=== PATIENT | male | born 1955 | race Caucasian/White ===

== ENCOUNTER 2017-01-04 18:27 | Inpatient (IN) | payer OTHER ==
[~2017-01-04] VITALS: Ht 167.6 cm; Wt 75.5 kg
[2017-01-04 18:57] VITALS: Ht 167.6 cm; Wt 75.5 kg
[2017-01-05] MEDS ORDERED: PIPER-TAZO 3.375 GM IV (PMX) 100 ML IVPB STA (01:54)
[2017-01-05] MEDS ORDERED: SODIUM CHLORIDE 0.9% 1L BAG IV* STA (01:54)
[2017-01-05] MEDS ORDERED: VANCOMYCIN 1 GM (PMX) 250 ML IVPB ONE (02:00)
[2017-01-05] MEDS ORDERED: morphine 2 MG INJ IV ONE (02:09)
--- NOTE | 2017-01-05 02:30 | RADRPT ---
PROCEDURE: XR Foot. CLINICAL INDICATION: Pain TECHNIQUE: AP, lateral and oblique views of the right foot was obtained. The images were reviewed on a PACS workstation. COMPARISON: None. FINDINGS: The bones of the foot appear intact, with no evidence of fracture, dislocation, or subluxation. Old fracture deformity is likely present in the distal right tibia and fibula. Demineralization limits evaluation of fine osseous detail.. No significant soft tissue swelling is seen. Soft tissue vascular calcifications. IMPRESSION: No acute fracture or dislocation. RPTAT: [facility] Physician Preethi Date Time Electronically viewed and signed by Physician Preethi on 01/05/2017 02:30 RS/
[2017-01-05 02:46] LABS: BASOPHILS % 0.3 % (0.0-2.0); CONDITION 1; EOSINOPHILS # 0.1 10^3/ul (0.0-0.5); EOSINOPHILS % 0.4 % (0.0-7.0); HEMATOCRIT 33.5 % (42.0-52.0); HEMOGLOBIN 11.5 g/dl (14.0-18.0); LYMPHOCYTES # 1.6 10^3/ul (0.8-2.9); LYMPHOCYTES % 10.7 % (15.0-51.0); MEAN CORPUSCULAR HEMOGLOBIN 35.9 pg (29.0-33.0); MEAN CORPUSCULAR HGB CONC 34.3 g/dl (32.0-37.0); MEAN CORPUSCULAR VOLUME 104.7 fl (82.0-101.0); MEAN PLATELET VOLUME 8.7 fl (7.4-10.4); MONOCYTE # 2.2 10^3/ul (0.3-0.9); MONOCYTES % 14.4 % (0.0-11.0); NEUTROPHIL # 11.4 10^3/ul (1.6-7.5); NEUTROPHILS % 74.2 % (39.0-77.0); PLATELET COUNT 199 10^3/UL (140-440); RED CELL DISTRIBUTION WIDTH 14.8 % (11.5-14.5); UNCORRECTED WBC 15.3 10^3/ul (4.8-10.8); WHITE BLOOD COUNT 15.3 10^3/ul (4.8-10.8)
[2017-01-05 02:47] LABS: LH ANALYZER COMMENTS 1
[2017-01-05 02:57] LABS: ALBUMIN 3.5 g/dl (3.3-4.9); POTASSIUM 3.8 mmol/L (3.5-5.1)
[2017-01-05 02:58] LABS: INR 1.27; PT RATIO 1.3
[2017-01-05 02:59] LABS: BILIRUBIN,INDIRECT 0.8 mg/dl (0-1.1); BILIRUBIN,TOTAL 0.8 mg/dl (0.2-1.3); CREATININE 1.14 mg/dl (0.61-1.24); PARTIAL THROMBOPLASTIN TIME 39.4 Sec (25.0-35.0)
[2017-01-05 03:00] LABS: ALBUMIN/GLOBULIN RATIO 0.66; CALCIUM 9.3 mg/dl (8.4-10.2); TOTAL PROTEIN 8.8 g/dl (6.1-8.1)
[2017-01-05] MEDS ORDERED: ONDANSETRON 4 MG INJ IV PRN (04:30)
[2017-01-05] MEDS ORDERED: ACETAMINOPHEN 325 MG TAB PO PRN (04:30)
--- NOTE | 2017-01-05 04:40 | ERA ---
ER Documentation Chief Complaint Date/Time DATE: 01/05/17 TIME: 04:32 Chief Complaint right leg swelling with redness and swelling of right foot HPI This 61-year-old male was brought in for severe right foot pain and swelling going on progressively for the last week or so. Has been told that he has mild diabetes previously by his doctor. The patient and his family member do not remember any specific puncture wound or trauma. Patient has been feeling chills at any quantitative fevers. Pain is made worse by walking. Patient has also not been eating for the last few days and has been drinking alcohol. Denies abdominal pain. Patient is deaf but his significant other is able to communicate for proper history. ROS All systems reviewed and are negative except as per history of present illness. Allergies Allergies: Coded Allergies: No Known Allergy (Unverified , 01/04/17) PMhx/Soc Medical and Surgical Hx: pt denies Medical Hx History of Surgery: Yes (ear sx when he was a child) Hx Alcohol Use: Yes (2-3 liters daily) Hx Substance Use: No Hx Tobacco Use: No Smoking Status: Never smoker Physical Exam Vitals Vital Signs Date Time Temp Pulse Resp B/P Pulse Ox O2 Delivery O2 Flow Rate FiO2 01/05/17 03:11 99.8 82 20 121/75 98 Room Air 01/04/17 18:57 100.1 89 20 206/96 99 Physical Exam Const: [] No acute distress Head: Atraumatic Eyes: Normal Conjunctiva ENT: Normal External Ears, Nose and Mouth. Neck: Full range of motion..~ No meningismus. Resp: Clear to auscultation bilaterally Cardio: Regular rate and rhythm, no murmurs Abd: Soft, non tender, non distended. Normal bowel sounds Skin: No petechiae or rashes Back: No midline or flank tenderness Ext: No cyanosis, dorsalis pedis pulses intact. Significant swelling, erythema, calor of right lower extremity with significant swelling and tenderness of the foot, also has swelling and tenderness of the lower leg which is circumferential. Neur: Awake and alert and oriented 3, no focal deficits Psych: Normal Mood and Affect Result Diagram: 01/05/17 02201/05/17 022 Results 24 hrs Laboratory Tests Test 01/05/17 02:20 Activated Partial Thromboplast Time 39.4Sec Alanine Aminotransferase (ALT/SGPT) 32IU/L Albumin 3.5g/dl Albumin/Globulin Ratio 0.66 Alkaline Phosphatase 131IU/L Anion Gap 18 Aspartate Amino Transf (AST/SGOT) 67IU/L Basophils # 0.010^3/ul Basophils % 0.3% Blood Morphology Comment Blood Urea Nitrogen 24mg/dl Calcium Level 9.3mg/dl Carbon Dioxide Level 25mmol/L Chloride Level 97mmol/L Creatinine 1.14mg/dl Direct Bilirubin 0.00mg/dl Eosinophils # 0.110^3/ul Eosinophils % 0.4% Globulin 5.30g/dl Glucose Level 188mg/dl Hematocrit 33.5% Hemoglobin 11.5g/dl INR International Normalized Ratio 1.27 Indirect Bilirubin 0.8mg/dl Lactic Acid Level 2.2mmol/L Lymphocytes # 1.610^3/ul Lymphocytes % 10.7% Mean Corpuscular Hemoglobin 35.9pg Mean Corpuscular Hemoglobin Concent 34.3g/dl Mean Corpuscular Volume 104.7fl Mean Platelet Volume 8.7fl Monocytes # 2.210^3/ul Monocytes % 14.4% Neutrophils # 11.410^3/ul Neutrophils % 74.2% Nucleated Red Blood Cells # 0.010^3/ul Nucleated Red Blood Cells % 0.0/100WBC Platelet Count 10433^3/UL Potassium Level 3.8mmol/L Prothrombin Time 16.0Sec Prothrombin Time Ratio 1.3 Red Blood Count 3.2010^6/ul Red Cell Distribution Width 14.8% Sodium Level 136mmol/L Total Bilirubin 0.8mg/dl Total Protein 8.8g/dl White Blood Count 15.310^3/ul Current Medications Medications (Trade) Dose Ordered Sig/Lucy Route PRN Reason Start Time Stop Time Status Last Admin Dose Admin Sodium Chloride 2340 ml 2,340 ml BOLUS OVER 2 HOURS STAT IV* 01/05/17 01:54 01/05/17 02:00 DC 01/05/17 02:26 Vancomycin HCl 250 ml @ 125 mls/hr ONCE ONCE IVPB 01/05/17 02:00 01/05/17 03:59 DC 01/05/17 03:14 Piperacillin Sod/ Tazobactam Sod (Zosyn 3.375gm/ 100 ml (Pmx)) 100 ml @ 200 mls/hr ONCE STAT IVPB 01/05/17 01:54 2/16/17 02:23 DC 01/05/17 02:26 Morphine Sulfate (morphine) 2 mg ONCE ONCE IV 01/05/17 02:09 01/05/17 02:10 DC 01/05/17 02:24 Ondansetron HCl (Zofran Inj) 4 mg BRIDGE ORDER PRN IV NAUSEA AND/OR VOMITING 01/05/17 04:30 01/06/17 04:29 Acetaminophen (Tylenol Tab) 650 mg ER BRIDGE PRN PO MILD PAIN/FEVER 01/05/17 04:30 01/06/17 04:29 Procedures/MDM Severe lower extremity cellulitis. No evidence of osteomyelitis on x-ray. Patient does have elevated white blood cell count cellulitis is extensive and very unlikely to be amenable to outpatient treatment and this may quickly become a limb threatening infection... Patient was given IV antibiotics vancomycin and Zosyn, was given 30 cc/kg of IV fluid normal saline. Also given IV morphine. He is being admitted to Dr. mcintosh for further management of his cellulitis and IV antibiotics. Right foot x-ray interpretation: No fracture dislocation or apparent bone erosion. No foreign bodies Departure Diagnosis: Primary Impression: Cellulitis of right lower extremity Additional Impressions: Macrocytic anemia Alcoholism Hyperglycemia Condition: Serious ELOISA DAVIS DO Jan 05, 2017 04:40
[2017-01-05] MEDS ORDERED: NACL 0.9% 3 ML SYG IV SCH (08:00)
[2017-01-05] MEDS ORDERED: VANCOMYCIN IV PER PHARMACY XX SCH (08:00)
[2017-01-05] MEDS ORDERED: HYDROCODONE/APAP (5/325) TAB PO PRN (08:00)
[2017-01-05] MEDS ORDERED: morphine 2 MG INJ IV PRN (08:00)
[2017-01-05] MEDS: SOD CHLORIDE 0.9% 1,000 ML IV SCH ×2 (09:18→17:48)
[2017-01-05] MEDS: CEFEPIME 1GM/50 ML (PMX) 50 ML IVPB SCH ×2 (09:29→21:29)
[2017-01-05] MEDS: HEPARIN 5,000 UNIT/0.5 ML SYG SC SCH ×2 (09:32→21:37)
[2017-01-05 15:00] VITALS: TEMP 97.9
[2017-01-05] MEDS: VANCOMYCIN 1 GM in NS 250 ML IVPB SCH (15:12)
--- NOTE | 2017-01-05 16:29 | CONS ---
DATE OF ADMISSION: 01/04/2017 DATE OF CONSULTATION: 01/05/2017 TYPE OF CONSULTATION: Infectious Disease. REASON FOR CONSULTATION: Antibiotic management. HISTORY OF PRESENT ILLNESS: Eric Anthony is a 61-year-old male with a number of p roblems who was brought in with right leg swelling and redness of the right foot. His past problems include: 1. Adult-onset diabetes mellitus/mild. 2. Deafness. Acutely, the patient was brought in with severe right foot pain and swelling going on progressively for the last week or so. He has been having chills, but no fever and the pain is made worse by walk ing. He has not been eating for the last few days and has been drinking alcohol. He denies abdomin al pain. On admission, his white count is 15.3, H and H 11.5 and 33.5, platelet count 199. BUN and creatinine 24/1.14, glucose of 118. PAST SURGICAL HISTORY: Operation on his ear when he was a child. FAMILY HISTORY: Noncontributory. SOCIAL HISTORY: He drinks 2 to 3 liters of alcohol a day. He does not smoke or abuse drugs. ALLERGIES: NONE TO PENICILLIN, SULFA OR FOODS. MEDICATIONS: Per chart. REVIEW OF SYSTEMS: As per HPI. PHYSICAL EXAMINATION: GENERAL: The patient is a well-developed, well-nourished male who is alert and responsive, in no ac gautam distress. VITAL SIGNS: Stable. He is afebrile. SKIN: Without generalized rash. HEENT: Within normal limits. NECK: Supple. LYMPH NODES: None palpable. CHEST: Decreased breath sounds at the bases. HEART: Without murmur or gallop. ABDOMEN: Soft, nontender, without organosplenomegaly or masses. EXTREMITIES: Without cyanosis or clubbing. He has significant swelling and erythema as well as war mth of the right lower extremity with significant swelling and tenderness of the foot and of the low er leg which is circumferential. RECTAL/GENITAL: Deferred. NEUROLOGIC: No focal neurological abnormalities. IMPRESSION AND PLAN: The patient comes in now with diabetic foot and white count of 15.3. His x-ra y shows no acute fracture or dislocation. He was started on vancomycin and cefepime. We will ritu nue him on this regimen for the time being. Wound care has been asked to see him. Blood cultures h ave been done. He has received Zosyn as well. I will dictate my findings to Dr. Pedro and the hospi talist. Dictated By: BETTIE BRAGG MD, JD/FREDERICK Conf#: [id number] DID#: [id number]
--- NOTE | 2017-01-05 16:51 | PN ---
Date/Time of Note Date/Time of Note DATE: 01/05/17 TIME: 16:47 Assessment/Plan VTE Prophylaxis VTE Prophylaxis Intervention: heparin Assessment/Plan Chief Complaint/Hosp Course Assessment and plan 1. Sepsis secondary to right lower extremity wound/cellulitis. Will follow up on cultures. Empirically on antibiotics for now. Will consult to follow. Follow-up on MRI of right lower extremity for suspect osteomyelitis. Podiatry to follow pending clinical course 2. Leukocytosis secondary to #1. Continue with antipyretics as needed. On antibiotics. 3. Mild transaminitis. No reported abdominal pain. No reported history of alcohol abuse. Will monitor for now. Will follow trend DVT prophylaxis: Heparin Disposition and plan: Continue on antibiotics. ID consulted. Follow-up an MRI of the right lower extremity. Discussed plan of care with Dr. Ibrahim Problems: Subjective 24 Hr Interval Summary Free Text/Dictation noted to be deaf. no distress noted at this time Exam/Review of Systems Vital Signs Vitals Vital Signs Date Time Temp Pulse Resp B/P Pulse Ox O2 Delivery O2 Flow Rate FiO2 01/05/17 13:00 68 16 132/72 100 Room Air 01/05/17 06:30 98.8 Exam General: no s/s of distress. noted to be deaf Eyes: [pupils equal round, Anicteric sclera] Neck: Supple nontender, no JVD Cardiac: [S1, S2 auscultated, regular rhythm and rate] Pulmonary: [No coarse rhonchi or breathing auscultated] GI: [Abdomen soft nontender nondistended, bowel sounds active] Extremities: edema bilateral lower extremities Skin: purulent drainage from right foot wound Neurologic: [Alert to person place and time and situation] Results Result Diagram: 01/05/1721901/05/17 0220 Results 24 hrs Laboratory Tests Test 01/05/17 02:20 01/05/17 04:30 01/05/17 05:25 Activated Partial Thromboplast Time 39.4 H Alanine Aminotransferase (ALT/SGPT) 32 Albumin 3.5 Albumin/Globulin Ratio 0.66 Alkaline Phosphatase 131 H Anion Gap 18 H Aspartate Amino Transf (AST/SGOT) 67 H Basophils # 0.0 Basophils % 0.3 Blood Morphology Comment Blood Urea Nitrogen 24 H Calcium Level 9.3 Carbon Dioxide Level 25 Chloride Level 97 Creatinine 1.14 Direct Bilirubin 0.00 Eosinophils # 0.1 Eosinophils % 0.4 Globulin 5.30 H Glucose Level 188 Hematocrit 33.5 L Hemoglobin 11.5 L INR International Normalized Ratio 1.27 Indirect Bilirubin 0.8 Lactic Acid Level 2.2 1.1 1.5 Lymphocytes # 1.6 Lymphocytes % 10.7 L Mean Corpuscular Hemoglobin 35.9 H Mean Corpuscular Hemoglobin Concent 34.3 Mean Corpuscular Volume 104.7 H Mean Platelet Volume 8.7 Monocytes # 2.2 H Monocytes % 14.4 H Neutrophils # 11.4 H Neutrophils % 74.2 Nucleated Red Blood Cells # 0.0 Nucleated Red Blood Cells % 0.0 Platelet Count 199 Potassium Level 3.8 Prothrombin Time 16.0 H Prothrombin Time Ratio 1.3 Red Blood Count 3.20 L Red Cell Distribution Width 14.8 H Sodium Level 136 Total Bilirubin 0.8 Total Protein 8.8 H White Blood Count 15.3 H Lipase 288 Medications Medications Current Medications Sodium Chloride (NS) 1,000 ml @ 100 mls/hr Q10H IV Last administered on 09:18; Admin Dose 100 MLS/HR; Start 01/05/17 at 07:48; Stop 01/05/17 at 20: 00 Ondansetron HCl (Zofran Inj) 4 mg Q6H PRN IV NAUSEA AND/OR VOMITING; Start at 08:00 Acetaminophen (Tylenol Tab) 650 mg Q6H PRN PO PAIN LEVEL 1-3 OR FEVER; Start at 08:00 Acetaminophen/ Hydrocodone Bitart ([place] (5/325)) 1 tab Q6H PRN PO MODERATE PAIN LEVEL 4-6; Start 01/05/17 at 08:00 Morphine Sulfate (morphine) 2 mg Q4H PRN IV SEVERE PAIN LEVEL 7-10; Start 01/05 at 08:00 Heparin Sodium (Porcine) 5000 unit 5,000 unit Q12 SC Last administered on 09:32; Admin Dose 5,000 UNIT; Start 01/05/17 at 09:00 Cefepime HCl 50 ml @ 100 mls/hr Q12 IVPB Last administered on 01/05/17 09:29 ; Admin Dose 100 MLS/HR; Start 01/05/17 at 09:00 Vancomycin HCl (Vancocin) 250 ml @ 125 mls/hr Q12H IVPB Last administered on t 15:12; Admin Dose 125 MLS/HR; Start 01/05/17 at 15:00 ENRIKE BARCENAS Jan 05, 2017 16:51
--- NOTE | 2017-01-05 23:10 | HP ---
Date/Time of Note Date/Time of Note DATE: 01/05/17 TIME: 23:10 Assessment/Plan VTE Prophylaxis VTE Prophylaxis Intervention: heparin Assessment/Plan Assessment/Plan IMPRESSION 1. Right Lower ext Cellulitis - cont abx - f/u culture results - ID consult - pain mgmt 2. Sepsis cellulitis - see above 3. Hypertensive urgency: BP better controlled - Cont meds and adjust as needed 4. Alcohol Abuse - Monitor for withdrawal - Abstinence advised 5. Macrocytic Anemia: likely etiology is alcohol - monitor hgb and transfuse as needed HPI/ROS Admit Date/Time Admit Date/Time Jan 05, 2017 at 04:22 Hx of Present Illness This 61-year-old male was brought in for severe right foot pain and swelling going on progressively for the last week or so. Has been told that he has mild diabetes previously by his doctor. The patient and his family member do not remember any specific puncture wound or trauma. Patient has been feeling chills at any quantitative fevers. Pain is made worse by walking. Patient has also not been eating for the last few days and has been drinking alcohol. Denies abdominal pain. Patient is deaf but his significant other is able to communicate for proper history. ER Course: BP 206/96. temp 100.1, WBC 15K. Foot xray with no fx or dislocation. PMH/Family/Social Social History Smoking Status: Unknown if ever smoked Exam/Review of Systems Vital Signs Vitals Vital Signs Date Time Temp Pulse Resp B/P Pulse Ox O2 Delivery O2 Flow Rate FiO2 01/05/17 21:48 76 19 144/77 98 Room Air 01/05/17 15:00 97.9 Exam Constitutional: alert, oriented, well developed Head: atraumatic, normocephalic Eyes: EOMI, PERRL Neck: non-tender, supple Respiratory: clear to auscultation, normal air movement Cardiovascular: nl pulses, regular rate and rhythm Gastrointestinal: non-tender, soft Extremities: edema, other (erythema), tenderness Labs Result Diagram: 01/05/1721901/05/17219 Medications Medications Current Medications Ondansetron HCl (Zofran Inj) 4 mg Q6H PRN IV NAUSEA AND/OR VOMITING; Start at 08:00 Acetaminophen (Tylenol Tab) 650 mg Q6H PRN PO PAIN LEVEL 1-3 OR FEVER; Start at 08:00 Acetaminophen/ Hydrocodone Bitart ([place] (5/325)) 1 tab Q6H PRN PO MODERATE PAIN LEVEL 4-6; Start 01/05/17 at 08:00 Morphine Sulfate (morphine) 2 mg Q4H PRN IV SEVERE PAIN LEVEL 7-10; Start 01/05 at 08:00 Heparin Sodium (Porcine) 5000 unit 5,000 unit Q12 SC Last administered on 21:37; Admin Dose 5,000 UNIT; Start 01/05/17 at 09:00 Cefepime HCl 50 ml @ 100 mls/hr Q12 IVPB Last administered on 01/05/17 21:29 ; Admin Dose 100 MLS/HR; Start 01/05/17 at 09:00 Vancomycin HCl (Vancocin) 250 ml @ 125 mls/hr Q12H IVPB Last administered on 15:12; Admin Dose 125 MLS/HR; Start 01/05/17 at 15:00 MITZI JOHNSON MD Jan 05, 2017 23:10
[2017-01-05 23:41] VITALS: BP 141/80; RESP 19
[2017-01-06] MEDS: VANCOMYCIN 1 GM in NS 250 ML IVPB SCH ×2 (02:49→15:52)
[2017-01-06 06:47] LABS: BASOPHIL # 0.1 10^3/ul (0.0-0.1); BASOPHILS % 0.6 % (0.0-2.0); EOSINOPHILS # 0.1 10^3/ul (0.0-0.5); EOSINOPHILS % 1.4 % (0.0-7.0); HEMATOCRIT 30.3 % (42.0-52.0); HEMOGLOBIN 10.5 g/dl (14.0-18.0); LYMPHOCYTES # 1.5 10^3/ul (0.8-2.9); LYMPHOCYTES % 14.6 % (15.0-51.0); MEAN CORPUSCULAR HGB CONC 34.6 g/dl (32.0-37.0); MEAN PLATELET VOLUME 8.3 fl (7.4-10.4); MONOCYTE # 1.2 10^3/ul (0.3-0.9); MONOCYTES % 11.3 % (0.0-11.0); NEUTROPHIL # 7.6 10^3/ul (1.6-7.5); NEUTROPHILS % 72.1 % (39.0-77.0); PLATELET COUNT 179 10^3/UL (140-440); RED BLOOD COUNT 2.92 10^6/ul (4.70-6.10); RED CELL DISTRIBUTION WIDTH 14.7 % (11.5-14.5); UNCORRECTED WBC 10.6 10^3/ul (4.8-10.8); WHITE BLOOD COUNT 10.6 10^3/ul (4.8-10.8)
[2017-01-06 06:57] LABS: CONDITION 1; LH ANALYZER COMMENTS 1
[2017-01-06 07:17] LABS: IRON 42 ug/dl (35-150)
[2017-01-06 07:21] LABS: ALBUMIN/GLOBULIN RATIO 0.58
[2017-01-06 07:26] LABS: TOTAL IRON BINDING CAPACITY 211 ug/dl (241-421)
[2017-01-06 07:28] LABS: BILIRUBIN,INDIRECT 0.4 mg/dl (0-1.1); BILIRUBIN,TOTAL 0.4 mg/dl (0.2-1.3); CALCIUM 7.8 mg/dl (8.4-10.2); CREATININE 0.77 mg/dl (0.61-1.24); MAGNESIUM 1.6 mg/dl (1.7-2.5); PHOSPHORUS 2.1 mg/dl (2.5-4.9); POTASSIUM 3.2 mmol/L (3.5-5.1)
[2017-01-06 07:29] LABS: ALBUMIN 2.5 g/dl (3.3-4.9); TOTAL PROTEIN 6.8 g/dl (6.1-8.1)
[2017-01-06 07:56] LABS: ALBUMIN 2.6 g/dl (3.3-4.9)
[2017-01-06 07:58] LABS: BILIRUBIN,INDIRECT 0.4 mg/dl (0-1.1); BILIRUBIN,TOTAL 0.4 mg/dl (0.2-1.3); TOTAL PROTEIN 6.9 g/dl (6.1-8.1)
[2017-01-06 08:10] VITALS: BP 149/74; RESP 20
[2017-01-06] MEDS ORDERED: POTASSIUM CHLORIDE (SR) 20 MEQ TAB PO STA (08:41)
--- NOTE | 2017-01-06 08:55 | PN ---
Date/Time of Note Date/Time of Note DATE: 01/06/17 TIME: 08:50 Assessment/Plan VTE Prophylaxis VTE Prophylaxis Intervention: heparin Lines/Catheters IV [facility] [place] Assessment/Plan Chief Complaint/Hosp Course Assessment and plan 1. Sepsis secondary to right lower extremity wound/cellulitis. Will follow up on cultures. Empirically on antibiotics for now. Will consult to follow. Follow-up on MRI of right lower extremity for suspect osteomyelitis. Podiatry to follow pending clinical course 2. Leukocytosis secondary to #1. Continue with antipyretics as needed. On antibiotics. 3. Mild transaminitis. No reported abdominal pain. No reported history of alcohol abuse. Will monitor for now. Will follow trend 4. hx hypertension. stable at present. will monitor. provide with antihypertensives as needed 5. hx ETOH abuse. Cessation advised 6. Iron deficiency anemia. Patient started on iron supplement DVT prophylaxis: Heparin Disposition and plan: Cont on abx per ID. Await wound care consult and further imaging of RLE Discussed plan of care with Dr. Ibrahim Problems: Subjective 24 Hr Interval Summary Free Text/Dictation no s/s of distress. Exam/Review of Systems Vital Signs Vitals Vital Signs Date Time Temp Pulse Resp B/P Pulse Ox O2 Delivery O2 Flow Rate FiO2 01/06/17 08:10 99.0 66 20 149/74 96 01/05/17 21:48 Room Air Intake and Output 01/05/17 01/05/17 01/06/17 15:00 23:00 07:00 Intake Total 625 ml 1050 ml 250 ml Output Total 1050 ml 500 ml Balance -425 ml 1050 ml -250 ml Exam General: no s/s of distress. noted to be deaf Eyes: [pupils equal round, Anicteric sclera] Neck: Supple nontender, no JVD Cardiac: [S1, S2 auscultated, regular rhythm and rate] Pulmonary: [No coarse rhonchi or breathing auscultated] GI: [Abdomen soft nontender nondistended, bowel sounds active] Extremities: edema bilateral lower extremities Skin: purulent drainage from right foot wound Neurologic: [Alert to person place and time and situation] Results Result Diagram: 01/06/17 0520 01/06/17 0520 Results 24 hrs Laboratory Tests Test 01/06/17 05:20 Alanine Aminotransferase (ALT/SGPT) 28 Albumin 2.6 L Albumin/Globulin Ratio 0.58 Alkaline Phosphatase 108 Anion Gap 12 Aspartate Amino Transf (AST/SGOT) 51 H Basophils # 0.1 Basophils % 0.6 Blood Morphology Comment Blood Urea Nitrogen 11 # Calcium Level 7.8 L Carbon Dioxide Level 23 Chloride Level 104 Creatinine 0.77 Direct Bilirubin 0.00 Eosinophils # 0.1 Eosinophils % 1.4 Globulin 4.30 H Glucose Level 148 # Hematocrit 30.3 L Hemoglobin 10.5 L Indirect Bilirubin 0.4 Iron Level 42 Lymphocytes # 1.5 Lymphocytes % 14.6 L Magnesium Level 1.6 L Mean Corpuscular Hemoglobin 36.0 H Mean Corpuscular Hemoglobin Concent 34.6 Mean Corpuscular Volume 104.0 H Mean Platelet Volume 8.3 Monocytes # 1.2 H Monocytes % 11.3 H Neutrophils # 7.6 H Neutrophils % 72.1 Nucleated Red Blood Cells # 0.0 Nucleated Red Blood Cells % 0.0 Percent Iron Saturation 20 L Phosphorus Level 2.1 L Platelet Count 179 Potassium Level 3.2 L Red Blood Count 2.92 L Red Cell Distribution Width 14.7 H Sodium Level 136 Total Bilirubin 0.4 Total Iron Binding Capacity 211 L Total Protein 6.9 White Blood Count 10.6 # Medications Medications Current Medications Ondansetron HCl (Zofran Inj) 4 mg Q6H PRN IV NAUSEA AND/OR VOMITING; Start at 08:00 Acetaminophen (Tylenol Tab) 650 mg Q6H PRN PO PAIN LEVEL 1-3 OR FEVER; Start at 08:00 Acetaminophen/ Hydrocodone Bitart ([place] (5/325)) 1 tab Q6H PRN PO MODERATE PAIN LEVEL 4-6; Start 01/05/17 at 08:00 Morphine Sulfate (morphine) 2 mg Q4H PRN IV SEVERE PAIN LEVEL 7-10; Start 01/05 at 08:00 Heparin Sodium (Porcine) 5000 unit 5,000 unit Q12 SC Last administered on 21:37; Admin Dose 5,000 UNIT; Start 01/05/17 at 09:00 Cefepime HCl 50 ml @ 100 mls/hr Q12 IVPB Last administered on 01/05/17 21:29 ; Admin Dose 100 MLS/HR; Start 01/05/17 at 09:00 Vancomycin HCl 250 ml @ 125 mls/hr Q12H IVPB Last administered on 01/06/17t 02 :49; Admin Dose 125 MLS/HR; Start 01/05/17 at 15:00 Magnesium Sulfate (Magnesium Sulfate 2 Gm/50 ml) 50 ml @ 25 mls/hr ONCE ONCE IVPB ; Start 01/06/17 at 09:00; Stop 01/06/17 at 10:59 Ferrous Sulfate (Ferrous Sulfate (Ec)) 325 mg BID PO ; Start 01/06/17 at 09:00 ENRIKE BARCENAS Jan 06, 2017 08:55
[2017-01-06] MEDS ORDERED: MAGNESIUM SULFATE 2 GM/50 ML 50 ML IVPB ONE (09:00)
[2017-01-06] MEDS: FERROUS SULFATE (EC) 325 MG TAB PO SCH ×2 (09:38→20:49)
[2017-01-06] MEDS: HEPARIN 5,000 UNIT/0.5 ML SYG SC SCH ×2 (10:15→21:05)
[2017-01-06] MEDS: CEFEPIME 1GM/50 ML (PMX) 50 ML IVPB SCH ×2 (10:19→20:50)
[2017-01-06] MEDS: ACETAMINOPHEN 325 MG TAB PO PRN (12:11)
--- NOTE | 2017-01-06 13:06 | CONS ---
Date/Time of Note Date/Time of Note DATE: 01/06/17 TIME: 13:04 Assessment/Plan Assessment/Plan Chief Complaint/Hosp Course Pt is off the floor for MRI Per report had bleeding from his wound No fevers Abx: Vanco Cefepime Wound cx + St aureus Plan: Continue abx, f/u final cx, await for MRI report, podiatry debbie TURCIOS RN Problems: Consultation Date/Type/Reason Admit Date/Time Jan 05, 2017 at 04:22 Initial Consult Date Type of Consultation: ID Referring Provider: ENRIKE BARCENAS Exam/Review of Systems Vital Signs Vitals Vital Signs Date Time Temp Pulse Resp B/P Pulse Ox O2 Delivery O2 Flow Rate FiO2 01/06/17 08:10 99.0 66 20 149/74 96 01/05/17 21:48 Room Air Intake and Output 01/05/17 01/05/17 01/06/17 15:00 23:00 07:00 Intake Total 625 ml 1050 ml 250 ml Output Total 1050 ml 500 ml Balance -425 ml 1050 ml -250 ml Results Result Diagram: 01/06/17 0520 01/06/17 0520 Results 24 hrs Laboratory Tests Test 01/06/17 05:20 Alanine Aminotransferase (ALT/SGPT) 28 Albumin 2.6 L Albumin/Globulin Ratio 0.58 Alkaline Phosphatase 108 Anion Gap 12 Aspartate Amino Transf (AST/SGOT) 51 H Basophils # 0.1 Basophils % 0.6 Blood Morphology Comment Blood Urea Nitrogen 11 # Calcium Level 7.8 L Carbon Dioxide Level 23 Chloride Level 104 Creatinine 0.77 Direct Bilirubin 0.00 Eosinophils # 0.1 Eosinophils % 1.4 Globulin 4.30 H Glucose Level 148 # Hematocrit 30.3 L Hemoglobin 10.5 L Hemoglobin A1c 7.0 H Indirect Bilirubin 0.4 Iron Level 42 Lymphocytes # 1.5 Lymphocytes % 14.6 L Magnesium Level 1.6 L Mean Corpuscular Hemoglobin 36.0 H Mean Corpuscular Hemoglobin Concent 34.6 Mean Corpuscular Volume 104.0 H Mean Platelet Volume 8.3 Monocytes # 1.2 H Monocytes % 11.3 H Neutrophils # 7.6 H Neutrophils % 72.1 Nucleated Red Blood Cells # 0.0 Nucleated Red Blood Cells % 0.0 Percent Iron Saturation 20 L Phosphorus Level 2.1 L Platelet Count 179 Potassium Level 3.2 L Red Blood Count 2.92 L Red Cell Distribution Width 14.7 H Sodium Level 136 Total Bilirubin 0.4 Total Iron Binding Capacity 211 L Total Protein 6.9 White Blood Count 10.6 # Medications Medications Current Medications Ondansetron HCl (Zofran Inj) 4 mg Q6H PRN IV NAUSEA AND/OR VOMITING; Start at 08:00 Acetaminophen (Tylenol Tab) 650 mg Q6H PRN PO PAIN LEVEL 1-3 OR FEVER Last administered on 01/06/17 12:11; Admin Dose 650 MG; Start 01/05/17 at 08:00 Acetaminophen/ Hydrocodone Bitart ([place] (5/325)) 1 tab Q6H PRN PO MODERATE PAIN LEVEL 4-6; Start 01/05/17 at 08:00 Morphine Sulfate (morphine) 2 mg Q4H PRN IV SEVERE PAIN LEVEL 7-10; Start 01/05 at 08:00 Heparin Sodium (Porcine) 5000 unit 5,000 unit Q12 SC Last administered on 10:15; Admin Dose 5,000 UNIT; Start 01/05/17 at 09:00 Cefepime HCl 50 ml @ 100 mls/hr Q12 IVPB Last administered on 01/06/17 10:19 ; Admin Dose 100 MLS/HR; Start 01/05/17 at 09:00 Vancomycin HCl (Vancocin) 250 ml @ 125 mls/hr Q12H IVPB Last administered on 02:49; Admin Dose 125 MLS/HR; Start 01/05/17 at 15:00 Ferrous Sulfate (Ferrous Sulfate (Ec)) 325 mg BID PO Last administered on 09:38; Admin Dose 325 MG; Start 01/06/17 at 09:00 Miscellaneous Information (*Rx Drug Level Order Reminder*) 1 ONCE ONCE XX ; Start 01/07/17 at 02:00; Stop 01/07/17 at 02:01 ABBY ABURTO NP Jan 06, 2017 13:06
--- NOTE | 2017-01-06 14:27 | RADRPT ---
PROCEDURE: MRI OF THE RIGHT FOOT. CLINICAL INDICATION: Possible osteomyelitis. Diabetic wound. TECHNIQUE: Multiple MR pulse sequences in multiple planes were obtained. Images were interpreted on the high-resolution PACS system. COMPARISON: Correlation with radiograph from 01/05/2017 FINDINGS: There is a skin defect at the dorsal margin of the forefoot between the first and second proximal ph alanges seen on the coronal sequence image 27. There is a marked amount of subcutaneous hyperintens ity extending plantar to the second phalanges seen on the same image and extending more proximally o zion the dorsum of second ray consistent with abscess. The phlegmonous collection versus abscess norah sures up to 6.5 x 2.0 x 4.8 cm (AP by CC by TR) and may partially involve the extensor distal tendon sheaths. There is abnormal 21 bone marrow signal infiltration and edema at the distal phalanx of the first di git consistent with osteomyelitis. There is mild edema at the second proximal phalanx with faint T1 bone marrow signal infiltration at the base of the phalanx, likely representing early osteomyelitis due to the adjacent ulcer. Bone marrow signal elsewhere is normal without additional foci of osteo myelitis. There is distension of the second MTP joint capsule, suggesting septic arthritis. A tiny focus of air is noted plantar to the first distal phalanx. IMPRESSION: 1. Presence of an ulcer at the dorsal margin of the forefoot between the first and second phalanges with a phlegmonous collection/abscess seen in this region and extending proximally along the dorsum of the second ray likely involving the extensor tendons and measures up to 6.5 x 2.0 x 4.8 cm. 2. Findings of osteomyelitis at the first distal phalanx. 3. Suggestion of septic arthritis at the second MTP joint and early changes of osteomyelitis at the base of the proximal phalanx. RPTAT: UU .Odilon Mcclain MD, Date Time Electronically viewed and signed by .Odilon Mcclain MD, MD on 01/06/2017 14:27 .d/
[2017-01-06 20:48] VITALS: BP 155/80; RESP 20
--- NOTE | 2017-01-06 21:00 | CONS ---
Date/Time of Note Date/Time of Note DATE: 01/06/17 TIME: 20:59 Assessment/Plan Assessment/Plan Problems: (1) Foot abscess, right (2) Unspecified open wound, right foot, initial encounter (3) Cellulitis of right foot (4) Diabetes, polyneuropathy Additional Assessment/Plan Patient may require incision and drainage. Patient will be scheduled for surgery. Dakin solution to be used along with daily dressing changes. Thank you very much for the consultation. Patient will be followed in-house. Consultation Date/Type/Reason Admit Date/Time Jan 05, 2017 at 04:22 Date of Consultation: Jan 06, 2017 Type of Consultation: Foot and ankle surgery Reason for Consultation Diabetic foot Hx of Present Illness Thank you very much for involving me in the care of this patient. As you very well know this is a 61-year-old male patient was brought in a severe right foot swelling and pain that has gotten progressively worse for the last week or so. Patient has multiple medical problems including diabetes mellitus and I was consulted for evaluation of his right foot pain. Patient denies fever and chills. Denies trauma to his lower extremity. Past Medical History As per history of present illness. Past Surgical History As per history of present illness. Social History As per history of present illness. Smoking Status: Unknown if ever smoked Exam/Review of Systems Vital Signs Vitals Vital Signs Date Time Temp Pulse Resp B/P Pulse Ox O2 Delivery O2 Flow Rate FiO2 01/06/17 20:48 100.0 64 20 155/80 98 01/05/17 21:48 Room Air Intake and Output 01/05/17 01/05/17 01/06/17 15:00 23:00 07:00 Intake Total 625 ml 1050 ml 250 ml Output Total 1050 ml 500 ml Balance -425 ml 1050 ml -250 ml Exam Patient was examined at bedside. Patient has significant infection of the forefoot multiple macerated webspaces. There is dried blood noted throughout the forefoot and webspaces. There is no active pus or active bleeding. There is malodor present. Dorsalis pedis and posterior tibial pulses weak bilaterally. Decreased sensation noted to sharp dull vibratory and temperature stimuli. Labs and imaging were reviewed. Results Result Diagram: 01/06/1720 01/06/17 0520 Results 24 hrs Laboratory Tests Test 01/06/17 05:20 Alanine Aminotransferase (ALT/SGPT) 28 Albumin 2.6 L Albumin/Globulin Ratio 0.58 Alkaline Phosphatase 108 Anion Gap 12 Aspartate Amino Transf (AST/SGOT) 51 H Basophils # 0.1 Basophils % 0.6 Blood Morphology Comment Blood Urea Nitrogen 11 # Calcium Level 7.8 L Carbon Dioxide Level 23 Chloride Level 104 Creatinine 0.77 Direct Bilirubin 0.00 Eosinophils # 0.1 Eosinophils % 1.4 Globulin 4.30 H Glucose Level 148 # Hematocrit 30.3 L Hemoglobin 10.5 L Hemoglobin A1c 7.0 H Indirect Bilirubin 0.4 Iron Level 42 Lymphocytes # 1.5 Lymphocytes % 14.6 L Magnesium Level 1.6 L Mean Corpuscular Hemoglobin 36.0 H Mean Corpuscular Hemoglobin Concent 34.6 Mean Corpuscular Volume 104.0 H Mean Platelet Volume 8.3 Monocytes # 1.2 H Monocytes % 11.3 H Neutrophils # 7.6 H Neutrophils % 72.1 Nucleated Red Blood Cells # 0.0 Nucleated Red Blood Cells % 0.0 Percent Iron Saturation 20 L Phosphorus Level 2.1 L Platelet Count 179 Potassium Level 3.2 L Red Blood Count 2.92 L Red Cell Distribution Width 14.7 H Sodium Level 136 Total Bilirubin 0.4 Total Iron Binding Capacity 211 L Total Protein 6.9 White Blood Count 10.6 # Medications Medications Current Medications Ondansetron HCl (Zofran Inj) 4 mg Q6H PRN IV NAUSEA AND/OR VOMITING; Start at 08:00 Acetaminophen (Tylenol Tab) 650 mg Q6H PRN PO PAIN LEVEL 1-3 OR FEVER Last administered on 01/06/17 12:11; Admin Dose 650 MG; Start 01/05/17 at 08:00 Acetaminophen/ Hydrocodone Bitart ([place] (5/325)) 1 tab Q6H PRN PO MODERATE PAIN LEVEL 4-6; Start 01/05/17 at 08:00 Morphine Sulfate (morphine) 2 mg Q4H PRN IV SEVERE PAIN LEVEL 7-10; Start 01/05 at 08:00 Heparin Sodium (Porcine) 5000 unit 5,000 unit Q12 SC Last administered on 10:15; Admin Dose 5,000 UNIT; Start 01/05/17 at 09:00 Cefepime HCl 50 ml @ 100 mls/hr Q12 IVPB Last administered on 01/06/17 10:19 ; Admin Dose 100 MLS/HR; Start 01/05/17 at 09:00 Vancomycin HCl (Vancocin) 250 ml @ 125 mls/hr Q12H IVPB Last administered on 15:52; Admin Dose 125 MLS/HR; Start 01/05/17 at 15:00 Ferrous Sulfate (Ferrous Sulfate (Ec)) 325 mg BID PO Last administered on 09:38; Admin Dose 325 MG; Start 01/06/17 at 09:00 Miscellaneous Information (*Rx Drug Level Order Reminder*) 1 ONCE ONCE XX ; Start 01/07/17 at 02:00; Stop 01/07/17 at 02:01 CONNER GORDON DPM Jan 06, 2017 21:00
[2017-01-07] MEDS: VANCOMYCIN 1 GM in NS 250 ML IVPB SCH ×2 (03:11→15:21)
[2017-01-07 05:50] LABS: BASOPHIL # 0.1 10^3/ul (0.0-0.1); BASOPHILS % 0.6 % (0.0-2.0); EOSINOPHILS # 0.2 10^3/ul (0.0-0.5); EOSINOPHILS % 1.8 % (0.0-7.0); HEMATOCRIT 30.6 % (42.0-52.0); HEMOGLOBIN 10.6 g/dl (14.0-18.0); LYMPHOCYTES # 2.2 10^3/ul (0.8-2.9); LYMPHOCYTES % 20.5 % (15.0-51.0); MEAN CORPUSCULAR HEMOGLOBIN 36.2 pg (29.0-33.0); MEAN CORPUSCULAR HGB CONC 34.5 g/dl (32.0-37.0); MEAN CORPUSCULAR VOLUME 104.9 fl (82.0-101.0); MONOCYTE # 1.1 10^3/ul (0.3-0.9); MONOCYTES % 10.3 % (0.0-11.0); NEUTROPHIL # 7.3 10^3/ul (1.6-7.5); NEUTROPHILS % 66.8 % (39.0-77.0); PLATELET COUNT 181 10^3/UL (140-440); RED BLOOD COUNT 2.92 10^6/ul (4.70-6.10); RED CELL DISTRIBUTION WIDTH 14.6 % (11.5-14.5); UNCORRECTED WBC 10.9 10^3/ul (4.8-10.8); WHITE BLOOD COUNT 10.9 10^3/ul (4.8-10.8)
[2017-01-07 06:12] LABS: CONDITION 1; LH ANALYZER COMMENTS 1; POTASSIUM 3.6 mmol/L (3.5-5.1)
[2017-01-07 06:14] LABS: CREATININE 0.87 mg/dl (0.61-1.24)
[2017-01-07 06:15] LABS: MAGNESIUM 1.8 mg/dl (1.7-2.5)
[2017-01-07] MEDS: ACETAMINOPHEN 325 MG TAB PO PRN (06:40)
[2017-01-07 07:21] VITALS: BP 158/74; RESP 20
[2017-01-07] MEDS: FERROUS SULFATE (EC) 325 MG TAB PO SCH ×2 (08:55→21:18)
[2017-01-07] MEDS: CEFEPIME 1GM/50 ML (PMX) 50 ML IVPB SCH (08:55)
--- NOTE | 2017-01-07 09:00 | PN ---
Date/Time of Note Date/Time of Note DATE: 01/07/17 TIME: 08:57 Assessment/Plan VTE Prophylaxis VTE Prophylaxis Intervention: SCD's Lines/Catheters IV Catheter Type (from [facility]): Saline Lock Assessment/Plan Chief Complaint/Hosp Course Assessment and plan 1. Sepsis secondary to right lower extremity wound/cellulitis. wound culture did show staph aureus. MRI of foot shoed osteomyelitis. podiatry and vascular neurologist consulted 2. Leukocytosis secondary to #1. Continue with antipyretics as needed. On antibiotics. 3. Mild transaminitis. No reported abdominal pain. No reported history of alcohol abuse. Will monitor for now. Will follow trend 4. hx hypertension. stable at present. will monitor. provide with antihypertensives as needed 5. hx ETOH abuse. Cessation advised 6. Iron deficiency anemia. Patient started on iron supplement DVT prophylaxis: Heparin Disposition and plan: continue wound care and abx. podiatry following. follow up with vascular surgeon consultation Discussed plan of care with Dr. Ibrhaim Problems: Subjective 24 Hr Interval Summary Free Text/Dictation still reports having some right foot pain. still noted with some drainage Exam/Review of Systems Vital Signs Vitals Vital Signs Date Time Temp Pulse Resp B/P Pulse Ox O2 Delivery O2 Flow Rate FiO2 01/07/17 07:21 98.8 67 20 158/74 99 01/05/17 21:48 Room Air Intake and Output 01/06/17 01/06/17 01/07/17 15:00 23:00 07:00 Intake Total 100 ml 900 ml 370 ml Output Total 300 ml Balance 100 ml 900 ml 70 ml Exam General: no s/s of distress. noted to be deaf Eyes: [pupils equal round, Anicteric sclera] Neck: Supple nontender, no JVD Cardiac: [S1, S2 auscultated, regular rhythm and rate] Pulmonary: [No coarse rhonchi or breathing auscultated] GI: [Abdomen soft nontender nondistended, bowel sounds active] Extremities: edema bilateral lower extremities Skin: purulent drainage from right foot wound Neurologic: [Alert to person place and time and situation] Results Result Diagram: 01/07/17 0525 01/07/17 0525 Results 24 hrs Laboratory Tests Test 01/07/17 01:50 01/07/17 05:25 Vancomycin Level Trough 13.0 Anion Gap 13 Basophils # 0.1 Basophils % 0.6 Blood Morphology Comment Blood Urea Nitrogen 10 Calcium Level 8.0 L Carbon Dioxide Level 24 Chloride Level 105 Creatinine 0.87 Eosinophils # 0.2 Eosinophils % 1.8 Glucose Level 117 Hematocrit 30.6 L Hemoglobin 10.6 L Lymphocytes # 2.2 Lymphocytes % 20.5 Magnesium Level 1.8 Mean Corpuscular Hemoglobin 36.2 H Mean Corpuscular Hemoglobin Concent 34.5 Mean Corpuscular Volume 104.9 H Mean Platelet Volume 8.0 Monocytes # 1.1 H Monocytes % 10.3 Neutrophils # 7.3 Neutrophils % 66.8 Nucleated Red Blood Cells # 0.0 Nucleated Red Blood Cells % 0.0 Platelet Count 181 Potassium Level 3.6 Red Blood Count 2.92 L Red Cell Distribution Width 14.6 H Sodium Level 138 White Blood Count 10.9 H Medications Medications Current Medications Ondansetron HCl (Zofran Inj) 4 mg Q6H PRN IV NAUSEA AND/OR VOMITING; Start at 08:00 Acetaminophen (Tylenol Tab) 650 mg Q6H PRN PO PAIN LEVEL 1-3 OR FEVER Last administered on 01/07/17 06:40; Admin Dose 650 MG; Start 01/05/17 at 08:00 Acetaminophen/ Hydrocodone Bitart ([place] (5/325)) 1 tab Q6H PRN PO MODERATE PAIN LEVEL 4-6; Start 01/05/17 at 08:00 Morphine Sulfate (morphine) 2 mg Q4H PRN IV SEVERE PAIN LEVEL 7-10; Start 01/05 at 08:00 Heparin Sodium (Porcine) 5000 unit 5,000 unit Q12 SC Last administered on 21:05; Admin Dose 5,000 UNIT; Start 01/05/17 at 09:00 Cefepime HCl 50 ml @ 100 mls/hr Q12 IVPB Last administered on 01/06/17 20:50 ; Admin Dose 100 MLS/HR; Start 01/05/17 at 09:00 Vancomycin HCl (Vancocin) 250 ml @ 125 mls/hr Q12H IVPB Last administered on 03:11; Admin Dose 125 MLS/HR; Start 01/05/17 at 15:00 Ferrous Sulfate (Ferrous Sulfate (Ec)) 325 mg BID PO Last administered on 20:49; Admin Dose 325 MG; Start 01/06/17 at 09:00 ENRIKE BARCENAS Jan 07, 2017 09:00
[2017-01-07] MEDS: HEPARIN 5,000 UNIT/0.5 ML SYG SC SCH ×2 (09:28→21:28)
[2017-01-07 10:43] VITALS: BP 140/71; RESP 20
[2017-01-07] MEDS: AMLODIPINE 5 MG TAB PO SCH ×2 (11:17→21:18)
--- NOTE | 2017-01-07 11:27 | CONS ---
Date/Time of Note Date/Time of Note DATE: 01/07/17 TIME: 11:24 Assessment/Plan Assessment/Plan Chief Complaint/Hosp Course 61-year-old male w/ DM, deafness and alcohol abuse with R foot infected wounds Plan: -Appreciate medical management -Cont IV abx and wound care -Will obtain BLE arterial duplex to further evaluate - pt may need RLE angiogram at some point -F/u Dr. Holly's recommendations D/W Dr. Geiger Thank you and please call with questions Problems: Consultation Date/Type/Reason Admit Date/Time Jan 05, 2017 at 04:22 Date of Consultation: Jan 07, 2017 Reason for Consultation RLE foot wound infection Referring Provider: ENRIKE GEIGER Hx of Present Illness 61-year-old male w/ DM, deafness and alcohol abuse presented with severe right foot pain and swelling that has been getting worse for past last week or so. History obtained from records. There is no history of trauma to the right foot. Pain is worse by walking. He had subjective chills at home, denied CP, SOB, abd pain, n/v. Patient drinks 2-3 liters of alcohol daily. IV abx have been started. There is mild bleeding from plantar surface wound. All systems reviewed and are negative except as per history of present illness. Past Medical History Diabetes, deafness Past Surgical History Ear surgery as a child Social History Alcohol Use: 2-3 liters daily Substance Use: No Tobacco Use: Never smoked Alcohol Use: heavy Smoking Status: Unknown if ever smoked Exam/Review of Systems Vital Signs Vitals Vital Signs Date Time Temp Pulse Resp B/P Pulse Ox O2 Delivery O2 Flow Rate FiO2 01/07/17 10:43 99.1 61 20 140/71 100 01/05/17 21:48 Room Air Intake and Output 01/06/17 01/06/17 01/07/17 15:00 23:00 07:00 Intake Total 100 ml 900 ml 370 ml Output Total 300 ml Balance 100 ml 900 ml 70 ml Exam Gen: Awake, alert, NAD Neck: supple Lungs: Heart: Abd: old upper abd transverse scar, soft, NT, ND Extr: Palpable bilateral femoral and pop pulses and L DP pulse; non-palp R pedal pulses but significant edema; extensive R foot wounds at forefoot and multiple webspaces w/ malodor and mild ooze of blood at lateral plantar wound; no active drainage o//w; no cyanosis Results Result Diagram: 01/07/17 0501/07/17 0525 Results 24 hrs Laboratory Tests Test 01/07/17 01:50 01/07/17 05:25 Vancomycin Level Trough 13.0 Anion Gap 13 Basophils # 0.1 Basophils % 0.6 Blood Morphology Comment Blood Urea Nitrogen 10 Calcium Level 8.0 L Carbon Dioxide Level 24 Chloride Level 105 Creatinine 0.87 Eosinophils # 0.2 Eosinophils % 1.8 Glucose Level 117 Hematocrit 30.6 L Hemoglobin 10.6 L Lymphocytes # 2.2 Lymphocytes % 20.5 Magnesium Level 1.8 Mean Corpuscular Hemoglobin 36.2 H Mean Corpuscular Hemoglobin Concent 34.5 Mean Corpuscular Volume 104.9 H Mean Platelet Volume 8.0 Monocytes # 1.1 H Monocytes % 10.3 Neutrophils # 7.3 Neutrophils % 66.8 Nucleated Red Blood Cells # 0.0 Nucleated Red Blood Cells % 0.0 Platelet Count 181 Potassium Level 3.6 Red Blood Count 2.92 L Red Cell Distribution Width 14.6 H Sodium Level 138 White Blood Count 10.9 H Medications Medications Current Medications Ondansetron HCl (Zofran Inj) 4 mg Q6H PRN IV NAUSEA AND/OR VOMITING; Start at 08:00 Acetaminophen (Tylenol Tab) 650 mg Q6H PRN PO PAIN LEVEL 1-3 OR FEVER Last administered on 01/07/17 06:40; Admin Dose 650 MG; Start 01/05/17 at 08:00 Acetaminophen/ Hydrocodone Bitart ([place] (5/325)) 1 tab Q6H PRN PO MODERATE PAIN LEVEL 4-6; Start 01/05/17 at 08:00 Morphine Sulfate (morphine) 2 mg Q4H PRN IV SEVERE PAIN LEVEL 7-10; Start 01/05 at 08:00 Heparin Sodium (Porcine) 5000 unit 5,000 unit Q12 SC Last administered on 09:28; Admin Dose 5,000 UNIT; Start 01/05/17 at 09:00 Cefepime HCl 50 ml @ 100 mls/hr Q12 IVPB Last administered on 01/07/17 08:55 ; Admin Dose 100 MLS/HR; Start 01/05/17 at 09:00 Vancomycin HCl (Vancocin) 250 ml @ 125 mls/hr Q12H IVPB Last administered on 03:11; Admin Dose 125 MLS/HR; Start 01/05/17 at 15:00 Ferrous Sulfate (Ferrous Sulfate (Ec)) 325 mg BID PO Last administered on 08:55; Admin Dose 325 MG; Start 01/06/17 at 09:00 Amlodipine Besylate (Norvasc) 5 mg BID PO ; Start 01/07/17 at 09:00 CINTIA MENDOZA MD Jan 07, 2017 11:27
--- NOTE | 2017-01-07 14:48 | PN ---
DATE: 01/07/2017 SUBJECTIVE: No acute changes. The patient is alert, looks comfortable. No fevers. The temperatur e max was 100 yesterday. LABORATORY DATA: WBC today 10.9, no shift, no bands. BUN 10, creatinine 0.87. MICROBIOLOGY: Blood culture growing gram-positive cocci in pairs and clusters. Right lower extremi ty wound culture growing MRSA, enterococcus species. ANTIMICROBIALS: The patient is on: 1. IV vancomycin. 2. Cefepime. DIAGNOSTICS: MRI of right foot revealed abscess, phlegmonous collection, osteomyelitis of the first distal phalanx, septic arthritis at second MTP joint and early changes of osteomyelitis at the base of proximal phalanx. PHYSICAL EXAMINATION: GENERAL: This is a well-nourished, well-developed elderly man who is alert, in no distress. HEENT: Head atraumatic, normocephalic. Sclerae anicteric. Buccal mucosa pink. NECK: Supple, trachea midline. CHEST: Rise symmetrical. Breath sounds clear. HEART: S1, S2. ABDOMEN: Soft. Bowel sounds present. EXTREMITIES: With right foot dressing with bloody drainage and foul odor. ASSESSMENT: 1. Gram-positive cocci bacteremia secondary to #2. 2. Right foot cellulitis, osteomyelitis, septic arthritis. 3. Anemia. 4. Diabetes. 5. Deafness. PLAN: We are going to discontinue cefepime and start patient on rifampin. Continue vancomycin. Fo llow podiatry and vascular surgery recommendations. Dictated By: ABBY ABURTO LAMINATION OPERATOR for BETTIE MARCOS/NTS Conf#: [id number] DID#: [id number]
[2017-01-07] MEDS: RIFAMPIN 300 MG CAP PO SCH (15:16)
--- NOTE | 2017-01-07 17:55 | RADRPT ---
PROCEDURE: US bilateral lower extremity arteries. CLINICAL INDICATION: Bilateral leg pain. Claudication that interferes significantly with the hayden ent's lifestyle. Right foot ulcer. TECHNIQUE: Multiple longitudinal and transverse images of the bilateral lower extremity arteries w ere obtained with johnson scale, pulsed Doppler, and color Doppler imaging. COMPARISON: No prior studies are available for comparison. FINDINGS: Right LEASE ANALYST:78 cm/sec PSFA:106 cm/sec MSFA:84 cm/sec DSFA:99 cm/sec POP:57 cm/sec PARCEL POST WEIGHER:115 cm/sec DPA:101 cm/sec Left LEASE ANALYST:74 cm/sec PSFA:71 cm/sec MSFA:81 cm/sec DSFA:73 cm/sec POP:52 cm/sec PARCEL POST WEIGHER:76 cm/sec DPA:55 cm/sec On the right side, there is normal triphasic flow in the common femoral artery. Biphasic flow is pr esent in the right superficial femoral artery and monophasic flow is present in the popliteal and ca lf arteries. On the left side, normal triphasic flow is present throughout. IMPRESSION: 1. Abnormal flow on the right side consistent with stenosis in the proximal superficial femoral art savi and probable significant stenosis in the popliteal and calf arteries. 2. Normal flow in the left lower extremity. RPTAT: QQ .Aries Garnett MD, MD Date Time Electronically viewed and signed by .Aries Garnett MD, on 01/07/2017 17:55 .R/
[2017-01-07 20:58] VITALS: BP 136/74; RESP 68
--- NOTE | 2017-01-07 23:50 | PN ---
Date/Time of Note Date/Time of Note DATE: 01/07/17 TIME: 23:50 Assessment/Plan Lines/Catheters IV [facility] Type (from [facility] Saline Lock Exam/Review of Systems Vital Signs Vitals Vital Signs Date Time Temp Pulse Resp B/P Pulse Ox O2 Delivery O2 Flow Rate FiO2 01/07/17 20:58 99.7 68 68 136/74 98 01/05/17 21:48 Room Air Intake and Output 01/06/17 01/06/17 01/07/17 15:00 23:00 07:00 Intake Total 100 ml 900 ml 370 ml Output Total 300 ml Balance 100 ml 900 ml 70 ml Results Result Diagram: 01/07/17 0525 01/07/17 0525 CONNER GORDON DPM Jan 07, 2017 23:50
[2017-01-08] MEDS: VANCOMYCIN 1 GM in NS 250 ML IVPB SCH ×2 (03:01→16:01)
[2017-01-08 06:48] LABS: POTASSIUM 3.4 mmol/L (3.5-5.1)
[2017-01-08 06:51] LABS: CREATININE 0.87 mg/dl (0.61-1.24)
[2017-01-08 06:52] LABS: CALCIUM 7.8 mg/dl (8.4-10.2)
[2017-01-08 07:08] LABS: BASOPHIL # 0.1 10^3/ul (0.0-0.1); BASOPHILS % 0.7 % (0.0-2.0); EOSINOPHILS # 0.2 10^3/ul (0.0-0.5); EOSINOPHILS % 2.6 % (0.0-7.0); HEMATOCRIT 30.9 % (42.0-52.0); HEMOGLOBIN 10.7 g/dl (14.0-18.0); LYMPHOCYTES # 2.3 10^3/ul (0.8-2.9); LYMPHOCYTES % 26.5 % (15.0-51.0); MEAN CORPUSCULAR HGB CONC 34.8 g/dl (32.0-37.0); MEAN CORPUSCULAR VOLUME 103.6 fl (82.0-101.0); MEAN PLATELET VOLUME 8.4 fl (7.4-10.4); MONOCYTE # 0.9 10^3/ul (0.3-0.9); MONOCYTES % 10.3 % (0.0-11.0); NEUTROPHIL # 5.3 10^3/ul (1.6-7.5); NEUTROPHILS % 59.9 % (39.0-77.0); PLATELET COUNT 188 10^3/UL (140-440); RED BLOOD COUNT 2.98 10^6/ul (4.70-6.10); RED CELL DISTRIBUTION WIDTH 14.9 % (11.5-14.5); UNCORRECTED WBC 8.8 10^3/ul (4.8-10.8); WHITE BLOOD COUNT 8.8 10^3/ul (4.8-10.8)
[2017-01-08 07:20] VITALS: BP 141/71; RESP 20
[2017-01-08 07:32] LABS: CONDITION 1; LH ANALYZER COMMENTS 1
[2017-01-08] MEDS: RIFAMPIN 300 MG CAP PO SCH (08:42)
[2017-01-08] MEDS: FERROUS SULFATE (EC) 325 MG TAB PO SCH ×2 (08:42→22:02)
[2017-01-08] MEDS: AMLODIPINE 5 MG TAB PO SCH ×2 (08:42→22:02)
[2017-01-08] MEDS: HEPARIN 5,000 UNIT/0.5 ML SYG SC SCH ×2 (08:51→22:07)
[2017-01-08] MEDS ORDERED: POTASSIUM CHLORIDE (SR) 20 MEQ TAB PO STA (09:11)
--- NOTE | 2017-01-08 11:00 | PN ---
Date/Time of Note Date/Time of Note DATE: 01/08/17 TIME: 10:59 Assessment/Plan Lines/Catheters IV [facility]ter Type (from [facility]): Saline Lock Assessment/Plan Chief Complaint/Hosp Course 61-year-old male w/ DM, deafness and alcohol abuse with R foot infected wounds; Arterial u/s showed Biphasic flow at right superficial femoral artery and monophasic flow is present in the popliteal and calf arteries Plan: -Appreciate medical management -Cont IV abx and wound care -Will plan to perform RLE angiogram w/ possible intervention in next few days depending on boot and shoe laborer availability - indications, risks and benefits of procedure were d/w pt's brother and mother, who understood and agreed to proceed -F/u Dr. Holly's recommendations D/W Dr. Geiger Thank you and please call with questions Problems: Subjective 24 Hr Interval Summary Culture positive R foot wound, no new complaints, Arterial u/s showed Biphasic flow at right superficial femoral artery and monophasic flow is present in the popliteal and calf arteries. family at bedside - informed of plan Exam/Review of Systems Vital Signs Vitals Vital Signs Date Time Temp Pulse Resp B/P Pulse Ox O2 Delivery O2 Flow Rate FiO2 01/08/17 07:20 99.1 64 20 141/71 98 01/05/17 21:48 Room Air Intake and Output 01/07/17 01/07/17 01/08/17 15:00 23:00 07:00 Intake Total 50 ml 1210 ml 490 ml Output Total 500 ml 940 ml Balance 50 ml 710 ml -450 ml Exam Free Text/Dictation Gen: Awake, alert, NAD Extr: Palpable bilateral femoral and pop pulses and L DP pulse; non-palp R pedal pulses but significant edema; extensive R foot wounds at forefoot and multiple webspaces w/ malodor and currently dry; no active drainage o//w; no cyanosis Results Result Diagram: 01/08/17 0520 01/08/17 0528 CINTIA MENDOZA MD Jan 08, 2017 11:00
[2017-01-08] MEDS: ONDANSETRON 4 MG INJ IV PRN (12:10)
--- NOTE | 2017-01-08 15:19 | PN ---
Date/Time of Note Date/Time of Note DATE: 01/08/17 TIME: 15:17 Assessment/Plan VTE Prophylaxis VTE Prophylaxis Intervention: heparin Lines/Catheters IV [facility] Saline Lock Assessment/Plan Chief Complaint/Hosp Course Assessment and plan 1. Sepsis secondary to right lower extremity wound/cellulitis. wound culture did show staph aureus. MRI of foot showed osteomyelitis. podiatry and labor economics professor consulted . Tentative plan for our LAD angiogram per vascular. Tentative plan for surgical intervention per podiatry 2. Leukocytosis secondary to #1. Continue with antipyretics as needed. On antibiotics. 3. Mild transaminitis. No reported abdominal pain. No reported history of alcohol abuse. Will monitor for now. Will follow trend 4. hx hypertension. stable at present. will monitor. provide with antihypertensives as needed 5. hx ETOH abuse. Cessation advised 6. Iron deficiency anemia. Patient started on iron supplement DVT prophylaxis: Heparin Disposition and plan: continue wound care and abx. Plan for RLE vascular intervention. Continue inpatient monitoring and antibiotics Discussed plan of care with Dr. Ibrahim Problems: Subjective 24 Hr Interval Summary Free Text/Dictation No apparent distress. Exam/Review of Systems Vital Signs Vitals Vital Signs Date Time Temp Pulse Resp B/P Pulse Ox O2 Delivery O2 Flow Rate FiO2 01/08/17 07:20 99.1 64 20 141/71 98 01/05/17 21:48 Room Air Intake and Output 01/07/17 01/07/17 01/08/17 15:00 23:00 07:00 Intake Total 50 ml 1210 ml 490 ml Output Total 500 ml 940 ml Balance 50 ml 710 ml -450 ml Exam General: no s/s of distress. noted to be deaf Eyes: pupils equal round, Anicteric sclera Neck: Supple nontender, no JVD Cardiac: S1, S2 auscultated, regular rhythm and rate Pulmonary: No coarse rhonchi or breathing auscultated GI: Abdomen soft nontender nondistended, bowel sounds active Extremities: edema bilateral lower extremities Skin: purulent drainage from right foot wound Neurologic: Alert to person place and time and situation Results Result Diagram: 01/08/17 0520 01/08/17 0528 Results 24 hrs Laboratory Tests Test 01/08/17 05:20 01/08/17 05:28 Basophils # 0.1 Basophils % 0.7 Blood Morphology Comment Eosinophils # 0.2 Eosinophils % 2.6 Hematocrit 30.9 L Hemoglobin 10.7 L Lymphocytes # 2.3 Lymphocytes % 26.5 Mean Corpuscular Hemoglobin 36.0 H Mean Corpuscular Hemoglobin Concent 34.8 Mean Corpuscular Volume 103.6 H Mean Platelet Volume 8.4 Monocytes # 0.9 Monocytes % 10.3 Neutrophils # 5.3 Neutrophils % 59.9 Nucleated Red Blood Cells # 0.0 Nucleated Red Blood Cells % 0.0 Platelet Count 188 Red Blood Count 2.98 L Red Cell Distribution Width 14.9 H White Blood Count 8.8 Anion Gap 12 Blood Urea Nitrogen 9 Calcium Level 7.8 L Carbon Dioxide Level 24 Chloride Level 104 Creatinine 0.87 Glucose Level 99 Potassium Level 3.4 L Sodium Level 137 Medications Medications Current Medications Ondansetron HCl (Zofran Inj) 4 mg Q6H PRN IV NAUSEA AND/OR VOMITING Last administered on 01/08/17 12:10; Admin Dose 4 MG; Start 01/05/17 at 08:00 Acetaminophen (Tylenol Tab) 650 mg Q6H PRN PO PAIN LEVEL 1-3 OR FEVER Last administered on 01/07/17 06:40; Admin Dose 650 MG; Start 01/05/17 at 08:00 Acetaminophen/ Hydrocodone Bitart ([place] (5/325)) 1 tab Q6H PRN PO MODERATE PAIN LEVEL 4-6; Start 01/05/17 at 08:00 Morphine Sulfate (morphine) 2 mg Q4H PRN IV SEVERE PAIN LEVEL 7-10; Start 01/05 at 08:00 Heparin Sodium (Porcine) 5000 unit 5,000 unit Q12 SC Last administered on 08:51; Admin Dose 5,000 UNIT; Start 01/05/17 at 09:00 Vancomycin HCl (Vancocin) 250 ml @ 125 mls/hr Q12H IVPB Last administered on 03:01; Admin Dose 125 MLS/HR; Start 01/05/17 at 15:00 Ferrous Sulfate (Ferrous Sulfate (Ec)) 325 mg BID PO Last administered on 08:42; Admin Dose 325 MG; Start 01/06/17 at 09:00 Amlodipine Besylate (Norvasc) 5 mg BID PO Last administered on 2/19/17at 08:42 ; Admin Dose 5 MG; Start 01/07/17 at 09:00 Rifampin (Rifampin) 600 mg DAILY PO Last administered on 01/08/17 08:42; Admin Dose 600 MG; Start 01/07/17 at 14:30 Miscellaneous Information (*Rx Drug Level Order Reminder*) VANCOMYCIN TROUGH AT 1400 ONCE ONCE XX ; Start 01/09/17 at 14:00; Stop 01/09/17 at 14:01 ENRIKE BARCENAS Jan 08, 2017 15:19
--- NOTE | 2017-01-08 18:17 | CONS ---
Date/Time of Note Date/Time of Note DATE: 01/08/17 TIME: 18:15 Assessment/Plan Assessment/Plan Chief Complaint/Hosp Course SUBJECTIVE: No acute changes. The patient is alert, looks comfortable. No fevers. MICROBIOLOGY: Blood culture growing coag negative staph. Right lower extremity wound culture growing MRSA, enterococcus species. ANTIMICROBIALS: The patient is on: 1. IV vancomycin. DIAGNOSTICS: MRI of right foot revealed abscess, phlegmonous collection, osteomyelitis of the first distal phalanx, septic arthritis at second MTP joint and early changes of osteomyelitis at the base of proximal phalanx. PHYSICAL EXAMINATION: GENERAL: This is a well-nourished, well-developed elderly man who is alert, in no distress. HEENT: Head atraumatic, normocephalic. Sclerae anicteric. Buccal mucosa pink. NECK: Supple, trachea midline. CHEST: Rise symmetrical. Breath sounds clear. HEART: S1, S2. ABDOMEN: Soft. Bowel sounds present. EXTREMITIES: With right foot dressing with bloody drainage and foul odor. ASSESSMENT: 1. Staph bacteremia secondary to #2. 2. Right foot cellulitis, osteomyelitis, septic arthritis. 3. Anemia. 4. Diabetes. 5. Deafness. PLAN: Stable, continue abx, wound care per podiatry [facility] staff Problems: Consultation Date/Type/Reason Admit Date/Time Jan 05, 2017 at 04:22 Type of Consultation: ID Referring Provider: ENRIKE BARCENAS Exam/Review of Systems Vital Signs Vitals Vital Signs Date Time Temp Pulse Resp B/P Pulse Ox O2 Delivery O2 Flow Rate FiO2 01/08/17 07:20 99.1 64 20 141/71 98 01/05/17 21:48 Room Air Intake and Output 01/07/17 01/07/17 01/08/17 15:00 23:00 07:00 Intake Total 50 ml 1210 ml 490 ml Output Total 500 ml 940 ml Balance 50 ml 710 ml -450 ml Results Result Diagram: 01/08/17 0520 01/08/17 0528 Results 24 hrs Laboratory Tests Test 01/08/17 05:20 01/08/17 05:28 Basophils # 0.1 Basophils % 0.7 Blood Morphology Comment Eosinophils # 0.2 Eosinophils % 2.6 Hematocrit 30.9 L Hemoglobin 10.7 L Lymphocytes # 2.3 Lymphocytes % 26.5 Mean Corpuscular Hemoglobin 36.0 H Mean Corpuscular Hemoglobin Concent 34.8 Mean Corpuscular Volume 103.6 H Mean Platelet Volume 8.4 Monocytes # 0.9 Monocytes % 10.3 Neutrophils # 5.3 Neutrophils % 59.9 Nucleated Red Blood Cells # 0.0 Nucleated Red Blood Cells % 0.0 Platelet Count 188 Red Blood Count 2.98 L Red Cell Distribution Width 14.9 H White Blood Count 8.8 Anion Gap 12 Blood Urea Nitrogen 9 Calcium Level 7.8 L Carbon Dioxide Level 24 Chloride Level 104 Creatinine 0.87 Glucose Level 99 Potassium Level 3.4 L Sodium Level 137 Medications Medications Current Medications Ondansetron HCl (Zofran Inj) 4 mg Q6H PRN IV NAUSEA AND/OR VOMITING Last administered on 01/08/17 12:10; Admin Dose 4 MG; Start 01/05/17 at 08:00 Acetaminophen (Tylenol Tab) 650 mg Q6H PRN PO PAIN LEVEL 1-3 OR FEVER Last administered on 01/07/17 06:40; Admin Dose 650 MG; Start 01/05/17 at 08:00 Acetaminophen/ Hydrocodone Bitart ([place] (5/325)) 1 tab Q6H PRN PO MODERATE PAIN LEVEL 4-6; Start 01/05/17 at 08:00 Morphine Sulfate (morphine) 2 mg Q4H PRN IV SEVERE PAIN LEVEL 7-10; Start 01/05 at 08:00 Heparin Sodium (Porcine) 5000 unit 5,000 unit Q12 SC Last administered on 08:51; Admin Dose 5,000 UNIT; Start 01/05/17 at 09:00 Vancomycin HCl (Vancocin) 250 ml @ 125 mls/hr Q12H IVPB Last administered on 16:01; Admin Dose 125 MLS/HR; Start 01/05/17 at 15:00 Ferrous Sulfate (Ferrous Sulfate (Ec)) 325 mg BID PO Last administered on 08:42; Admin Dose 325 MG; Start 01/06/17 at 09:00 Amlodipine Besylate (Norvasc) 5 mg BID PO Last administered on 01/08/17 08:42 ; Admin Dose 5 MG; Start 01/07/17 at 09:00 Rifampin (Rifampin) 600 mg DAILY PO Last administered on 2/19/17at 08:42; Admin Dose 600 MG; Start 01/07/17 at 14:30 Miscellaneous Information (*Rx Drug Level Order Reminder*) VANCOMYCIN TROUGH AT 1400 ONCE ONCE XX ; Start 01/09/17 at 14:00; Stop 01/09/17 at 14:01 ABBY ABURTO NP Jan 08, 2017 18:17
[2017-01-08 20:11] VITALS: BP 149/72; RESP 16
--- NOTE | 2017-01-08 22:55 | PN ---
Date/Time of Note Date/Time of Note DATE: 01/08/17 TIME: 22:54 Assessment/Plan Lines/Catheters IV [facility] Type (from [facility]): Saline Lock Assessment/Plan Problems: (1) Cellulitis of right lower extremity Status: Acute (2) Macrocytic anemia Status: Acute (3) Alcoholism Status: Acute Assessment/Plan Patient will be scheduled for surgery; incision and drainage of right foot infection. Exam/Review of Systems Vital Signs Vitals Vital Signs Date Time Temp Pulse Resp B/P Pulse Ox O2 Delivery O2 Flow Rate FiO2 01/08/17 20:11 99.2 65 16 149/72 98 01/05/17 21:48 Room Air Intake and Output 01/07/17 01/07/17 01/08/17 15:00 23:00 07:00 Intake Total 50 ml 1210 ml 490 ml Output Total 500 ml 940 ml Balance 50 ml 710 ml -450 ml Results Result Diagram: 01/08/17 0520 01/08/17 0528 CONNER GORDON DPM Jan 08, 2017 22:55
[2017-01-09] MEDS: VANCOMYCIN 1 GM in NS 250 ML IVPB SCH ×2 (02:47→15:40)
[2017-01-09 06:12] LABS: CALCIUM 7.8 mg/dl (8.4-10.2); CREATININE 0.82 mg/dl (0.61-1.24); POTASSIUM 3.6 mmol/L (3.5-5.1)
[2017-01-09 07:35] VITALS: BP 130/67; RESP 20
[2017-01-09] MEDS: FERROUS SULFATE (EC) 325 MG TAB PO SCH ×2 (09:11→21:39)
[2017-01-09] MEDS: AMLODIPINE 5 MG TAB PO SCH ×2 (09:11→21:39)
[2017-01-09] MEDS: RIFAMPIN 300 MG CAP PO SCH (09:11)
[2017-01-09] MEDS: HEPARIN 5,000 UNIT/0.5 ML SYG SC SCH ×2 (09:19→21:55)
[2017-01-09 10:48] LABS: HEMATOCRIT 29.5 % (42.0-52.0); HEMOGLOBIN 10.3 g/dl (14.0-18.0); RED BLOOD COUNT 2.95 10^6/ul (4.70-6.10); WHITE BLOOD COUNT 7.1 10^3/ul (4.8-10.8)
[2017-01-09 10:49] LABS: BASOPHILS % 1.1 % (0.0-2.0); EOSINOPHILS % 4.1 % (0.0-7.0); MEAN CORPUSCULAR HEMOGLOBIN 34.9 pg (29.0-33.0); MEAN CORPUSCULAR HGB CONC 34.9 g/dl (32.0-37.0); MEAN PLATELET VOLUME 10.4 fl (7.4-10.4); MONOCYTES % 10.2 % (0.0-11.0); NEUTROPHIL # 4.1 10^3/ul (1.6-7.5); NEUTROPHILS % 57.3 % (39.0-77.0); PLATELET COUNT 176 10^3/UL (140-440); RED CELL DISTRIBUTION WIDTH 13.6 % (11.5-14.5)
[2017-01-09 10:50] LABS: BASOPHIL # 0.1 10^3/ul (0.0-0.1); EOSINOPHILS # 0.3 10^3/ul (0.0-0.5); LYMPHOCYTES # 1.8 10^3/ul (0.8-2.9); MONOCYTE # 0.7 10^3/ul (0.3-0.9)
--- NOTE | 2017-01-09 12:48 | CONS ---
Date/Time of Note Date/Time of Note DATE: 01/09/17 TIME: 12:46 Assessment/Plan Assessment/Plan Chief Complaint/Hosp Course SUBJECTIVE: No acute changes. The patient is alert, looks comfortable. No fevers. MICROBIOLOGY: Blood culture growing coag negative staph. Right lower extremity wound culture growing MRSA, enterococcus species. ANTIMICROBIALS: Vancomycin. DIAGNOSTICS: MRI of right foot revealed abscess, phlegmonous collection, osteomyelitis of the first distal phalanx, septic arthritis at second MTP joint and early changes of osteomyelitis at the base of proximal phalanx. PHYSICAL EXAMINATION: GENERAL: This is a well-nourished, well-developed elderly man who is alert, in no distress. HEENT: Head atraumatic, normocephalic. Sclerae anicteric. Buccal mucosa pink. NECK: Supple, trachea midline. CHEST: Rise symmetrical. Breath sounds clear. HEART: S1, S2. ABDOMEN: Soft. Bowel sounds present. EXTREMITIES: With right foot dressing with bloody drainage and foul odor. ASSESSMENT: 1. Staph bacteremia secondary to #2. 2. Right foot cellulitis, osteomyelitis, septic arthritis. 3. Anemia. 4. Diabetes. 5. Deafness. PLAN: Remains stable, continue abx, pending i&d DW staff Problems: Consultation Date/Type/Reason Admit Date/Time Jan 05, 2017 at 04:22 Type of Consultation: ID Referring Provider: ENRIKE BARCENAS Exam/Review of Systems Vital Signs Vitals Vital Signs Date Time Temp Pulse Resp B/P Pulse Ox O2 Delivery O2 Flow Rate FiO2 01/09/17 07:35 98.9 61 20 130/67 98 01/05/17 21:48 Room Air Intake and Output 01/08/17 01/08/17 01/09/17 15:00 23:00 07:00 Intake Total 850 ml 650 ml Output Total 1200 ml 820 ml Balance -350 ml -170 ml Results Result Diagram: 01/09/1751101/09/17 0512 Results 24 hrs Laboratory Tests Test 01/09/17 05:12 Anion Gap 13 Basophils # 0.1 Basophils % 1.1 Blood Urea Nitrogen 8 Calcium Level 7.8 L Carbon Dioxide Level 24 Chloride Level 105 Creatinine 0.82 Eosinophils # 0.3 Eosinophils % 4.1 Glucose Level 103 Hematocrit 29.5 L Hemoglobin 10.3 L Lymphocytes # 1.8 Lymphocytes % 26.0 Mean Corpuscular Hemoglobin 34.9 H Mean Corpuscular Hemoglobin Concent 34.9 Mean Corpuscular Volume 100.0 Mean Platelet Volume 10.4 # Monocytes # 0.7 Monocytes % 10.2 Neutrophils # 4.1 Neutrophils % 57.3 Nucleated Red Blood Cells # 0.0 Nucleated Red Blood Cells % 0.0 Platelet Count 176 Potassium Level 3.6 Red Blood Count 2.95 L Red Cell Distribution Width 13.6 Sodium Level 138 White Blood Count 7.1 Medications Medications Current Medications Ondansetron HCl (Zofran Inj) 4 mg Q6H PRN IV NAUSEA AND/OR VOMITING Last administered on 01/08/17 12:10; Admin Dose 4 MG; Start 01/05/17 at 08:00 Acetaminophen (Tylenol Tab) 650 mg Q6H PRN PO PAIN LEVEL 1-3 OR FEVER Last administered on 01/07/17 06:40; Admin Dose 650 MG; Start 01/05/17 at 08:00 Acetaminophen/ Hydrocodone Bitart ([place] (5/325)) 1 tab Q6H PRN PO MODERATE PAIN LEVEL 4-6; Start 01/05/17 at 08:00 Morphine Sulfate (morphine) 2 mg Q4H PRN IV SEVERE PAIN LEVEL 7-10; Start 01/05 at 08:00 Heparin Sodium (Porcine) 5000 unit 5,000 unit Q12 SC Last administered on 09:19; Admin Dose 5,000 UNIT; Start 01/05/17 at 09:00 Vancomycin HCl (Vancocin) 250 ml @ 125 mls/hr Q12H IVPB Last administered on 02:47; Admin Dose 125 MLS/HR; Start 01/05/17 at 15:00 Ferrous Sulfate (Ferrous Sulfate (Ec)) 325 mg BID PO Last administered on 09:11; Admin Dose 325 MG; Start 01/06/17 at 09:00 Amlodipine Besylate (Norvasc) 5 mg BID PO Last administered on 01/09/17 09:11 ; Admin Dose 5 MG; Start 01/07/17 at 09:00 Rifampin (Rifampin) 600 mg DAILY PO Last administered on 01/09/17 09:11; Admin Dose 600 MG; Start 01/07/17 at 14:30 Miscellaneous Information (*Rx Drug Level Order Reminder*) VANCOMYCIN TROUGH AT 1400 ONCE ONCE XX ; Start 01/09/17 at 14:00; Stop 01/09/17 at 14:01 ABBY ABURTO NP Jan 09, 2017 12:48
[2017-01-09 19:32] VITALS: BP 133/71; RESP 20
[2017-01-10] MEDS: VANCOMYCIN 1 GM in NS 250 ML IVPB SCH ×2 (03:06→15:21)
[2017-01-10 06:55] LABS: BASOPHILS % 0.7 % (0.0-2.0); EOSINOPHILS # 0.3 10^3/ul (0.0-0.5); EOSINOPHILS % 4.1 % (0.0-7.0); HEMATOCRIT 31.3 % (42.0-52.0); HEMOGLOBIN 10.9 g/dl (14.0-18.0); LYMPHOCYTES # 1.6 10^3/ul (0.8-2.9); LYMPHOCYTES % 25.3 % (15.0-51.0); MEAN CORPUSCULAR HEMOGLOBIN 36.1 pg (29.0-33.0); MEAN CORPUSCULAR HGB CONC 34.9 g/dl (32.0-37.0); MEAN CORPUSCULAR VOLUME 103.2 fl (82.0-101.0); MONOCYTE # 0.7 10^3/ul (0.3-0.9); MONOCYTES % 10.5 % (0.0-11.0); NEUTROPHIL # 3.8 10^3/ul (1.6-7.5); NEUTROPHILS % 59.4 % (39.0-77.0); PLATELET COUNT 186 10^3/UL (140-440); RED BLOOD COUNT 3.03 10^6/ul (4.70-6.10); UNCORRECTED WBC 6.4 10^3/ul (4.8-10.8); WHITE BLOOD COUNT 6.4 10^3/ul (4.8-10.8)
[2017-01-10 06:57] LABS: POTASSIUM 3.9 mmol/L (3.5-5.1)
[2017-01-10 06:59] LABS: CREATININE 0.92 mg/dl (0.61-1.24)
[2017-01-10 07:17] LABS: CONDITION 1; LH ANALYZER COMMENTS 1; RED CELL DISTRIBUTION WIDTH 14.4 % (11.5-14.5); SUSPECT 1
[2017-01-10] MEDS: HEPARIN 5,000 UNIT/0.5 ML SYG SC SCH ×2 (08:09→22:13)
[2017-01-10 08:50] VITALS: BP 137/68; RESP 20
[2017-01-10] MEDS: FERROUS SULFATE (EC) 325 MG TAB PO SCH ×2 (09:26→22:07)
[2017-01-10] MEDS: AMLODIPINE 5 MG TAB PO SCH ×2 (09:26→22:07)
[2017-01-10] MEDS: RIFAMPIN 300 MG CAP PO SCH (09:26)
[2017-01-10] MEDS: ONDANSETRON 4 MG INJ IV PRN (10:07)
--- NOTE | 2017-01-10 10:37 | PN ---
Date/Time of Note Date/Time of Note DATE: 01/10/17 TIME: 10:33 Assessment/Plan VTE Prophylaxis VTE Prophylaxis Intervention: heparin Lines/Catheters IV Catheter Type (from [facility]): Saline Lock Assessment/Plan Assessment/Plan 1. Staph bacteremia secondary to #2. 2. Right foot cellulitis, osteomyelitis, septic arthritis.with abscess 3. Anemia of chronic disease 4. Diabetes.melitus, poorly controlled 5. Deafness. Plan: IV abx, ID following s/p Podiatry consutl by , need I & D heparin for DVT prophylaxis will follow up Subjective 24 Hr Interval Summary Free Text/Dictation on IV abx, BP stable, awaiting I & D Exam/Review of Systems Vital Signs Vitals Vital Signs Date Time Temp Pulse Resp B/P Pulse Ox O2 Delivery O2 Flow Rate FiO2 01/10/17 08:50 98.8 63 20 137/68 99 Intake and Output 01/09/17 01/09/17 01/10/17 15:00 23:00 07:00 Intake Total 250 ml 200 ml Output Total 600 ml Balance 250 ml -400 ml Exam GENERAL: This is a well-nourished, well-developed elderly man who is alert, in no distress. HEENT: Head atraumatic, normocephalic. Sclerae anicteric. Buccal mucosa pink. NECK: Supple, trachea midline. CHEST: Rise symmetrical. Breath sounds clear. HEART: S1, S2. ABDOMEN: Soft. Bowel sounds present. EXTREMITIES: With right foot dressing with bloody drainage and foul odor. Results Result Diagram: 01/10/17 0600 01/10/17 0600 Results 24 hrs Laboratory Tests Test 01/09/17 14:15 01/10/17 06:00 Vancomycin Level Trough 16.1 Anion Gap 13 Basophils # 0.0 Basophils % 0.7 Blood Morphology Comment Blood Urea Nitrogen 10 Calcium Level 8.0 L Carbon Dioxide Level 23 Chloride Level 105 Creatinine 0.92 Eosinophils # 0.3 Eosinophils % 4.1 Glucose Level 91 Hematocrit 31.3 L Hemoglobin 10.9 L Lymphocytes # 1.6 Lymphocytes % 25.3 Mean Corpuscular Hemoglobin 36.1 H Mean Corpuscular Hemoglobin Concent 34.9 Mean Corpuscular Volume 103.2 H Mean Platelet Volume 8.0 # Monocytes # 0.7 Monocytes % 10.5 Neutrophils # 3.8 Neutrophils % 59.4 Nucleated Red Blood Cells # 0.0 Nucleated Red Blood Cells % 0.0 Platelet Count 186 Potassium Level 3.9 Red Blood Count 3.03 L Red Cell Distribution Width 14.4 Sodium Level 137 White Blood Count 6.4 Medications Medications Current Medications Ondansetron HCl (Zofran Inj) 4 mg Q6H PRN IV NAUSEA AND/OR VOMITING Last administered on 01/10/17 10:07; Admin Dose 4 MG; Start 01/05/17 at 08:00 Acetaminophen (Tylenol Tab) 650 mg Q6H PRN PO PAIN LEVEL 1-3 OR FEVER Last administered on 01/07/17 06:40; Admin Dose 650 MG; Start 01/05/17 at 08:00 Acetaminophen/ Hydrocodone Bitart ([place] (5/325)) 1 tab Q6H PRN PO MODERATE PAIN LEVEL 4-6; Start 01/05/17 at 08:00 Morphine Sulfate (morphine) 2 mg Q4H PRN IV SEVERE PAIN LEVEL 7-10; Start 01/05 at 08:00 Heparin Sodium (Porcine) 5000 unit 5,000 unit Q12 SC Last administered on 21:55; Admin Dose 5,000 UNIT; Start 01/05/17 at 09:00 Vancomycin HCl (Vancocin) 250 ml @ 125 mls/hr Q12H IVPB Last administered on 03:06; Admin Dose 125 MLS/HR; Start 01/05/17 at 15:00 Ferrous Sulfate (Ferrous Sulfate (Ec)) 325 mg BID PO Last administered on 09:26; Admin Dose 325 MG; Start 01/06/17 at 09:00 Amlodipine Besylate (Norvasc) 5 mg BID PO Last administered on 01/10/17 09:26 ; Admin Dose 5 MG; Start 01/07/17 at 09:00 Rifampin (Rifampin) 600 mg DAILY PO Last administered on 01/10/17 09:26; Admin Dose 600 MG; Start 01/07/17 at 14:30 SY MATSON MD Jan 10, 2017 10:37
--- NOTE | 2017-01-10 12:29 | PN ---
DATE: 01/10/2017 SUBJECTIVE: No acute events. The patient is lying comfortably in bed, no fevers. Vital signs stab le. LABORATORY DATA: WBC 6.4, no shift, no bands. BUN 10, creatinine 0.92. MICROBIOLOGY: Blood culture on admission grew coagulase-negative staph species. Right lower extrem ity wound culture growing MRSA, enterococcus. ANTIMICROBIALS: The patient is on IV: 1. Vancomycin. 2. Rifampin. PHYSICAL EXAMINATION: GENERAL: Well-developed, well-nourished elderly man who is in no distress. HEENT: Head atraumatic, normocephalic. Sclerae anicteric. Buccal mucosa dry. NECK: Supple. CHEST: Rise symmetrical. Breath sounds clear. HEART: S1, S2. ABDOMEN: Soft. Bowel sounds present. EXTREMITIES: With right foot dressing intact. ASSESSMENT: 1. Infected right foot with evidence of osteomyelitis and septic arthritis. 2. Coagulase-negative Staphylococcus bacteremia, possibly contaminant versus secondary to #1. 3. Diabetes. 4. Anemia. PLAN: The patient remains stable, covered with appropriate antimicrobials. Podiatry on case, marissa Martinez. Dictated By: ABBY ABURTO VEHICLE BODY [employer]KER for BETTIE MARCOS/FREDERICK Conf#: [id number] DID#: [id number]
--- NOTE | 2017-01-10 14:14 | CONS ---
Date/Time of Note Date/Time of Note DATE: 01/10/17 TIME: 14:14 Assessment/Plan Assessment/Plan Chief Complaint/Hosp Course 61-year-old male w/ DM, deafness and alcohol abuse with R foot infected wounds; Arterial u/s showed Biphasic flow at right superficial femoral artery and monophasic flow is present in the popliteal and calf arteries now s/p RLE angiogram - diagnostic Plan: -Appreciate medical management -Cont IV abx and wound care -RLE angiogram showed no flow-limiting lesions to R foot, but vessels in foot were small and calcified - no further vascular intervention currently -F/u Dr. Holly's recommendations Thank you and please call with questions Problems: Consultation Date/Type/Reason Admit Date/Time Jan 05, 2017 at 04:22 Initial Consult Date 01/07/17 Type of Consultation: ID Referring Provider: ENRIKE BARCENAS 24 HR Interval Summary Free Text/Dictation No complaints currently; RLE diagnostic angiogram - no flow limiting lesions Exam/Review of Systems Vital Signs Vitals Vital Signs Date Time Temp Pulse Resp B/P Pulse Ox O2 Delivery O2 Flow Rate FiO2 01/10/17 08:50 98.8 63 20 137/68 99 Intake and Output 01/09/17 01/09/17 01/10/17 15:00 23:00 07:00 Intake Total 250 ml 200 ml Output Total 600 ml Balance 250 ml -400 ml Exam Gen: Awake, alert, NAD Extr: Palpable bilateral femoral and pop pulses and L DP pulse; non-palp R pedal pulses but significant edema; extensive R foot wounds at forefoot and multiple webspaces w/ malodor and currently dry; no active drainage o//w; no cyanosis Results Result Diagram: 01/10/17 0600 01/10/17 0600 Results 24 hrs Laboratory Tests Test 01/09/17 14:15 01/10/17 06:00 Vancomycin Level Trough 16.1 Anion Gap 13 Basophils # 0.0 Basophils % 0.7 Blood Morphology Comment Blood Urea Nitrogen 10 Calcium Level 8.0 L Carbon Dioxide Level 23 Chloride Level 105 Creatinine 0.92 Eosinophils # 0.3 Eosinophils % 4.1 Glucose Level 91 Hematocrit 31.3 L Hemoglobin 10.9 L Lymphocytes # 1.6 Lymphocytes % 25.3 Mean Corpuscular Hemoglobin 36.1 H Mean Corpuscular Hemoglobin Concent 34.9 Mean Corpuscular Volume 103.2 H Mean Platelet Volume 8.0 # Monocytes # 0.7 Monocytes % 10.5 Neutrophils # 3.8 Neutrophils % 59.4 Nucleated Red Blood Cells # 0.0 Nucleated Red Blood Cells % 0.0 Platelet Count 186 Potassium Level 3.9 Red Blood Count 3.03 L Red Cell Distribution Width 14.4 Sodium Level 137 White Blood Count 6.4 Medications Medications Current Medications Ondansetron HCl (Zofran Inj) 4 mg Q6H PRN IV NAUSEA AND/OR VOMITING Last administered on 01/10/17 10:07; Admin Dose 4 MG; Start 01/05/17 at 08:00 Acetaminophen (Tylenol Tab) 650 mg Q6H PRN PO PAIN LEVEL 1-3 OR FEVER Last administered on 01/07/17 06:40; Admin Dose 650 MG; Start 01/05/17 at 08:00 Acetaminophen/ Hydrocodone Bitart ([place] (5/325)) 1 tab Q6H PRN PO MODERATE PAIN LEVEL 4-6; Start 01/05/17 at 08:00 Morphine Sulfate (morphine) 2 mg Q4H PRN IV SEVERE PAIN LEVEL 7-10; Start 01/05 at 08:00 Heparin Sodium (Porcine) 5000 unit 5,000 unit Q12 SC Last administered on 21:55; Admin Dose 5,000 UNIT; Start 01/05/17 at 09:00 Vancomycin HCl (Vancocin) 250 ml @ 125 mls/hr Q12H IVPB Last administered on 03:06; Admin Dose 125 MLS/HR; Start 01/05/17 at 15:00 Ferrous Sulfate (Ferrous Sulfate (Ec)) 325 mg BID PO Last administered on 09:26; Admin Dose 325 MG; Start 01/06/17 at 09:00 Amlodipine Besylate (Norvasc) 5 mg BID PO Last administered on 01/10/17 09:26 ; Admin Dose 5 MG; Start 01/07/17 at 09:00 Rifampin (Rifampin) 600 mg DAILY PO Last administered on 01/10/17 09:26; Admin Dose 600 MG; Start 01/07/17 at 14:30 CINTIA MENDOZA MD Jan 10, 2017 14:14
[2017-01-10] MEDS ORDERED: SOD CHLORIDE 0.9% 1,000 ML IV SCH (14:16)
--- NOTE | 2017-01-10 14:21 | OPPN ---
Date/Time of Note Date/Time of Note DATE: 01/10/17 TIME: 14:20 Operative/Procedure Note Pre-Operative Diagnosis Extensive R diabetic foot wound Post-Operative Diagnosis same Procedure Aortogram, RLE angiogram - diagnostic Surgeon: CINTIA MENDOZA MD Findings No flow limiting lesions, very small calcified vessels in R foot Estimated blood loss: minimal Specimens: Not Applicable Complications: None Anesthesia type: local CINTIA MENDOZA MD Jan 10, 2017 14:21
[2017-01-10] MEDS ORDERED: FENTAnyl 50 MCG/ML VIAL ONE (14:48)
[2017-01-10 15:05] VITALS: BP 120/68; PULSE 64; RESP 18
--- NOTE | 2017-01-10 18:29 | OPR ---
DATE OF OPERATION: 01/10/2017 PREOPERATIVE DIAGNOSIS: Right foot gangrenous wounds with infection. POSTOPERATIVE DIAGNOSIS: Right foot gangrenous wounds with infection. PROCEDURE: Aortogram, right lower extremity diagnostic angiogram. SURGEON: Cintia Jacobsen MD ANESTHESIA: Moderate sedation and local. ESTIMATED BLOOD LOSS: Minimal. COMPLICATIONS: None. ANGIOGRAPHIC FINDINGS: Patent infrarenal abdominal aorta, bilateral common and internal and externa l iliac arteries with some tortuosity. Patent right common femoral, profunda femoral and superficia l femoral and popliteal arteries. Three-vessel runoff to the foot that are all patent with diffuse calcifications throughout, but no flow-limiting lesions. In the foot, there are patent dorsalis ped is and plantar arteries. However, these vessels are markedly diminished in size and have calcificat ions, but no flow-limiting lesions. PREOPERATIVE INDICATIONS: This is a 61-year-old gentleman with diabetes and presented with severe a nd extensive right foot wounds with associated infection and gangrenous changes. The preoperative i maging on ultrasound demonstrated abnormal flow waveforms in the tibial vessels. The patient theref ore presented for an angiogram with possible intervention. The indications, risks and benefits of t he procedure were discussed with the patient's family given the patient's hearing impairment, who un derstood and agreed to proceed. DESCRIPTION OF PROCEDURE: The patient was properly identified, brought to the angiography suite and placed in the supine position. The patient received minimal sedation throughout the procedure. Th e patient's bilateral groins were prepped and draped in the usual sterile fashion. Using ultrasound , the left common femoral artery was evaluated. It was noted to be patent and with moderate calcifi cations. An area relatively free of calcification was chosen for access. Local anesthesia was inje cted into the planned access site. A micropuncture needle was then used to access the femoral arter y under direct ultrasound guidance. This was followed by advancement of a micropuncture wire into t he left iliac system under fluoroscopy. The micropuncture sheath was then placed. A 0.035 Bentson wire was then advanced into the infrarenal aorta under fluoroscopy. A 5 Bruneian sheath was then plac ed. This was followed by a flush catheter and aortogram was performed with findings as above. Next , using the Bentson wire and the flush catheter, the right iliac system was then selected. The flus h catheter was then exchanged for an angled Glidecath. The Glidecath was then used to select the d istal right external iliac artery. Right lower extremity angiogram was then performed. Findings ar e as above. Given these findings, no intervention was warranted at this time. The wire was readvan dom into the Glidecath and both were removed. Angiography of the left groin access site was then pe rformed. This demonstrated that the site was amenable for closure with a closure device. Thus, the 5 Bruneian sheath was upsized over an 0.035 wire to a 6 Bruneian sheath. A 6 Bruneian Angio-Seal was the n brought into the field and exchanged for the sheath. It was deployed with good hemostatic result. Additional manual compression was applied. The patient tolerated the procedure well without any i mmediate complications. The patient was transferred to recovery in stable condition. Dictated By: CINTIA TORO/FREDERICK Conf#: [id number] DID#: [id number]
[2017-01-10 19:32] VITALS: BP 133/72; RESP 18
[2017-01-11] VITALS (8 sets, daily range): BP systolic 124–156; BP diastolic 57–77; PULSE 63–74; RESP 15–20
[2017-01-11] MEDS: VANCOMYCIN 1 GM in NS 250 ML IVPB SCH ×2 (02:51→14:22)
[2017-01-11 06:08] LABS: POTASSIUM 3.7 mmol/L (3.5-5.1)
[2017-01-11 06:10] LABS: CREATININE 0.87 mg/dl (0.61-1.24)
[2017-01-11 06:11] LABS: CALCIUM 7.5 mg/dl (8.4-10.2)
[2017-01-11 08:59] LABS: BASOPHILS % 0.8 % (0.0-2.0); EOSINOPHILS # 0.3 10^3/ul (0.0-0.5); EOSINOPHILS % 5.3 % (0.0-7.0); HEMATOCRIT 29.2 % (42.0-52.0); LYMPHOCYTES # 1.5 10^3/ul (0.8-2.9); MEAN CORPUSCULAR HEMOGLOBIN 35.9 pg (29.0-33.0); MEAN CORPUSCULAR HGB CONC 34.3 g/dl (32.0-37.0); MEAN CORPUSCULAR VOLUME 104.6 fl (82.0-101.0); MEAN PLATELET VOLUME 8.4 fl (7.4-10.4); MONOCYTE # 0.6 10^3/ul (0.3-0.9); MONOCYTES % 11.2 % (0.0-11.0); NEUTROPHILS % 54.7 % (39.0-77.0); PLATELET COUNT 174 10^3/UL (140-440); RED BLOOD COUNT 2.79 10^6/ul (4.70-6.10); RED CELL DISTRIBUTION WIDTH 14.8 % (11.5-14.5); UNCORRECTED WBC 5.5 10^3/ul (4.8-10.8); WHITE BLOOD COUNT 5.5 10^3/ul (4.8-10.8)
[2017-01-11] MEDS: HEPARIN 5,000 UNIT/0.5 ML SYG SC SCH ×2 (09:00→20:53)
[2017-01-11 09:05] LABS: CONDITION 1; LH ANALYZER COMMENTS 1
[2017-01-11] MEDS: RIFAMPIN 300 MG CAP PO SCH (09:23)
[2017-01-11] MEDS: AMLODIPINE 5 MG TAB PO SCH ×2 (09:23→20:50)
[2017-01-11] MEDS: FERROUS SULFATE (EC) 325 MG TAB PO SCH ×2 (09:23→20:50)
--- NOTE | 2017-01-11 10:23 | PN ---
Date/Time of Note Date/Time of Note DATE: 01/11/17 TIME: 10:22 Assessment/Plan VTE Prophylaxis VTE Prophylaxis Intervention: heparin Lines/Catheters [facility] Saline Lock Assessment/Plan Assessment/Plan 1. Staph bacteremia secondary to #2. 2. Right foot cellulitis, osteomyelitis, septic arthritis.with abscess 3. Anemia of chronic disease 4. Diabetes.melitus, poorly controlled 5. Deafness. Plan: IV abx, ID following s/p Podiatry consutl by , need I & D heparin for DVT prophylaxis will follow up Subjective 24 Hr Interval Summary Free Text/Dictation on IV abx, BP stable, awaiting I & D Exam/Review of Systems Vital Signs Vitals Vital Signs Date Time Temp Pulse Resp B/P Pulse Ox O2 Delivery O2 Flow Rate FiO2 01/11/17 09:03 98.9 64 16 151/68 97 01/10/17 15:05 Room Air Intake and Output 01/10/17 01/10/17 01/11/17 15:00 23:00 07:00 Intake Total 660 ml 370 ml Output Total 300 ml 400 ml Balance 360 ml -30 ml Exam GENERAL: This is a well-nourished, well-developed elderly man who is alert, in no distress. HEENT: Head atraumatic, normocephalic. Sclerae anicteric. Buccal mucosa pink. NECK: Supple, trachea midline. CHEST: Rise symmetrical. Breath sounds clear. HEART: S1, S2. ABDOMEN: Soft. Bowel sounds present. EXTREMITIES: With right foot dressing with bloody drainage and foul odor. Results Result Diagram: 01/11/17 0530 01/11/17 0530 Results 24 hrs Laboratory Tests Test 01/11/17 05:30 Anion Gap 13 Basophils # 0.0 Basophils % 0.8 Blood Morphology Comment Blood Urea Nitrogen 10 Calcium Level 7.5 L Carbon Dioxide Level 23 Chloride Level 105 Creatinine 0.87 Eosinophils # 0.3 Eosinophils % 5.3 Glucose Level 89 Hematocrit 29.2 L Hemoglobin 10.0 L Lymphocytes # 1.5 Lymphocytes % 28.0 Mean Corpuscular Hemoglobin 35.9 H Mean Corpuscular Hemoglobin Concent 34.3 Mean Corpuscular Volume 104.6 H Mean Platelet Volume 8.4 Monocytes # 0.6 Monocytes % 11.2 H Neutrophils # 3.0 Neutrophils % 54.7 Nucleated Red Blood Cells # 0.0 Nucleated Red Blood Cells % 0.0 Platelet Count 174 Potassium Level 3.7 Red Blood Count 2.79 L Red Cell Distribution Width 14.8 H Sodium Level 137 White Blood Count 5.5 Medications Medications Current Medications Ondansetron HCl (Zofran Inj) 4 mg Q6H PRN IV NAUSEA AND/OR VOMITING Last administered on 01/10/17 10:07; Admin Dose 4 MG; Start 01/05/17 at 08:00 Acetaminophen (Tylenol Tab) 650 mg Q6H PRN PO PAIN LEVEL 1-3 OR FEVER Last administered on 01/07/17 06:40; Admin Dose 650 MG; Start 01/05/17 at 08:00 Acetaminophen/ Hydrocodone Bitart ([place] (5/325)) 1 tab Q6H PRN PO MODERATE PAIN LEVEL 4-6; Start 01/05/17 at 08:00 Morphine Sulfate (morphine) 2 mg Q4H PRN IV SEVERE PAIN LEVEL 7-10; Start 01/05 at 08:00 Heparin Sodium (Porcine) 5000 unit 5,000 unit Q12 SC Last administered on 22:13; Admin Dose 5,000 UNIT; Start 01/05/17 at 09:00 Vancomycin HCl (Vancocin) 250 ml @ 125 mls/hr Q12H IVPB Last administered on 02:51; Admin Dose 125 MLS/HR; Start 01/05/17 at 15:00 Ferrous Sulfate (Ferrous Sulfate (Ec)) 325 mg BID PO Last administered on 09:23; Admin Dose 325 MG; Start 01/06/17 at 09:00 Amlodipine Besylate (Norvasc) 5 mg BID PO Last administered on 01/11/17 09:23 ; Admin Dose 5 MG; Start 01/07/17 at 09:00 Rifampin (Rifampin) 600 mg DAILY PO Last administered on 01/11/17 09:23; Admin Dose 600 MG; Start 01/07/17 at 14:30 Miscellaneous Information (*Rx Drug Level Order Reminder*) VANCOMYCIN TROUGH AT 0200 ONCE ONCE XX ; Start 01/12/17 at 02:00; Stop 01/12/17 at 02:01 SY MATSON MD Jan 11, 2017 10:23
--- NOTE | 2017-01-11 13:02 | CONS ---
Date/Time of Note Date/Time of Note DATE: 01/11/17 TIME: 13:01 Assessment/Plan Assessment/Plan Chief Complaint/Hosp Course SUBJECTIVE: No acute changes. The patient is alert, looks comfortable. No fevers. MICROBIOLOGY: Blood culture growing coag negative staph. Right lower extremity wound culture growing MRSA, enterococcus species. ANTIMICROBIALS: Vancomycin. DIAGNOSTICS: MRI of right foot revealed abscess, phlegmonous collection, osteomyelitis of the first distal phalanx, septic arthritis at second MTP joint and early changes of osteomyelitis at the base of proximal phalanx. PHYSICAL EXAMINATION: GENERAL: This is a well-nourished, well-developed elderly man who is alert, in no distress. HEENT: Head atraumatic, normocephalic. Sclerae anicteric. Buccal mucosa pink. NECK: Supple, trachea midline. CHEST: Rise symmetrical. Breath sounds clear. HEART: S1, S2. ABDOMEN: Soft. Bowel sounds present. EXTREMITIES: With right foot dressing with bloody drainage and foul odor. ASSESSMENT: 1. Staph bacteremia secondary to #2. 2. Right foot cellulitis, osteomyelitis, septic arthritis. 3. Anemia. 4. Diabetes. 5. Deafness. 6. PAD==> s/p angiogram PLAN: Remains stable, continue abx, podiatry/vascular rec-s [facility] staff Problems: Consultation Date/Type/Reason Admit Date/Time Jan 05, 2017 at 04:22 Type of Consultation: ID Referring Provider: ENRIKE BARCENAS Exam/Review of Systems Vital Signs Vitals Vital Signs Date Time Temp Pulse Resp B/P Pulse Ox O2 Delivery O2 Flow Rate FiO2 01/11/17 11:20 74 16 129/70 95 Room Air 01/11/17 09:03 98.9 Intake and Output 01/10/17 01/10/17 01/11/17 15:00 23:00 07:00 Intake Total 660 ml 370 ml Output Total 300 ml 400 ml Balance 360 ml -30 ml Results Result Diagram: 01/11/17 0530 01/11/17 0530 Results 24 hrs Laboratory Tests Test 01/11/17 05:30 Anion Gap 13 Basophils # 0.0 Basophils % 0.8 Blood Morphology Comment Blood Urea Nitrogen 10 Calcium Level 7.5 L Carbon Dioxide Level 23 Chloride Level 105 Creatinine 0.87 Eosinophils # 0.3 Eosinophils % 5.3 Glucose Level 89 Hematocrit 29.2 L Hemoglobin 10.0 L Lymphocytes # 1.5 Lymphocytes % 28.0 Mean Corpuscular Hemoglobin 35.9 H Mean Corpuscular Hemoglobin Concent 34.3 Mean Corpuscular Volume 104.6 H Mean Platelet Volume 8.4 Monocytes # 0.6 Monocytes % 11.2 H Neutrophils # 3.0 Neutrophils % 54.7 Nucleated Red Blood Cells # 0.0 Nucleated Red Blood Cells % 0.0 Platelet Count 174 Potassium Level 3.7 Red Blood Count 2.79 L Red Cell Distribution Width 14.8 H Sodium Level 137 White Blood Count 5.5 Medications Medications Current Medications Ondansetron HCl (Zofran Inj) 4 mg Q6H PRN IV NAUSEA AND/OR VOMITING Last administered on 01/10/17 10:07; Admin Dose 4 MG; Start 01/05/17 at 08:00 Acetaminophen (Tylenol Tab) 650 mg Q6H PRN PO PAIN LEVEL 1-3 OR FEVER Last administered on 01/07/17 06:40; Admin Dose 650 MG; Start 01/05/17 at 08:00 Acetaminophen/ Hydrocodone Bitart ([place] (5/325)) 1 tab Q6H PRN PO MODERATE PAIN LEVEL 4-6; Start 01/05/17 at 08:00 Morphine Sulfate (morphine) 2 mg Q4H PRN IV SEVERE PAIN LEVEL 7-10; Start 01/05 at 08:00 Heparin Sodium (Porcine) 5000 unit 5,000 unit Q12 SC Last administered on 22:13; Admin Dose 5,000 UNIT; Start 01/05/17 at 09:00 Vancomycin HCl (Vancocin) 250 ml @ 125 mls/hr Q12H IVPB Last administered on 02:51; Admin Dose 125 MLS/HR; Start 01/05/17 at 15:00 Ferrous Sulfate (Ferrous Sulfate (Ec)) 325 mg BID PO Last administered on 09:23; Admin Dose 325 MG; Start 01/06/17 at 09:00 Amlodipine Besylate (Norvasc) 5 mg BID PO Last administered on 01/11/17 09:23 ; Admin Dose 5 MG; Start 01/07/17 at 09:00 Rifampin (Rifampin) 600 mg DAILY PO Last administered on 01/11/17 09:23; Admin Dose 600 MG; Start 01/07/17 at 14:30 Miscellaneous Information (*Rx Drug Level Order Reminder*) VANCOMYCIN TROUGH AT 0200 ONCE ONCE XX ; Start 01/12/17 at 02:00; Stop 01/12/17 at 02:01 ABBY ABURTO NP Jan 11, 2017 13:02
--- NOTE | 2017-01-11 15:30 | HPN ---
Date/Time of Note Date/Time of Note DATE: 01/11/17 TIME: 15:30 Interval H&P Admission Note Pt. seen H&P reviewed: No system changes CONNER GORDON DPM Jan 11, 2017 15:30
--- NOTE | 2017-01-11 15:30 | PN ---
Date/Time of Note Date/Time of Note DATE: 01/11/17 TIME: 15:27 Assessment/Plan Lines/Catheters [facility]from [facility]): Saline Lock Assessment/Plan Problems: (1) Cellulitis of right lower extremity Status: Acute Comment: Schedule today for surgical debridement and incision and drainage of right foot infection. Consent will be obtained. I called his brother who is taking care of his medical issues and discussed the case. He is coming to the hospital to assist in getting a consent for the patient. Patient will be taken to the operating room and I will see the patient in the preoperative area. (2) Alcoholism Status: Acute Subjective 24 Hr Interval Summary Patient was seen and examined at bedside. Patient scheduled for surgery today. Continues to complain of swelling and redness in the right foot. Reports bandages are being changed daily. Pain Control: well controlled Exam/Review of Systems Vital Signs Vitals Vital Signs Date Time Temp Pulse Resp B/P Pulse Ox O2 Delivery O2 Flow Rate FiO2 01/11/17 11:20 74 16 129/70 95 Room Air 01/11/17 09:03 98.9 Intake and Output 01/10/17 01/10/17 01/11/17 14:59 22:59 06:59 Intake Total 660 ml 370 ml Output Total 300 ml 400 ml Balance 360 ml -30 ml Exam Free Text/Dictation Patient is in no acute distress laying supine in bed. Bandages are removed from the right foot. Forefoot necrosis and abscess present with erythema. The edema and erythema is reduced since last visit. Palpable pulses but weak. Sensation is significantly decreased to sharp dull vibratory and temperature stimuli. There are no other changes noted on examination. Labs reviewed. Results Result Diagram: 01/11/17 0530 01/11/17 0530 CONNER GORDON DPM Jan 11, 2017 15:29
[2017-01-11] MEDS ORDERED: BUPIVACAINE 0.5% (SDV) 30 ML INJ ONE (16:08)
[2017-01-11] MEDS ORDERED: DEXTROSE 50% 50 ML SYRINGE ONE (16:47)
[2017-01-11] MEDS ORDERED: DEXTROSE 50% 50 ML SYRINGE IV PRN (17:00)
[2017-01-11] MEDS ORDERED: FENTAnyl 50 MCG/ML VIAL ONE (17:22)
[2017-01-11] MEDS ORDERED: LIDOCAINE 2% (SDV) 5 ML INJ ONE (17:37)
[2017-01-11] MEDS ORDERED: PROPOFOL 40 ML ONE (17:37)
--- NOTE | 2017-01-11 17:59 | OPR ---
Date/Time of Note Date/Time of Note DATE: 01/11/17 TIME: 17:52 Operative Report Procedure Date: Jan 11, 2017 Preoperative Diagnosis Right foot abscess Right foot cellulitis Peripheral vascular disease Diabetes mellitus Peripheral neuropathy Postoperative Diagnosis Right foot abscess Right foot cellulitis Peripheral vascular disease Diabetes mellitus Peripheral neuropathy Operation Performed Incision and drainage of right foot abscess with cellulitis Sharp debridement of right foot necrotic tissue to bleeding tissue measuring 6 x 6 cm Surgeon: CONNER GORDON DPM Anesthesia: MAC Estimated Blood Loss: 0 - 10 ml's Specimens None Complications: None Pt Condition Post Procedure: stable Disposition: PACU Indications This is an unfortunate 61-year-old male patient with significant infection and abscess of the right foot requiring surgical incision and drainage with debridement. Patient is mute and deaf so most of the conversations have been with his brother, Cole who is well aware of the treatment plan. Risks and complications have been discussed in great detail including worsening of condition, failure of surgery to correct the problem, need for additional surgical procedures, deep venous thrombosis, limb loss and loss of life. Informed consent was signed, obtained and placed in the chart. No guarantee or warranty was given or implied as to the outcome of the procedure either verbal or written form. Operative Findings Significant amount of necrotic tissue right foot with deep abscess in the first webspace and also on the dorsal aspect of the foot. Wound measuring 6 x 6 cm with exposed epidermis, dermis, subcutaneous tissue tendon and ligaments and the first MPJ. Procedure Description The patient was seen in the preoperative area. Patient's brother was present. The risks and complications of this surgery was discussed in great detail. Patient was then taken to the operating room and was placed on the operating table in the supine position. The patient was placed under mild IV sedation by the anesthesiologist. All bony prominences were properly padded. Timeout was called and the procedure and site of procedure was identified along with antibiotics and other pertinent information. Everyone agreed to the timeout. Right foot and leg was scrubbed, prepped and draped in the usual aseptic manner. Attention was directed to the right foot. Necrotic tissue was surgically debrided using sharp instrumentation including curette, rongeur, and #15 blade to bleeding tissue. The wound was then irrigated with power tool and production planner and normal saline with bacitracin. The wound was packed with iodoform packing. Postoperative injection of 0.5% Marcaine plain was given 10 cc. Sterile dressing was applied to the right foot. The patient tolerated the procedure and anesthesia well. He was transferred to the recovery room with vital signs stable and vascular status intact to the right foot. The patient will be sent back to the floor after postoperative monitoring. Postoperative orders were written. Patient will be followed up in-house. CONNER GORDON DPM Jan 11, 2017 17:59
[2017-01-11] MEDS ORDERED: MEPERIDINE 25 MG INJ IV PRN (18:00)
[2017-01-11] MEDS ORDERED: HYDROmorphONE (0.2 MG/ML) 10ML SYG IV PRN ×3 (18:00)
[2017-01-11] MEDS ORDERED: DIPHENHYDRAMINE 50 MG INJ IV PRN (18:00)
[2017-01-11] MEDS ORDERED: FENTAnyl 50 MCG/ML VIAL IV PRN (18:00)
[2017-01-12] MEDS: VANCOMYCIN 1 GM in NS 250 ML IVPB SCH ×2 (03:35→15:18)
[2017-01-12 08:07] VITALS: BP 143/76; RESP 20
[2017-01-12] MEDS: RIFAMPIN 300 MG CAP PO SCH (09:13)
[2017-01-12] MEDS: FERROUS SULFATE (EC) 325 MG TAB PO SCH ×2 (09:13→21:18)
[2017-01-12] MEDS: AMLODIPINE 5 MG TAB PO SCH ×2 (09:14→21:18)
[2017-01-12] MEDS: HEPARIN 5,000 UNIT/0.5 ML SYG SC SCH ×2 (09:21→21:27)
--- NOTE | 2017-01-12 09:32 | PN ---
Date/Time of Note Date/Time of Note DATE: 01/12/17 TIME: 09:24 Assessment/Plan VTE Prophylaxis VTE Prophylaxis Intervention: heparin Lines/Catheters IV Catheter Type (from [facility]): Saline Lock Urinary Cath still in place: No Assessment/Plan Assessment/Plan 1. Staph bacteremia secondary to #2. 2. Right foot cellulitis, osteomyelitis, septic arthritis.with abscess 3. Anemia of chronic disease 4. Diabetes.melitus, poorly controlled 5. Deafness. Plan: IV abx, ID following s/p Podiatry consutl by ,s/p incision and drainage by podiatry heparin for DVT prophylaxis will follow up Subjective 24 Hr Interval Summary Free Text/Dictation pt had a I&D,Bp stable, c/o nausea, Exam/Review of Systems Vital Signs Vitals Vital Signs Date Time Temp Pulse Resp B/P Pulse Ox O2 Delivery O2 Flow Rate FiO2 01/12/17 08:07 98.5 73 20 143/76 98 01/11/17 18:59 Room Air Intake and Output 01/11/17 01/11/17 01/12/17 15:00 23:00 07:00 Intake Total 550 ml 1050 ml Output Total 1010 ml 500 ml Balance -460 ml 550 ml Exam GENERAL: This is a well-nourished, well-developed elderly man who is alert, in no distress. HEENT: Head atraumatic, normocephalic. Sclerae anicteric. Buccal mucosa pink. NECK: Supple, trachea midline. CHEST: Rise symmetrical. Breath sounds clear. HEART: S1, S2. ABDOMEN: Soft. Bowel sounds present. EXTREMITIES: With right foot dressing with bloody drainage and foul odor.s/p I &D Results Result Diagram: 01/11/17 0530 01/11/17 0530 Results 24 hrs Laboratory Tests Test 01/11/17 16:40 01/11/17 18:06 01/12/17 02:00 Bedside Glucose 69 L 97 Vancomycin Level Trough 16.5 Medications Medications Current Medications Ondansetron HCl (Zofran Inj) 4 mg Q6H PRN IV NAUSEA AND/OR VOMITING Last administered on 01/10/17t 10:07; Admin Dose 4 MG; Start 01/05/17 at 08:00 Acetaminophen (Tylenol Tab) 650 mg Q6H PRN PO PAIN LEVEL 1-3 OR FEVER Last administered on 01/07/17 06:40; Admin Dose 650 MG; Start 01/05/17 at 08:00 Acetaminophen/ Hydrocodone Bitart ([place] (5/325)) 1 tab Q6H PRN PO MODERATE PAIN LEVEL 4-6; Start 01/05/17 at 08:00 Morphine Sulfate (morphine) 2 mg Q4H PRN IV SEVERE PAIN LEVEL 7-10; Start 01/05 at 08:00 Heparin Sodium (Porcine) 5000 unit 5,000 unit Q12 SC Last administered on 09:21; Admin Dose 5,000 UNIT; Start 01/05/17 at 09:00 Vancomycin HCl (Vancocin) 250 ml @ 125 mls/hr Q12H IVPB Last administered on 03:35; Admin Dose 125 MLS/HR; Start 01/05/17 at 15:00 Ferrous Sulfate (Ferrous Sulfate (Ec)) 325 mg BID PO Last administered on 09:13; Admin Dose 325 MG; Start 01/06/17 at 09:00 Amlodipine Besylate (Norvasc) 5 mg BID PO Last administered on 01/12/17 09:14 ; Admin Dose 5 MG; Start 01/07/17 at 09:00 Rifampin (Rifampin) 600 mg DAILY PO Last administered on 01/12/17 09:13; Admin Dose 600 MG; Start 01/07/17 at 14:30 SY MATSON MD Jan 12, 2017 09:32
--- NOTE | 2017-01-12 12:37 | PN ---
DATE: 01/11/2017 SUBJECTIVE: The patient is lying comfortably in bed. No fevers overnight, no events. ANTIMICROBIALS: He is on: 1. IV vancomycin. 2. Rifampin. MICROBIOLOGY: Wound culture grew enterococcus species and MRSA. PHYSICAL EXAMINATION: GENERAL: This is well-developed, elderly man who is in no distress. HEENT: Head atraumatic, normocephalic. Sclerae anicteric. Buccal mucosa dry. NECK: Supple. CHEST: Rise symmetrical. Breath sounds clear. HEART: S1, S2. ABDOMEN: Soft. Bowel tones present. EXTREMITIES: With right foot dressing intact. ASSESSMENT: 1. Right foot cellulitis with abscess and osteomyelitis, status post incision and drainage. 2. Status post coagulase-negative bacteremia, possibly contaminant. 3. Anemia. 4. Diabetes. 5. Peripheral arterial disease. PLAN: The patient remains stable, followed by podiatry, vascular surgery. He is covered with appro priate antimicrobials. Anticipate treating with 6 weeks IV antibiotics unless infected bone is comp letely amputated. Dictated By: ABBY ABURTO DICTATING MACHINE MECHANIC for BETTIE MARCOS/FREDERICK Conf#: [id number] DID#: [id number]
--- NOTE | 2017-01-12 13:21 | PN ---
Date/Time of Note Date/Time of Note DATE: 01/12/17 TIME: 13:19 Assessment/Plan Lines/Catheters IV Catheter Type (from [facility]): Saline Lock Edwarsd in Place (from Nrs): No Assessment/Plan Problems: (1) Cellulitis of right lower extremity Status: Acute (2) Hyperglycemia Status: Acute (3) Alcoholism Status: Acute Assessment/Plan Dressing was changed today. Improved wound and foot. May dc home and follow up in the office in one week. Partial weight bearing right foot. Prognosis is improved. Exam/Review of Systems Vital Signs Vitals Vital Signs Date Time Temp Pulse Resp B/P Pulse Ox O2 Delivery O2 Flow Rate FiO2 01/12/17 08:07 98.5 73 20 143/76 98 01/11/17 18:59 Room Air Intake and Output 01/11/17 01/11/17 01/12/17 15:00 23:00 07:00 Intake Total 550 ml 1050 ml Output Total 1010 ml 500 ml Balance -460 ml 550 ml Results Result Diagram: 01/11/17 0530 01/11/17 0530 CONNER GORDON DPM Jan 12, 2017 13:21
[2017-01-12 20:40] VITALS: BP 133/76; RESP 16
[2017-01-13] MEDS: VANCOMYCIN 1 GM in NS 250 ML IVPB SCH ×2 (03:23→17:22)
[2017-01-13 08:31] VITALS: BP 133/73; RESP 20
[2017-01-13] MEDS: AMLODIPINE 5 MG TAB PO SCH ×2 (08:35→20:29)
[2017-01-13] MEDS: FERROUS SULFATE (EC) 325 MG TAB PO SCH ×2 (08:35→20:28)
[2017-01-13] MEDS: RIFAMPIN 300 MG CAP PO SCH (08:35)
[2017-01-13] MEDS: HEPARIN 5,000 UNIT/0.5 ML SYG SC SCH ×2 (09:35→20:32)
--- NOTE | 2017-01-13 10:51 | PN ---
Date/Time of Note Date/Time of Note DATE: 01/13/17 TIME: 10:49 Assessment/Plan VTE Prophylaxis VTE Prophylaxis Intervention: heparin Lines/Catheters IV Catheter Type (from [facility]): Saline Lock Urinary Cath still in place: No Assessment/Plan Assessment/Plan 1. Staph bacteremia secondary to #2. 2. Right foot cellulitis, osteomyelitis, septic arthritis.with abscess 3. Anemia of chronic disease 4. Diabetes.melitus, poorly controlled 5. Deafness. Plan: IV abx, ID following, wound cx grew MRSA, enterococcus, resistant- recommende to have 6 weeks of IV abx, will order for PICC line s/p Podiatry consutl by ,s/p incision and drainage by podiatry heparin for DVT prophylaxis will follow up Subjective 24 Hr Interval Summary Free Text/Dictation s/p I & D by podiatry, Bp stable, afebrile Exam/Review of Systems Vital Signs Vitals Vital Signs Date Time Temp Pulse Resp B/P Pulse Ox O2 Delivery O2 Flow Rate FiO2 01/13/17 08:31 98.9 70 20 133/73 97 01/11/17 18:59 Room Air Intake and Output 01/12/17 01/12/17 01/13/17 15:00 23:00 07:00 Intake Total 1330 ml 650 ml Output Total 1200 ml 600 ml Balance 130 ml 50 ml Exam GENERAL: This is a well-nourished, well-developed elderly man who is alert, in no distress. HEENT: Head atraumatic, normocephalic. Sclerae anicteric. Buccal mucosa pink. NECK: Supple, trachea midline. CHEST: Rise symmetrical. Breath sounds clear. HEART: S1, S2. ABDOMEN: Soft. Bowel sounds present. EXTREMITIES: With right foot dressing with bloody drainage and foul odor.s/p I &D Results Result Diagram: 01/11/1752901/11/17529 Medications Medications Current Medications Ondansetron HCl (Zofran Inj) 4 mg Q6H PRN IV NAUSEA AND/OR VOMITING Last administered on 01/10/17 10:07; Admin Dose 4 MG; Start 01/05/17 at 08:00 Acetaminophen (Tylenol Tab) 650 mg Q6H PRN PO PAIN LEVEL 1-3 OR FEVER Last administered on 01/07/17 06:40; Admin Dose 650 MG; Start 01/05/17 at 08:00 Acetaminophen/ Hydrocodone Bitart ([place] (5/325)) 1 tab Q6H PRN PO MODERATE PAIN LEVEL 4-6; Start 01/05/17 at 08:00 Morphine Sulfate (morphine) 2 mg Q4H PRN IV SEVERE PAIN LEVEL 7-10; Start 01/05 at 08:00 Heparin Sodium (Porcine) 5000 unit 5,000 unit Q12 SC Last administered on 09:35; Admin Dose 5,000 UNIT; Start 01/05/17 at 09:00 Vancomycin HCl (Vancocin) 250 ml @ 125 mls/hr Q12H IVPB Last administered on 03:23; Admin Dose 125 MLS/HR; Start 01/05/17 at 15:00 Ferrous Sulfate (Ferrous Sulfate (Ec)) 325 mg BID PO Last administered on 08:35; Admin Dose 325 MG; Start 01/06/17 at 09:00 Amlodipine Besylate (Norvasc) 5 mg BID PO Last administered on 01/13/17 08:35 ; Admin Dose 5 MG; Start 01/07/17 at 09:00 Rifampin (Rifampin) 600 mg DAILY PO Last administered on 01/13/17 08:35; Admin Dose 600 MG; Start 01/07/17 at 14:30 SY MATSON MD Jan 13, 2017 10:51
[2017-01-13] MEDS ORDERED: LIDOCAINE 1% (MDV) 20 ML INJ SC ONE (11:00)
--- NOTE | 2017-01-13 12:40 | CONS ---
Date/Time of Note Date/Time of Note DATE: 01/13/17 TIME: 12:38 Assessment/Plan Assessment/Plan Chief Complaint/Hosp Course SUBJECTIVE: The patient is lying comfortably in bed. No fevers overnight, no events. ANTIMICROBIALS: 1. IV vancomycin. 2. Rifampin. MICROBIOLOGY: Wound culture grew enterococcus species and MRSA. PHYSICAL EXAMINATION: GENERAL: This is well-developed, elderly man who is in no distress. HEENT: Head atraumatic, normocephalic. Sclerae anicteric. Buccal mucosa dry. NECK: Supple. CHEST: Rise symmetrical. Breath sounds clear. HEART: S1, S2. ABDOMEN: Soft. Bowel tones present. EXTREMITIES: With right foot dressing intact. ASSESSMENT: 1. Right foot cellulitis with abscess and osteomyelitis, status post incision and drainage. 2. Status post coagulase-negative bacteremia, possibly contaminant. 3. Anemia. 4. Diabetes. 5. Peripheral arterial disease. PLAN: The patient remains stable, cleared for dc by podiatry. Anticipate treating with 6 weeks IV Vanco dose per pharmacy, consider PICC DW staff Problems: Consultation Date/Type/Reason Admit Date/Time Jan 05, 2017 at 04:22 Type of Consultation: ID Referring Provider: ENRIKE BARCENAS Exam/Review of Systems Vital Signs Vitals Vital Signs Date Time Temp Pulse Resp B/P Pulse Ox O2 Delivery O2 Flow Rate FiO2 01/13/17 08:31 98.9 70 20 133/73 97 01/11/17 18:59 Room Air Intake and Output 01/12/17 01/12/17 01/13/17 15:00 23:00 07:00 Intake Total 1330 ml 650 ml Output Total 1200 ml 600 ml Balance 130 ml 50 ml Results Result Diagram: 01/11/17 0530 01/11/17 0530 Medications Medications Current Medications Ondansetron HCl (Zofran Inj) 4 mg Q6H PRN IV NAUSEA AND/OR VOMITING Last administered on 01/10/17 10:07; Admin Dose 4 MG; Start 01/05/17 at 08:00 Acetaminophen (Tylenol Tab) 650 mg Q6H PRN PO PAIN LEVEL 1-3 OR FEVER Last administered on 01/07/17 06:40; Admin Dose 650 MG; Start 01/05/17 at 08:00 Acetaminophen/ Hydrocodone Bitart ([place] (5/325)) 1 tab Q6H PRN PO MODERATE PAIN LEVEL 4-6; Start 01/05/17 at 08:00 Morphine Sulfate (morphine) 2 mg Q4H PRN IV SEVERE PAIN LEVEL 7-10; Start 01/05 at 08:00 Heparin Sodium (Porcine) 5000 unit 5,000 unit Q12 SC Last administered on 09:35; Admin Dose 5,000 UNIT; Start 01/05/17 at 09:00 Vancomycin HCl (Vancocin) 250 ml @ 125 mls/hr Q12H IVPB Last administered on 03:23; Admin Dose 125 MLS/HR; Start 01/05/17 at 15:00 Ferrous Sulfate (Ferrous Sulfate (Ec)) 325 mg BID PO Last administered on 08:35; Admin Dose 325 MG; Start 01/06/17 at 09:00 Amlodipine Besylate (Norvasc) 5 mg BID PO Last administered on 01/13/17 08:35 ; Admin Dose 5 MG; Start 01/07/17 at 09:00 Rifampin (Rifampin) 600 mg DAILY PO Last administered on 01/13/17 08:35; Admin Dose 600 MG; Start 01/07/17 at 14:30 ABBY ABURTO NP Jan 13, 2017 12:40
--- NOTE | 2017-01-13 16:24 | RADRPT ---
PROCEDURE: Ultrasound guidance for placement of needle in left upper extremity vein. CLINICAL INDICATION: PICC placement. TECHNIQUE: Limited sonography of the left upper extremity was performed. Ultrasound images were recorded and st ored in the patient's medical record. COMPARISON: Chest radiograph of the same day. FINDINGS: The ultrasound images demonstrate a patent left upper extremity vein. The PICC line was inserted by the PICC line nurse. IMPRESSION: 1. Ultrasound guidance for a needle placement in a left upper extremity vein. 2. The visualized right upper extremity vein is patent. RPTAT: QQ .Musa Cantrell MD, Date Time Electronically viewed and signed by .Musa Cantrell MD, on 01/13/2017 16:24 .N/
--- NOTE | 2017-01-13 16:45 | RADRPT ---
PROCEDURE: XR Chest. CLINICAL INDICATION: Check PICC line position. TECHNIQUE: Single frontal view. COMPARISON: No prior study is available for comparison. FINDINGS: There is a left arm PICC line with the tip in the lower superior vena cava. There is mild atelectas is at the lung bases. The heart is enlarged. There is no pleural effusion. There is no pneumothorax. IMPRESSION: 1. Satisfactory position of left arm PICC line. 2. Mild atelectasis at the lung bases. 3. Cardiomegaly. RPTAT: QQ .Aries Garnett MD, Date Time Electronically viewed and signed by .Aries Garnett MD, on 01/13/2017 16:44 .R/
[2017-01-13 19:50] VITALS: BP 122/69; RESP 16
[2017-01-14] MEDS: VANCOMYCIN 1 GM in NS 250 ML IVPB SCH ×2 (02:40→14:34)
[2017-01-14 06:51] LABS: CREATININE 0.9 mg/dl (0.61-1.24)
[2017-01-14 07:26] VITALS: BP 147/75; RESP 16
[2017-01-14] MEDS: FERROUS SULFATE (EC) 325 MG TAB PO SCH ×2 (08:57→21:03)
[2017-01-14] MEDS: AMLODIPINE 5 MG TAB PO SCH ×2 (08:58→21:03)
[2017-01-14] MEDS: RIFAMPIN 300 MG CAP PO SCH (08:58)
[2017-01-14] MEDS: HEPARIN 5,000 UNIT/0.5 ML SYG SC SCH ×2 (09:19→21:19)
[2017-01-14] MEDS ORDERED: SOD CHLORIDE 0.9% 100 ML ONE (12:22)
--- NOTE | 2017-01-14 12:35 | PN ---
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 Staph bacteremia secondary to #2. 2. Right foot cellulitis, osteomyelitis, septic arthritis.with abscess 3. Anemia of chronic disease 4. Diabetes.melitus, poorly controlled 5. Deafness. Plan: IV abx, ID following, wound cx grew MRSA, enterococcus, resistant- recommende to have 6 weeks of IV abx, will order for PICC line s/p Podiatry consutl by ,s/p incision and drainage by podiatry heparin for DVT prophylaxis will follow up Subjective 24 Hr Interval Summary Free Text/Dictation s/p I & D by podiatry, Bp stable, afebrile,s/p LUE PICC Line Exam/Review of Systems Vital Signs Vitals Vital Signs Date Time Temp Pulse Resp B/P Pulse Ox O2 Delivery O2 Flow Rate FiO2 01/14/17 07:26 98.6 74 16 147/75 96 01/11/17 18:59 Room Air Intake and Output 01/13/17 01/13/17 01/14/17 15:00 23:00 07:00 Intake Total 250 ml 450 ml Output Total 400 ml Balance 250 ml 50 ml Exam GENERAL: This is a well-nourished, well-developed elderly man who is alert, in no distress. HEENT: Head atraumatic, normocephalic. Sclerae anicteric. Buccal mucosa pink. NECK: Supple, trachea midline. CHEST: Rise symmetrical. Breath sounds clear. HEART: S1, S2. ABDOMEN: Soft. Bowel sounds present. EXTREMITIES: With right foot dressing with bloody drainage and foul odor.s/p I &D Results Result Diagram: 01/11/17 0530 01/14/17 0535 Results 24 hrs Laboratory Tests Test 01/14/17 05:35 Blood Urea Nitrogen 8 Creatinine 0.90 Medications Medications Current Medications Ondansetron HCl (Zofran Inj) 4 mg Q6H PRN IV NAUSEA AND/OR VOMITING Last administered on 01/10/17t 10:07; Admin Dose 4 MG; Start 01/05/17 at 08:00 Acetaminophen (Tylenol Tab) 650 mg Q6H PRN PO PAIN LEVEL 1-3 OR FEVER Last administered on 01/07/17 06:40; Admin Dose 650 MG; Start 01/05/17 at 08:00 Acetaminophen/ Hydrocodone Bitart ([place] (5/325)) 1 tab Q6H PRN PO MODERATE PAIN LEVEL 4-6; Start 01/05/17 at 08:00 Morphine Sulfate (morphine) 2 mg Q4H PRN IV SEVERE PAIN LEVEL 7-10; Start 01/05 at 08:00 Heparin Sodium (Porcine) 5000 unit 5,000 unit Q12 SC Last administered on 09:19; Admin Dose 5,000 UNIT; Start 01/05/17 at 09:00 Vancomycin HCl (Vancocin) 250 ml @ 125 mls/hr Q12H IVPB Last administered on 02:40; Admin Dose 125 MLS/HR; Start 01/05/17 at 15:00 Ferrous Sulfate (Ferrous Sulfate (Ec)) 325 mg BID PO Last administered on 08:57; Admin Dose 325 MG; Start 01/06/17 at 09:00 Amlodipine Besylate (Norvasc) 5 mg BID PO Last administered on 01/14/17 08:58 ; Admin Dose 5 MG; Start 01/07/17 at 09:00 Rifampin (Rifampin) 600 mg DAILY PO Last administered on 01/14/17 08:58; Admin Dose 600 MG; Start 01/07/17 at 14:30 IV Flush (NS 10 ml) 10 ml PRN PRN IV IV PROTOCOL; Start 01/13/17 at 16:00 Sodium Hypochlorite (Dakin'S (1/4 Strength)) 1 applic DAILY IRR ; Start at 10:30 Collagenase (Santyl) 1 applic DAILY TOP ; Start 01/14/17 at 10:30 Miscellaneous Information (*Rx Drug Level Order Reminder*) VANCOMYCIN TROUGHN AT 0200 ONCE ONCE XX ; Start 01/15/17 at 02:00; Stop 01/15/17 at 02:01 SY MATSON MD Jan 14, 2017 12:35
[2017-01-14] MEDS: SODIUM HYPOCHLORITE 0.125% 473 ML BTL IRR SCH (14:35)
[2017-01-14] MEDS: COLLAGENASE 30 GM TUBE TOP SCH (14:35)
--- NOTE | 2017-01-14 15:26 | CONS ---
Date/Time of Note Date/Time of Note DATE: 01/14/17 TIME: 15:04 Assessment/Plan Assessment/Plan Chief Complaint/Hosp Course ID PROGRESS NOTE CURRENT ABX=> Vanco IV #10 + Rifampin 24H INTERVAL SUMMARY * DC planning in process NEW PICC placed 01/13/17 for HH IV ABX * Afebrile, ISABELL, ROLAN * Saul: 01/05/17-1120 Rcvd: 01/05/17-1219 Source: RIGHT LEG Sp Descrip: Microbiology WOUND CULTURE Final Organism 1 METHICILLIN RESISTANT S.AUREUS QUANTITY 3+ . MULTI DRUG RESISTANT ORGANISM Organism 2 ENTEROCOCCUS SPECIES QUANTITY 2+ PHONED TO KUN MACKEY, MARK, PHARM, AND COPY TO I.C., AT 0924, 01/07/17, HN. MRSA ENT SPS M.I.C. RX M.I.C. RX --------- --- --------- --- AMPICILLIN <=2 S CEFAZOLIN R CIPROFLOXACIN <=0.5 S CLINDAMYCIN <=0.25 S DOXYCYCLINE S ERYTHROMYCIN <=0.25 S LEVOFLOXACIN 0.25 S OXACILLIN >=4 R PENICILLIN-G >=0.5 R 4 S RIFAMPIN <=0.5 S VANCOMYCIN <=0.5 S 1 S TRIMETHOPRIM/SULFAMETHOXAZOLE <=10 S PHYSICAL EXAMINATION: GENERAL: VSS, NAD HEENT: Unremarkable -- NECK: Supple, trachea midline. CHEST: Rise symmetrical, without dyspnea on observation HEART: Pulse RRR ABDOMEN: Soft, benign EXTREMITIES: Warm ID ASSESSMENT 61 yo M admit with: 1. Right foot cellulitis with abscess and osteomyelitis, status post incision and drainage. 2. Status post coagulase-negative bacteremia, possibly contaminant. 3. Anemia. 4. Diabetes. 5. Peripheral arterial disease. (?)MRSA Nares = not screened INVASIVES: PIV ABX ALLERGY: KNDA CURRENT ABX: => Vanco IV #10 + Rifampin s/p ID RECOMMENDATIONS 1. Continue current ABX via IV Nursing total 6 weeks = LAST DAY 02/16/17 * Rx: VANCOMYCIN 1000 MG IVPB Q 12HOURS next dose due 0600 am * VANCOMYCIN LEVELS TO BE ORDERED BY PHARMACY AND ALL DOSING ADJUSTMENTS PER OP PHARMACY.. * Vanco Rx initiated 01/05/17 w/following Vanco Serology Toxicology Levels: 01/07 13.0; 01/09/17 @16.1; 01/12/17 @16.5 * Baseline STATS:75.5KG, S. CR range = 0.9 - 1.14, CLCR=73 2. Order placed as requested on Case Management order for ABX Rx clarification, renal fx has been stable on current dosing. . . Problems: Consultation Date/Type/Reason Admit Date/Time Jan 05, 2017 at 04:22 Initial Consult Date 01/07/17 Type of Consultation: ID Referring Provider: ENRIKE BARCENAS Exam/Review of Systems Vital Signs Vitals Vital Signs Date Time Temp Pulse Resp B/P Pulse Ox O2 Delivery O2 Flow Rate FiO2 01/14/17 07:26 98.6 74 16 147/75 96 01/11/17 18:59 Room Air Intake and Output 01/13/17 01/13/17 01/14/17 15:00 23:00 07:00 Intake Total 250 ml 450 ml Output Total 400 ml Balance 250 ml 50 ml Results Result Diagram: 01/11/17 0530 01/14/17 0535 Results 24 hrs Laboratory Tests Test 01/14/17 05:35 Blood Urea Nitrogen 8 Creatinine 0.90 Medications Medications Current Medications Ondansetron HCl (Zofran Inj) 4 mg Q6H PRN IV NAUSEA AND/OR VOMITING Last administered on 01/10/17 10:07; Admin Dose 4 MG; Start 01/05/17 at 08:00 Acetaminophen (Tylenol Tab) 650 mg Q6H PRN PO PAIN LEVEL 1-3 OR FEVER Last administered on 01/07/17 06:40; Admin Dose 650 MG; Start 01/05/17 at 08:00 Acetaminophen/ Hydrocodone Bitart ([place] (5/325)) 1 tab Q6H PRN PO MODERATE PAIN LEVEL 4-6; Start 01/05/17 at 08:00 Morphine Sulfate (morphine) 2 mg Q4H PRN IV SEVERE PAIN LEVEL 7-10; Start 01/05 at 08:00 Heparin Sodium (Porcine) 5000 unit 5,000 unit Q12 SC Last administered on 09:19; Admin Dose 5,000 UNIT; Start 01/05/17 at 09:00 Vancomycin HCl (Vancocin) 250 ml @ 125 mls/hr Q12H IVPB Last administered on 14:34; Admin Dose 125 MLS/HR; Start 01/05/17 at 15:00 Ferrous Sulfate (Ferrous Sulfate (Ec)) 325 mg BID PO Last administered on 08:57; Admin Dose 325 MG; Start 01/06/17 at 09:00 Amlodipine Besylate (Norvasc) 5 mg BID PO Last administered on 01/14/17 08:58 ; Admin Dose 5 MG; Start 01/07/17 at 09:00 Rifampin (Rifampin) 600 mg DAILY PO Last administered on 01/14/17 08:58; Admin Dose 600 MG; Start 01/07/17 at 14:30 IV Flush (NS 10 ml) 10 ml PRN PRN IV IV PROTOCOL; Start 01/13/17 at 16:00 Sodium Hypochlorite (Dakin'S (1/4 Strength)) 1 applic DAILY IRR Last administered on 01/14/17 14:35; Admin Dose 1 APPLIC; Start 01/14/17 at 10:30 Collagenase (Santyl) 1 applic DAILY TOP Last administered on 01/14/17 14:35; Admin Dose 1 APPLIC; Start 01/14/17 at 10:30 Miscellaneous Information (*Rx Drug Level Order Reminder*) VANCOMYCIN TROUGHN AT 0200 ONCE ONCE XX ; Start 01/15/17 at 02:00; Stop 01/15/17 at 02:01 KRISTY VARGHESE NP Jan 14, 2017 15:17
[2017-01-14 19:41] VITALS: BP 154/91; RESP 20
[2017-01-15] MEDS: VANCOMYCIN 1 GM in NS 250 ML IVPB SCH (03:33)
[2017-01-15 07:34] VITALS: BP 129/68; RESP 18
[2017-01-15] MEDS: RIFAMPIN 300 MG CAP PO SCH (08:54)
[2017-01-15] MEDS: SODIUM HYPOCHLORITE 0.125% 473 ML BTL IRR SCH (08:55)
[2017-01-15] MEDS: AMLODIPINE 5 MG TAB PO SCH ×2 (08:55→21:59)
[2017-01-15] MEDS: COLLAGENASE 30 GM TUBE TOP SCH (08:55)
[2017-01-15] MEDS: FERROUS SULFATE (EC) 325 MG TAB PO SCH ×2 (08:55→21:58)
[2017-01-15] MEDS: HEPARIN 5,000 UNIT/0.5 ML SYG SC SCH ×2 (09:05→22:04)
--- NOTE | 2017-01-15 12:11 | PN ---
Date/Time of Note Date/Time of Note DATE: 01/15/17 TIME: 12:09 Assessment/Plan VTE Prophylaxis VTE Prophylaxis Intervention: heparin Lines/Catheters IV [facility] Saline Lock Urinary Cath still in place: No Assessment/Plan Assessment/Plan 1. Staph bacteremia secondary to #2. 2. Right foot cellulitis, osteomyelitis, septic arthritis.with abscess 3. Anemia of chronic disease 4. Diabetes.melitus, poorly controlled 5. Deafness. Plan: IV abx, ID following, wound cx grew MRSA, enterococcus, resistant- recommende to have 6 weeks of IV abx, s/p PICC line placement s/p Podiatry consutl by ,s/p incision and drainage by podiatry heparin for DVT prophylaxis will follow up Subjective 24 Hr Interval Summary Free Text/Dictation no acute events, Cr stable on labs yesterday, no labs today, ID following, awaiting home health set up Exam/Review of Systems Vital Signs Vitals Vital Signs Date Time Temp Pulse Resp B/P Pulse Ox O2 Delivery O2 Flow Rate FiO2 01/15/17 07:34 98.7 73 18 129/68 96 01/11/17 18:59 Room Air Intake and Output 01/14/17 01/14/17 01/15/17 15:00 23:00 07:00 Intake Total 970 ml 450 ml Output Total 400 ml 700 ml Balance 570 ml -250 ml Exam GENERAL: This is a well-nourished, well-developed elderly man who is alert, in no distress. HEENT: Head atraumatic, normocephalic. Sclerae anicteric. Buccal mucosa pink. NECK: Supple, trachea midline. CHEST: Rise symmetrical. Breath sounds clear. HEART: S1, S2. ABDOMEN: Soft. Bowel sounds present. EXTREMITIES: With right foot dressing with bloody drainage and foul odor.s/p I &D Results Result Diagram: 01/11/17 0530 01/14/17 0535 Results 24 hrs Laboratory Tests Test 01/15/17 02:25 Vancomycin Level Trough 18.3 Medications Medications Current Medications Ondansetron HCl (Zofran Inj) 4 mg Q6H PRN IV NAUSEA AND/OR VOMITING Last administered on 01/10/17t 10:07; Admin Dose 4 MG; Start 01/05/17 at 08:00 Acetaminophen (Tylenol Tab) 650 mg Q6H PRN PO PAIN LEVEL 1-3 OR FEVER Last administered on 01/07/17 06:40; Admin Dose 650 MG; Start 01/05/17 at 08:00 Acetaminophen/ Hydrocodone Bitart ([place] (5/325)) 1 tab Q6H PRN PO MODERATE PAIN LEVEL 4-6; Start 01/05/17 at 08:00 Morphine Sulfate (morphine) 2 mg Q4H PRN IV SEVERE PAIN LEVEL 7-10; Start 01/05 at 08:00 Heparin Sodium (Porcine) (Heparin (5000 Units/0.5 ml)) 5,000 unit Q12 SC Last administered on 01/15/17 09:05; Admin Dose 5,000 UNIT; Start 01/05/17 at 09:00 Ferrous Sulfate (Ferrous Sulfate (Ec)) 325 mg BID PO Last administered on 08:55; Admin Dose 325 MG; Start 01/06/17 at 09:00 Amlodipine Besylate (Norvasc) 5 mg BID PO Last administered on 01/15/17 08:55 ; Admin Dose 5 MG; Start 01/07/17 at 09:00 Rifampin (Rifampin) 600 mg DAILY PO Last administered on 01/15/17 08:54; Admin Dose 600 MG; Start 01/07/17 at 14:30 IV Flush (NS 10 ml) 10 ml PRN PRN IV IV PROTOCOL; Start 01/13/17 at 16:00 Sodium Hypochlorite (Dakin'S (1/4 Strength)) 1 applic DAILY IRR Last administered on 01/15/17 08:55; Admin Dose 1 APPLIC; Start 01/14/17 at 10:30 Collagenase 1 applic 1 applic DAILY TOP Last administered on 01/15/17 08:55; Admin Dose 1 APPLIC; Start 01/14/17 at 10:30 Vancomycin HCl/ Sodium Chloride (Vancocin/NS) 150 ml @ 75 mls/hr Q12H IVPB ; Start 01/15/17 at 16:00 SY MATSON MD Jan 15, 2017 12:11
--- NOTE | 2017-01-15 15:40 | CONS ---
Date/Time of Note Date/Time of Note DATE: 01/15/17 TIME: 15:39 Assessment/Plan Assessment/Plan Chief Complaint/Hosp Course ID PROGRESS NOTE CURRENT ABX=> Vanco IV #11 + Rifampin 24H INTERVAL SUMMARY * DC planning in process NEW PICC placed 01/13/17 for HH IV ABX -- Pt not DC'd yesterday * Afebrile, VSS, NAD * Saul: 01/05/17-1120 Rcvd: 01/05/17-1219 Source: RIGHT LEG Sp Descrip: Microbiology WOUND CULTURE Final Organism 1 METHICILLIN RESISTANT S.AUREUS QUANTITY 3+ . MULTI DRUG RESISTANT ORGANISM Organism 2 ENTEROCOCCUS SPECIES QUANTITY 2+ PHONED TO KUN MACKEY, MARK, PHARM, AND COPY TO I.C., AT 0924, 01/07/17, HN. MRSA ENT SPS M.I.C. RX M.I.C. RX --------- --- --------- --- AMPICILLIN <=2 S CEFAZOLIN R CIPROFLOXACIN <=0.5 S CLINDAMYCIN <=0.25 S DOXYCYCLINE S ERYTHROMYCIN <=0.25 S LEVOFLOXACIN 0.25 S OXACILLIN >=4 R PENICILLIN-G >=0.5 R 4 S RIFAMPIN <=0.5 S VANCOMYCIN <=0.5 S 1 S TRIMETHOPRIM/SULFAMETHOXAZOLE <=10 S PHYSICAL EXAMINATION: GENERAL: VSROLAN Anthony HEENT: Unremarkable -- NECK: Supple, trachea midline. CHEST: Rise symmetrical, without dyspnea on observation HEART: Pulse RRR ABDOMEN: Soft, benign EXTREMITIES: Warm ID ASSESSMENT 61 yo M admit with: 1. Right foot cellulitis with abscess and osteomyelitis, status post incision and drainage. 2. Status post coagulase-negative bacteremia, possibly contaminant. 3. Anemia. 4. Diabetes. 5. Peripheral arterial disease. (?)MRSA Nares = not screened INVASIVES: PIV ABX ALLERGY: KNDA CURRENT ABX: => Vanco IV #11 + Rifampin s/p ID RECOMMENDATIONS 1. Continue current ABX via HH IV Nursing total 6 weeks = LAST DAY 02/16/17 * Rx: VANCOMYCIN 1000 MG IVPB Q 12HOURS next dose due 0600 am * VANCOMYCIN LEVELS TO BE ORDERED BY PHARMACY AND ALL DOSING ADJUSTMENTS PER OP PHARMACY.. * Vanco Rx initiated 01/05/17 w/following Vanco Serology Toxicology Levels: 01/07 13.0; 01/09/17 @16.1; 01/12/17 @16.5 * Baseline STATS:75.5KG, S. CR range = 0.9 - 1.14, CLCR=73 2. Order placed as requested on Case Management order for ABX Rx clarification, renal fx has been stable on current dosing. * Unclear why patient was not DC yesterday? Awaiting agency set up * Order for HH IV ABX written in [employer] note . . Problems: Consultation Date/Type/Reason Admit Date/Time Jan 05, 2017 at 04:22 Initial Consult Date 01/07/17 Type of Consultation: ID Referring Provider: ENRIKE BARCENAS Exam/Review of Systems Vital Signs Vitals Vital Signs Date Time Temp Pulse Resp B/P Pulse Ox O2 Delivery O2 Flow Rate FiO2 01/15/17 07:34 98.7 73 18 129/68 96 01/11/17 18:59 Room Air Intake and Output 01/14/17 01/14/17 01/15/17 15:00 23:00 07:00 Intake Total 970 ml 450 ml Output Total 400 ml 700 ml Balance 570 ml -250 ml Results Result Diagram: 01/11/17 0530 01/14/17 0535 Results 24 hrs Laboratory Tests Test 01/15/17 02:25 Vancomycin Level Trough 18.3 Medications Medications Current Medications Ondansetron HCl (Zofran Inj) 4 mg Q6H PRN IV NAUSEA AND/OR VOMITING Last administered on 01/10/17 10:07; Admin Dose 4 MG; Start 01/05/17 at 08:00 Acetaminophen (Tylenol Tab) 650 mg Q6H PRN PO PAIN LEVEL 1-3 OR FEVER Last administered on 01/07/17 06:40; Admin Dose 650 MG; Start 01/05/17 at 08:00 Acetaminophen/ Hydrocodone Bitart ([place] (5/325)) 1 tab Q6H PRN PO MODERATE PAIN LEVEL 4-6; Start 01/05/17 at 08:00 Morphine Sulfate (morphine) 2 mg Q4H PRN IV SEVERE PAIN LEVEL 7-10; Start 01/05 at 08:00 Heparin Sodium (Porcine) (Heparin (5000 Units/0.5 ml)) 5,000 unit Q12 SC Last administered on 01/15/17 09:05; Admin Dose 5,000 UNIT; Start 01/05/17 at 09:00 Ferrous Sulfate (Ferrous Sulfate (Ec)) 325 mg BID PO Last administered on 08:55; Admin Dose 325 MG; Start 01/06/17 at 09:00 Amlodipine Besylate (Norvasc) 5 mg BID PO Last administered on 01/15/17 08:55 ; Admin Dose 5 MG; Start 01/07/17 at 09:00 Rifampin (Rifampin) 600 mg DAILY PO Last administered on 01/15/17 08:54; Admin Dose 600 MG; Start 01/07/17 at 14:30 IV Flush (NS 10 ml) 10 ml PRN PRN IV IV PROTOCOL; Start 01/13/17 at 16:00 Sodium Hypochlorite (Dakin'S (1/4 Strength)) 1 applic DAILY IRR Last administered on 01/15/17 08:55; Admin Dose 1 APPLIC; Start 01/14/17 at 10:30 Collagenase 1 applic 1 applic DAILY TOP Last administered on 01/15/17 08:55; Admin Dose 1 APPLIC; Start 01/14/17 at 10:30 Vancomycin HCl/ Sodium Chloride (Vancocin/NS) 150 ml @ 75 mls/hr Q12H IVPB ; Start 01/15/17 at 16:00 KRISTY VARGHESE NP Jan 15, 2017 15:40
[2017-01-15] MEDS: VANCOMYCIN 750 MG in SOD CHLORIDE 0.9% 150 ML IVPB SCH (18:26)
[2017-01-15 19:17] VITALS: BP 156/78; RESP 18
--- NOTE | 2017-01-15 23:39 | PN ---
Date/Time of Note Date/Time of Note DATE: 01/13/17 TIME: 20:36 Assessment/Plan Lines/Catheters IV Catheter Type (from [facility]): Saline Lock [place] in Place (from Nrs): No Assessment/Plan Problems: (1) Cellulitis of right lower extremity Status: Acute (2) Macrocytic anemia Status: Acute (3) Alcoholism Status: Acute (4) Hyperglycemia Status: Acute Assessment/Plan Bandages were removed. Patient may start partial weightbearing on the right foot with postop shoe. Change bandages daily. Cleanse wound with quarter strength Dakin solution and cover the wound with Santyl ointment with daily dressing change. Prognosis is improving. Subjective 24 Hr Interval Summary Patient is status post right foot incision and drainage with debridement on January 12, 2017. Postop day 1. Doing well. Patient is deaf and mute. Right foot is bandaged. Exam/Review of Systems Vital Signs Vitals Vital Signs Date Time Temp Pulse Resp B/P Pulse Ox O2 Delivery O2 Flow Rate FiO2 01/15/17 19:17 99.5 85 18 156/78 97 01/11/17 18:59 Room Air Intake and Output 01/14/17 01/14/17 01/15/17 15:00 23:00 07:00 Intake Total 970 ml 450 ml Output Total 400 ml 700 ml Balance 570 ml -250 ml Exam Free Text/Dictation Laying supine in bed in no acute distress. Bandages removed from the right foot. Significant improvement noted. Open wound on the dorsal right foot is viable. Packing was removed from the right foot. Edema is decreased and erythema is absent. No malodor present and no drainage of pus or bleeding present. Rest of the exam is unchanged. Results Result Diagram: 01/11/17 0530 01/14/17 0535 CONNER GORDON DPM Jan 15, 2017 23:39
--- NOTE | 2017-01-15 23:40 | PN ---
Date/Time of Note Date/Time of Note DATE: 01/15/17 TIME: 23:39 Assessment/Plan Lines/Catheters IV Catheter Type (from Nrs): Saline Lock [place] in Place (from Nrsg): No Assessment/Plan Problems: (1) Cellulitis of right lower extremity Status: Acute (2) Macrocytic anemia Status: Acute (3) Alcoholism Status: Acute (4) Hyperglycemia Status: Acute Assessment/Plan Continue current management. Daily dressing change to continue. Continue quarter strength Dakin solution with Santyl ointment to the wound. Partial weightbearing right foot a lot. Subjective 24 Hr Interval Summary Patient is status post right foot incision and drainage with debridement. Doing well. Pain Control: well controlled Exam/Review of Systems Vital Signs Vitals Vital Signs Date Time Temp Pulse Resp B/P Pulse Ox O2 Delivery O2 Flow Rate FiO2 01/15/17 19:17 99.5 85 18 156/78 97 01/11/17 18:59 Room Air Intake and Output 01/14/17 01/14/17 01/15/17 15:00 23:00 07:00 Intake Total 970 ml 450 ml Output Total 400 ml 700 ml Balance 570 ml -250 ml Exam Free Text/Dictation In no acute distress. Bandages were removed. Right foot is improving. Continues to have reduced swelling. There is no erythema noted. Open wound present to dorsal right foot improved. Webspace wound is improved as well. Significant decrease in edema noted. No other changes noted on examination. Results Result Diagram: 01/11/17 0530 01/14/17 0535 CONNER GORDON DPM Jan 15, 2017 23:40
[2017-01-16] MEDS: VANCOMYCIN 750 MG in SOD CHLORIDE 0.9% 150 ML IVPB SCH ×2 (04:07→17:22)
[2017-01-16 05:14] LABS: INR 1.46; PROTIME 17.8 Sec (12.2-14.2); PT RATIO 1.4
[2017-01-16 05:15] LABS: PARTIAL THROMBOPLASTIN TIME 46.7 Sec (25.0-35.0)
[2017-01-16 05:28] LABS: POTASSIUM 3.3 mmol/L (3.5-5.1)
[2017-01-16 05:31] LABS: CALCIUM 7.8 mg/dl (8.4-10.2); CREATININE 0.87 mg/dl (0.61-1.24)
[2017-01-16 07:35] VITALS: BP 139/74; RESP 20
[2017-01-16] MEDS: RIFAMPIN 300 MG CAP PO SCH (08:44)
[2017-01-16] MEDS: SODIUM HYPOCHLORITE 0.125% 473 ML BTL IRR SCH (08:45)
[2017-01-16] MEDS: COLLAGENASE 30 GM TUBE TOP SCH (08:45)
[2017-01-16] MEDS: FERROUS SULFATE (EC) 325 MG TAB PO SCH ×2 (08:45→20:56)
[2017-01-16] MEDS: AMLODIPINE 5 MG TAB PO SCH ×2 (08:45→20:56)
[2017-01-16] MEDS: HEPARIN 5,000 UNIT/0.5 ML SYG SC SCH ×2 (08:58→21:10)
--- NOTE | 2017-01-16 12:43 | CONS ---
Date/Time of Note Date/Time of Note DATE: 01/16/17 TIME: 12:42 Assessment/Plan Assessment/Plan Chief Complaint/Hosp Course SUBJECTIVE: The patient is lying comfortably in bed. No fevers overnight, no events. ANTIMICROBIALS: 1. IV vancomycin. 2. Rifampin. MICROBIOLOGY: Wound culture grew enterococcus species and MRSA. PHYSICAL EXAMINATION: GENERAL: This is well-developed, elderly man who is in no distress. HEENT: Head atraumatic, normocephalic. Sclerae anicteric. Buccal mucosa dry. NECK: Supple. CHEST: Rise symmetrical. Breath sounds clear. HEART: S1, S2. ABDOMEN: Soft. Bowel tones present. EXTREMITIES: With right foot dressing intact. ASSESSMENT: 1. Right foot cellulitis with abscess and osteomyelitis, status post incision and drainage. 2. Status post coagulase-negative bacteremia, possibly contaminant. 3. Anemia. 4. Diabetes. 5. Peripheral arterial disease. PLAN: The patient remains stable, pending dc plan on IV Vanco till 02/16/17 DW staff Problems: Consultation Date/Type/Reason Admit Date/Time Jan 05, 2017 at 04:22 Type of Consultation: ID Referring Provider: ENRIKE BARCENAS Exam/Review of Systems Vital Signs Vitals Vital Signs Date Time Temp Pulse Resp B/P Pulse Ox O2 Delivery O2 Flow Rate FiO2 01/16/17 07:35 97.5 85 20 139/74 96 Intake and Output 01/15/17 01/15/17 01/16/17 15:00 23:00 07:00 Intake Total 600 ml 450 ml Output Total 680 ml 650 ml Balance -80 ml -200 ml Results Result Diagram: 01/16/17 0446 Results 24 hrs Laboratory Tests Test 01/16/17 04:44 01/16/17 04:46 Magnesium Level 1.4 L Activated Partial Thromboplast Time 46.7 H Anion Gap 13 Blood Urea Nitrogen 8 Calcium Level 7.8 L Carbon Dioxide Level 22 Chloride Level 101 Creatinine 0.87 Glucose Level 85 INR International Normalized Ratio 1.46 Potassium Level 3.3 L Prothrombin Time 17.8 H Prothrombin Time Ratio 1.4 Sodium Level 133 L Medications Medications Current Medications Ondansetron HCl (Zofran Inj) 4 mg Q6H PRN IV NAUSEA AND/OR VOMITING Last administered on 01/10/17t 10:07; Admin Dose 4 MG; Start 01/05/17 at 08:00 Acetaminophen (Tylenol Tab) 650 mg Q6H PRN PO PAIN LEVEL 1-3 OR FEVER Last administered on 01/07/17 06:40; Admin Dose 650 MG; Start 01/05/17 at 08:00 Acetaminophen/ Hydrocodone Bitart ([place] (5/325)) 1 tab Q6H PRN PO MODERATE PAIN LEVEL 4-6; Start 01/05/17 at 08:00 Morphine Sulfate (morphine) 2 mg Q4H PRN IV SEVERE PAIN LEVEL 7-10; Start 01/05 at 08:00 Heparin Sodium (Porcine) (Heparin (5000 Units/0.5 ml)) 5,000 unit Q12 SC Last administered on 01/16/17 08:58; Admin Dose 5,000 UNIT; Start 01/05/17 at 09:00 Ferrous Sulfate (Ferrous Sulfate (Ec)) 325 mg BID PO Last administered on 08:45; Admin Dose 325 MG; Start 01/06/17 at 09:00 Amlodipine Besylate (Norvasc) 5 mg BID PO Last administered on 01/16/17 08:45 ; Admin Dose 5 MG; Start 01/07/17 at 09:00 Rifampin (Rifampin) 600 mg DAILY PO Last administered on 01/16/17 08:44; Admin Dose 600 MG; Start 01/07/17 at 14:30 IV Flush (NS 10 ml) 10 ml PRN PRN IV IV PROTOCOL; Start 01/13/17 at 16:00 Sodium Hypochlorite ([place]akin'[place] (1/4 Strength)) 1 applic DAILY IRR Last administered on 01/16/17 08:45; Admin Dose 1 APPLIC; Start 01/14/17 at 10:30 Collagenase 1 applic 1 applic DAILY TOP Last administered on 01/16/17 08:45; Admin Dose 1 APPLIC; Start 01/14/17 at 10:30 Vancomycin HCl/ Sodium Chloride (Vancocin/NS) 150 ml @ 75 mls/hr Q12H IVPB Last administered on 01/16/17 04:07; Admin Dose 75 MLS/HR; Start 01/15/17 at 16 :00 Miscellaneous Information (*Rx Drug Level Order Reminder*) VANCOMYCIN TROUGH AT 0300 ONCE ONCE XX ; Start 01/17/17 at 03:00; Stop 01/17/17 at 03:01 ABBY ABURTO NP Jan 16, 2017 12:43
[2017-01-16] MEDS ORDERED: MAGNESIUM SULFATE 2 GM/50 ML 50 ML IVPB ONE (14:00)
[2017-01-16] MEDS ORDERED: POTASSIUM CHLORIDE (SR) 20 MEQ TAB PO STA (14:13)
[2017-01-16] MEDS ORDERED: AMLO-218 PO (14:16)
--- NOTE | 2017-01-16 14:17 | PDOCDIS ---
Discharge Instructions CONDITION Patient Condition: Good HOME CARE INSTRUCTIONS: Special Diet: Low Carb ACTIVITY: Activity Restrictions: No Restrictions FOLLOW UP/APPOINTMENTS Appointments F/U WITH YOUR PCP IN 1-2 WEEKS, F/U WITH HOME HEALTH YANIV GODWIN Jan 16, 2017 14:17
[2017-01-16] MEDS ORDERED: MAGNESIUM OXIDE 400 MG TAB PO ONE (14:30)
[2017-01-16 20:10] VITALS: BP 137/77; PULSE 113; RESP 20
[2017-01-16] MEDS: ACETAMINOPHEN 325 MG TAB PO PRN (20:54)
[2017-01-17] MEDS: VANCOMYCIN 750 MG in SOD CHLORIDE 0.9% 150 ML IVPB SCH (04:05)
[2017-01-17 05:23] VITALS: PULSE 84
[2017-01-17 07:26] VITALS: BP 128/75; RESP 20
[2017-01-17] MEDS: RIFAMPIN 300 MG CAP PO SCH (08:46)
[2017-01-17] MEDS: FERROUS SULFATE (EC) 325 MG TAB PO SCH (08:46)
[2017-01-17] MEDS: AMLODIPINE 5 MG TAB PO SCH (08:46)
[2017-01-17] MEDS: SODIUM HYPOCHLORITE 0.125% 473 ML BTL IRR SCH (08:47)
[2017-01-17] MEDS: COLLAGENASE 30 GM TUBE TOP SCH (08:47)
[2017-01-17] MEDS: HEPARIN 5,000 UNIT/0.5 ML SYG SC SCH (09:31)
--- NOTE | 2017-01-17 10:21 | DS ---
DATE OF ADMISSION: 01/05/2017 DATE OF DISCHARGE: 01/16/2017 DISCHARGE DIAGNOSES: 1. Right foot cellulitis with osteomyelitis, septic arthritis, status post incision and drainage by podiatry, discharged with 6 weeks of IV antibiotics. 2. Staphylococcus bacteremia secondary to above. 3. Anemia of chronic disease. 4. Diabetes. Continue home regimen. HOSPITAL COURSE: The patient is a 61-year-old male with history of diabetes, deafness. The patient presents with severe right foot pain, swelling. The patient does have a known history of diabetes, and he does have a history of alcohol abuse. The patient was seen by podiatry. The patient was ta berny for an I and D of the right foot abscess, cellulitis on 01/11/2017. The patient's postop diagno sis was right foot abscess as well as right foot cellulitis. Of note, the patient did have a foot M RI that showed both abscess as well as osteomyelitis all within the right foot. There was also a tovar ggestion of septic arthritis at the second MCP joint, early changes of osteo at the base of the prox imal phalanx. Note, patient was being seen by ID during the hospitalization. Recommendation was fo r patient to continue with vancomycin IV until 02/16/2017 for the osteomyelitis. The patient's bloo d sugar was stable. Of note, the patient's A1c was 7.0. The patient was felt to be stable for disc harge. On the day of discharge, the patient's vital signs, labs and physical exam were stable and t here are no acute complaints. Questions were answered. Home health, IV antibiotics was arranged by case management. CONDITION ON DISCHARGE: Fair. DISPOSITION: To home with home health. MEDICATIONS: The patient to continue his usual home medications. The patient was also given vancom ycin IV until 02/16/3017. FOLLOWUP: The patient will follow up with home health and PCP in 1 to 2 weeks. Greater than 30 minutes was spent coordinating discharge of this patient. Dictated By: YANIV GODWIN MD BS/NTS Conf#: [id number] DID#: [id number]
[2017-01-17] MEDS ORDERED: SODIUM CHLORIDE 0.45% 500 ML BAG IV* ONE (11:00)
[2017-01-17] MEDS ORDERED: SOD CHLORIDE 0.45% 1,000 ML IV SCH (11:00)
--- NOTE | 2017-01-17 11:51 | CONS ---
Date/Time of Note Date/Time of Note DATE: 01/17/17 TIME: 11:50 Assessment/Plan Assessment/Plan Chief Complaint/Hosp Course SUBJECTIVE: The patient is lying comfortably in bed. S/p fever last night, currently afebrile, no n/v/d per report. ANTIMICROBIALS: 1. IV vancomycin. 2. Rifampin. MICROBIOLOGY: Wound culture grew enterococcus species and MRSA. PHYSICAL EXAMINATION: GENERAL: This is well-developed, elderly man who is in no distress. HEENT: Head atraumatic, normocephalic. Sclerae anicteric. Buccal mucosa dry. NECK: Supple. CHEST: Rise symmetrical. Breath sounds clear. HEART: S1, S2. ABDOMEN: Soft. Bowel tones present. EXTREMITIES: With right foot dressing intact. ASSESSMENT: 1. Right foot cellulitis with abscess and osteomyelitis, status post incision and drainage. 2. Status post coagulase-negative bacteremia, possibly contaminant. 3. Anemia. 4. Diabetes. 5. Peripheral arterial disease. PLAN: The patient remains stable, anticipate dc on IV Vanco till 02/16/17, mota cx prn t101 DW staff Problems: Consultation Date/Type/Reason Admit Date/Time Jan 05, 2017 at 04:22 Type of Consultation: ID Referring Provider: ENRIKE BARCENAS Exam/Review of Systems Vital Signs Vitals Vital Signs Date Time Temp Pulse Resp B/P Pulse Ox O2 Delivery O2 Flow Rate FiO2 01/17/17 07:26 99.6 86 20 128/75 98 01/16/17 20:10 Room Air Intake and Output 01/16/17 01/16/17 01/17/17 15:00 23:00 07:00 Intake Total 1050 ml 650 ml Output Total 1000 ml Balance 50 ml 650 ml Results Result Diagram: 01/16/17 0446 Results 24 hrs Laboratory Tests Test 01/17/17 03:05 Vancomycin Level Trough 16.4 Medications Medications Current Medications Ondansetron HCl (Zofran Inj) 4 mg Q6H PRN IV NAUSEA AND/OR VOMITING Last administered on 01/10/17 10:07; Admin Dose 4 MG; Start 01/05/17 at 08:00 Acetaminophen (Tylenol Tab) 650 mg Q6H PRN PO PAIN LEVEL 1-3 OR FEVER Last administered on 01/16/17 20:54; Admin Dose 650 MG; Start 01/05/17 at 08:00 Acetaminophen/ Hydrocodone Bitart ([place] (5/325)) 1 tab Q6H PRN PO MODERATE PAIN LEVEL 4-6; Start 01/05/17 at 08:00 Morphine Sulfate (morphine) 2 mg Q4H PRN IV SEVERE PAIN LEVEL 7-10; Start 01/05 at 08:00 Heparin Sodium (Porcine) (Heparin (5000 Units/0.5 ml)) 5,000 unit Q12 SC Last administered on 01/17/17 09:31; Admin Dose 5,000 UNIT; Start 01/05/17 at 09:00 Ferrous Sulfate (Ferrous Sulfate (Ec)) 325 mg BID PO Last administered on 08:46; Admin Dose 325 MG; Start 01/06/17 at 09:00 Amlodipine Besylate (Norvasc) 5 mg BID PO Last administered on 01/17/17 08:46 ; Admin Dose 5 MG; Start 01/07/17 at 09:00 Rifampin (Rifampin) 600 mg DAILY PO Last administered on 01/17/17 08:46; Admin Dose 600 MG; Start 01/07/17 at 14:30 IV Flush (NS 10 ml) 10 ml PRN PRN IV IV PROTOCOL; Start 01/13/17 at 16:00 Sodium Hypochlorite ([place]akin'S (1/4 Strength)) 1 applic DAILY IRR Last administered on 01/17/17 08:47; Admin Dose 1 APPLIC; Start 01/14/17 at 10:30 Collagenase 1 applic 1 applic DAILY TOP Last administered on 01/17/17 08:47; Admin Dose 1 APPLIC; Start 01/14/17 at 10:30 Vancomycin HCl 750 mg/Sodium Chloride 150 ml @ 75 mls/hr Q12H IVPB Last administered on 01/17/17 04:05; Admin Dose 75 MLS/HR; Start 01/15/17 at 16:00 Sodium Chloride (1/2 NS) 1,000 ml @ 1,000 mls/hr Q1H IV Last administered on 11:04; Admin Dose 1,000 MLS/HR; Start 01/17/17 at 11:00; Stop 01/17/17 at 11:59 ABBY ABURTO NP Jan 17, 2017 11:51
[2017-01-17] MEDS: ACETAMINOPHEN 325 MG TAB PO PRN (12:32)
[2017-01-17 15:31] VITALS: BP 140/78; PULSE 88; RESP 18
--- NOTE | 2017-01-17 22:42 | DS ---
DATE OF ADMISSION: 01/05/2017 DATE OF DISCHARGE: 01/17/2017 ADDENDUM FINAL DISCHARGE DIAGNOSES: 1. Right foot cellulitis with osteomyelitis, septic arthritis, status post incision and drainage. Continue IV antibiotics via home health. 2. Staphylococcus bacteremia secondary to above. 3. Anemia of chronic disease, stable. 4. Diabetes. Continue home regimen. HOSPITAL COURSE: Please see discharge summary from 01/16/2017 for further details. The patient's d ischarge was held as patient spiked fevers the night where he was supposed to leave. This did resol ve on day of discharge with temperature being normal. The patient's spike in temperature is to be e xpected as he does have a known infection. The patient was felt to be stable for discharge. On day of discharge, the patient's vital signs, labs, physical exam were stable and no other acute issues. CONDITION ON DISCHARGE: Stable. DISPOSITION: Home with home health for IV antibiotics. MEDICATIONS: The patient to continue usual home medications, also given vancomycin IV until 017. FOLLOWUP: The patient to follow up with his home health agency, PCP in 1 to 2 weeks. Greater than 30 minutes was spent coordinating discharge of the patient. Dictated By: YANIV GODWIN MD BS/NTS Conf#: [id number] DID#: [id number]
== END 2017-01-17 15:30 | disposition home health service (06) | DRG 854 ==
LOC: E/R 18:27 → MS2 01-05 04:22
PROVIDERS: ADMIT Internal Medicine; ATTEND Internal Medicine
PROC: B41DYZZ Fluoroscopy of Aorta and Bilateral Lower Extremity Arteries using Other Contrast (ICD-10-PCS; 2017-01-10)
PROC: B41D1ZZ Fluoroscopy of Aorta and Bilateral Lower Extremity Arteries using Low Osmolar Contrast (ICD-10-PCS; 2017-01-10 11:30)
PROC: 0JBQ0ZZ Excision of Right Foot Subcutaneous Tissue and Fascia, Open Approach (ICD-10-PCS; principal; 2017-01-11 16:30)
PROC: 02HV33Z Insertion of Infusion Device into Superior Vena Cava, Percutaneous Approach (ICD-10-PCS; 2017-01-13)
DX: A41.01 Sepsis due to Methicillin susceptible Staphylococcus aureus (principal); L03.115 Cellulitis of right lower limb; E11.52 Type 2 diabetes mellitus with diabetic peripheral angiopathy with gangrene; T84.50XA Infection and inflammatory reaction due to unspecified internal joint prosthesis, initial encounter; M00.9 Pyogenic arthritis, unspecified; I16.0 Hypertensive urgency; F10.10 Alcohol abuse, uncomplicated; D50.9 Iron deficiency anemia, unspecified; L02.611 Cutaneous abscess of right foot; M86.9 Osteomyelitis, unspecified; E11.42 Type 2 diabetes mellitus with diabetic polyneuropathy; E11.628 Type 2 diabetes mellitus with other skin complications; E11.69 Type 2 diabetes mellitus with other specified complication; D63.8 Anemia in other chronic diseases classified elsewhere; B95.8 Unspecified staphylococcus as the cause of diseases classified elsewhere; E11.65 Type 2 diabetes mellitus with hyperglycemia; H91.90 Unspecified hearing loss, unspecified ear; D53.9 Nutritional anemia, unspecified
CPT/HCPCS: 36569; 71010; 73630; 73718; 75630; 76937; 80048; 80053; 80076; 80202; 82565; 82962; 83036; 83540; 83605; 83690; 83735; 84100; 84520; 85025; 85610; 85730; 87040; 87070; 93923; C1760; C1769; C1887; C1894; J0692; J2270; J2405; J2543; J3010; J3370; J3475; J7030

== ENCOUNTER 2017-01-23 19:07 | Inpatient (IN) | payer OTHER ==
[~2017-01-23] VITALS: Ht 167.6 cm; Wt 75.0 kg
[~2017-01-23 19:07] MED LIST: AMLO-218 PO
[2017-01-24] MEDS ORDERED: SODIUM CHLORIDE 0.9% 1L BAG IV* STA (00:13)
[2017-01-24 01:20] LABS: ADD SCAN DIFF NO
[2017-01-24 01:21] LABS: ABNORMAL IP MESSAGE 1; HEMATOCRIT 26.6 % (42.0-52.0); HEMOGLOBIN 9.3 g/dl (14.0-18.0); MEAN CORPUSCULAR HEMOGLOBIN 34.2 pg (29.0-33.0); MEAN CORPUSCULAR VOLUME 97.8 fl (82.0-101.0); MEAN PLATELET VOLUME 10.4 fl (7.4-10.4); PLATELET COUNT 74 10^3/UL (140-415); RED BLOOD COUNT 2.72 10^6/ul (4.70-6.10); RED CELL DISTRIBUTION WIDTH 13.5 % (11.5-14.5); WHITE BLOOD COUNT 4.5 10^3/ul (4.8-10.8)
--- NOTE | 2017-01-24 01:26 | RADRPT ---
PROCEDURE: XR Chest. CLINICAL INDICATION: Possible sepsis. TECHNIQUE: Single frontal view of the chest was obtained COMPARISON: 01/13/2017. FINDINGS: Left central venous line again seen with tip in superior vena cava. Cardiomegaly. The lungs are clear. There is improved lung inflation over the interval. There is no pleural effusion or pneumothorax. IMPRESSION: No acute disease. RPTAT: [facility] Physician Preethi Date Time Electronically viewed and signed by Anjana Falcon Physician on 01/24/2017 01:25 RS/
[2017-01-24 01:31] LABS: INR 1.54; PROTIME 18.6 Sec (12.2-14.2); PT RATIO 1.5
[2017-01-24 01:32] LABS: PARTIAL THROMBOPLASTIN TIME 50.6 Sec (25.0-35.0)
[2017-01-24 01:34] LABS: ALBUMIN 2.6 g/dl (3.3-4.9)
[2017-01-24 01:35] LABS: CHLORIDE 102 mmol/L (97-110); POTASSIUM 3.3 mmol/L (3.5-5.1); SODIUM 133 mmol/L (135-144)
[2017-01-24 01:37] LABS: BILIRUBIN,INDIRECT 0.1 mg/dl (0-1.1); BILIRUBIN,TOTAL 0.1 mg/dl (0.2-1.3); CREATININE 1.17 mg/dl (0.61-1.24)
[2017-01-24 01:38] LABS: ALANINE AMINOTRANSFERASE 48 IU/L (13-69); ALKALINE PHOSPHATASE 98 IU/L (42-121); ANION GAP 13 (8-16); ASPARTATE AMINO TRANSFERASE 86 IU/L (15-46); BLOOD UREA NITROGEN 19 mg/dl (7-20); CARBON DIOXIDE 21 mmol/L (21-31); GLUCOSE 141 mg/dl (70-220); TOTAL PROTEIN 7.8 g/dl (6.1-8.1)
[2017-01-24 01:39] LABS: CALCIUM 7.8 mg/dl (8.4-10.2)
[2017-01-24 02:03] LABS: TROPONIN-I < 0.012 ng/ml (0.00-0.12)
[2017-01-24 03:29] LABS: ADD UMIC YES; URINE BILIRUBIN (Dip) NEGATIVE (NEGATIVE); URINE BLOOD (Dip) 3+ (NEGATIVE); URINE COLOR DK. YELLOW (YELLOW); URINE GLUCOSE (Dip) NEGATIVE (NEGATIVE); URINE KETONES (Dip) NEGATIVE (NEGATIVE); URINE LEUKOCYTE ESTERASE (Dip) NEGATIVE (NEGATIVE); URINE NITRITE (Dip) NEGATIVE (NEGATIVE); URINE TOTAL PROTEIN (Dip) 1+ (NEGATIVE); URINE UROBILINOGEN (Dip) 1.0 E.U./dL (0.1-1.0)
[2017-01-24 03:32] LABS: BASOPHIL # 0.1 10^3/ul (0.0-0.1); EOSINOPHILS # 0.9 10^3/ul (0.0-0.5); MONOCYTE # 0.6 10^3/ul (0.3-0.9); NEUTROPHIL # 1.5 10^3/ul (1.6-7.5)
[2017-01-24] MEDS ORDERED: ACETAMINOPHEN 500 MG TAB PO STA (03:58)
[2017-01-24] MEDS ORDERED: ACETAMINOPHEN 500 MG TAB ONE (04:01)
[2017-01-24 04:17] LABS: SQUAMOUS EPITHELIAL CELL,UR FEW; URINE RBCS 25-50 /HPF (0)
[2017-01-24 04:18] LABS: BACTERIA,URINE FEW
--- NOTE | 2017-01-24 05:17 | ERA ---
ER Documentation Chief Complaint Date/Time DATE: 01/24/17 TIME: 05:16 Chief Complaint pain/swelling right foot, also c/o fever. on iv atb HPI This is a 7-year-old male diagnosed with cellulitis on IV antibiotics as an outpatient who comes in with fever. Patient diagnosed with cellulitis. He has noted some increased erythema in the leg as well. ROS All systems reviewed and are negative except as per history of present illness. Medications Home Meds Active Scripts Amlodipine Besylate* (Norvasc*) 10 Mg Tablet, 10 MG PO DAILY, #60 TAB Prov:YANIV GODWIN 01/16/17 Allergies Allergies: Coded Allergies: No Known Allergies (Verified Allergy, Unknown, 01/05/17) PMhx/Soc History of Surgery: Yes (ear surgery as a child) Hx Alcohol Use: Yes (2 liters a day per ER records) Hx Substance Use: No Hx Tobacco Use: No Smoking Status: Unknown if ever smoked Physical Exam Vitals Vital Signs Date Time Temp Pulse Resp B/P Pulse Ox O2 Delivery O2 Flow Rate FiO2 01/24/17 03:54 102.4 01/24/17 01:45 100.2 88 20 140/75 97 Room Air 01/23/17 19:10 100.4 110 20 148/75 97 Physical Exam Const: [] Head: Atraumatic Eyes: Normal Conjunctiva ENT: Normal External Ears, Nose and Mouth. Neck: Full range of motion..~ No meningismus. Resp: Clear to auscultation bilaterally Cardio: Regular rate and rhythm, no murmurs Abd: Soft, non tender, non distended. Normal bowel sounds Skin: No petechiae or rashes Back: No midline or flank tenderness Ext: Erythema induration around explained to the midcalf. Negative Homans sign Neur: Awake and alert Psych: Normal Mood and Affect Result Diagram: 01/24/1710601/24/17106 Results 24 hrs Laboratory Tests Test 01/24/17 01:07 01/24/17 02:20 01/24/17 03:55 Activated Partial Thromboplast Time 50.6Sec Alanine Aminotransferase (ALT/SGPT) 48IU/L Albumin 2.6g/dl Albumin/Globulin Ratio 0.50 Alkaline Phosphatase 98IU/L Anion Gap 13 Aspartate Amino Transf (AST/SGOT) 86IU/L Band Neutrophils % 8.0% Basophils # 0.110^3/ul Basophils % 2.0% Blood Urea Nitrogen 19mg/dl Calcium Level 7.8mg/dl Carbon Dioxide Level 21mmol/L Chloride Level 102mmol/L Creatinine 1.17mg/dl Direct Bilirubin 0.00mg/dl Eosinophils # 0.910^3/ul Eosinophils % 21.0% Globulin 5.20g/dl Glucose Level 141mg/dl Hematocrit 26.6% Hemoglobin 9.3g/dl INR International Normalized Ratio 1.54 Indirect Bilirubin 0.1mg/dl Lactic Acid Level 1.4mmol/L 1.1mmol/L Lymphocytes # 1.010^3/ul Lymphocytes % 22.0% Mean Corpuscular Hemoglobin 34.2pg Mean Corpuscular Hemoglobin Concent 35.0g/dl Mean Corpuscular Volume 97.8fl Mean Platelet Volume 10.4fl Monocytes # 0.610^3/ul Monocytes % 13.0% Neutrophils # 1.510^3/ul Neutrophils % 34.0% Platelet Count 7410^3/UL Potassium Level 3.3mmol/L Prothrombin Time 18.6Sec Prothrombin Time Ratio 1.5 Red Blood Count 2.7210^6/ul Red Cell Distribution Width 13.5% Sodium Level 133mmol/L Total Bilirubin 0.1mg/dl Total Protein 7.8g/dl Troponin I < 0.012ng/ml White Blood Count 4.510^3/ul Urine Amorphous Urates MODERATE Urine Bacteria FEW Urine Bilirubin NEGATIVE Urine Clarity SLIGHTLY CLOUDY Urine Color DK. YELLOW Urine Glucose NEGATIVE% Urine Granular Casts FEW Urine Hemoglobin 3+ Urine Ketones NEGATIVE Urine Leukocyte Esterase NEGATIVE Urine Microscopic RBC 25-50/HPF Urine Microscopic WBC 2-5/HPF Urine Nitrite NEGATIVE Urine Specific [place] 1.020 Urine Squamous Epithelial Cells FEW Urine Total Protein 1+ Urine Urobilinogen 1.0 E.U./dL Urine pH 6.0 Current Medications Medications (Trade) Dose Ordered Sig/Lucy Route PRN Reason Start Time Stop Time Status Last Admin Dose Admin Sodium Chloride (NS) 2,330 ml BOLUS OVER 2 HOURS STAT IV* 01/24/17 00:13 01/24/17 00:14 DC 01/24/17 02:15 Acetaminophen (Tylenol Tab) 1,000 mg ONCE STAT PO 01/24/17 03:58 01/24/17 04:00 DC 01/24/17 04:02 Acetaminophen (Tylenol Tab) 500 mg STK-MED ONCE .ROUTE 01/24/17 04:01 01/24/17 04:02 DC Procedures/MDM Medical decision-making: Patient comes in with his feet cellulitis with failure of outpatient antibiotics. Patient will be admitted for evaluation and management with infectious disease consult. Departure Diagnosis: Primary Impression: Cellulitis of right foot MITZI MCKEON Jan 24, 2017 05:17
[2017-01-24 06:17] VITALS: TEMP 99.3
[2017-01-24 08:00] VITALS: BP 140/74; RESP 18
[2017-01-24] MEDS ORDERED: CEFTRIAXONE 1 GM/50 ML (PMX) 50 ML IVPB SCH (10:00)
[2017-01-24] MEDS ORDERED: GLUCOSE GEL 15 GRAM TUBE PO PRN ×2 (10:00)
[2017-01-24] MEDS ORDERED: HYDROCODONE/APAP (5/325) TAB PO PRN (10:00)
[2017-01-24] MEDS ORDERED: VANCOMYCIN IV PER PHARMACY XX SCH (10:00)
[2017-01-24] MEDS ORDERED: DEXTROSE 50% 50 ML SYRINGE IV PRN ×2 (10:00)
[2017-01-24] MEDS ORDERED: GLUCAGON 1 MG INJ IM PRN (10:00)
[2017-01-24] MEDS ORDERED: LEVOFLOXACIN 500MG/D5W (PMX) 100 ML IVPB SCH (10:00)
[2017-01-24] MEDS ORDERED: ONDANSETRON 4 MG INJ IV PRN (10:00)
[2017-01-24] MEDS ORDERED: GLUCOSE GEL 15 GRAM TUBE BUCCAL PRN (10:00)
[2017-01-24 10:20] VITALS: Ht 167.6 cm; Wt 75.0 kg
[2017-01-24] MEDS: LEVOFLOXACIN 500MG/D5W (PMX) 100 ML IVPB SCH (10:27)
[2017-01-24] MEDS: DOCUSATE SODIUM 100 MG CAP PO SCH ×2 (10:42→21:45)
[2017-01-24] MEDS: THIAMINE 100 MG TAB PO SCH (10:42)
[2017-01-24] MEDS: FOLIC ACID 1 MG TAB PO SCH (10:42)
[2017-01-24] MEDS: AMLODIPINE 10 MG TAB PO SCH (10:43)
[2017-01-24] MEDS: MULTIVITAMINS THERAPEUTIC TAB PO SCH (10:43)
[2017-01-24] MEDS ORDERED: POTASSIUM CHLORIDE 250 ML IVPB ONE (11:30)
[2017-01-24] MEDS: INSULIN ASPART [NOVOLOG] 3 ML PEN SC SCH ×3 (12:13→21:00)
--- NOTE | 2017-01-24 12:39 | HP ---
DATE OF ADMISSION: 01/24/2017 REASON FOR ADMISSION: Fevers. HISTORY OF PRESENT ILLNESS: This is a pleasant 61-year-old gentleman with a recent discharge follow ing prolonged stay for right lower extremity wound with cellulitis complicated by diabetes. At that time was found to have osteomyelitis or septic arthritis, underwent incision and drainage by Dr. Luisito Holly of podiatry, treated with IV antibiotics for 6 weeks. Following discharge per family, devon mendoza has been having ongoing fevers at home, requiring re-presentation to the emergency room yester day evening. Previously found to have septic arthritis of the second MCP joint with changes consist ent with osteomyelitis in the proximal phalanx. PAST MEDICAL HISTORY: Includes: 1. Diabetes mellitus. 2. Cellulitis. 3. Peripheral vascular disease. 4. Microcytic anemia. 5. History of deafness. MEDICATIONS: Include: 1. Lovenox. 2. Insulin. 3. Levaquin. 4. Vancomycin. 5. Pepcid. 6. Zofran p.r.n. 7. Thiamine 8. Folic acid. ALLERGIES: NO KNOWN ALLERGIES. SOCIAL HISTORY: Nonsmoker, no alcohol. FAMILY HISTORY: Noncontributory. SYSTEMS REVIEW: A 12-point review of systems negative other than that mentioned above. PHYSICAL EXAMINATION: GENERAL: Well-nourished, well-developed gentleman, comfortable at rest, no acute distress. VITAL SIGNS: Currently afebrile, pulse is 70, blood pressure 140/70, O2 saturation 96% on FIO2 of 2 L. NECK: Supple. No JVD or lymphadenopathy. CARDIAC: S1, S2, no added sounds or murmurs. CHEST: Diminished air entry bilaterally. ABDOMEN: Soft, nontender. No guarding or rebound. EXTREMITIES: No cyanosis, clubbing, edema. NEUROLOGIC: Grossly intact. LABORATORIES: White count 4.5, hemoglobin 9.3, platelets of 74. BUN 19, creatinine 1.17. Chest x- ray was unremarkable. IMPRESSION: 1. Persistent fevers concerning for ongoing osteomyelitis and cellulitis. 2. Peripheral vascular disease. 3. History of diabetes mellitus. 4. Hypokalemia. PLAN: 1. Correct electrolytes. 2. IV antibiotics and ID consultation. 3. Podiatry reconsultation. 4. DVT and GI prophylaxis. 5. Wound care. Dictated By: AMADEO HENDERSON MD SV/FREDERICK Conf#: [id number] [facility]#: [id number]
--- NOTE | 2017-01-24 12:47 | CONS ---
Date/Time of Note Date/Time of Note DATE: 01/24/17 TIME: 12:40 Assessment/Plan Assessment/Plan Problems: (1) Non-pressure chronic ulcer of other part of right foot with fat layer exposed (2) Diabetes, polyneuropathy Additional Assessment/Plan My recommendation is quarter strength Dakin soaks daily on both wounds. I am going to order x-rays of the right foot. Patient will have daily dressing changes. Santyl will also be ordered to be applied to the wound with each dressing change. I have discussed my findings with Dr. Alatorre. Patient will be followed in-house. I will review x-rays as soon as they are available. Thank you again for involving me in the care of this patient. If you have any questions regarding this case, please feel free to contact me at pager: [phone] or reach me at mobile: [phone]. Consultation Date/Type/Reason Admit Date/Time Jan 24, 2017 at 02:11 Date of Consultation: Jan 24, 2017 Type of Consultation: Foot and ankle surgery Reason for Consultation Possible infection of right foot. Hx of Present Illness Thank you very much for involving me in the care of this patient. As you very well know this is a 61-year-old male patient who is readmitted to the hospital with diagnosis of cellulitis. He was recently hospitalized for right foot abscess and cellulitis and underwent surgical management to include debridement and incision and drainage. Patient was placed on long-term IV antibiotics and was released. He apparently returns with fever and swelling of the right foot. He is currently on IV antibiotics. He was admitted and I was consulted for evaluation treatment. Patient is mute and communication is difficult. Most of the history is obtained through chart review. Constitutional: no complaints Past Medical History As per history of present illness. Past Surgical History As per history of present illness. Social History As per history of present illness. Smoking Status: Unknown if ever smoked Exam/Review of Systems Vital Signs Vitals Vital Signs Date Time Temp Pulse Resp B/P Pulse Ox O2 Delivery O2 Flow Rate FiO2 01/24/17 08:00 99.0 70 18 140/74 97 01/24/17 06:30 Nasal Cannula 2.0 Exam Patient is laying supine in bed in no acute distress. Right foot bandages were removed. Patient has an open wound on the dorsal aspect of the right foot which appears to be much smaller than his previous admission. There is 100% red granulation tissue noted at the base with the wound edge sloping without undermining. There is no underlying fluctuance. The area is nontender to palpation. No surrounding erythema noted. Patient has a second wound which is located in the first webspace with mild maceration. Again, there is no pus and no bleeding. There is mild malodor present. Overall, the right foot does not appear to be septic. Patient's white blood count today is 4.5. Wound culture has been obtained but pending results. Blood culture is pending. There is no foot x-ray. One will be ordered. Results Result Diagram: 01/24/17 01001/24/17 010 Results 24 hrs Laboratory Tests Test 01/24/17 01:07 01/24/17 02:20 01/24/17 03:55 01/24/17 06:41 Activated Partial Thromboplast Time 50.6 H Alanine Aminotransferase (ALT/SGPT) 48 Albumin 2.6 L Albumin/Globulin Ratio 0.50 Alkaline Phosphatase 98 Anion Gap 13 Aspartate Amino Transf (AST/SGOT) 86 H Band Neutrophils % 8.0 H Basophils # 0.1 Basophils % 2.0 Blood Urea Nitrogen 19 Calcium Level 7.8 L Carbon Dioxide Level 21 Chloride Level 102 Creatinine 1.17 Direct Bilirubin 0.00 Eosinophils # 0.9 H Eosinophils % 21.0 H Globulin 5.20 H Glucose Level 141 Hematocrit 26.6 L Hemoglobin 9.3 L INR International Normalized Ratio 1.54 Indirect Bilirubin 0.1 Lactic Acid Level 1.4 1.1 0.6 Lymphocytes # 1.0 Lymphocytes % 22.0 Mean Corpuscular Hemoglobin 34.2 H Mean Corpuscular Hemoglobin Concent 35.0 Mean Corpuscular Volume 97.8 Mean Platelet Volume 10.4 # Monocytes # 0.6 Monocytes % 13.0 H Neutrophils # 1.5 L Neutrophils % 34.0 L Platelet Count 74 L Potassium Level 3.3 L Prothrombin Time 18.6 H Prothrombin Time Ratio 1.5 Red Blood Count 2.72 L Red Cell Distribution Width 13.5 Sodium Level 133 L Total Bilirubin 0.1 L Total Protein 7.8 Troponin I < 0.012 White Blood Count 4.5 L Urine Amorphous Urates MODERATE Urine Bacteria FEW Urine Bilirubin NEGATIVE Urine Clarity SLIGHTLY CLOUDY Urine Color DK. YELLOW Urine Glucose NEGATIVE Urine Granular Casts FEW Urine Hemoglobin 3+ H Urine Ketones NEGATIVE Urine Leukocyte Esterase NEGATIVE Urine Microscopic RBC 25-50 Urine Microscopic WBC 2-5 Urine Nitrite NEGATIVE Urine Specific [place] 1.020 Urine Squamous Epithelial Cells FEW Urine Total Protein 1+ H Urine Urobilinogen 1.0 E.U./dL Urine pH 6.0 Test 01/24/17 10:29 01/24/17 12:12 Bedside Glucose 85 117 Medications Medications Current Medications Docusate Sodium (Colace) 100 mg BID PO Last administered on 01/24/17 10:42; Admin Dose 100 MG; Start 01/24/17 at 10:00 Famotidine (Pepcid) 20 mg BID PO ; Start 01/24/17 at 10:00 Acetaminophen/ Hydrocodone Bitart ([place] (5/325)) 1 tab Q6H PRN PO pain; Start 01/24/17 at 10:00 Ondansetron HCl (Zofran Inj) 4 mg Q6H PRN IV NAUSEA AND/OR VOMITING; Start 01/24 at 10:00 Enoxaparin Sodium 40 mg 40 mg DAILY SC ; Start 01/25/17 at 09:00 Potassium Chloride (KCl 40 MEQ/250 ML NS) 250 ml @ 62.5 mls/hr ONCE ONCE IVPB Last administered on 01/24/17 12:10; Admin Dose 62.5 MLS/HR; Start 01/24/17 at 11:30; Stop 01/24/17 at 15:29 Multivitamins Therapeutic (Theragran) 1 tab DAILY PO Last administered on 10:43; Admin Dose 1 TAB; Start 01/24/17 at 10:00 Thiamine HCl (Vitamin B1) 100 mg DAILY PO Last administered on 01/24/17 10:42; Admin Dose 100 MG; Start 01/24/17 at 10:00 Folic Acid (Folic Acid) 1 mg DAILY PO Last administered on 01/24/17 10:42; Admin Dose 1 MG; Start 01/24/17 at 10:00 Amlodipine Besylate (Norvasc) 10 mg DAILY PO Last administered on 01/24/17 10: 43; Admin Dose 10 MG; Start 01/24/17 at 10:00 Diagnostic Test (Pha) (Accucheck) 1 ea 02 XX ; Start 01/25/17 at 02:00 Miscellaneous Information 1 ea NOTE XX ; Start 01/24/17 at 10:00 Glucose (Glutose) 15 gm Q15M PRN PO DECREASED GLUCOSE; Start 01/24/17 at 10:00 Glucose (Glutose) 22.5 gm Q15M PRN PO DECREASED GLUCOSE; Start 01/24/17 at 10:00 Dextrose (D50w Syringe) 25 ml Q15M PRN IV DECREASED GLUCOSE; Start 01/24/17 at 10:00 Dextrose (D50w Syringe) 50 ml Q15M PRN IV DECREASED GLUCOSE; Start 01/24/17 at 10:00 Glucagon (Glucagen) 1 mg Q15M PRN IM DECREASED GLUCOSE; Start 01/24/17 at 10:00 Glucose 15 gm 15 gm Q15M PRN BUCCAL DECREASED GLUCOSE; Start 01/24/17 at 10:00 Levofloxacin/ Dextrose (Levaquin 500mg/ D5W 100 ml (Pmx)) 100 ml @ 100 mls/hr Q24H IVPB Last administered on 01/24/17t 10:27; Admin Dose 100 MLS/HR; Start 01/24/17 at 10:30 CONNER GORDON DPM Jan 24, 2017 12:47
[2017-01-24] MEDS: VANCOMYCIN 1 GM in NS 250 ML IVPB SCH (13:07)
--- NOTE | 2017-01-24 14:20 | CONS ---
DATE OF ADMISSION: 01/24/2017 DATE OF CONSULTATION: 01/24/2017 TYPE OF CONSULTATION: Infectious Disease. REASON FOR CONSULTATION: Antibiotic management. HISTORY OF PRESENT ILLNESS: Eric Anthony is a 61-year-old male who was admitted w ith fevers. The patient recently was discharged from the hospital after a prolonged stay for right lower extremity wound and cellulitis complicated by diabetes. He was found to have or osteomyelitis or septic arthritis. He underwent incision and drainage by Dr. Hieu Holly of podiatry and treate d with IV antibiotics for 6 weeks. The patient has ongoing fever and chills at home. He was previo usly found to have septic arthritis of the second MCP joint consistent with osteomyelitis of the pro ximal phalanx. His past problems include: 1. Adult-onset diabetes mellitus. 2. Peripheral vascular disease. 3. Cellulitis. 4. Microcytic anemia. 5. Deafness. The patient was on Levaquin and vancomycin. PAST MEDICAL HISTORY: Operations as outlined. SOCIAL HISTORY: Does not smoke, drink or abuse drugs. ALLERGIES: NONE TO PENICILLIN, SULFA OR FOODS. MEDICATIONS: Per chart. REVIEW OF SYSTEMS: As per HPI. PHYSICAL EXAMINATION: GENERAL: The patient is a well-developed, well-nourished male who is alert, responsive, in no acute distress. VITAL SIGNS: Stable. He is afebrile. SKIN: Without generalized rash. HEENT: Within normal limits. NECK: Supple. LYMPH NODES: None palpable. CHEST: Decreased breath sounds at the bases. HEART: Without murmur or gallop. ABDOMEN: Soft, nontender, without organosplenomegaly or masses. EXTREMITIES: Probable infection of the right lower extremity. His right foot has an open wound on the dorsal aspect of the right foot which appears to be smaller than on his previous admission. The re is 100% red granulation tissue. There is no undermining of the wound and no fluctuance. It is n ontender to palpation. There is a second wound which is located in the first webspace with mild mac eration on the right foot, again without pus or bleeding. The foot does not appear to be septic. RECTAL AND GENITAL: Deferred. NEUROLOGIC: Decreased sensation in the distal extremities. LABORATORY DATA: His white count is 4.5, H and H of 9.3 and 26.6, platelet count 74,000. BUN and c reatinine 19/1.17. Wound cultures have been obtained. Blood cultures pending. Chest x-ray showed no acute disease. There is a left central venous line. PLAN: As noted, cultures are pending. He is started on vancomycin and Levaquin. He received 1 dos e of ceftriaxone. We will continue him for now on vancomycin and Levaquin. I will dictate my findi ngs to Dr. Alatorre and Dr. Holly. Dictated By: BETTIE BRAGG MD, JD/FREDERICK Conf#: [id number] DID#: [id number]
[2017-01-24] MEDS: SODIUM HYPOCHLORITE 0.125% 473 ML BTL IRR SCH (15:13)
[2017-01-24] MEDS: COLLAGENASE 30 GM TUBE TOP SCH (15:13)
[2017-01-24] MEDS: FAMOTIDINE 20 MG TAB PO SCH ×2 (18:07→21:45)
[2017-01-24 19:32] VITALS: BP 159/78; RESP 20
--- NOTE | 2017-01-25 00:53 | RADRPT ---
PROCEDURE: XR Foot. CLINICAL INDICATION: Pain TECHNIQUE: AP, lateral and oblique views of the right foot was obtained. The images were reviewed on a PACS workstation. COMPARISON: None. FINDINGS: The bones of the foot appear intact, with no evidence of fracture, dislocation, or subluxation. Demineralization limits evaluation of fine osseous detail. Vascular calcifications. No significant soft tissue swelling is seen. IMPRESSION: Demineralization and vascular calcifications, without acute fracture. RPTAT: [facility] Physician Preethi Date Time Electronically viewed and signed by Physician Preethi on 01/25/2017 00:52 RS/
[2017-01-25] MEDS: VANCOMYCIN 1 GM in NS 250 ML IVPB SCH ×2 (00:59→14:00)
[2017-01-25] MEDS: ACCUCHECK XX SCH (02:00)
[2017-01-25 06:11] LABS: ADD SCAN DIFF NO
[2017-01-25 06:33] LABS: ALBUMIN 2.3 g/dl (3.3-4.9); POTASSIUM 3.6 mmol/L (3.5-5.1)
[2017-01-25 06:35] LABS: ABNORMAL IP MESSAGE 1; BASOPHILS % 0.2 % (0.0-2.0); EOSINOPHILS % 17.6 % (0.0-7.0); HEMATOCRIT 27.3 % (42.0-52.0); HEMOGLOBIN 9.3 g/dl (14.0-18.0); LYMPHOCYTES # 2.1 10^3/ul (0.8-2.9); LYMPHOCYTES % 37.7 % (15.0-51.0); MEAN CORPUSCULAR HEMOGLOBIN 33.7 pg (29.0-33.0); MEAN CORPUSCULAR HGB CONC 34.1 g/dl (32.0-37.0); MEAN CORPUSCULAR VOLUME 98.9 fl (82.0-101.0); MEAN PLATELET VOLUME 10.8 fl (7.4-10.4); MONOCYTE # 0.9 10^3/ul (0.3-0.9); MONOCYTES % 15.1 % (0.0-11.0); NEUTROPHIL # 1.6 10^3/ul (1.6-7.5); NEUTROPHILS % 28.9 % (39.0-77.0); PLATELET COUNT 87 10^3/UL (140-415); RED BLOOD COUNT 2.76 10^6/ul (4.70-6.10); RED CELL DISTRIBUTION WIDTH 13.9 % (11.5-14.5); WHITE BLOOD COUNT 5.6 10^3/ul (4.8-10.8)
[2017-01-25 06:36] LABS: CALCIUM 7.5 mg/dl (8.4-10.2); CREATININE 1.12 mg/dl (0.61-1.24); PHOSPHORUS 2.5 mg/dl (2.5-4.9)
[2017-01-25 06:37] LABS: MAGNESIUM 1.6 mg/dl (1.7-2.5)
[2017-01-25 07:34] VITALS: BP 168/82; RESP 20
[2017-01-25] MEDS: INSULIN ASPART [NOVOLOG] 3 ML PEN SC SCH ×4 (08:15→20:31)
[2017-01-25] MEDS ORDERED: ENOXAPARIN 40 MG/0.4 ML SYG SC SCH (09:00)
[2017-01-25] MEDS: FAMOTIDINE 20 MG TAB PO SCH ×2 (09:59→20:29)
[2017-01-25] MEDS: MULTIVITAMINS THERAPEUTIC TAB PO SCH (09:59)
[2017-01-25] MEDS: DOCUSATE SODIUM 100 MG CAP PO SCH ×2 (09:59→20:31)
[2017-01-25] MEDS: FOLIC ACID 1 MG TAB PO SCH (09:59)
[2017-01-25] MEDS: THIAMINE 100 MG TAB PO SCH (09:59)
[2017-01-25] MEDS: AMLODIPINE 10 MG TAB PO SCH (09:59)
[2017-01-25] MEDS: SODIUM HYPOCHLORITE 0.125% 473 ML BTL IRR SCH (10:00)
[2017-01-25] MEDS: COLLAGENASE 30 GM TUBE TOP SCH (10:00)
[2017-01-25] MEDS: LEVOFLOXACIN 500MG/D5W (PMX) 100 ML IVPB SCH (10:00)
--- NOTE | 2017-01-25 10:41 | PN ---
Date/Time of Note Date/Time of Note DATE: 01/25/17 TIME: 10:38 Assessment/Plan VTE Prophylaxis VTE Prophylaxis Intervention: SCD's (unilateral) VTE Contraindication Reason: blood coagulation disorder, thrombocytopenia Lines/Catheters IV Catheter Type (from Nrsg): PICC Line Central line still needed: Yes Assessment/Plan Assessment/Plan 1. Sepsis likely 2/2 UTI + Cellulitis : improving 2. Concerns for ongoing osteomyelitis and MRSA cellulitis. 2. Peripheral vascular disease. 3. Diabetes mellitus type 2 4. Hypokalemia: improved 5. Microcytic anemia. 6. Deafness. 7. Macrocytosis/ mild coagulopathy / thrombocytopenia suggestive of underlying liver disease PLAN: Continue current abx per ID F/u repeat blood and urine cultures Podiatry recs noted and appreciated No repeat surgery indicated, just wound dressings as follows: Quarter strength Dakin soaks daily on both wounds. Daily dressing changes with Santyl with each dressing change. DVT and GI prophylaxis. Continue Wound care. Subjective 24 Hr Interval Summary Free Text/Dictation Patient seen and examined. Exam/Review of Systems Vital Signs Vitals Vital Signs Date Time Temp Pulse Resp B/P Pulse Ox O2 Delivery O2 Flow Rate FiO2 01/25/17 10:30 101.9 01/25/17 07:34 86 20 168/82 98 01/24/17 06:30 Nasal Cannula 2.0 Intake and Output 01/24/17 01/24/17 01/25/17 15:00 23:00 07:00 Intake Total 100 ml 1160 ml 550 ml Output Total 100 ml 800 ml Balance 100 ml 1060 ml -250 ml Exam GENERAL: Well-nourished, well-developed gentleman, comfortable at rest, no acute distress. ENT: DEAF NECK: Supple. No JVD or lymphadenopathy. CARDIAC: S1, S2, no added sounds or murmurs. CHEST: Diminished air entry bilaterally. ABDOMEN: Soft, nontender. No guarding or rebound. EXTREMITIES: R foot bound and dressed NEUROLOGIC: Grossly intact. Results Result Diagram: 01/25/17 0535 01/25/17 0535 Results 24 hrs Laboratory Tests Test 01/24/17 12:12 01/24/17 17:25 01/24/17 21:49 01/25/17 05:35 Bedside Glucose 117 110 104 Albumin 2.3 L Anion Gap 11 Basophils # 0.0 Basophils % 0.2 Blood Urea Nitrogen 14 Calcium Level 7.5 L Carbon Dioxide Level 22 Chloride Level 108 Creatinine 1.12 Eosinophils # 1.0 H Eosinophils % 17.6 H Glucose Level 83 # Hematocrit 27.3 L Hemoglobin 9.3 L Lymphocytes # 2.1 Lymphocytes % 37.7 Magnesium Level 1.6 L Mean Corpuscular Hemoglobin 33.7 H Mean Corpuscular Hemoglobin Concent 34.1 Mean Corpuscular Volume 98.9 Mean Platelet Volume 10.8 H Monocytes # 0.9 Monocytes % 15.1 H Neutrophils # 1.6 Neutrophils % 28.9 L Nucleated Red Blood Cells # 0.0 Nucleated Red Blood Cells % 0.0 Phosphorus Level 2.5 Platelet Count 87 L Potassium Level 3.6 Red Blood Count 2.76 L Red Cell Distribution Width 13.9 Sodium Level 137 White Blood Count 5.6 # Test 01/25/17 08:07 Bedside Glucose 78 Medications Medications Current Medications Docusate Sodium (Colace) 100 mg BID PO Last administered on 01/25/17 09:59; Admin Dose 100 MG; Start 01/24/17 at 10:00 Famotidine (Pepcid) 20 mg BID PO Last administered on 01/25/17 09:59; Admin Dose 20 MG; Start 01/24/17 at 10:00 Acetaminophen/ Hydrocodone Bitart ([place] (5/325)) 1 tab Q6H PRN PO pain; Start 01/24/17 at 10:00 Ondansetron HCl (Zofran Inj) 4 mg Q6H PRN IV NAUSEA AND/OR VOMITING; Start 01/24 at 10:00 Enoxaparin Sodium (Lovenox) 40 mg DAILY SC Last administered on 01/25/17 10:07 ; Admin Dose 40 MG; Start 01/25/17 at 09:00 Multivitamins Therapeutic (Theragran) 1 tab DAILY PO Last administered on 09:59; Admin Dose 1 TAB; Start 01/24/17 at 10:00 Thiamine HCl (Vitamin B1) 100 mg DAILY PO Last administered on 01/25/17 09:59; Admin Dose 100 MG; Start 01/24/17 at 10:00 Folic Acid (Folic Acid) 1 mg DAILY PO Last administered on 01/25/17 09:59; Admin Dose 1 MG; Start 01/24/17 at 10:00 Amlodipine Besylate (Norvasc) 10 mg DAILY PO Last administered on 01/25/17 09: 59; Admin Dose 10 MG; Start 01/24/17 at 10:00 Diagnostic Test (Pha) (Accucheck) 1 ea 02 XX ; Start 01/25/17 at 02:00 Miscellaneous Information 1 ea NOTE XX ; Start 01/24/17 at 10:00 Glucose (Glutose) 15 gm Q15M PRN PO DECREASED GLUCOSE; Start 01/24/17 at 10:00 Glucose (Glutose) 22.5 gm Q15M PRN PO DECREASED GLUCOSE; Start 01/24/17 at 10:00 Dextrose (D50w Syringe) 25 ml Q15M PRN IV DECREASED GLUCOSE; Start 01/24/17 at 10:00 Dextrose (D50w Syringe) 50 ml Q15M PRN IV DECREASED GLUCOSE; Start 01/24/17 at 10:00 Glucagon (Glucagen) 1 mg Q15M PRN IM DECREASED GLUCOSE; Start 01/24/17 at 10:00 Glucose 15 gm 15 gm Q15M PRN BUCCAL DECREASED GLUCOSE; Start 01/24/17 at 10:00 Levofloxacin/ Dextrose 100 ml @ 100 mls/hr Q24H IVPB Last administered on 10:00; Admin Dose 100 MLS/HR; Start 01/24/17 at 10:30 Vancomycin HCl (Vancocin) 250 ml @ 125 mls/hr Q12H IVPB Last administered on 00:59; Admin Dose 125 MLS/HR; Start 01/24/17 at 13:00 Collagenase (Santyl) 1 applic DAILY TOP Last administered on 01/25/17 10:00; Admin Dose 1 APPLIC; Start 01/24/17 at 14:30 Sodium Hypochlorite ([place]akin'S (1/4 Strength)) 1 applic DAILY IRR Last administered on 01/25/17 10:00; Admin Dose 1 APPLIC; Start 01/24/17 at 14:30 Miscellaneous Information (*Rx Drug Level Order Reminder*) VANCOMYCIN TROUGH 01/26 AT 0000 ONCE ONCE XX ; Start 01/26/17 at 00:00; Stop 01/26/17 at 00:01 Procedures Procedures PROCEDURE: XR Foot. CLINICAL INDICATION: Pain TECHNIQUE: AP, lateral and oblique views of the right foot was obtained. The images were reviewed on a PACS workstation. COMPARISON: None. FINDINGS: The bones of the foot appear intact, with no evidence of fracture, dislocation, or subluxation. Demineralization limits evaluation of fine osseous detail. Vascular calcifications. No significant soft tissue swelling is seen. IMPRESSION: Demineralization and vascular calcifications, without acute fracture. RPTAT: [facility] Anjana Falcon Physician Date Time Electronically viewed and signed by Anjana Falcon Physician on 01/25/2017 00:52 RS/ CC: CONNER GORDON DPM ROCEDURE: XR Chest. CLINICAL INDICATION: Possible sepsis. TECHNIQUE: Single frontal view of the chest was obtained COMPARISON: 01/13/2017. FINDINGS: Left central venous line again seen with tip in superior vena cava. Cardiomegaly. The lungs are clear. There is improved lung inflation over the interval. There is no pleural effusion or pneumothorax. IMPRESSION: No acute disease. RPTAT: [facility] Anjana Falcon Physician Date Time Electronically viewed and signed by Anjana Falcon Physician on 01/24/2017 01:25 RS/ CC: MITZI MCKEON BOLATITO M. Jan 25, 2017 10:41
[2017-01-25] MEDS ORDERED: MAGNESIUM SULFATE 2 GM/50 ML 50 ML IVPB ONE (11:30)
--- NOTE | 2017-01-25 13:33 | PN ---
DATE: 01/25/2017 SUBJECTIVE: No events overnight. The patient is spiking fevers with a T-max of 102.6. He is lying comfortably in bed. Denies pain. LABORATORY DATA: WBC 5.6, H and H 9.3 and 27.3, platelets 87, no bands. BUN 14, creatinine 1.12. Urinalysis was negative for nitrite, leukocyte esterase. MICROBIOLOGY: Urine culture growing gram-negative rods. Right foot culture growing gram-negative r ods. DIAGNOSTICS: Chest x-ray revealed no acute disease. INDWELLINGS: The patient has a left upper extremity PICC line placed on 01/13/2017. ANTIMICROBIALS: The patient is on: 1. IV vancomycin. 2. Levaquin. PHYSICAL EXAMINATION: GENERAL: Chronically ill-appearing, elderly man who is in no distress. HEENT: Head atraumatic, normocephalic. Sclerae anicteric. Buccal mucosa dry. NECK: Supple, trachea midline. CHEST: Rise symmetrical. Breath sounds diminished at the bases. HEART: S1, S2. ABDOMEN: Soft, bowel tones present. EXTREMITIES: With right foot dressing intact. ASSESSMENT: 1. Sepsis with persistent fevers. 2. Urinary tract infection. 3. Right foot infected decubitus, osteomyelitis, status post incision and drainage with wound cultu re previously grew MRSA and Enterococcus species. Repeat cultures growing gram-negative rods. 4. Diabetes. 5. Peripheral vascular disease. PLAN: The patient remains stable pending final cultures. We will also send blood cultures if it camejo s not been done. Continue antibiotics. Follow podiatry recommendations. Dictated By: ABBY ABURTO CRUDE OIL TREATER for BETTIE MARCOS/FREDERICK Conf#: [id number] DID#: [id number]
[2017-01-25] MEDS: ACETAMINOPHEN 325 MG TAB PO PRN (14:30)
[2017-01-25 19:00] VITALS: BP 124/66; RESP 18
--- NOTE | 2017-01-25 23:57 | PN ---
Date/Time of Note Date/Time of Note DATE: 01/25/17 TIME: 23:57 Assessment/Plan Lines/Catheters IV [facility] Type (from [facility] P[facility] Line Assessment/Plan Chief Complaint/Hosp Course Thank you very much for involving me in the care of this patient. As you very well know this is a 61-year-old male patient who is readmitted to the hospital with diagnosis of cellulitis. He was recently hospitalized for right foot abscess and cellulitis and underwent surgical management to include debridement and incision and drainage. Patient was placed on long-term IV antibiotics and was released. He apparently returns with fever and swelling of the right foot. He is currently on IV antibiotics. He was admitted and I was consulted for evaluation treatment. Patient is mute and communication is difficult. Most of the history is obtained through chart review. Problems: Exam/Review of Systems Vital Signs Vitals Vital Signs Date Time Temp Pulse Resp B/P Pulse Ox O2 Delivery O2 Flow Rate FiO2 01/25/17 19:00 98.7 71 18 124/66 96 01/24/17 06:30 Nasal Cannula 2.0 Intake and Output 01/24/17 01/24/17 01/25/17 15:00 23:00 07:00 Intake Total 100 ml 1160 ml 550 ml Output Total 100 ml 800 ml Balance 100 ml 1060 ml -250 ml Results Result Diagram: 01/25/17 0535 01/25/17 0535 CONNER GORDON DPM Jan 25, 2017 23:57
[2017-01-26] MEDS: VANCOMYCIN 1 GM in NS 250 ML IVPB SCH ×2 (01:55→12:48)
[2017-01-26] MEDS: ACCUCHECK XX SCH (02:00)
[2017-01-26 06:09] LABS: ADD SCAN DIFF NO
[2017-01-26 06:19] LABS: ABNORMAL IP MESSAGE 1; BASOPHILS % 0.2 % (0.0-2.0); EOSINOPHILS # 1.1 10^3/ul (0.0-0.5); EOSINOPHILS % 24.3 % (0.0-7.0); HEMATOCRIT 26.5 % (42.0-52.0); HEMOGLOBIN 9.1 g/dl (14.0-18.0); LYMPHOCYTES # 1.6 10^3/ul (0.8-2.9); LYMPHOCYTES % 36.2 % (15.0-51.0); MEAN CORPUSCULAR HEMOGLOBIN 33.6 pg (29.0-33.0); MEAN CORPUSCULAR HGB CONC 34.3 g/dl (32.0-37.0); MEAN CORPUSCULAR VOLUME 97.8 fl (82.0-101.0); MEAN PLATELET VOLUME 9.9 fl (7.4-10.4); MONOCYTE # 0.6 10^3/ul (0.3-0.9); MONOCYTES % 14.2 % (0.0-11.0); NEUTROPHIL # 1.1 10^3/ul (1.6-7.5); NEUTROPHILS % 24.6 % (39.0-77.0); PLATELET COUNT 93 10^3/UL (140-415); RED BLOOD COUNT 2.71 10^6/ul (4.70-6.10); RED CELL DISTRIBUTION WIDTH 13.8 % (11.5-14.5); WHITE BLOOD COUNT 4.4 10^3/ul (4.8-10.8)
[2017-01-26 06:40] LABS: ALBUMIN 2.3 g/dl (3.3-4.9); POTASSIUM 3.4 mmol/L (3.5-5.1)
[2017-01-26 06:44] LABS: CALCIUM 7.3 mg/dl (8.4-10.2); PHOSPHORUS 2.9 mg/dl (2.5-4.9)
[2017-01-26 07:47] VITALS: BP 162/79; RESP 16
[2017-01-26] MEDS: INSULIN ASPART [NOVOLOG] 3 ML PEN SC SCH ×4 (07:53→20:45)
[2017-01-26] MEDS: FAMOTIDINE 20 MG TAB PO SCH ×2 (08:41→20:41)
[2017-01-26] MEDS: AMLODIPINE 10 MG TAB PO SCH (08:41)
[2017-01-26] MEDS: MULTIVITAMINS THERAPEUTIC TAB PO SCH (08:41)
[2017-01-26] MEDS: SODIUM HYPOCHLORITE 0.125% 473 ML BTL IRR SCH (08:42)
[2017-01-26] MEDS: DOCUSATE SODIUM 100 MG CAP PO SCH ×2 (08:42→20:40)
[2017-01-26] MEDS: COLLAGENASE 30 GM TUBE TOP SCH (08:42)
[2017-01-26] MEDS: FOLIC ACID 1 MG TAB PO SCH (08:42)
[2017-01-26] MEDS: THIAMINE 100 MG TAB PO SCH (08:42)
[2017-01-26] MEDS: LEVOFLOXACIN 500MG/D5W (PMX) 100 ML IVPB SCH (10:21)
--- NOTE | 2017-01-26 10:38 | PN ---
Date/Time of Note Date/Time of Note DATE: 01/26/17 TIME: 10:29 Assessment/Plan VTE Prophylaxis VTE Prophylaxis Intervention: SCD's VTE Contraindication Reason: thrombocytopenia Lines/Catheters IV Catheter Type (from Nrsg): PICC Line Central line still needed: Yes Assessment/Plan Assessment/Plan 1. Sepsis likely 2/2 UTI + Cellulitis : improving 2. Ongoing osteomyelitis and MRSA cellulitis. repeat cultures growing enterobacter 2. Peripheral vascular disease. 3. Diabetes mellitus type 2 4. Hypokalemia: improved 5. Microcytic anemia. 6. Deafness. 7. Chronic alcoholism with alcoholic liver disease with Macrocytosis/ mild coagulopathy / thrombocytopenia 8. Pseudomonas UTI PLAN: * Continue current abx per ID * Podiatry recs noted and appreciated * No repeat surgery indicated, just wound dressings as follows: Quarter strength Dakin soaks daily on both wounds. Daily dressing changes with Santyl with each dressing change. * Continue Wound care * Repeat blood cultures with new fevers and f/u ID recs. PROPHYLAXIS: Pepcid /SCDS Subjective 24 Hr Interval Summary Free Text/Dictation Patient seen and examined. still having fevers, patient remains in a good mood however Exam/Review of Systems Vital Signs Vitals Vital Signs Date Time Temp Pulse Resp B/P Pulse Ox O2 Delivery O2 Flow Rate FiO2 01/26/17 07:47 99.3 87 16 162/79 99 01/24/17 06:30 Nasal Cannula 2.0 Intake and Output 01/25/17 01/25/17 01/26/17 15:00 23:00 07:00 Intake Total 150 ml 770 ml 850 ml Output Total 600 ml 300 ml Balance 150 ml 170 ml 550 ml Exam GENERAL: Well-nourished, well-developed gentleman, comfortable at rest, no acute distress. ENT: DEAF NECK: Supple. No JVD or lymphadenopathy. CARDIAC: S1, S2, no added sounds or murmurs. CHEST: Diminished air entry bilaterally. ABDOMEN: Soft, nontender. No guarding or rebound. EXTREMITIES: R foot ulcer clean and dry on dorsal surface with surrounding cellulitis and edema NEUROLOGIC: Grossly intact. Results Result Diagram: 01/26/17 0535 01/26/17 0535 Results 24 hrs Laboratory Tests Test 01/25/17 11:44 01/25/17 17:01 01/25/17 20:26 01/26/17 01:03 Bedside Glucose 98 85 97 Vancomycin Level Trough 17.8 Test 01/26/17 05:35 01/26/17 07:45 Albumin 2.3 L Anion Gap 12 Basophils # 0.0 Basophils % 0.2 Blood Urea Nitrogen 12 Calcium Level 7.3 L Carbon Dioxide Level 20 L Chloride Level 106 Creatinine 1.00 Eosinophils # 1.1 H Eosinophils % 24.3 H Glucose Level 77 Hematocrit 26.5 L Hemoglobin 9.1 L Lymphocytes # 1.6 Lymphocytes % 36.2 Mean Corpuscular Hemoglobin 33.6 H Mean Corpuscular Hemoglobin Concent 34.3 Mean Corpuscular Volume 97.8 Mean Platelet Volume 9.9 Monocytes # 0.6 Monocytes % 14.2 H Neutrophils # 1.1 L Neutrophils % 24.6 L Nucleated Red Blood Cells # 0.0 Nucleated Red Blood Cells % 0.0 Phosphorus Level 2.9 Platelet Count 93 L Potassium Level 3.4 L Red Blood Count 2.71 L Red Cell Distribution Width 13.8 Sodium Level 135 White Blood Count 4.4 #L Bedside Glucose 85 Medications Medications Current Medications Docusate Sodium (Colace) 100 mg BID PO Last administered on 01/25/17 09:59; Admin Dose 100 MG; Start 01/24/17 at 10:00 Famotidine (Pepcid) 20 mg BID PO Last administered on 01/26/17 08:41; Admin Dose 20 MG; Start 01/24/17 at 10:00 Acetaminophen/ Hydrocodone Bitart ([place] (5/325)) 1 tab Q6H PRN PO pain; Start 01/24/17 at 10:00 Ondansetron HCl (Zofran Inj) 4 mg Q6H PRN IV NAUSEA AND/OR VOMITING; Start 01/24 at 10:00 Multivitamins Therapeutic (Theragran) 1 tab DAILY PO Last administered on 08:41; Admin Dose 1 TAB; Start 01/24/17 at 10:00 Thiamine HCl (Vitamin B1) 100 mg DAILY PO Last administered on 01/26/17 08:42; Admin Dose 100 MG; Start 01/24/17 at 10:00 Folic Acid (Folic Acid) 1 mg DAILY PO Last administered on 01/26/17 08:42; Admin Dose 1 MG; Start 01/24/17 at 10:00 Amlodipine Besylate (Norvasc) 10 mg DAILY PO Last administered on 01/26/17 08: 41; Admin Dose 10 MG; Start 01/24/17 at 10:00 Diagnostic Test (Pha) (Accucheck) 1 ea 02 XX ; Start 01/25/17 at 02:00 Miscellaneous Information 1 ea NOTE XX ; Start 01/24/17 at 10:00 Glucose (Glutose) 15 gm Q15M PRN PO DECREASED GLUCOSE; Start 01/24/17 at 10:00 Glucose (Glutose) 22.5 gm Q15M PRN PO DECREASED GLUCOSE; Start 01/24/17 at 10:00 Dextrose (D50w Syringe) 25 ml Q15M PRN IV DECREASED GLUCOSE; Start 01/24/17 at 10:00 Dextrose (D50w Syringe) 50 ml Q15M PRN IV DECREASED GLUCOSE; Start 01/24/17 at 10:00 Glucagon (Glucagen) 1 mg Q15M PRN IM DECREASED GLUCOSE; Start 01/24/17 at 10:00 Glucose 15 gm 15 gm Q15M PRN BUCCAL DECREASED GLUCOSE; Start 01/24/17 at 10:00 Levofloxacin/ Dextrose 100 ml @ 100 mls/hr Q24H IVPB Last administered on 10:21; Admin Dose 100 MLS/HR; Start 01/24/17 at 10:30 Vancomycin HCl (Vancocin) 250 ml @ 125 mls/hr Q12H IVPB Last administered on 01:55; Admin Dose 125 MLS/HR; Start 01/24/17 at 13:00 Collagenase (Santyl) 1 applic DAILY TOP Last administered on 01/26/17 08:42; Admin Dose 1 APPLIC; Start 01/24/17 at 14:30 Sodium Hypochlorite (Dakin'S (1/4 Strength)) 1 applic DAILY IRR Last administered on 01/26/17 08:42; Admin Dose 1 APPLIC; Start 01/24/17 at 14:30 Acetaminophen (Tylenol Tab) 650 mg Q6H PRN PO PAIN AND OR ELEVATED TEMP Last administered on 01/25/17 14:30; Admin Dose 650 MG; Start 01/25/17 at 14:30 CHUY MATTA Jan 26, 2017 10:38
[2017-01-26] MEDS: ACETAMINOPHEN 325 MG TAB PO PRN (12:54)
--- NOTE | 2017-01-26 13:00 | CONS ---
Date/Time of Note Date/Time of Note DATE: 01/26/17 TIME: 12:57 Assessment/Plan Assessment/Plan Chief Complaint/Hosp Course SUBJECTIVE: No events overnight. The patient is alert, looks comfortable, afebrile MICROBIOLOGY: Urine culture growing PSA. Right foot culture growing Enterococcus/Enterobacter DIAGNOSTICS: Chest x-ray revealed no acute disease. INDWELLINGS: The patient has a left upper extremity PICC line placed on 2016. ANTIMICROBIALS: The patient is on: 1. IV vancomycin. 2. Levaquin. PHYSICAL EXAMINATION: GENERAL: Chronically ill-appearing, elderly man who is in no distress. HEENT: Head atraumatic, normocephalic. Sclerae anicteric. Buccal mucosa dry. NECK: Supple, trachea midline. CHEST: Rise symmetrical. Breath sounds diminished at the bases. HEART: S1, S2. ABDOMEN: Soft, bowel tones present. EXTREMITIES: With right foot dressing intact. ASSESSMENT: 1. Sepsis with persistent fevers. 2. Urinary tract infection. 3. Right foot infected decubitus, osteomyelitis, status post incision and drainage with wound culture previously grew MRSA and Enterococcus species. Repeat cultures growing gram-negative rods. 4. Diabetes. 5. Peripheral vascular disease. PLAN: The patient remains stable, continue abx, f/u bld cx, follow podiatry recommendations. DW staff Problems: Consultation Date/Type/Reason Admit Date/Time Jan 24, 2017 at 02:11 Initial Consult Date 01/24/17 Type of Consultation: ID Exam/Review of Systems Vital Signs Vitals Vital Signs Date Time Temp Pulse Resp B/P Pulse Ox O2 Delivery O2 Flow Rate FiO2 01/26/17 12:54 101.0 01/26/17 07:47 87 16 162/79 99 01/24/17 06:30 Nasal Cannula 2.0 Intake and Output 01/25/17 01/25/17 01/26/17 15:00 23:00 07:00 Intake Total 150 ml 770 ml 850 ml Output Total 600 ml 300 ml Balance 150 ml 170 ml 550 ml Results Result Diagram: 01/26/17 0535 01/26/17 0535 Results 24 hrs Laboratory Tests Test 01/25/17 17:01 01/25/17 20:26 01/26/17 01:03 01/26/17 05:35 Bedside Glucose 85 97 Vancomycin Level Trough 17.8 Albumin 2.3 L Anion Gap 12 Basophils # 0.0 Basophils % 0.2 Blood Urea Nitrogen 12 Calcium Level 7.3 L Carbon Dioxide Level 20 L Chloride Level 106 Creatinine 1.00 Eosinophils # 1.1 H Eosinophils % 24.3 H Glucose Level 77 Hematocrit 26.5 L Hemoglobin 9.1 L Lymphocytes # 1.6 Lymphocytes % 36.2 Mean Corpuscular Hemoglobin 33.6 H Mean Corpuscular Hemoglobin Concent 34.3 Mean Corpuscular Volume 97.8 Mean Platelet Volume 9.9 Monocytes # 0.6 Monocytes % 14.2 H Neutrophils # 1.1 L Neutrophils % 24.6 L Nucleated Red Blood Cells # 0.0 Nucleated Red Blood Cells % 0.0 Phosphorus Level 2.9 Platelet Count 93 L Potassium Level 3.4 L Red Blood Count 2.71 L Red Cell Distribution Width 13.8 Sodium Level 135 White Blood Count 4.4 #L Test 01/26/17 07:45 01/26/17 11:55 Bedside Glucose 85 87 Medications Medications Current Medications Docusate Sodium (Colace) 100 mg BID PO Last administered on 01/25/17 09:59; Admin Dose 100 MG; Start 01/24/17 at 10:00 Famotidine (Pepcid) 20 mg BID PO Last administered on 01/26/17 08:41; Admin Dose 20 MG; Start 01/24/17 at 10:00 Acetaminophen/ Hydrocodone Bitart ([place] (5/325)) 1 tab Q6H PRN PO pain; Start 01/24/17 at 10:00 Ondansetron HCl (Zofran Inj) 4 mg Q6H PRN IV NAUSEA AND/OR VOMITING; Start 01/24 at 10:00 Multivitamins Therapeutic (Theragran) 1 tab DAILY PO Last administered on 08:41; Admin Dose 1 TAB; Start 01/24/17 at 10:00 Thiamine HCl (Vitamin B1) 100 mg DAILY PO Last administered on 01/26/17 08:42; Admin Dose 100 MG; Start 01/24/17 at 10:00 Folic Acid (Folic Acid) 1 mg DAILY PO Last administered on 01/26/17 08:42; Admin Dose 1 MG; Start 01/24/17 at 10:00 Amlodipine Besylate (Norvasc) 10 mg DAILY PO Last administered on 01/26/17 08: 41; Admin Dose 10 MG; Start 01/24/17 at 10:00 Diagnostic Test (Pha) (Accucheck) 1 ea 02 XX ; Start 01/25/17 at 02:00 Miscellaneous Information 1 ea NOTE XX ; Start 01/24/17 at 10:00 Glucose (Glutose) 15 gm Q15M PRN PO DECREASED GLUCOSE; Start 01/24/17 at 10:00 Glucose (Glutose) 22.5 gm Q15M PRN PO DECREASED GLUCOSE; Start 01/24/17 at 10:00 Dextrose (D50w Syringe) 25 ml Q15M PRN IV DECREASED GLUCOSE; Start 01/24/17 at 10:00 Dextrose (D50w Syringe) 50 ml Q15M PRN IV DECREASED GLUCOSE; Start 01/24/17 at 10:00 Glucagon (Glucagen) 1 mg Q15M PRN IM DECREASED GLUCOSE; Start 01/24/17 at 10:00 Glucose 15 gm 15 gm Q15M PRN BUCCAL DECREASED GLUCOSE; Start 01/24/17 at 10:00 Levofloxacin/ Dextrose 100 ml @ 100 mls/hr Q24H IVPB Last administered on 10:21; Admin Dose 100 MLS/HR; Start 01/24/17 at 10:30 Vancomycin HCl (Vancocin) 250 ml @ 125 mls/hr Q12H IVPB Last administered on 12:48; Admin Dose 125 MLS/HR; Start 01/24/17 at 13:00 Collagenase (Santyl) 1 applic DAILY TOP Last administered on 01/26/17 08:42; Admin Dose 1 APPLIC; Start 01/24/17 at 14:30 Sodium Hypochlorite (Dakin'S (1/4 Strength)) 1 applic DAILY IRR Last administered on 01/26/17 08:42; Admin Dose 1 APPLIC; Start 01/24/17 at 14:30 Acetaminophen (Tylenol Tab) 650 mg Q6H PRN PO PAIN AND OR ELEVATED TEMP Last administered on 01/26/17 12:54; Admin Dose 650 MG; Start 01/25/17 at 14:30 ABBY ABURTO NP Jan 26, 2017 13:00
[2017-01-26] MEDS ORDERED: POTASSIUM CHLORIDE 250 ML IVPB ONE (16:00)
[2017-01-26 20:00] VITALS: BP 117/66; PULSE 67; RESP 18
--- NOTE | 2017-01-26 23:54 | PN ---
Date/Time of Note Date/Time of Note DATE: 01/26/17 TIME: 23:54 Assessment/Plan Lines/Catheters IV Catheter Type (from [facility], [place]): PICC Line Assessment/Plan Chief Complaint/Hosp Course Thank you very much for involving me in the care of this patient. As you very well know this is a 61-year-old male patient who is readmitted to the hospital with diagnosis of cellulitis. He was recently hospitalized for right foot abscess and cellulitis and underwent surgical management to include debridement and incision and drainage. Patient was placed on long-term IV antibiotics and was released. He apparently returns with fever and swelling of the right foot. He is currently on IV antibiotics. He was admitted and I was consulted for evaluation treatment. Patient is mute and communication is difficult. Most of the history is obtained through chart review. Problems: Exam/Review of Systems Vital Signs Vitals Vital Signs Date Time Temp Pulse Resp B/P Pulse Ox O2 Delivery O2 Flow Rate FiO2 01/26/17 15:30 99.2 01/26/17 07:47 87 16 162/79 99 01/24/17 06:30 Nasal Cannula 2.0 Intake and Output 01/25/17 01/25/17 01/26/17 15:00 23:00 07:00 Intake Total 150 ml 770 ml 850 ml Output Total 600 ml 300 ml Balance 150 ml 170 ml 550 ml Results Result Diagram: 01/26/17 0535 01/26/17 0535 CONNER GORDON DPM Jan 26, 2017 23:54
[2017-01-27] MEDS: VANCOMYCIN 1 GM in NS 250 ML IVPB SCH ×2 (01:02→12:37)
[2017-01-27] MEDS: ACCUCHECK XX SCH (02:00)
[2017-01-27 05:48] LABS: ADD SCAN DIFF NO
[2017-01-27 05:54] LABS: ABNORMAL IP MESSAGE 1; HEMATOCRIT 26.7 % (42.0-52.0); HEMOGLOBIN 9.2 g/dl (14.0-18.0); MEAN CORPUSCULAR HEMOGLOBIN 34.1 pg (29.0-33.0); MEAN CORPUSCULAR HGB CONC 34.5 g/dl (32.0-37.0); MEAN CORPUSCULAR VOLUME 98.9 fl (82.0-101.0); MEAN PLATELET VOLUME 10.3 fl (7.4-10.4); PLATELET COUNT 100 10^3/UL (140-415); RED CELL DISTRIBUTION WIDTH 13.9 % (11.5-14.5); WHITE BLOOD COUNT 4.1 10^3/ul (4.8-10.8)
[2017-01-27 06:06] LABS: ALBUMIN 2.4 g/dl (3.3-4.9); POTASSIUM 3.8 mmol/L (3.5-5.1)
[2017-01-27 06:09] LABS: CREATININE 1.08 mg/dl (0.61-1.24)
[2017-01-27 06:10] LABS: CALCIUM 7.4 mg/dl (8.4-10.2); PHOSPHORUS 2.7 mg/dl (2.5-4.9)
[2017-01-27 06:21] LABS: IRON 111 ug/dl (35-150)
[2017-01-27 06:30] LABS: TOTAL IRON BINDING CAPACITY 232 ug/dl (241-421)
[2017-01-27 07:37] VITALS: BP 158/79; RESP 18
[2017-01-27] MEDS: INSULIN ASPART [NOVOLOG] 3 ML PEN SC SCH ×4 (07:50→21:00)
[2017-01-27] MEDS: FAMOTIDINE 20 MG TAB PO SCH ×2 (08:33→21:19)
[2017-01-27] MEDS: MULTIVITAMINS 10 ML, THIAMINE 100 MG, FOLIC ACID 1 MG in SOD CHLORIDE 0.9% 1,000 ML IVPB SCH (08:33)
[2017-01-27] MEDS: THIAMINE 100 MG TAB PO SCH (08:33)
[2017-01-27] MEDS: MULTIVITAMINS THERAPEUTIC TAB PO SCH (08:33)
[2017-01-27] MEDS: DOCUSATE SODIUM 100 MG CAP PO SCH ×2 (08:34→21:19)
[2017-01-27] MEDS: AMLODIPINE 10 MG TAB PO SCH (08:34)
[2017-01-27] MEDS: FOLIC ACID 1 MG TAB PO SCH (08:34)
[2017-01-27 10:39] LABS: BASOPHIL # 0.1 10^3/ul (0.0-0.1); EOSINOPHILS # 0.4 10^3/ul (0.0-0.5); LYMPHOCYTES # 0.9 10^3/ul (0.8-2.9); MONOCYTE # 0.8 10^3/ul (0.3-0.9); MYELOCYTES # 0.1; NEUTROPHIL # 1.5 10^3/ul (1.6-7.5)
[2017-01-27] MEDS: LEVOFLOXACIN 500MG/D5W (PMX) 100 ML IVPB SCH (10:48)
[2017-01-27] MEDS: COLLAGENASE 30 GM TUBE TOP SCH (10:48)
[2017-01-27] MEDS: SODIUM HYPOCHLORITE 0.125% 473 ML BTL IRR SCH (10:51)
--- NOTE | 2017-01-27 11:53 | CONS ---
Date/Time of Note Date/Time of Note DATE: 01/27/17 TIME: 11:52 Assessment/Plan Assessment/Plan Chief Complaint/Hosp Course SUBJECTIVE: No events overnight. The patient is alert, looks comfortable, afebrile MICROBIOLOGY: Urine culture growing PSA. Right foot culture growing Enterococcus/Enterobacter DIAGNOSTICS: Chest x-ray on admission revealed no acute disease. INDWELLINGS: The patient has a left upper extremity PICC line placed on 2016. ANTIMICROBIALS: The patient is on: 1. IV vancomycin. 2. Levaquin. PHYSICAL EXAMINATION: GENERAL: Chronically ill-appearing, elderly man who is in no distress. HEENT: Head atraumatic, normocephalic. Sclerae anicteric. Buccal mucosa dry. NECK: Supple, trachea midline. CHEST: Rise symmetrical. Breath sounds diminished at the bases. HEART: S1, S2. ABDOMEN: Soft, bowel tones present. EXTREMITIES: With right foot dressing intact. ASSESSMENT: 1. Sepsis with persistent fevers. 2. Urinary tract infection. 3. Right foot infected decubitus, osteomyelitis, status post incision and drainage with wound culture previously grew MRSA and Enterococcus species. Repeat cultures growing gram-negative rods. 4. Diabetes. 5. Peripheral vascular disease. PLAN: The patient remains stable, still with on/off fevers, bld cx negative, continue abx, follow podiatry recommendations, cxr in am/incentive spirometry. DW staff Problems: Consultation Date/Type/Reason Admit Date/Time Jan 24, 2017 at 02:11 Initial Consult Date 01/24/17 Type of Consultation: ID Exam/Review of Systems Vital Signs Vitals Vital Signs Date Time Temp Pulse Resp B/P Pulse Ox O2 Delivery O2 Flow Rate FiO2 01/27/17 07:37 99.5 76 18 158/79 98 01/26/17 20:00 Room Air 01/24/17 06:30 2.0 Intake and Output 01/26/17 01/26/17 01/27/17 15:00 23:00 07:00 Intake Total 840 ml 550 ml Output Total 500 ml 400 ml Balance 340 ml 150 ml Results Result Diagram: 01/27/17 0425 01/27/17 0442 Results 24 hrs Laboratory Tests Test 01/26/17 11:55 01/26/17 17:20 01/26/17 20:44 01/27/17 04:13 Bedside Glucose 87 76 116 Magnesium Level 1.8 Test 01/27/17 04:25 01/27/17 04:42 01/27/17 07:49 Band Neutrophils % 10.0 H Basophils # 0.1 Basophils % 2.0 Differential Comment MANUAL DIF Eosinophils # 0.4 Eosinophils % 9.0 H Hematocrit 26.7 L Hemoglobin 9.2 L Lymphocytes # 0.9 Lymphocytes % 22.0 Mean Corpuscular Hemoglobin 34.1 H Mean Corpuscular Hemoglobin Concent 34.5 Mean Corpuscular Volume 98.9 Mean Platelet Volume 10.3 Monocytes # 0.8 Monocytes % 19.0 H Myelocytes # 0.1 Myelocytes % 2.0 H Neutrophils # 1.5 L Neutrophils % 36.0 L Nucleated Red Blood Cells # Nucleated Red Blood Cells % Platelet Count 100 L Red Blood Count 2.70 L Red Cell Distribution Width 13.9 White Blood Count 4.1 L Albumin 2.4 L Anion Gap 14 Blood Urea Nitrogen 12 Calcium Level 7.4 L Carbon Dioxide Level 20 L Chloride Level 107 Creatinine 1.08 Glucose Level 85 Iron Level 111 Percent Iron Saturation 48 Phosphorus Level 2.7 Potassium Level 3.8 Sodium Level 137 Total Iron Binding Capacity 232 L Bedside Glucose 91 Medications Medications Current Medications Docusate Sodium (Colace) 100 mg BID PO Last administered on 01/27/17 08:34; Admin Dose 100 MG; Start 01/24/17 at 10:00 Famotidine (Pepcid) 20 mg BID PO Last administered on 01/27/17 08:33; Admin Dose 20 MG; Start 01/24/17 at 10:00 Acetaminophen/ Hydrocodone Bitart ([place] (5/325)) 1 tab Q6H PRN PO pain; Start 01/24/17 at 10:00 Ondansetron HCl (Zofran Inj) 4 mg Q6H PRN IV NAUSEA AND/OR VOMITING; Start 01/24 at 10:00 Multivitamins Therapeutic (Theragran) 1 tab DAILY PO Last administered on 08:33; Admin Dose 1 TAB; Start 01/24/17 at 10:00 Thiamine HCl (Vitamin B1) 100 mg DAILY PO Last administered on 01/27/17 08:33 ; Admin Dose 100 MG; Start 01/24/17 at 10:00 Folic Acid (Folic Acid) 1 mg DAILY PO Last administered on 01/27/17 08:34; Admin Dose 1 MG; Start 01/24/17 at 10:00 Amlodipine Besylate (Norvasc) 10 mg DAILY PO Last administered on 01/27/17 08: 34; Admin Dose 10 MG; Start 01/24/17 at 10:00 Diagnostic Test (Pha) (Accucheck) 1 ea 02 XX ; Start 01/25/17 at 02:00 Miscellaneous Information 1 ea NOTE XX ; Start 01/24/17 at 10:00 Glucose (Glutose) 15 gm Q15M PRN PO DECREASED GLUCOSE; Start 01/24/17 at 10:00 Glucose (Glutose) 22.5 gm Q15M PRN PO DECREASED GLUCOSE; Start 01/24/17 at 10:00 Dextrose (D50w Syringe) 25 ml Q15M PRN IV DECREASED GLUCOSE; Start 01/24/17 at 10:00 Dextrose (D50w Syringe) 50 ml Q15M PRN IV DECREASED GLUCOSE; Start 01/24/17 at 10:00 Glucagon (Glucagen) 1 mg Q15M PRN IM DECREASED GLUCOSE; Start 01/24/17 at 10:00 Glucose 15 gm 15 gm Q15M PRN BUCCAL DECREASED GLUCOSE; Start 01/24/17 at 10:00 Levofloxacin/ Dextrose 100 ml @ 100 mls/hr Q24H IVPB Last administered on 01/27 10:48; Admin Dose 100 MLS/HR; Start 01/24/17 at 10:30 Vancomycin HCl (Vancocin) 250 ml @ 125 mls/hr Q12H IVPB Last administered on 01:02; Admin Dose 125 MLS/HR; Start 01/24/17 at 13:00 Collagenase (Santyl) 1 applic DAILY TOP Last administered on 01/27/17 10:48; Admin Dose 1 APPLIC; Start 01/24/17 at 14:30 Sodium Hypochlorite (Dakin'S (1/4 Strength)) 1 applic DAILY IRR Last administered on 01/27/17 10:51; Admin Dose 1 APPLIC; Start 01/24/17 at 14:30 Acetaminophen 650 mg 650 mg Q6H PRN PO PAIN AND OR ELEVATED TEMP Last administered on 01/26/17 12:54; Admin Dose 650 MG; Start 01/25/17 at 14:30 Multivitamins/ Thiamine HCl/ Folic Acid/Sodium Chloride (Mvi-12 Adult/ Vitamin B1/Folic Acid/NS) 1,011.2 ml @ 125 mls/ hr DAILY@09 IVPB Last administered on 01/27/17t 08:33; Admin Dose 125 MLS/HR; Start 01/27/17 at 09:00 ABBY ABURTO NP Jan 27, 2017 11:53
--- NOTE | 2017-01-27 13:48 | PN ---
Date/Time of Note Date/Time of Note DATE: 01/27/17 TIME: 13:46 Assessment/Plan VTE Prophylaxis VTE Prophylaxis Intervention: SCD's VTE Contraindication Reason: thrombocytopenia Lines/Catheters IV Catheter Type (from Nrsg): PICC Line Central line still needed: Yes Assessment/Plan Assessment/Plan 1. Sepsis likely 2/2 UTI + Cellulitis : still spiking fevers with bandemia 2. Ongoing osteomyelitis and MRSA cellulitis. repeat cultures growing enterobacter 2. Peripheral vascular disease. 3. Diabetes mellitus type 2 4. Hypokalemia: improved 5. Microcytic anemia. 6. Deafness. 7. Chronic alcoholism with alcoholic liver disease with Macrocytosis/ mild coagulopathy / thrombocytopenia 8. Pseudomonas UTI PLAN: * Continue current abx per ID * Podiatry recs noted and appreciated * No repeat surgery indicated, just wound dressings as follows: Quarter strength Dakin soaks daily on both wounds. Daily dressing changes with Santyl with each dressing change. * Continue Wound care * Repeat blood cultures with new fevers and f/u ID recs. PROPHYLAXIS: Pepcid /SCDS Subjective 24 Hr Interval Summary Free Text/Dictation Patient seen and examined. was sleeping comfortably and easily aroused Exam/Review of Systems Vital Signs Vitals Vital Signs Date Time Temp Pulse Resp B/P Pulse Ox O2 Delivery O2 Flow Rate FiO2 01/27/17 07:37 99.5 76 18 158/79 98 01/26/17 20:00 Room Air 01/24/17 06:30 2.0 Intake and Output 01/26/17 01/26/17 01/27/17 15:00 23:00 07:00 Intake Total 840 ml 550 ml Output Total 500 ml 400 ml Balance 340 ml 150 ml Exam GENERAL: Well-nourished, well-developed gentleman, comfortable at rest, no acute distress. ENT: DEAF NECK: Supple. No JVD or lymphadenopathy. CARDIAC: S1, S2, no added sounds or murmurs. CHEST: Diminished air entry bilaterally. ABDOMEN: Soft, nontender. No guarding or rebound. EXTREMITIES: R foot ulcer clean and dry on dorsal surface with surrounding cellulitis and edema NEUROLOGIC: Grossly intact. Results Result Diagram: 01/27/17 0425 01/27/17 0442 Results 24 hrs Laboratory Tests Test 01/26/17 17:20 01/26/17 20:44 01/27/17 04:13 01/27/17 04:25 Bedside Glucose 76 116 Magnesium Level 1.8 Band Neutrophils % 10.0 H Basophils # 0.1 Basophils % 2.0 Differential Comment MANUAL DIF Eosinophils # 0.4 Eosinophils % 9.0 H Hematocrit 26.7 L Hemoglobin 9.2 L Lymphocytes # 0.9 Lymphocytes % 22.0 Mean Corpuscular Hemoglobin 34.1 H Mean Corpuscular Hemoglobin Concent 34.5 Mean Corpuscular Volume 98.9 Mean Platelet Volume 10.3 Monocytes # 0.8 Monocytes % 19.0 H Myelocytes # 0.1 Myelocytes % 2.0 H Neutrophils # 1.5 L Neutrophils % 36.0 L Nucleated Red Blood Cells # Nucleated Red Blood Cells % Platelet Count 100 L Red Blood Count 2.70 L Red Cell Distribution Width 13.9 White Blood Count 4.1 L Test 01/27/17 04:42 01/27/17 07:49 01/27/17 11:59 Albumin 2.4 L Anion Gap 14 Blood Urea Nitrogen 12 Calcium Level 7.4 L Carbon Dioxide Level 20 L Chloride Level 107 Creatinine 1.08 Glucose Level 85 Iron Level 111 Percent Iron Saturation 48 Phosphorus Level 2.7 Potassium Level 3.8 Sodium Level 137 Total Iron Binding Capacity 232 L Bedside Glucose 91 115 Medications Medications Current Medications Docusate Sodium (Colace) 100 mg BID PO Last administered on 01/27/17 08:34; Admin Dose 100 MG; Start 01/24/17 at 10:00 Famotidine (Pepcid) 20 mg BID PO Last administered on 01/27/17 08:33; Admin Dose 20 MG; Start 01/24/17 at 10:00 Acetaminophen/ Hydrocodone Bitart ([place] (5/325)) 1 tab Q6H PRN PO pain; Start 01/24/17 at 10:00 Ondansetron HCl (Zofran Inj) 4 mg Q6H PRN IV NAUSEA AND/OR VOMITING; Start 01/24 at 10:00 Multivitamins Therapeutic (Theragran) 1 tab DAILY PO Last administered on 08:33; Admin Dose 1 TAB; Start 01/24/17 at 10:00 Thiamine HCl (Vitamin B1) 100 mg DAILY PO Last administered on 01/27/17 08:33 ; Admin Dose 100 MG; Start 01/24/17 at 10:00 Folic Acid (Folic Acid) 1 mg DAILY PO Last administered on 01/27/17 08:34; Admin Dose 1 MG; Start 01/24/17 at 10:00 Amlodipine Besylate (Norvasc) 10 mg DAILY PO Last administered on 01/27/17 08: 34; Admin Dose 10 MG; Start 01/24/17 at 10:00 Diagnostic Test (Pha) (Accucheck) 1 ea 02 XX ; Start 01/25/17 at 02:00 Miscellaneous Information 1 ea NOTE XX ; Start 01/24/17 at 10:00 Glucose (Glutose) 15 gm Q15M PRN PO DECREASED GLUCOSE; Start 01/24/17 at 10:00 Glucose (Glutose) 22.5 gm Q15M PRN PO DECREASED GLUCOSE; Start 01/24/17 at 10:00 Dextrose (D50w Syringe) 25 ml Q15M PRN IV DECREASED GLUCOSE; Start 01/24/17 at 10:00 Dextrose (D50w Syringe) 50 ml Q15M PRN IV DECREASED GLUCOSE; Start 01/24/17 at 10:00 Glucagon (Glucagen) 1 mg Q15M PRN IM DECREASED GLUCOSE; Start 01/24/17 at 10:00 Glucose 15 gm 15 gm Q15M PRN BUCCAL DECREASED GLUCOSE; Start 01/24/17 at 10:00 Levofloxacin/ Dextrose 100 ml @ 100 mls/hr Q24H IVPB Last administered on 01/27 10:48; Admin Dose 100 MLS/HR; Start 01/24/17 at 10:30 Vancomycin HCl (Vancocin) 250 ml @ 125 mls/hr Q12H IVPB Last administered on 12:37; Admin Dose 125 MLS/HR; Start 01/24/17 at 13:00 Collagenase (Santyl) 1 applic DAILY TOP Last administered on 01/27/17 10:48; Admin Dose 1 APPLIC; Start 01/24/17 at 14:30 Sodium Hypochlorite (Dakin'S (1/4 Strength)) 1 applic DAILY IRR Last administered on 01/27/17 10:51; Admin Dose 1 APPLIC; Start 01/24/17 at 14:30 Acetaminophen 650 mg 650 mg Q6H PRN PO PAIN AND OR ELEVATED TEMP Last administered on 01/26/17 12:54; Admin Dose 650 MG; Start 01/25/17 at 14:30 Multivitamins/ Thiamine HCl/ Folic Acid/Sodium Chloride (Mvi-12 Adult/ Vitamin B1/Folic Acid/NS) 1,011.2 ml @ 125 mls/ hr DAILY@09 IVPB Last administered on 01/27/17t 08:33; Admin Dose 125 MLS/HR; Start 01/27/17 at 09:00 CHUY MATTA 10, 2017 13:48
[2017-01-27 21:12] VITALS: BP 172/86; RESP 18
[2017-01-27] MEDS: ACETAMINOPHEN 325 MG TAB PO PRN (21:36)
[2017-01-27 23:48] VITALS: BP 135/75; PULSE 72; RESP 18
[2017-01-28] MEDS: VANCOMYCIN 1 GM in NS 250 ML IVPB SCH (01:06)
[2017-01-28] MEDS: ACCUCHECK XX SCH (02:00)
[2017-01-28 07:38] VITALS: BP 158/82; RESP 18
[2017-01-28] MEDS: INSULIN ASPART [NOVOLOG] 3 ML PEN SC SCH ×4 (07:57→21:00)
[2017-01-28] MEDS: FOLIC ACID 1 MG TAB PO SCH (08:32)
[2017-01-28] MEDS: THIAMINE 100 MG TAB PO SCH (08:32)
[2017-01-28] MEDS: MULTIVITAMINS THERAPEUTIC TAB PO SCH (08:32)
[2017-01-28] MEDS: DOCUSATE SODIUM 100 MG CAP PO SCH ×2 (08:32→20:58)
[2017-01-28] MEDS: FAMOTIDINE 20 MG TAB PO SCH ×2 (08:32→20:58)
[2017-01-28] MEDS: AMLODIPINE 10 MG TAB PO SCH (08:32)
[2017-01-28] MEDS: MULTIVITAMINS 10 ML, THIAMINE 100 MG, FOLIC ACID 1 MG in SOD CHLORIDE 0.9% 1,000 ML IVPB SCH (08:32)
[2017-01-28] MEDS: COLLAGENASE 30 GM TUBE TOP SCH (08:33)
[2017-01-28] MEDS: SODIUM HYPOCHLORITE 0.125% 473 ML BTL IRR SCH (08:33)
[2017-01-28] MEDS: LEVOFLOXACIN 500MG/D5W (PMX) 100 ML IVPB SCH (11:15)
--- NOTE | 2017-01-28 13:11 | CONS ---
Date/Time of Note Date/Time of Note DATE: 01/28/17 TIME: 13:11 Assessment/Plan Assessment/Plan Chief Complaint/Hosp Course ID PROGRESS NOTE TOTAL ABX DAY #5 => 1. IV vancomycin. 2. Levaquin. 24H INTERVAL SUMMARY * Lethargic, no fevers, VSS, NAD * Chart reviewed. MICROBIOLOGY: Urine culture growing PSA. Right foot culture growing Enterococcus/Enterobacter * DIAGNOSTICS: Chest x-ray on admission revealed no acute disease. * INDWELLINGS: The patient has a left upper extremity PICC line placed on 01/13. WOUND CULTURE Final Organism 1 ENTEROBACTER CLOACAE QUANTITY 2+ Organism 2 ENTEROCOCCUS SPECIES QUANTITY SCANT GROWTH E CLOACAE ENT SPS M.I.C. RX M.I.C. RX --------- --- --------- --- AMPICILLIN <=2 S CEFOTAXIME S CIPROFLOXACIN <=0.25 S GENTAMICIN <=1 S LEVOFLOXACIN <=0.12 S PENICILLIN-G 4 S VANCOMYCIN 1 S TOBRAMYCIN <=1 S TRIMETHOPRIM/SULFAMETHOXAZOLE <=20 S PHYSICAL EXAMINATION: GENERAL: 61 yo lethargic HEENT: Unremarkable NECK: Supple, full ROM CHEST: Equal chest rise bilaterally, without dyspnea on observation HEART: Pulse RRR ABDOMEN: Soft EXTREMITIES: Warm, With right foot dressing intact. SKIN: See hard chart skin assessment ID ASSESSMENT: 61 yo M admit with: 1. Sepsis with persistent fevers. 2. Urinary tract infection. 3. Right foot infected decubitus, osteomyelitis, status post incision and drainage with wound culture previously grew MRSA and Enterococcus species. * Right foot culture growing Enterococcus/Enterobacter 4. Diabetes. 5. Peripheral vascular disease. 6. ETOH abuse: 2 Liters/day => ETOH withdrawal ()MRSA Nares INVASIVES: LUEXT PICC (01/13/17) ABX ALLERGY: KNDA CURRENT ABX: TOTAL ABX DAY #5 => 1. IV vancomycin. 2. Levaquin. ID RECOMMENDATIONS: 1. Check MRSA Nares and tx if (+) 2. Continue current ABX anticipate minimum of 6 weeks to cover concern osteomyelitis . Problems: Consultation Date/Type/Reason Admit Date/Time Jan 24, 2017 at 02:11 Initial Consult Date 01/24/17 Type of Consultation: ID Exam/Review of Systems Vital Signs Vitals Vital Signs Date Time Temp Pulse Resp B/P Pulse Ox O2 Delivery O2 Flow Rate FiO2 01/28/17 07:38 98.3 70 18 158/82 99 01/27/17 23:48 Room Air Intake and Output 01/27/17 01/27/17 01/28/17 15:00 23:00 07:00 Intake Total 2121.2 ml 970 ml Output Total 400 ml 1700 ml Balance 1721.2 ml -730 ml Results Result Diagram: 01/27/17 0425 01/27/17 0442 Results 24 hrs Laboratory Tests Test 01/27/17 16:20 01/27/17 21:24 01/28/17 07:53 01/28/17 12:10 Bedside Glucose 87 115 82 129 Test 01/28/17 12:17 Vancomycin Level Trough 20.4 *H Medications Medications Current Medications Docusate Sodium (Colace) 100 mg BID PO Last administered on 01/28/17 08:32; Admin Dose 100 MG; Start 01/24/17 at 10:00 Famotidine (Pepcid) 20 mg BID PO Last administered on 01/28/17 08:32; Admin Dose 20 MG; Start 01/24/17 at 10:00 Acetaminophen/ Hydrocodone Bitart ([place] (5/325)) 1 tab Q6H PRN PO pain; Start 01/24/17 at 10:00 Ondansetron HCl (Zofran Inj) 4 mg Q6H PRN IV NAUSEA AND/OR VOMITING; Start 01/24 at 10:00 Multivitamins Therapeutic (Theragran) 1 tab DAILY PO Last administered on 08:32; Admin Dose 1 TAB; Start 01/24/17 at 10:00 Thiamine HCl (Vitamin B1) 100 mg DAILY PO Last administered on 01/28/17 08:32 ; Admin Dose 100 MG; Start 01/24/17 at 10:00 Folic Acid (Folic Acid) 1 mg DAILY PO Last administered on 01/28/17 08:32; Admin Dose 1 MG; Start 01/24/17 at 10:00 Amlodipine Besylate (Norvasc) 10 mg DAILY PO Last administered on 01/28/17 08: 32; Admin Dose 10 MG; Start 01/24/17 at 10:00 Diagnostic Test (Pha) (Accucheck) 1 ea 02 XX ; Start 01/25/17 at 02:00 Miscellaneous Information 1 ea NOTE XX ; Start 01/24/17 at 10:00 Glucose (Glutose) 15 gm Q15M PRN PO DECREASED GLUCOSE; Start 01/24/17 at 10:00 Glucose (Glutose) 22.5 gm Q15M PRN PO DECREASED GLUCOSE; Start 01/24/17 at 10:00 Dextrose (D50w Syringe) 25 ml Q15M PRN IV DECREASED GLUCOSE; Start 01/24/17 at 10:00 Dextrose (D50w Syringe) 50 ml Q15M PRN IV DECREASED GLUCOSE; Start 01/24/17 at 10:00 Glucagon (Glucagen) 1 mg Q15M PRN IM DECREASED GLUCOSE; Start 01/24/17 at 10:00 Glucose 15 gm 15 gm Q15M PRN BUCCAL DECREASED GLUCOSE; Start 01/24/17 at 10:00 Levofloxacin/ Dextrose 100 ml @ 100 mls/hr Q24H IVPB Last administered on 01/28 11:15; Admin Dose 100 MLS/HR; Start 01/24/17 at 10:30 Vancomycin HCl (Vancocin) 250 ml @ 125 mls/hr Q12H IVPB Last administered on 01:06; Admin Dose 125 MLS/HR; Start 01/24/17 at 13:00 Collagenase (Santyl) 1 applic DAILY TOP Last administered on 01/28/17 08:33; Admin Dose 1 APPLIC; Start 01/24/17 at 14:30 Sodium Hypochlorite (Dakin'S (1/4 Strength)) 1 applic DAILY IRR Last administered on 01/28/17 08:33; Admin Dose 1 APPLIC; Start 01/24/17 at 14:30 Acetaminophen 650 mg 650 mg Q6H PRN PO PAIN AND OR ELEVATED TEMP Last administered on 01/27/17 21:36; Admin Dose 650 MG; Start 01/25/17 at 14:30 Multivitamins/ Thiamine HCl/ Folic Acid/Sodium Chloride (Mvi-12 Adult/ Vitamin B1/Folic Acid/NS) 1,011.2 ml @ 125 mls/ hr DAILY@09 IVPB Last administered on 01/28/17t 08:32; Admin Dose 125 MLS/HR; Start 01/27/17 at 09:00 KRISTY VARGHESE NP Jan 28, 2017 13:11
--- NOTE | 2017-01-28 15:27 | PN ---
Date/Time of Note Date/Time of Note DATE: 01/28/17 TIME: 15:16 Assessment/Plan VTE Prophylaxis VTE Prophylaxis Intervention: SCD's Lines/Catheters IV Catheter Type (from Nrsg): Peripheral IV Assessment/Plan Assessment/Plan 1. Sepsis likely 2/2 UTI + Cellulitis : still spiking fevers with bandemia 2. Ongoing osteomyelitis and MRSA cellulitis. repeat cultures growing Enterobacter 2. Peripheral vascular disease. 3. Diabetes mellitus type 2 4. Hypokalemia: improved 5. Microcytic anemia. 6. Deafness. 7. Chronic alcoholism with alcoholic liver disease with Macrocytosis/ mild coagulopathy / thrombocytopenia 8. Pseudomonas UTI PLAN: * Continue current abx per ID / repeat blood and urine cultures negative * Podiatry recs noted and appreciated * No repeat surgery indicated, just wound dressings as follows: Quarter strength Dakin soaks daily on both wounds. Daily dressing changes with Santyl with each dressing change. * Continue Wound care PROPHYLAXIS: Pepcid /SCDS Subjective 24 Hr Interval Summary Free Text/Dictation Patient seen and examined. no new complaints slightly lethargic Exam/Review of Systems Vital Signs Vitals Vital Signs Date Time Temp Pulse Resp B/P Pulse Ox O2 Delivery O2 Flow Rate FiO2 01/28/17 07:38 98.3 70 18 158/82 99 01/27/17 23:48 Room Air Intake and Output 01/27/17 01/27/17 01/28/17 15:00 23:00 07:00 Intake Total 2121.2 ml 970 ml Output Total 400 ml 1700 ml Balance 1721.2 ml -730 ml Exam GENERAL: Well-nourished, well-developed gentleman, comfortable at rest, no acute distress. ENT: DEAF NECK: Supple. No JVD or lymphadenopathy. CARDIAC: S1, S2, no added sounds or murmurs. CHEST: Diminished but clear air entry bilaterally. ABDOMEN: Soft, nontender. No guarding or rebound. EXTREMITIES: R foot ulcer clean and dry on dorsal surface with surrounding cellulitis and edema NEUROLOGIC: Grossly intact. Results Result Diagram: 01/27/17 0425 01/27/17 0442 Results 24 hrs Laboratory Tests Test 01/27/17 16:20 01/27/17 21:24 01/28/17 07:53 01/28/17 12:10 Bedside Glucose 87 115 82 129 Test 01/28/17 12:17 Vancomycin Level Trough 20.4 *H Medications Medications Current Medications Docusate Sodium (Colace) 100 mg BID PO Last administered on 01/28/17 08:32; Admin Dose 100 MG; Start 01/24/17 at 10:00 Famotidine (Pepcid) 20 mg BID PO Last administered on 01/28/17 08:32; Admin Dose 20 MG; Start 01/24/17 at 10:00 Acetaminophen/ Hydrocodone Bitart ([place] (5/325)) 1 tab Q6H PRN PO pain; Start 01/24/17 at 10:00 Ondansetron HCl (Zofran Inj) 4 mg Q6H PRN IV NAUSEA AND/OR VOMITING; Start 01/24 at 10:00 Multivitamins Therapeutic (Theragran) 1 tab DAILY PO Last administered on 08:32; Admin Dose 1 TAB; Start 01/24/17 at 10:00 Thiamine HCl (Vitamin B1) 100 mg DAILY PO Last administered on 01/28/17 08:32 ; Admin Dose 100 MG; Start 01/24/17 at 10:00 Folic Acid (Folic Acid) 1 mg DAILY PO Last administered on 01/28/17 08:32; Admin Dose 1 MG; Start 01/24/17 at 10:00 Amlodipine Besylate (Norvasc) 10 mg DAILY PO Last administered on 01/28/17 08: 32; Admin Dose 10 MG; Start 01/24/17 at 10:00 Diagnostic Test (Pha) (Accucheck) 1 ea 02 XX ; Start 01/25/17 at 02:00 Miscellaneous Information 1 ea NOTE XX ; Start 01/24/17 at 10:00 Glucose (Glutose) 15 gm Q15M PRN PO DECREASED GLUCOSE; Start 01/24/17 at 10:00 Glucose (Glutose) 22.5 gm Q15M PRN PO DECREASED GLUCOSE; Start 01/24/17 at 10:00 Dextrose (D50w Syringe) 25 ml Q15M PRN IV DECREASED GLUCOSE; Start 01/24/17 at 10:00 Dextrose (D50w Syringe) 50 ml Q15M PRN IV DECREASED GLUCOSE; Start 01/24/17 at 10:00 Glucagon (Glucagen) 1 mg Q15M PRN IM DECREASED GLUCOSE; Start 01/24/17 at 10:00 Glucose 15 gm 15 gm Q15M PRN BUCCAL DECREASED GLUCOSE; Start 01/24/17 at 10:00 Levofloxacin/ Dextrose (Levaquin 500mg/ D5W 100 ml (Pmx)) 100 ml @ 100 mls/hr Q24H IVPB Last administered on 01/28/17 11:15; Admin Dose 100 MLS/HR; Start at 10:30 Collagenase (Santyl) 1 applic DAILY TOP Last administered on 01/28/17 08:33; Admin Dose 1 APPLIC; Start 01/24/17 at 14:30 Sodium Hypochlorite (Dakin'S (1/4 Strength)) 1 applic DAILY IRR Last administered on 01/28/17 08:33; Admin Dose 1 APPLIC; Start 01/24/17 at 14:30 Acetaminophen 650 mg 650 mg Q6H PRN PO PAIN AND OR ELEVATED TEMP Last administered on 01/27/17 21:36; Admin Dose 650 MG; Start 01/25/17 at 14:30 Multivitamins 10 ml/Thiamine HCl 100 mg/Folic Acid 1 mg/Sodium Chloride 1,011.2 ml @ 125 mls/ hr DAILY@09 IVPB Last administered on 01/28/17 08:32; Admin Dose 125 MLS/HR; Start 01/27/17 at 09:00 Vancomycin HCl/ Sodium Chloride (Vancocin/NS) 150 ml @ 75 mls/hr Q12H IVPB ; Start 01/28/17 at 16:00 CHUY MATTA Jan 28, 2017 15:26
[2017-01-28] MEDS: VANCOMYCIN 750 MG in SOD CHLORIDE 0.9% 150 ML IVPB SCH (16:15)
[2017-01-28] MEDS: METOPROLOL 25 MG TAB PO SCH (20:59)
[2017-01-28 21:46] VITALS: BP 135/79; RESP 20
[2017-01-29] MEDS: ACCUCHECK XX SCH (01:41)
[2017-01-29] MEDS: VANCOMYCIN 750 MG in SOD CHLORIDE 0.9% 150 ML IVPB SCH ×2 (04:24→16:46)
[2017-01-29 05:40] LABS: ADD SCAN DIFF NO
[2017-01-29 05:57] LABS: ABNORMAL IP MESSAGE 1; HEMATOCRIT 25.6 % (42.0-52.0); MEAN CORPUSCULAR HEMOGLOBIN 34.5 pg (29.0-33.0); MEAN CORPUSCULAR HGB CONC 35.2 g/dl (32.0-37.0); MEAN CORPUSCULAR VOLUME 98.1 fl (82.0-101.0); MEAN PLATELET VOLUME 10.1 fl (7.4-10.4); PLATELET COUNT 105 10^3/UL (140-415); RED BLOOD COUNT 2.61 10^6/ul (4.70-6.10); RED CELL DISTRIBUTION WIDTH 13.8 % (11.5-14.5); WHITE BLOOD COUNT 4.8 10^3/ul (4.8-10.8)
[2017-01-29 06:13] LABS: ALBUMIN 2.2 g/dl (3.3-4.9)
[2017-01-29 06:14] LABS: POTASSIUM 3.6 mmol/L (3.5-5.1)
[2017-01-29 06:16] LABS: CREATININE 0.96 mg/dl (0.61-1.24)
[2017-01-29 06:17] LABS: CALCIUM 7.4 mg/dl (8.4-10.2); PHOSPHORUS 3.1 mg/dl (2.5-4.9)
[2017-01-29 07:29] VITALS: BP 158/82; RESP 18
[2017-01-29] MEDS: INSULIN ASPART [NOVOLOG] 3 ML PEN SC SCH ×4 (08:00→20:42)
[2017-01-29] MEDS: FAMOTIDINE 20 MG TAB PO SCH ×2 (08:20→20:41)
[2017-01-29] MEDS: DOCUSATE SODIUM 100 MG CAP PO SCH (08:20)
[2017-01-29] MEDS: FOLIC ACID 1 MG TAB PO SCH (08:20)
[2017-01-29] MEDS: AMLODIPINE 10 MG TAB PO SCH (08:20)
[2017-01-29] MEDS: MULTIVITAMINS THERAPEUTIC TAB PO SCH (08:20)
[2017-01-29] MEDS: METOPROLOL 25 MG TAB PO SCH ×2 (08:21→20:42)
[2017-01-29] MEDS: SODIUM HYPOCHLORITE 0.125% 473 ML BTL IRR SCH (08:21)
[2017-01-29] MEDS: THIAMINE 100 MG TAB PO SCH (08:21)
[2017-01-29] MEDS: COLLAGENASE 30 GM TUBE TOP SCH (08:21)
[2017-01-29] MEDS: MULTIVITAMINS 10 ML, THIAMINE 100 MG, FOLIC ACID 1 MG in SOD CHLORIDE 0.9% 1,000 ML IVPB SCH (08:22)
[2017-01-29 08:41] LABS: EOSINOPHILS # 1.2 10^3/ul (0.0-0.5); MONOCYTE # 0.9 10^3/ul (0.3-0.9); NEUTROPHIL # 0.9 10^3/ul (1.6-7.5)
--- NOTE | 2017-01-29 09:17 | PN ---
Date/Time of Note Date/Time of Note DATE: 01/29/17 TIME: 09:15 Assessment/Plan VTE Prophylaxis VTE Prophylaxis Intervention: SCD's VTE Contraindication Reason: thrombocytopenia Lines/Catheters IV Catheter Type (from Nrsg): PICC Line Central line still needed: Yes Urinary Cath still in place: Yes Reason Cath still needed: other (indicate) Assessment/Plan Assessment/Plan 1. Sepsis likely 2/2 UTI + Cellulitis : ?finally improving 2. Ongoing osteomyelitis and MRSA cellulitis. repeat cultures growing Enterobacter 2. Peripheral vascular disease. 3. Diabetes mellitus type 2 4. Hypokalemia: improved 5. Microcytic anemia. 6. Deafness. 7. Chronic alcoholism with alcoholic liver disease with Macrocytosis/ mild coagulopathy / thrombocytopenia 8. Pseudomonas UTI PLAN: * No fevers for the last 24hrs / possible d/c tomorrow if he remains fever free to complete abx at home * Continue current abx per ID and obtain appropriate discharge regimen * Podiatry rec : No repeat surgery indicated, just wound dressings as follows: Quarter strength Dakin soaks daily on both wounds. Daily dressing changes with Santyl with each dressing change. * Continue Wound care PROPHYLAXIS: Pepcid /SCDS Subjective 24 Hr Interval Summary Free Text/Dictation Patient seen and examined. Nursing reports no acute overnight events. Exam/Review of Systems Vital Signs Vitals Vital Signs Date Time Temp Pulse Resp B/P Pulse Ox O2 Delivery O2 Flow Rate FiO2 01/29/17 07:29 98.8 71 18 158/82 98 01/27/17 23:48 Room Air Intake and Output 01/28/17 01/28/17 01/29/17 15:00 23:00 07:00 Intake Total 2161.2 ml 550 ml Output Total 1300 ml 800 ml Balance 861.2 ml -250 ml Exam GENERAL: Well-nourished, well-developed gentleman, comfortable at rest, no acute distress. ENT: DEAF NECK: Supple. No JVD or lymphadenopathy. CARDIAC: S1, S2, no added sounds or murmurs. CHEST: Diminished but clear air entry bilaterally. ABDOMEN: Soft, nontender. No guarding or rebound. EXTREMITIES: R foot ulcer clean and dry on dorsal surface with improved surrounding cellulitis and edema NEUROLOGIC: Grossly intact. Results Result Diagram: 01/29/17 0451 01/29/17 0451 Results 24 hrs Laboratory Tests Test 01/28/17 12:10 01/28/17 12:17 01/28/17 17:13 01/28/17 20:54 Bedside Glucose 129 93 101 Vancomycin Level Trough 20.4 *H Test 01/29/17 04:51 01/29/17 07:59 Albumin 2.2 L Anion Gap 13 Band Neutrophils % 16.0 H Blood Urea Nitrogen 9 Calcium Level 7.4 L Carbon Dioxide Level 20 L Chloride Level 110 Creatinine 0.96 Eosinophils # 1.2 H Eosinophils % 26.0 H Glucose Level 84 Hematocrit 25.6 L Hemoglobin 9.0 L Lymphocytes # 1.0 Lymphocytes % 20.0 Mean Corpuscular Hemoglobin 34.5 H Mean Corpuscular Hemoglobin Concent 35.2 Mean Corpuscular Volume 98.1 Mean Platelet Volume 10.1 Monocytes # 0.9 Monocytes % 19.0 H Neutrophils # 0.9 L Neutrophils % 19.0 L Phosphorus Level 3.1 Platelet Count 105 L Potassium Level 3.6 Red Blood Count 2.61 L Red Cell Distribution Width 13.8 Sodium Level 139 White Blood Count 4.8 Bedside Glucose 90 Medications Medications Current Medications Docusate Sodium (Colace) 100 mg BID PO Last administered on 01/29/17 08:20; Admin Dose 100 MG; Start 01/24/17 at 10:00 Famotidine (Pepcid) 20 mg BID PO Last administered on 01/29/17 08:20; Admin Dose 20 MG; Start 01/24/17 at 10:00 Acetaminophen/ Hydrocodone Bitart ([place] (5/325)) 1 tab Q6H PRN PO pain; Start 01/24/17 at 10:00 Ondansetron HCl (Zofran Inj) 4 mg Q6H PRN IV NAUSEA AND/OR VOMITING; Start 01/24 at 10:00 Multivitamins Therapeutic (Theragran) 1 tab DAILY PO Last administered on 08:20; Admin Dose 1 TAB; Start 01/24/17 at 10:00 Thiamine HCl (Vitamin B1) 100 mg DAILY PO Last administered on 01/29/17 08:21 ; Admin Dose 100 MG; Start 01/24/17 at 10:00 Folic Acid (Folic Acid) 1 mg DAILY PO Last administered on 01/29/17 08:20; Admin Dose 1 MG; Start 01/24/17 at 10:00 Amlodipine Besylate (Norvasc) 10 mg DAILY PO Last administered on 01/29/17 08: 20; Admin Dose 10 MG; Start 01/24/17 at 10:00 Diagnostic Test (Pha) (Accucheck) 1 ea 02 XX ; Start 01/25/17 at 02:00 Miscellaneous Information 1 ea NOTE XX ; Start 01/24/17 at 10:00 Glucose (Glutose) 15 gm Q15M PRN PO DECREASED GLUCOSE; Start 01/24/17 at 10:00 Glucose (Glutose) 22.5 gm Q15M PRN PO DECREASED GLUCOSE; Start 01/24/17 at 10:00 Dextrose (D50w Syringe) 25 ml Q15M PRN IV DECREASED GLUCOSE; Start 01/24/17 at 10:00 Dextrose (D50w Syringe) 50 ml Q15M PRN IV DECREASED GLUCOSE; Start 01/24/17 at 10:00 Glucagon (Glucagen) 1 mg Q15M PRN IM DECREASED GLUCOSE; Start 01/24/17 at 10:00 Glucose 15 gm 15 gm Q15M PRN BUCCAL DECREASED GLUCOSE; Start 01/24/17 at 10:00 Levofloxacin/ Dextrose (Levaquin 500mg/ D5W 100 ml (Pmx)) 100 ml @ 100 mls/hr Q24H IVPB Last administered on 01/28/17 11:15; Admin Dose 100 MLS/HR; Start at 10:30 Collagenase (Santyl) 1 applic DAILY TOP Last administered on 01/29/17 08:21; Admin Dose 1 APPLIC; Start 01/24/17 at 14:30 Sodium Hypochlorite (Dakin'S (1/4 Strength)) 1 applic DAILY IRR Last administered on 01/29/17 08:21; Admin Dose 1 APPLIC; Start 01/24/17 at 14:30 Acetaminophen 650 mg 650 mg Q6H PRN PO PAIN AND OR ELEVATED TEMP Last administered on 01/27/17 21:36; Admin Dose 650 MG; Start 01/25/17 at 14:30 Multivitamins 10 ml/Thiamine HCl 100 mg/Folic Acid 1 mg/Sodium Chloride 1,011.2 ml @ 125 mls/ hr DAILY@09 IVPB Last administered on 01/29/17 08:22; Admin Dose 125 MLS/HR; Start 01/27/17 at 09:00 Vancomycin HCl/ Sodium Chloride (Vancocin/NS) 150 ml @ 75 mls/hr Q12H IVPB Last administered on 01/29/17 04:24; Admin Dose 75 MLS/HR; Start 01/28/17 at 16 :00 Metoprolol Tartrate (Lopressor) 25 mg BID PO Last administered on 01/29/17 08: 21; Admin Dose 25 MG; Start 01/28/17 at 21:00 CHUY MATTA Jan 29, 2017 09:17
[2017-01-29] MEDS: LEVOFLOXACIN 500MG/D5W (PMX) 100 ML IVPB SCH (12:02)
--- NOTE | 2017-01-29 15:14 | PN ---
Date/Time of Note Date/Time of Note DATE: 01/29/17 TIME: 15:14 Assessment/Plan Lines/Catheters IV C[facility] Type ([facility] P[facility] Line Assessment/Plan Chief Complaint/Hosp Course Thank you very much for involving me in the care of this patient. As you very well know this is a 61-year-old male patient who is readmitted to the hospital with diagnosis of cellulitis. He was recently hospitalized for right foot abscess and cellulitis and underwent surgical management to include debridement and incision and drainage. Patient was placed on long-term IV antibiotics and was released. He apparently returns with fever and swelling of the right foot. He is currently on IV antibiotics. He was admitted and I was consulted for evaluation treatment. Patient is mute and communication is difficult. Most of the history is obtained through chart review. Problems: Exam/Review of Systems Vital Signs Vitals Vital Signs Date Time Temp Pulse Resp B/P Pulse Ox O2 Delivery O2 Flow Rate FiO2 01/29/17 07:29 98.8 71 18 158/82 98 01/27/17 23:48 Room Air Intake and Output 01/28/17 01/28/17 01/29/17 14:59 22:59 06:59 Intake Total 2161.2 ml 550 ml Output Total 1300 ml 800 ml Balance 861.2 ml -250 ml Results Result Diagram: 01/29/17 0451 01/29/17 0451 CONNER GORDON DPM Jan 29, 2017 15:14
--- NOTE | 2017-01-29 16:27 | CONS ---
Date/Time of Note Date/Time of Note DATE: 01/29/17 TIME: 16:24 Assessment/Plan Assessment/Plan Chief Complaint/Hosp Course ID PROGRESS NOTE TOTAL ABX DAY #6 => 1. IV vancomycin. 2. Levaquin. 24H INTERVAL SUMMARY * Clinically status quo -- no new issues, no c/o, no fevers, VSS, NAD * MRSA nares screen is PENDING WOUND CULTURE Final Organism 1 ENTEROBACTER CLOACAE QUANTITY 2+ Organism 2 ENTEROCOCCUS SPECIES QUANTITY SCANT GROWTH E CLOACAE ENT SPS M.I.C. RX M.I.C. RX --------- --- --------- --- AMPICILLIN <=2 S CEFOTAXIME S CIPROFLOXACIN <=0.25 S GENTAMICIN <=1 S LEVOFLOXACIN <=0.12 S PENICILLIN-G 4 S VANCOMYCIN 1 S TOBRAMYCIN <=1 S TRIMETHOPRIM/SULFAMETHOXAZOLE <=20 S PHYSICAL EXAMINATION: GENERAL: 61 yo lethargic HEENT: Unremarkable NECK: Supple, full ROM CHEST: Equal chest rise bilaterally, without dyspnea on observation HEART: Pulse RRR ABDOMEN: Soft EXTREMITIES: Warm, With right foot dressing intact. SKIN: See hard chart skin assessment ID ASSESSMENT: 61 yo M admit with: 1. Sepsis with persistent fevers=> RESOLVED 2. Urinary tract infection= 01/24/17 (+)PSAR 3. Right foot infected decubitus, osteomyelitis, status post incision and drainage with wound culture previously grew MRSA and Enterococcus species. * Right foot culture growing Enterococcus/Enterobacter 4. Diabetes T2 w/suspected complication of DM peripheral neuropathy 5. Peripheral vascular disease. 6. ETOH abuse: 2 Liters/day => ETOH withdrawal * Chronic alcoholism with alcoholic liver disease with Macrocytosis/ mild coagulopathy / thrombocytopenia ()MRSA Nares INVASIVES: LUEXT PICC (01/13/17) ABX ALLERGY: KNDA CURRENT ABX: TOTAL ABX DAY #5 => 1. IV vancomycin. 2. Levaquin. ID RECOMMENDATIONS: 1. Check MRSA Nares and tx if (+) = result is still pending today 2. Continue current ABX anticipate minimum of 6 weeks to cover concern osteomyelitis . Problems: Consultation Date/Type/Reason Admit Date/Time Jan 24, 2017 at 02:11 Initial Consult Date 01/24/17 Type of Consultation: ID Exam/Review of Systems Vital Signs Vitals Vital Signs Date Time Temp Pulse Resp B/P Pulse Ox O2 Delivery O2 Flow Rate FiO2 01/29/17 07:29 98.8 71 18 158/82 98 01/27/17 23:48 Room Air Intake and Output 01/28/17 01/28/17 01/29/17 15:00 23:00 07:00 Intake Total 2161.2 ml 550 ml Output Total 1300 ml 800 ml Balance 861.2 ml -250 ml Results Result Diagram: 01/29/17 0451 01/29/17 0451 Results 24 hrs Laboratory Tests Test 01/28/17 17:13 01/28/17 20:54 01/29/17 04:51 01/29/17 07:59 Bedside Glucose 93 101 90 Albumin 2.2 L Anion Gap 13 Band Neutrophils % 16.0 H Blood Urea Nitrogen 9 Calcium Level 7.4 L Carbon Dioxide Level 20 L Chloride Level 110 Creatinine 0.96 Eosinophils # 1.2 H Eosinophils % 26.0 H Glucose Level 84 Hematocrit 25.6 L Hemoglobin 9.0 L Lymphocytes # 1.0 Lymphocytes % 20.0 Mean Corpuscular Hemoglobin 34.5 H Mean Corpuscular Hemoglobin Concent 35.2 Mean Corpuscular Volume 98.1 Mean Platelet Volume 10.1 Monocytes # 0.9 Monocytes % 19.0 H Neutrophils # 0.9 L Neutrophils % 19.0 L Phosphorus Level 3.1 Platelet Count 105 L Potassium Level 3.6 Red Blood Count 2.61 L Red Cell Distribution Width 13.8 Sodium Level 139 White Blood Count 4.8 Test 01/29/17 12:06 Bedside Glucose 90 Medications Medications Current Medications Famotidine (Pepcid) 20 mg BID PO Last administered on 01/29/17t 08:20; Admin Dose 20 MG; Start 01/24/17 at 10:00 Acetaminophen/ Hydrocodone Bitart ([place] (5/325)) 1 tab Q6H PRN PO pain; Start 01/24/17 at 10:00 Ondansetron HCl (Zofran Inj) 4 mg Q6H PRN IV NAUSEA AND/OR VOMITING; Start 01/24 at 10:00 Multivitamins Therapeutic (Theragran) 1 tab DAILY PO Last administered on 08:20; Admin Dose 1 TAB; Start 01/24/17 at 10:00 Thiamine HCl (Vitamin B1) 100 mg DAILY PO Last administered on 01/29/17 08:21 ; Admin Dose 100 MG; Start 01/24/17 at 10:00 Folic Acid (Folic Acid) 1 mg DAILY PO Last administered on 01/29/17 08:20; Admin Dose 1 MG; Start 01/24/17 at 10:00 Amlodipine Besylate (Norvasc) 10 mg DAILY PO Last administered on 01/29/17 08: 20; Admin Dose 10 MG; Start 01/24/17 at 10:00 Diagnostic Test (Pha) (Accucheck) 1 ea 02 XX ; Start 01/25/17 at 02:00 Miscellaneous Information 1 ea NOTE XX ; Start 01/24/17 at 10:00 Glucose (Glutose) 15 gm Q15M PRN PO DECREASED GLUCOSE; Start 01/24/17 at 10:00 Glucose (Glutose) 22.5 gm Q15M PRN PO DECREASED GLUCOSE; Start 01/24/17 at 10:00 Dextrose (D50w Syringe) 25 ml Q15M PRN IV DECREASED GLUCOSE; Start 01/24/17 at 10:00 Dextrose (D50w Syringe) 50 ml Q15M PRN IV DECREASED GLUCOSE; Start 01/24/17 at 10:00 Glucagon (Glucagen) 1 mg Q15M PRN IM DECREASED GLUCOSE; Start 01/24/17 at 10:00 Glucose 15 gm 15 gm Q15M PRN BUCCAL DECREASED GLUCOSE; Start 01/24/17 at 10:00 Levofloxacin/ Dextrose (Levaquin 500mg/ D5W 100 ml (Pmx)) 100 ml @ 100 mls/hr Q24H IVPB Last administered on 01/29/17 12:02; Admin Dose 100 MLS/HR; Start at 10:30 Collagenase (Santyl) 1 applic DAILY TOP Last administered on 01/29/17 08:21; Admin Dose 1 APPLIC; Start 01/24/17 at 14:30 Sodium Hypochlorite (Dakin'S (1/4 Strength)) 1 applic DAILY IRR Last administered on 01/29/17 08:21; Admin Dose 1 APPLIC; Start 01/24/17 at 14:30 Acetaminophen 650 mg 650 mg Q6H PRN PO PAIN AND OR ELEVATED TEMP Last administered on 01/27/17 21:36; Admin Dose 650 MG; Start 01/25/17 at 14:30 Vancomycin HCl/ Sodium Chloride (Vancocin/NS) 150 ml @ 75 mls/hr Q12H IVPB Last administered on 01/29/17 04:24; Admin Dose 75 MLS/HR; Start 01/28/17 at 16 :00 Metoprolol Tartrate (Lopressor) 25 mg BID PO Last administered on 01/29/17 08: 21; Admin Dose 25 MG; Start 01/28/17 at 21:00 Miscellaneous Information (*Rx Drug Level Order Reminder*) VANCOMYCIN TROUGH AT 1500 ONCE ONCE XX ; Start 01/30/17 at 15:00; Stop 01/30/17 at 15:01 KIRSTY VARGHESE NP Jan 29, 2017 16:27
[2017-01-29 19:00] VITALS: BP 139/75; RESP 18
[2017-01-30] MEDS: ACCUCHECK XX SCH ×2 (02:00→21:00)
[2017-01-30] MEDS: VANCOMYCIN 750 MG in SOD CHLORIDE 0.9% 150 ML IVPB SCH ×2 (04:07→16:31)
[2017-01-30 05:30] LABS: ADD SCAN DIFF NO
[2017-01-30 05:36] LABS: ABNORMAL IP MESSAGE 1; BASOPHILS % 0.2 % (0.0-2.0); EOSINOPHILS # 0.9 10^3/ul (0.0-0.5); EOSINOPHILS % 22.3 % (0.0-7.0); HEMATOCRIT 27.2 % (42.0-52.0); HEMOGLOBIN 9.3 g/dl (14.0-18.0); LYMPHOCYTES # 1.7 10^3/ul (0.8-2.9); LYMPHOCYTES % 40.6 % (15.0-51.0); MEAN CORPUSCULAR HEMOGLOBIN 33.5 pg (29.0-33.0); MEAN CORPUSCULAR HGB CONC 34.2 g/dl (32.0-37.0); MEAN CORPUSCULAR VOLUME 97.8 fl (82.0-101.0); MEAN PLATELET VOLUME 10.3 fl (7.4-10.4); MONOCYTE # 0.7 10^3/ul (0.3-0.9); MONOCYTES % 17.3 % (0.0-11.0); NEUTROPHIL # 0.8 10^3/ul (1.6-7.5); NEUTROPHILS % 19.4 % (39.0-77.0); PLATELET COUNT 107 10^3/UL (140-415); RED BLOOD COUNT 2.78 10^6/ul (4.70-6.10); RED CELL DISTRIBUTION WIDTH 13.8 % (11.5-14.5); WHITE BLOOD COUNT 4.2 10^3/ul (4.8-10.8)
[2017-01-30 05:53] LABS: ALBUMIN 2.3 g/dl (3.3-4.9); POTASSIUM 3.4 mmol/L (3.5-5.1)
[2017-01-30 05:56] LABS: CREATININE 0.86 mg/dl (0.61-1.24)
[2017-01-30 05:57] LABS: CALCIUM 7.4 mg/dl (8.4-10.2)
[2017-01-30 08:04] VITALS: BP 148/75; RESP 16
[2017-01-30] MEDS: INSULIN ASPART [NOVOLOG] 3 ML PEN SC SCH ×4 (08:15→20:54)
[2017-01-30] MEDS: THIAMINE 100 MG TAB PO SCH (08:29)
[2017-01-30] MEDS: SODIUM HYPOCHLORITE 0.125% 473 ML BTL IRR SCH (08:29)
[2017-01-30] MEDS: FOLIC ACID 1 MG TAB PO SCH (08:29)
[2017-01-30] MEDS: METOPROLOL 25 MG TAB PO SCH ×2 (08:30→20:54)
[2017-01-30] MEDS: FAMOTIDINE 20 MG TAB PO SCH ×2 (08:30→20:54)
[2017-01-30] MEDS: MULTIVITAMINS THERAPEUTIC TAB PO SCH (08:30)
[2017-01-30] MEDS: AMLODIPINE 10 MG TAB PO SCH (08:30)
[2017-01-30] MEDS: COLLAGENASE 30 GM TUBE TOP SCH (08:30)
[2017-01-30] MEDS: LEVOFLOXACIN 500MG/D5W (PMX) 100 ML IVPB SCH (12:09)
--- NOTE | 2017-01-30 12:17 | PN ---
DATE: 01/30/2017 SUBJECTIVE: No acute events overnight. The patient is alert, looks comfortable, no fevers. LABORATORY: WBC 4.2, no shift, no bands. BUN 8, creatinine 0.86. ANTIMICROBIALS: 1. Vancomycin. 2. Levaquin. PHYSICAL EXAMINATION: GENERAL: Well-nourished, well-developed elderly man who is alert, in no distress. HEENT: Head atraumatic, normocephalic. Sclerae anicteric. Buccal mucosa dry. NECK: Supple, trachea midline. CHEST: Rise symmetrical. Breath sounds clear. HEART: S1, S2. ABDOMEN: Soft. Bowel tones present. EXTREMITIES: Without cyanosis. Right foot dressing intact. ASSESSMENT: 1. Sepsis, resolving. 2. Urinary tract infection. 3. Right foot osteomyelitis, status post incision and drainage. 4. Diabetes. 5. Peripheral vascular disease. PLAN: The patient remains stable. Continue present care, antibiotics. The patient has PICC line, needs to complete at least 6 weeks antibiotics for osteomyelitis. Dictated By: ABBY ABURTO [employer] for BETTIE MARCOS/FREDERICK Conf#: [id number] DID#: [id number]
[2017-01-30] MEDS ORDERED: POTASSIUM CHLORIDE (SR) 20 MEQ TAB PO STA (17:50)
--- NOTE | 2017-01-30 17:54 | PN ---
Date/Time of Note Date/Time of Note DATE: 01/30/17 TIME: 17:51 Assessment/Plan VTE Prophylaxis VTE Prophylaxis Intervention: SCD's Lines/Catheters Urinary Cath still in place: No Assessment/Plan Chief Complaint/Hosp Course 1. Sepsis likely 2/2 UTI and osteomyelitis-improving Continue antibiotics, ID on the case, patient will need to continue 6 weeks of IV antibiotics for the osteomyelitis No further plans for surgery per podiatry, continue wound care 2. Ongoing osteomyelitis and MRSA cellulitis. Repeat cultures growing Enterobacter, continue antibiotics 2. Peripheral vascular disease 3. Diabetes mellitus type 2 4. Hypokalemia: improved 5. Microcytic anemia. 6. Deafness. 7. Chronic alcoholism with alcoholic liver disease with Macrocytosis/ mild coagulopathy / thrombocytopenia Disposal DC in a.m. if patient continues to be afebrile PROPHYLAXIS: SCDS Problems: Subjective 24 Hr Interval Summary Constitutional: no complaints Exam/Review of Systems Vital Signs Vitals Vital Signs Date Time Temp Pulse Resp B/P Pulse Ox O2 Delivery O2 Flow Rate FiO2 01/30/17 08:04 98.7 60 16 148/75 96 01/27/17 23:48 Room Air Intake and Output 01/29/17 01/29/17 01/30/17 15:00 23:00 07:00 Intake Total 2030 ml 350 ml Output Total 700 ml 1375 ml Balance 1330 ml -1025 ml Exam Constitutional: alert Respiratory: clear to auscultation Cardiovascular: regular rate and rhythm Gastrointestinal: soft, No distended Musculoskeletal: nl extremities to inspection Results Result Diagram: 01/30/17 0442 01/30/17 0442 Results 24 hrs Laboratory Tests Test 01/29/17 20:40 01/30/17 04:42 01/30/17 07:58 01/30/17 11:48 Bedside Glucose 121 81 106 Albumin 2.3 L Anion Gap 13 Basophils # 0.0 Basophils % 0.2 Blood Urea Nitrogen 8 Calcium Level 7.4 L Carbon Dioxide Level 19 L Chloride Level 109 Creatinine 0.86 Eosinophils # 0.9 H Eosinophils % 22.3 H Glucose Level 78 Hematocrit 27.2 L Hemoglobin 9.3 L Lymphocytes # 1.7 Lymphocytes % 40.6 Mean Corpuscular Hemoglobin 33.5 H Mean Corpuscular Hemoglobin Concent 34.2 Mean Corpuscular Volume 97.8 Mean Platelet Volume 10.3 Monocytes # 0.7 Monocytes % 17.3 H Neutrophils # 0.8 L Neutrophils % 19.4 L Nucleated Red Blood Cells # 0.0 Nucleated Red Blood Cells % 0.0 Phosphorus Level 3.0 Platelet Count 107 L Potassium Level 3.4 L Red Blood Count 2.78 L Red Cell Distribution Width 13.8 Sodium Level 138 White Blood Count 4.2 L Test 01/30/17 14:55 Vancomycin Level Trough 17.4 Medications Medications Current Medications Famotidine (Pepcid) 20 mg BID PO Last administered on 01/30/17 08:30; Admin Dose 20 MG; Start 01/24/17 at 10:00 Acetaminophen/ Hydrocodone Bitart ([place] (5/325)) 1 tab Q6H PRN PO pain; Start 01/24/17 at 10:00 Ondansetron HCl (Zofran Inj) 4 mg Q6H PRN IV NAUSEA AND/OR VOMITING; Start 01/24 at 10:00 Multivitamins Therapeutic (Theragran) 1 tab DAILY PO Last administered on 08:30; Admin Dose 1 TAB; Start 01/24/17 at 10:00 Thiamine HCl (Vitamin B1) 100 mg DAILY PO Last administered on 01/30/17 08:29 ; Admin Dose 100 MG; Start 01/24/17 at 10:00 Folic Acid (Folic Acid) 1 mg DAILY PO Last administered on 01/30/17 08:29; Admin Dose 1 MG; Start 01/24/17 at 10:00 Amlodipine Besylate (Norvasc) 10 mg DAILY PO Last administered on 01/30/17 08: 30; Admin Dose 10 MG; Start 01/24/17 at 10:00 Diagnostic Test (Pha) (Accucheck) 1 ea 02 XX ; Start 01/25/17 at 02:00 Miscellaneous Information 1 ea NOTE XX ; Start 01/24/17 at 10:00 Glucose (Glutose) 15 gm Q15M PRN PO DECREASED GLUCOSE; Start 01/24/17 at 10:00 Glucose (Glutose) 22.5 gm Q15M PRN PO DECREASED GLUCOSE; Start 01/24/17 at 10:00 Dextrose (D50w Syringe) 25 ml Q15M PRN IV DECREASED GLUCOSE; Start 01/24/17 at 10:00 Dextrose (D50w Syringe) 50 ml Q15M PRN IV DECREASED GLUCOSE; Start 01/24/17 at 10:00 Glucagon (Glucagen) 1 mg Q15M PRN IM DECREASED GLUCOSE; Start 01/24/17 at 10:00 Glucose 15 gm 15 gm Q15M PRN BUCCAL DECREASED GLUCOSE; Start 01/24/17 at 10:00 Levofloxacin/ Dextrose (Levaquin 500mg/ D5W 100 ml (Pmx)) 100 ml @ 100 mls/hr Q24H IVPB Last administered on 01/30/17 12:09; Admin Dose 100 MLS/HR; Start at 10:30 Collagenase (Santyl) 1 applic DAILY TOP Last administered on 01/30/17 08:30; Admin Dose 1 APPLIC; Start 01/24/17 at 14:30 Sodium Hypochlorite ([place] (1/4 Strength)) 1 applic DAILY IRR Last administered on 01/30/17 08:29; Admin Dose 1 APPLIC; Start 01/24/17 at 14:30 Acetaminophen 650 mg 650 mg Q6H PRN PO PAIN AND OR ELEVATED TEMP Last administered on 01/27/17 21:36; Admin Dose 650 MG; Start 01/25/17 at 14:30 Vancomycin HCl/ Sodium Chloride (Vancocin/NS) 150 ml @ 75 mls/hr Q12H IVPB Last administered on 01/30/17 16:31; Admin Dose 75 MLS/HR; Start 01/28/17 at 16 :00; Stop 01/30/17 at 22:00 Metoprolol Tartrate 25 mg 25 mg BID PO Last administered on 01/30/17 08:30; Admin Dose 25 MG; Start 01/28/17 at 21:00 Vancomycin HCl (Vancocin) 100 ml @ 100 mls/hr Q12H IVPB ; Start 01/31/17 at 04: 00 YANIV GODWIN Jan 30, 2017 17:54
[2017-01-30 20:00] VITALS: BP 156/75; RESP 18
[2017-01-31] MEDS: VANCOMYCIN 500MG/NS (PMX) 100 ML IVPB SCH ×2 (04:01→15:26)
[2017-01-31 05:47] LABS: ADD SCAN DIFF NO
[2017-01-31 05:55] LABS: BASOPHILS % 0.2 % (0.0-2.0); EOSINOPHILS # 0.9 10^3/ul (0.0-0.5); EOSINOPHILS % 19.7 % (0.0-7.0); HEMATOCRIT 25.6 % (42.0-52.0); HEMOGLOBIN 8.8 g/dl (14.0-18.0); LYMPHOCYTES # 1.9 10^3/ul (0.8-2.9); LYMPHOCYTES % 40.2 % (15.0-51.0); MEAN CORPUSCULAR HEMOGLOBIN 33.7 pg (29.0-33.0); MEAN CORPUSCULAR HGB CONC 34.4 g/dl (32.0-37.0); MEAN CORPUSCULAR VOLUME 98.1 fl (82.0-101.0); MEAN PLATELET VOLUME 10.3 fl (7.4-10.4); MONOCYTE # 0.8 10^3/ul (0.3-0.9); MONOCYTES % 16.3 % (0.0-11.0); NEUTROPHIL # 1.1 10^3/ul (1.6-7.5); NEUTROPHILS % 23.4 % (39.0-77.0); PLATELET COUNT 110 10^3/UL (140-415); RED BLOOD COUNT 2.61 10^6/ul (4.70-6.10); RED CELL DISTRIBUTION WIDTH 13.8 % (11.5-14.5); WHITE BLOOD COUNT 4.8 10^3/ul (4.8-10.8)
[2017-01-31 06:17] LABS: ALBUMIN 2.4 g/dl (3.3-4.9); POTASSIUM 3.7 mmol/L (3.5-5.1)
[2017-01-31 06:20] LABS: CREATININE 0.92 mg/dl (0.61-1.24)
[2017-01-31 06:21] LABS: CALCIUM 7.6 mg/dl (8.4-10.2); PHOSPHORUS 2.7 mg/dl (2.5-4.9)
[2017-01-31 07:33] VITALS: BP 137/67; RESP 18
[2017-01-31] MEDS: INSULIN ASPART [NOVOLOG] 3 ML PEN SC SCH ×2 (08:05→12:15)
[2017-01-31] MEDS: FOLIC ACID 1 MG TAB PO SCH (08:23)
[2017-01-31] MEDS: FAMOTIDINE 20 MG TAB PO SCH (08:23)
[2017-01-31] MEDS: MULTIVITAMINS THERAPEUTIC TAB PO SCH (08:23)
[2017-01-31] MEDS: THIAMINE 100 MG TAB PO SCH (08:23)
[2017-01-31] MEDS: AMLODIPINE 10 MG TAB PO SCH (08:23)
[2017-01-31] MEDS: METOPROLOL 25 MG TAB PO SCH (08:24)
[2017-01-31] MEDS: COLLAGENASE 30 GM TUBE TOP SCH (08:24)
[2017-01-31] MEDS: SODIUM HYPOCHLORITE 0.125% 473 ML BTL IRR SCH (08:24)
--- NOTE | 2017-01-31 10:42 | PDOCDIS ---
Discharge Instructions CONDITION Patient Condition: Good HOME CARE INSTRUCTIONS: Diet Instructions: Regular ACTIVITY: Activity Restrictions: No Restrictions FOLLOW UP/APPOINTMENTS Appointments F/U WITH YOUR PCP IN 1-2 WEEKS AND WITH YOUR HOME HEALTH AGENCY YANIV GODWIN Jan 31, 2017 10:41
[2017-01-31] MEDS: LEVOFLOXACIN 500MG/D5W (PMX) 100 ML IVPB SCH (10:57)
--- NOTE | 2017-01-31 15:34 | CONS ---
Date/Time of Note Date/Time of Note DATE: 01/31/17 TIME: 15:32 Assessment/Plan Assessment/Plan Chief Complaint/Hosp Course SUBJECTIVE: No events overnight. The patient is alert, looks comfortable, afebrile MICROBIOLOGY: Urine culture growing PSA. Right foot culture growing Enterococcus/Enterobacter DIAGNOSTICS: Chest x-ray on admission revealed no acute disease. INDWELLINGS: The patient has a left upper extremity PICC line placed on 2016. ANTIMICROBIALS: The patient is on: 1. IV vancomycin. 2. Levaquin. PHYSICAL EXAMINATION: GENERAL: Chronically ill-appearing, elderly man who is in no distress. HEENT: Head atraumatic, normocephalic. Sclerae anicteric. Buccal mucosa dry. NECK: Supple, trachea midline. CHEST: Rise symmetrical. Breath sounds diminished at the bases. HEART: S1, S2. ABDOMEN: Soft, bowel tones present. EXTREMITIES: With right foot dressing intact. ASSESSMENT: 1. S/p sepsis . 2. Urinary tract infection. 3. Right foot infected decubitus, osteomyelitis, status post incision and drainage with wound culture previously grew MRSA and Enterococcus species. Repeat cultures growing Enterobacter 4. Diabetes. 5. Peripheral vascular disease. PLAN: The patient remains stable, ok dc on current abx for 6 weeks, follow podiatry recommendations. DW staff Problems: Consultation Date/Type/Reason Admit Date/Time Jan 24, 2017 at 02:11 Initial Consult Date 01/24/17 Type of Consultation: ID Exam/Review of Systems Vital Signs Vitals Vital Signs Date Time Temp Pulse Resp B/P Pulse Ox O2 Delivery O2 Flow Rate FiO2 01/31/17 07:33 98.8 66 18 137/67 97 01/27/17 23:48 Room Air Intake and Output 01/30/17 01/30/17 01/31/17 15:00 23:00 07:00 Intake Total 100 ml 1410 ml 440 ml Output Total 950 ml 800 ml Balance 100 ml 460 ml -360 ml Results Result Diagram: 01/31/17 0501 01/31/17 0501 Results 24 hrs Laboratory Tests Test 01/30/17 17:39 01/30/17 20:53 01/31/17 05:01 01/31/17 07:53 Bedside Glucose 100 118 86 Albumin 2.4 L Anion Gap 13 Basophils # 0.0 Basophils % 0.2 Blood Urea Nitrogen 10 Calcium Level 7.6 L Carbon Dioxide Level 21 Chloride Level 109 Creatinine 0.92 Eosinophils # 0.9 H Eosinophils % 19.7 H Glucose Level 89 Hematocrit 25.6 L Hemoglobin 8.8 L Lymphocytes # 1.9 Lymphocytes % 40.2 Mean Corpuscular Hemoglobin 33.7 H Mean Corpuscular Hemoglobin Concent 34.4 Mean Corpuscular Volume 98.1 Mean Platelet Volume 10.3 Monocytes # 0.8 Monocytes % 16.3 H Neutrophils # 1.1 L Neutrophils % 23.4 L Nucleated Red Blood Cells # 0.0 Nucleated Red Blood Cells % 0.0 Phosphorus Level 2.7 Platelet Count 110 L Potassium Level 3.7 Red Blood Count 2.61 L Red Cell Distribution Width 13.8 Sodium Level 139 White Blood Count 4.8 Test 01/31/17 11:43 Bedside Glucose 122 Medications Medications Current Medications Famotidine (Pepcid) 20 mg BID PO Last administered on 01/31/17 08:23; Admin Dose 20 MG; Start 01/24/17 at 10:00 Acetaminophen/ Hydrocodone Bitart ([place] (5/325)) 1 tab Q6H PRN PO pain; Start 01/24/17 at 10:00 Ondansetron HCl (Zofran Inj) 4 mg Q6H PRN IV NAUSEA AND/OR VOMITING; Start 01/24 at 10:00 Multivitamins Therapeutic (Theragran) 1 tab DAILY PO Last administered on 08:23; Admin Dose 1 TAB; Start 01/24/17 at 10:00 Thiamine HCl (Vitamin B1) 100 mg DAILY PO Last administered on 01/31/17 08:23 ; Admin Dose 100 MG; Start 01/24/17 at 10:00 Folic Acid (Folic Acid) 1 mg DAILY PO Last administered on 01/31/17 08:23; Admin Dose 1 MG; Start 01/24/17 at 10:00 Amlodipine Besylate (Norvasc) 10 mg DAILY PO Last administered on 01/31/17 08: 23; Admin Dose 10 MG; Start 01/24/17 at 10:00 Diagnostic Test (Pha) (Accucheck) 1 ea 02 XX ; Start 01/25/17 at 02:00 Miscellaneous Information 1 ea NOTE XX ; Start 01/24/17 at 10:00 Glucose (Glutose) 15 gm Q15M PRN PO DECREASED GLUCOSE; Start 01/24/17 at 10:00 Glucose (Glutose) 22.5 gm Q15M PRN PO DECREASED GLUCOSE; Start 01/24/17 at 10:00 Dextrose (D50w Syringe) 25 ml Q15M PRN IV DECREASED GLUCOSE; Start 01/24/17 at 10:00 Dextrose (D50w Syringe) 50 ml Q15M PRN IV DECREASED GLUCOSE; Start 01/24/17 at 10:00 Glucagon (Glucagen) 1 mg Q15M PRN IM DECREASED GLUCOSE; Start 01/24/17 at 10:00 Glucose 15 gm 15 gm Q15M PRN BUCCAL DECREASED GLUCOSE; Start 01/24/17 at 10:00 Levofloxacin/ Dextrose (Levaquin 500mg/ D5W 100 ml (Pmx)) 100 ml @ 100 mls/hr Q24H IVPB Last administered on 01/31/17 10:57; Admin Dose 100 MLS/HR; Start at 10:30 Collagenase (Santyl) 1 applic DAILY TOP Last administered on 01/31/17 08:24; Admin Dose 1 APPLIC; Start 01/24/17 at 14:30 Sodium Hypochlorite (Dakin'S (1/4 Strength)) 1 applic DAILY IRR Last administered on 01/31/17 08:24; Admin Dose 1 APPLIC; Start 01/24/17 at 14:30 Acetaminophen (Tylenol Tab) 650 mg Q6H PRN PO PAIN AND OR ELEVATED TEMP Last administered on 01/27/17 21:36; Admin Dose 650 MG; Start 01/25/17 at 14:30 Metoprolol Tartrate 25 mg 25 mg BID PO Last administered on 01/31/17 08:24; Admin Dose 25 MG; Start 01/28/17 at 21:00 Vancomycin HCl (Vancocin) 100 ml @ 100 mls/hr Q12H IVPB Last administered on 15:26; Admin Dose 100 MLS/HR; Start 01/31/17 at 04:00 ABBY ABURTO NP Jan 31, 2017 15:34
[2017-02-01] MEDS ORDERED: LEVOFLOXACIN 500 MG TAB PO SCH (06:00)
--- NOTE | 2017-02-01 20:45 | DS ---
DATE OF ADMISSION: 01/24/2017 DATE OF DISCHARGE: 01/31/2017 DISCHARGE DIAGNOSES: 1. Sepsis secondary to urinary tract infection and osteomyelitis. Continue antibiotics that were s et up during last hospitalization. The patient received a total of 6 weeks of IV antibiotics for hi s osteomyelitis. Sepsis is now improved. 2. Ongoing osteomyelitis and methicillin-resistant Staphylococcus aureus cellulitis. Once again co ntinue antibiotics as set up per last hospitalization. 3. Peripheral vascular disease. 4. Diabetes, stable. 5. Deafness. 6. History of chronic alcoholism with alcoholic liver disease. HOSPITAL COURSE: The patient is a 61-year-old male with a recent discharge following prolonged stay for right lower extremity wound with cellulitis complicated by diabetes and osteomyelitis with sept ic arthritis. The patient was brought back for fevers. The patient had been arranged for IV antibi otics via home health. The patient was seen by ID once again. The patient was continued on IV anti biotics. Of note, cultures came back positive for pseudomonas in the urine, right foot had enteroba cter. C. diff of note was negative. The patient's signs of sepsis with fever resolved. The patien t was felt to be stable for discharge back home where he will continue his remainder of the course o f IV antibiotics, which should total 6 weeks. On the day of discharge, patient's vitals, labs and physical exam were stable. There were no acute issues. CONDITION ON DISCHARGE: Stable. DISPOSITION: To home with home health for IV antibiotics. MEDICATIONS: The patient is to continue his usual home medications. No new medications prescribed. FOLLOWUP: The patient is to follow up with his PCP in 1 to 2 weeks and with home health agency. Greater than 30 minutes was spent coordinating discharge of patient. Dictated By: YANIV WEINER/FREDERICK Conf#: [id number] DID#: [id number]
== END 2017-01-31 17:15 | disposition home health service (06) | DRG 872 ==
LOC: E/R 19:07 → MS2 01-24 02:11
PROVIDERS: ADMIT Family Medicine; ATTEND Family Medicine
DX: A41.9 Sepsis, unspecified organism (principal); D69.6 Thrombocytopenia, unspecified; E11.42 Type 2 diabetes mellitus with diabetic polyneuropathy; K70.30 Alcoholic cirrhosis of liver without ascites; L97.512 Non-pressure chronic ulcer of other part of right foot with fat layer exposed; N39.0 Urinary tract infection, site not specified; L03.115 Cellulitis of right lower limb; M86.8X7 Other osteomyelitis, ankle and foot; D50.9 Iron deficiency anemia, unspecified; F10.20 Alcohol dependence, uncomplicated; H91.90 Unspecified hearing loss, unspecified ear; E87.6 Hypokalemia; D75.89 Other specified diseases of blood and blood-forming organs; B96.5 Pseudomonas (aeruginosa) (mallei) (pseudomallei) as the cause of diseases classified elsewhere; B95.2 Enterococcus as the cause of diseases classified elsewhere; B96.89 Other specified bacterial agents as the cause of diseases classified elsewhere; R19.7 Diarrhea, unspecified; B95.62 Methicillin resistant Staphylococcus aureus infection as the cause of diseases classified elsewhere
CPT/HCPCS: 36415; 71010; 73630; 80053; 80069; 80202; 81001; 81003; 82962; 83540; 83605; 83735; 84484; 85025; 85610; 85730; 87040; 87045; 87070; 87075; 87081; 87086; 93005; J1650; J1815; J1956; J3370; J3411; J3475; J3480; J7030

== ENCOUNTER 2017-02-23 14:08 | Inpatient (IN) | payer OTHER ==
[~2017-02-23] VITALS: Ht 175.3 cm; Wt 71.3 kg
[2017-02-23] MEDS ORDERED: SODIUM CHLORIDE 0.9% 1L BAG IV* STA (16:44)
[2017-02-23] MEDS ORDERED: CEFEPIME 2GM/50 ML (PMX) 50 ML IVPB STA (16:44)
[2017-02-23] MEDS ORDERED: VANCOMYCIN 1 GM (PMX) 250 ML IVPB ONE (17:00)
[2017-02-23 17:12] LABS: ABNORMAL IP MESSAGE 1; ADD SCAN DIFF NO; HEMATOCRIT 29.4 % (42.0-52.0); MEAN CORPUSCULAR HEMOGLOBIN 33.7 pg (29.0-33.0); MEAN PLATELET VOLUME 10.2 fl (7.4-10.4); PLATELET COUNT 143 10^3/UL (140-415); RED BLOOD COUNT 2.97 10^6/ul (4.70-6.10); RED CELL DISTRIBUTION WIDTH 14.5 % (11.5-14.5); WHITE BLOOD COUNT 10.3 10^3/ul (4.8-10.8)
[2017-02-23 17:21] LABS: ALBUMIN 3.5 g/dl (3.3-4.9); CHLORIDE 103 mmol/L (97-110)
[2017-02-23 17:22] LABS: INR 1.23; POTASSIUM 3.8 mmol/L (3.5-5.1); PROTIME 15.6 Sec (12.2-14.2); PT RATIO 1.2; SODIUM 139 mmol/L (135-144)
[2017-02-23 17:23] LABS: PARTIAL THROMBOPLASTIN TIME 38.6 Sec (25.0-35.0)
[2017-02-23 17:24] LABS: ALANINE AMINOTRANSFERASE 28 IU/L (13-69); ALBUMIN/GLOBULIN RATIO 0.66; ALKALINE PHOSPHATASE 129 IU/L (42-121); ANION GAP 18 (8-16); ASPARTATE AMINO TRANSFERASE 44 IU/L (15-46); BILIRUBIN,INDIRECT 0.7 mg/dl (0-1.1); BILIRUBIN,TOTAL 0.7 mg/dl (0.2-1.3); BLOOD UREA NITROGEN 22 mg/dl (7-20); CARBON DIOXIDE 22 mmol/L (21-31); CREATININE 1.24 mg/dl (0.61-1.24); TOTAL PROTEIN 8.8 g/dl (6.1-8.1)
[2017-02-23 17:25] LABS: CALCIUM 9.2 mg/dl (8.4-10.2); GLUCOSE 190 mg/dl (70-220)
[2017-02-23 17:37] LABS: TROPONIN-I < 0.012 ng/ml (0.00-0.12)
--- NOTE | 2017-02-23 17:40 | RADRPT ---
PROCEDURE: XR Right Foot. CLINICAL INDICATION: Right foot pain. Right foot infection. TECHNIQUE: 3 views. Frontal, oblique, and lateral. COMPARISON: 01/24/2017. FINDINGS: There is no fracture or dislocation. Vascular calcifications are present consistent with atherosclerosis. Articular surfaces are intact. There is no lytic or blastic lesion. There is no radiopaque foreign body. IMPRESSION: 1. Atherosclerosis. 2. Otherwise unremarkable images of the right foot. 3. No lytic lesion to suggest osteomyelitis. RPTAT: QQ .Aries Garnett MD, MD Date Time Electronically viewed and signed by .Aries Garnett MD, MD on 02/23/2017 17:40 .R/
[2017-02-23] MEDS ORDERED: ONDANSETRON 4 MG INJ IV PRN ×2 (18:00→19:00)
[2017-02-23] MEDS ORDERED: ACETAMINOPHEN 325 MG TAB PO PRN ×2 (18:00→19:00)
--- NOTE | 2017-02-23 18:17 | ERA ---
ER Documentation Chief Complaint Date/Time DATE: 02/23/17 TIME: 18:15 Chief Complaint BROUGHT IN BY SISTER DUE TO CENTRAL LINE LEFT ARM CHECK HPI Patient is a 61-year-old male with diabetes who presents with a right sided foot infection. He has had osteomyelitis in the past. He has a PICC line in place but even though he was supposed to be getting antibiotics as an outpatient he was not receiving these. He has had this infection for 2 months. He went to a doctor today who told him that he was unable to see him therefore they came to the emergency department. ROS All systems reviewed and are negative except as per history of present illness. Medications Home Meds Discontinued Scripts Amlodipine Besylate* (Norvasc*) 10 Mg Tablet, 10 MG PO DAILY, #60 TAB Prov:YANIV GODWIN 01/16/17 Allergies Allergies: Coded Allergies: No Known Allergies (Verified Allergy, Unknown, 02/23/17) PMhx/Soc History of Surgery: Yes (ear surgery as a child) Anesthesia Reaction: No Hx Neurological Disorder: No Hx Respiratory Disorders: No Hx Cardiac Disorders: No Hx Psychiatric Problems: No Hx Miscellaneous Medical Probl: No Hx Alcohol Use: Yes Hx Substance Use: No Hx Tobacco Use: No FmHx Family History: No diabetes Physical Exam Vitals Vital Signs Date Time Temp Pulse Resp B/P Pulse Ox O2 Delivery O2 Flow Rate FiO2 02/23/17 18:00 98.4 74 16 137/78 99 Room Air 02/23/17 14:21 107 18 142/80 100 Physical Exam Const: Mild distress Head: Atraumatic Eyes: Normal Conjunctiva ENT: Normal External Ears, Nose and Mouth. Neck: Full range of motion..~ No meningismus. Resp: Clear to auscultation bilaterally Cardio: Regular rate and rhythm, no murmurs Abd: Soft, non tender, non distended. Normal bowel sounds Skin: Wound to the dorsal surface of the right foot which is oozing, there is surrounding erythema and swelling Back: No midline or flank tenderness Ext: No cyanosis, or edema Neur: Awake patient is mute at baseline Result Diagram: 02/23/17 1641 02/23/17 1630 Results 24 hrs Laboratory Tests Test 02/23/17 16:30 02/23/17 16:44 Prothrombin Time 15.6Sec Prothrombin Time Ratio 1.2 INR International Normalized Ratio 1.23 Activated Partial Thromboplast Time 38.6Sec Sodium Level 139mmol/L Potassium Level 3.8mmol/L Chloride Level 103mmol/L Carbon Dioxide Level 22mmol/L Anion Gap 18 Blood Urea Nitrogen 22mg/dl Creatinine 1.24mg/dl Glucose Level 190mg/dl Lactic Acid Level 2.5mmol/L Calcium Level 9.2mg/dl Total Bilirubin 0.7mg/dl Direct Bilirubin 0.00mg/dl Indirect Bilirubin 0.7mg/dl Aspartate Amino Transf (AST/SGOT) 44IU/L Alanine Aminotransferase (ALT/SGPT) 28IU/L Alkaline Phosphatase 129IU/L Troponin I < 0.012ng/ml Total Protein 8.8g/dl Albumin 3.5g/dl Globulin 5.30g/dl Albumin/Globulin Ratio 0.66 White Blood Count 10.310^3/ul Red Blood Count 2.9710^6/ul Hemoglobin 10.0g/dl Hematocrit 29.4% Mean Corpuscular Volume 99.0fl Mean Corpuscular Hemoglobin 33.7pg Mean Corpuscular Hemoglobin Concent 34.0g/dl Red Cell Distribution Width 14.5% Platelet Count 77933^3/UL Mean Platelet Volume 10.2fl Current Medications Medications (Trade) Dose Ordered Sig/Lucy Route PRN Reason Start Time Stop Time Status Last Admin Dose Admin Sodium Chloride 2170 ml 2,170 ml BOLUS OVER 2 HOURS STAT IV* 02/23/17 16:44 02/23/17 16:47 DC 02/23/17 17:06 Cefepime HCl 50 ml @ 100 mls/hr ONCE STAT IVPB 02/23/17 16:44 02/23/17 17:13 DC 02/23/17 17:32 Vancomycin HCl (Vancocin) 250 ml @ 125 mls/hr ONCE ONCE IVPB 02/23/17 17:00 02/23/17 18:59 Ondansetron HCl (Zofran Inj) 4 mg BRIDGE ORDER PRN IV NAUSEA AND/OR VOMITING 02/23/17 18:00 02/24/17 17:59 Acetaminophen (Tylenol Tab) 650 mg ER BRIDGE PRN PO MILD PAIN/FEVER 02/23/17 18:00 02/24/17 17:59 Procedures/MDM Right foot shows no osteomyelitis per radiology. Admit MDM: Patient's infectious symptoms have not stabilized and the patient is at risk of rapid decompensation. The patient will be admitted for careful hydration, antibiotic therapy, and infectious source control. Severe Sepsis criteria: Infectious source: Cellulitis End organ damage indicated by: Lactate greater than 2 Sepsis Management: Time of recognition of sepsis: 16:30 Within 3 hours of recognition: Blood cultures x 2 before broad-spectrum antibiotics: Yes 30 ml/kg NS bolus Completed Initial lactate 2.5 Repeat lactate pending Time of recognition of septic shock: No septic shock Septic Shock Assessment: Any lactic acid > 4.0 No Persistent hypotension (SBP < 90 or 40 mmHg drop, MAP < 65) despite 30 mL/kg IV fluid bolus No Volume Re-assessment for Septic Shock (post 30 ml/kg bolus): No septic shock at this time Persistent Hypotension Treatment: Comfort care No Central line PICC line in place to the left upper extremity Vasopressor started Not required I considered further perfusion assessment with CVP measurement, SCVO2, bedside ultrasound volume assessment, passive leg raise, trial of further fluid bolus. And proceeded with 30 ml/kg fluid bolus of NSS, broad spectrum antibiotics, and admission. Accepting Care Team Current data and ongoing care discussed. Admitting Physician: Dr. Merritt from the panel team as the patient has [employer] insurance and they have given authorization Upholsterer Inside(s): None Outstanding Data: Culture results and repeat lactic acid Critical Care: Critical care time 35 minutes excluding all billable procedures Emergent fluid management while maintaining close respiratory support. Provision of immediate and broad-spectrum antibiotic therapy. Simultaneous assessment for possible sources in order to direct targeted therapy. Consideration for invasive and chemical support to prevent cardiopulmonary collapse. Departure Diagnosis: Primary Impression: Severe sepsis Additional Impressions: Cellulitis of right foot Anemia Qualified Code: D64.9 - Anemia, unspecified type Condition: SHASHI Narayan MD Feb 23, 2017 18:17
[2017-02-23 18:40] LABS: EOSINOPHILS # 2.6 10^3/ul (0.0-0.5); LYMPHOCYTES # 1.9 10^3/ul (0.8-2.9); MONOCYTE # 1.1 10^3/ul (0.3-0.9); NEUTROPHIL # 4.7 10^3/ul (1.6-7.5); PLATELET ESTIMATE PLT APPEAR ADEQUATE
[2017-02-23] MEDS ORDERED: VANCOMYCIN IV PER PHARMACY XX SCH (19:00)
[2017-02-23] MEDS ORDERED: NACL 0.9% 3 ML SYG IV SCH (19:00)
[2017-02-23] MEDS ORDERED: hydrALAzine 20 MG INJ IV PRN (19:00)
[2017-02-23] MEDS ORDERED: HYDROCODONE/APAP (5/325) TAB PO PRN (19:00)
[2017-02-23] MEDS ORDERED: DOCUSATE SODIUM 100 MG CAP PO PRN (19:00)
[2017-02-23] MEDS ORDERED: morphine 2 MG INJ IV PRN (19:00)
[2017-02-23] MEDS ORDERED: GLUCOSE GEL 15 GRAM TUBE PO PRN ×2 (19:30)
[2017-02-23] MEDS ORDERED: DEXTROSE 50% 50 ML SYRINGE IV PRN ×2 (19:30)
[2017-02-23] MEDS ORDERED: GLUCOSE GEL 15 GRAM TUBE BUCCAL PRN (19:30)
[2017-02-23] MEDS ORDERED: GLUCAGON 1 MG INJ IM PRN (19:30)
[2017-02-23 20:09] LABS: IRON 140 ug/dl (35-150)
[2017-02-23 20:18] LABS: TOTAL IRON BINDING CAPACITY 342 ug/dl (241-421)
[2017-02-23] MEDS: INSULIN ASPART [NOVOLOG] 3 ML PEN SC SCH (20:29)
[2017-02-23] MEDS: LEVOFLOXACIN 500MG/D5W (PMX) 100 ML IVPB SCH (20:35)
[2017-02-23] MEDS: INSULIN GLARGINE [LANtus] 3 ML PEN SC SCH (20:39)
--- NOTE | 2017-02-23 20:41 | HP ---
DATE OF ADMISSION: 02/23/2017 TIME OF EVALUATION: 1830. REASON FOR ADMISSION: Recurrent right lower extremity cellulitis. CONSULTATIONS: 1. Dr. Hieu Holly, Podiatry. 2. Dr. Johnny Parra, Infectious Disease. HISTORY OF PRESENT ILLNESS: This is a 61-year-old male with a past medical history of diabetes with diabetic neuropathy, peripheral vascular disease, recurrent right lower extremity cellulitis, and essential hypertension who is hard of hearing who came to the emergency room with a chief complaint of right foot infection. The patient was discharged from [facility] on 01/24/2017, after treatment for right foot infection to be continued on IV antibiotics for 6 weeks. It is suspected that the patient was no longer getting antibiotics appropriately. The patient was complaining of some pain in the foot. The patient apparently went to see an outside physician , but physician had no time to see the patient today, and, therefore, the patient came to the emergency room. There was no reported nausea, vomiting, abdominal pain, diarrhea, hematochezia, or dysuria. In the emergency room, the patient had no leukocytosis. The patient was noted to have lactic acidosis with a lactic acid level of 2.5. The patient's WBC was within normal limits. The patient was afebrile. The patient was having some tachycardia. In the emergency room, the patient underwent a right foot x-ray that did not show any evidence of osteomyelitis. The patient was treated with IV cefepime and IV fluids in the emergency room. PAST MEDICAL HISTORY: 1. Essential hypertension. 2. Type 2 diabetes mellitus. 3. Diabetic neuropathy. 4. Peripheral vascular disease. 5. Anemia. PAST SURGICAL HISTORY: Right foot debridement on 01/11/2017, Bilateral ear surgery as a child. HOME MEDICATIONS: Amlodipine 10 mg p.o. daily. I am unable to determine what antibiotics that the patient was on from the discharge summary done on 01/24/2017. ALLERGIES: NO KNOWN DRUG ALLERGIES. SOCIAL HISTORY: The patient is an ETOH abuser. Nonsmoker. REVIEW OF SYSTEMS: A 12-point review of systems were made, and review of systems are negative other than what is mentioned in history of present illness. PHYSICAL EXAMINATION: VITAL SIGNS: Temperature 98.4, pulse is 74, respiratory rate 16, blood pressure 137/70, oxygen saturation 99% on room air. GENERAL: This is a 61-year-old male lying in bed in no apparent distress. HEENT: Head normocephalic and atraumatic. Eyes: Anicteric sclerae. Conjunctivae clear. ENT: Nasal septum is midline. Oral mucosa is dry. Bilateral ear pinnae are partially absent. NECK: Supple. No JVD noticed. RESPIRATORY: Bilaterally clear to auscultation. No adventitious breath sounds heard. No use of accessory muscles of respiration. CARDIAC: Regular rhythm and rate. No murmurs. GASTROINTESTINAL: Abdomen soft, nontender and nondistended. Bowel sounds positive in all 4 quadrants. GENITOURINARY: Deferred. EXTREMITIES: Right lower extremity edema and erythema of the plantar surface with an open wound on the plantar surface. Onychomycosis of the toes of the right lower extremity. Left lower extremity: No edema or erythema. Bilateral pedal pulses not palpable. NEUROLOGIC: The patient is hard of hearing. The patient is awake, alert and oriented. No focal deficits. SKIN: Scaly dry skin all over the body. LABORATORY AND DIAGNOSTIC DATA: WBC 10.3, hemoglobin 10.0, hematocrit 29.4, platelet count 142. Sodium 139, potassium 3.9, chloride 100, carbon dioxide 20 , anion gap 18, BUN 22, creatinine 1.04, glucose 190, calcium 9.2, AST 44, ALT 20, alkaline phosphatase 129. Troponin less than 0.01. Total protein 8.8, albumin 3.5, lactic acid 2.5. PT 15.6, INR 1.03, PTT 30.6. Right foot x-ray: Atherosclerosis. Otherwise, unremarkable images of the right foot. IMPRESSION: This is a 61-year-old male with past medical history of essential hypertension, diabetes mellitus and recurrent right lower extremity cellulitis who came to the emergency room with a chief complaint of a nonhealing right foot wound, who will be admitted here for further treatment and evaluation. ASSESSMENT AND PLAN: 1. Right foot recurrent cellulitis. As mentioned in the HPI, the patient was discharged home on IV antibiotics to be completed for a course of 6 weeks from 01/24/2017. It is unclear whether the patient was receiving these antibiotics appropriately. The patient will be started on antibiotics. Culture of the right foot wound will be ordered. A podiatry consult and ID consult will be obtained. 2. Type 2 diabetes mellitus, uncontrolled. The patient will be started on sliding scale insulin along with basal insulin and premeal insulin. Hemoglobin A1c will be obtained to evaluate the blood glucose control over the past few weeks. 3. Essential hypertension. The patient will be started on routine antihypertensives including p.r.n. antihypertensives for any systolic blood pressure readings greater than 160 mmHg. 4. Peripheral vascular disease. The patient had a right lower extremity angiogram done during his previous visit that showed no evidence of any flow limiting obstructions. The patient will be maintained on aspirin. 5. Microcytic anemia. The patient's H and H will be monitored. An iron panel will be obtained. 6. Lactic acidosis. The patient has no evidence of any septic shock. The patient remains afebrile. The patient is not tachycardic. The patient has no elevated WBC count. The patient will be maintained on antibiotics. Lactic acid levels will be trended. Plan. The patient will be admitted to inpatient medical/surgical floor. The patient will be started on carbohydrate controlled diet. The patient will be started on DVT prophylaxis and gastrointestinal prophylaxis. The patient will remain a FULL CODE. Activities will be as tolerated. The rest of the patient's management will be based on clinical course, the results of diagnostic studies, and inputs from consultants. Based on the patient's clinical presentation, he most probably requires at least 2 midnights' stay for further management and evaluation of his clinical presentation. The case and management of this patient was fully discussed with Dr. Merritt. LINDA MERRITT MD, AM/FREDERICK Conf#: [id number] DID#: [id number] ANDREE
[2017-02-23] MEDS: FAMOTIDINE 20 MG TAB PO SCH (21:41)
[2017-02-23 22:30] VITALS: TEMP 98.2
[2017-02-24 01:40] VITALS: Ht 175.3 cm; Wt 71.3 kg
[2017-02-24 01:43] VITALS: BP 140/82; PULSE 101; RESP 18
[2017-02-24] MEDS: VANCOMYCIN 1 GM in NS 250 ML IVPB SCH ×2 (02:32→15:01)
[2017-02-24 07:01] LABS: ADD SCAN DIFF NO
[2017-02-24 07:09] LABS: ABNORMAL IP MESSAGE 1; BASOPHIL # 0.1 10^3/ul (0.0-0.1); BASOPHILS % 0.6 % (0.0-2.0); EOSINOPHILS # 2.8 10^3/ul (0.0-0.5); HEMATOCRIT 28.5 % (42.0-52.0); HEMOGLOBIN 9.4 g/dl (14.0-18.0); LYMPHOCYTES # 1.6 10^3/ul (0.8-2.9); LYMPHOCYTES % 17.4 % (15.0-51.0); MEAN CORPUSCULAR HEMOGLOBIN 33.5 pg (29.0-33.0); MEAN CORPUSCULAR VOLUME 101.4 fl (82.0-101.0); MEAN PLATELET VOLUME 11.1 fl (7.4-10.4); MONOCYTE # 0.9 10^3/ul (0.3-0.9); MONOCYTES % 9.6 % (0.0-11.0); NEUTROPHIL # 3.7 10^3/ul (1.6-7.5); NEUTROPHILS % 41.3 % (39.0-77.0); PLATELET COUNT 111 10^3/UL (140-415); RED BLOOD COUNT 2.81 10^6/ul (4.70-6.10); RED CELL DISTRIBUTION WIDTH 14.8 % (11.5-14.5)
[2017-02-24 07:30] LABS: ALBUMIN 2.9 g/dl (3.3-4.9)
[2017-02-24 07:31] LABS: POTASSIUM 4.1 mmol/L (3.5-5.1)
[2017-02-24 07:33] LABS: ALBUMIN/GLOBULIN RATIO 0.64; CREATININE 1.1 mg/dl (0.61-1.24); TOTAL PROTEIN 7.4 g/dl (6.1-8.1)
[2017-02-24 07:34] LABS: CALCIUM 8.6 mg/dl (8.4-10.2)
[2017-02-24 07:36] LABS: CHOL/HDL RATIO 4.8 RATIO; MAGNESIUM 1.6 mg/dl (1.7-2.5); PHOSPHORUS 4.1 mg/dl (2.5-4.9)
[2017-02-24] MEDS: INSULIN ASPART [NOVOLOG] 3 ML PEN SC SCH ×7 (07:37→21:00)
[2017-02-24 08:03] LABS: THYROID STIMULATING HORMONE 34.2 MIU/L (0.465-4.680)
[2017-02-24] MEDS: FAMOTIDINE 20 MG TAB PO SCH ×2 (08:23→20:13)
[2017-02-24 08:26] VITALS: BP 103/54; RESP 20
[2017-02-24] MEDS: LISINOPRIL 5 MG TAB PO SCH (08:47)
[2017-02-24] MEDS: ASPIRIN (EC) 81 MG TAB PO SCH (08:47)
[2017-02-24] MEDS: ENOXAPARIN 40 MG/0.4 ML SYG SC SCH (08:48)
[2017-02-24] MEDS ORDERED: MAGNESIUM SULFATE 2 GM/50 ML 50 ML IVPB ONE (12:00)
--- NOTE | 2017-02-24 16:16 | PN ---
DATE: 02/24/2017 SUBJECTIVE: Patient is awake, lying comfortably in bed. No fevers, no pain. WBC 9, no shift, no bands. BUN 17, creatinine 1.10. ANTIMICROBIALS: 1. Vancomycin. 2. Levaquin. PHYSICAL EXAMINATION: GENERAL: Well-developed elderly man who is in no distress. HEENT: Head atraumatic, normocephalic. Sclerae anicteric. Buccal mucosa pink. NECK: Supple, trachea midline. CHEST: Rise symmetrical. Breath sounds diminished to bases. HEART: S1, S2. ABDOMEN: Soft, bowel tones present. EXTREMITIES: With right foot chronic wound. ASSESSMENT: 1. Right foot osteomyelitis, cellulitis, status post incision and drainage with wound culture grew Enterobacter cloacae and Enterococcus species. 2. Diabetes. 3. Status post sepsis and urinary tract infection. PLAN: The patient remains clinically stable. Last time he was seen back in January by our service and recommended to continue Vanco and Levaquin for 6 weeks ==> unclear if he was getting them. We will repeat MRI of the foot and consider podiatry evaluation. Dictated By: ABBY ABURTO CORNICE UPHOLSTERER for BETTIE MARCOS/NTS Conf#: [id number] DID#: [id number] MTDD
--- NOTE | 2017-02-24 17:06 | PN ---
Date/Time of Note Date/Time of Note DATE: 02/24/17 TIME: 16:55 Assessment/Plan VTE Prophylaxis VTE Prophylaxis Intervention: LMWH Lines/Catheters IV Catheter Type (from Nrsg): Central Line Central line still needed: Yes Assessment/Plan Assessment/Plan 1. Right foot osteomyelitis, cellulitis, on Vanco/cefepime, follow up with ID and podiatry 2. Essential hypertension. controlled 3. Type 2 diabetes mellitus.controlled 4. Diabetic neuropathy. 5. Peripheral vascular disease. 6. Anemia. chronic disease, follow up with CBC 7. Lactic acidosis, resolved 8. DVT prophylaxis: lovenox Subjective 24 Hr Interval Summary Free Text/Dictation afebrile. pain on right foot Exam/Review of Systems Vital Signs Vitals Vital Signs Date Time Temp Pulse Resp B/P Pulse Ox O2 Delivery O2 Flow Rate FiO2 02/24/17 08:26 98.1 76 20 103/54 98 02/24/17 01:43 Room Air Intake and Output 02/23/17 02/23/17 02/24/17 15:00 23:00 07:00 Intake Total 250 ml 250 ml Balance 250 ml 250 ml Exam Constitutional: alert, oriented, well developed Psych: nl mood/affect, no complaints Head: atraumatic, normocephalic Eyes: EOMI, PERRL, nl conjunctiva, nl lids ENMT: nl external ears & nose, nl lips & teeth, nl nasal mucosa & septum Neck: non-tender, supple Respiratory: clear to auscultation, normal air movement, No congested cough, No crackles/rales, No diminished breath sounds, No intercostal retraction, No labored breathing, No other, No respirations, No tactile fremitus, No wheezing Cardiovascular: nl pulses, regular rate and rhythm, No S3, No S4, No bruits, No diastolic murmur, No edema, No gallop, No irregular rhythm, No jugular venous distention (JVD), No murmurs/extra sounds, No other, No rub, No systolic murmur Gastrointestinal: nl liver, spleen, non-tender, soft, No ascites, No bowel sounds, No distended, No firm, No hepatomegaly, No mass , No other, No rebound or guarding, No splenomegaly, No surgical scars, No tender Musculoskeletal: nl extremities to inspection Extremities: other (roght foot lesion) 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, nl mental status, nl speech, nl strength Results Result Diagram: 02/24/17 0540 02/24/17 0540 Results 24 hrs Laboratory Tests Test 02/23/17 16:59 02/23/17 18:39 02/23/17 20:25 02/23/17 22:05 Iron Level 140 Total Iron Binding Capacity 342 Percent Iron Saturation 41 Ferritin 159.0 Vitamin D 1,25-Dihydroxy 28.5 L Lactic Acid Level 2.8 H 1.7 Bedside Glucose 113 Test 02/24/17 02:43 02/24/17 05:40 02/24/17 05:45 02/24/17 07:36 Bedside Glucose 119 95 White Blood Count 9.0 Red Blood Count 2.81 L Hemoglobin 9.4 L Hematocrit 28.5 L Mean Corpuscular Volume 101.4 H Mean Corpuscular Hemoglobin 33.5 H Mean Corpuscular Hemoglobin Concent 33.0 Red Cell Distribution Width 14.8 H Platelet Count 111 #L Mean Platelet Volume 11.1 H Neutrophils % 41.3 Lymphocytes % 17.4 Monocytes % 9.6 Eosinophils % 31.0 H Basophils % 0.6 Nucleated Red Blood Cells % 0.0 Neutrophils # 3.7 Lymphocytes # 1.6 Monocytes # 0.9 Eosinophils # 2.8 H Basophils # 0.1 Nucleated Red Blood Cells # 0.0 Sodium Level 141 Potassium Level 4.1 Chloride Level 109 Carbon Dioxide Level 21 Anion Gap 15 Blood Urea Nitrogen 17 Creatinine 1.10 Glucose Level 112 # Hemoglobin A1c 5.7 Lactic Acid Level 1.8 Calcium Level 8.6 Phosphorus Level 4.1 Magnesium Level 1.6 L Total Bilirubin 1.0 Direct Bilirubin 0.00 Indirect Bilirubin 1.0 Aspartate Amino Transf (AST/SGOT) 40 Alanine Aminotransferase (ALT/SGPT) 24 Alkaline Phosphatase 107 Total Protein 7.4 # Albumin 2.9 L Globulin 4.50 H Albumin/Globulin Ratio 0.64 Triglycerides Level 110 Cholesterol Level 88 L LDL Cholesterol, Calculated 48 HDL Cholesterol 18 L Cholesterol/HDL Ratio 4.8 Thyroid Stimulating Hormone (TSH) 34.200 H Erythrocyte Sedimentation Rate 60 H Test 02/24/17 10:47 02/24/17 12:04 Free Thyroxine 0.58 L Bedside Glucose 94 Medications Medications Current Medications Levofloxacin/ Dextrose (Levaquin 500mg/ D5W 100 ml (Pmx)) 100 ml @ 100 mls/hr Q24H IVPB Last administered on 02/23/17 20:35; Admin Dose 100 MLS/HR; Start 02/23/17 at 19:00 Ondansetron HCl (Zofran Inj) 4 mg Q6H PRN IV NAUSEA AND/OR VOMITING; Start 02/23 at 19:00 Acetaminophen (Tylenol Tab) 650 mg Q6H PRN PO PAIN LEVEL 1-3 OR FEVER; Start at 19:00 Acetaminophen/ Hydrocodone Bitart (Orange (5/325)) 1 tab Q6H PRN PO MODERATE PAIN LEVEL 4-6; Start 02/23/17 at 19:00 Morphine Sulfate (morphine) 2 mg Q4H PRN IV SEVERE PAIN LEVEL 7-10; Start at 19:00 Docusate Sodium (Colace) 100 mg Q12H PRN PO CONSTIPATION; Start 02/23/17 at 19: 00 Famotidine (Pepcid) 20 mg Q12 PO Last administered on 02/24/17 08:23; Admin Dose 20 MG; Start 02/23/17 at 21:00 Enoxaparin Sodium (Lovenox) 40 mg DAILY SC Last administered on 02/24/17 08:48 ; Admin Dose 40 MG; Start 02/24/17 at 09:00 Insulin Glargine (Lantus) 7 unit DAILY@20 SC Last administered on 02/23/17 20: 39; Admin Dose 7 UNIT; Start 02/23/17 at 20:00 Hydralazine HCl (Apresoline) 10 mg Q6H PRN IV SBP>160; Start 02/23/17 at 19:00 Lisinopril (Zestril) 5 mg DAILY PO Last administered on 02/24/17 08:47; Admin Dose 5 MG; Start 02/24/17 at 09:00 Miscellaneous Information 1 ea NOTE XX ; Start 02/23/17 at 19:30 Glucose (Glutose) 15 gm Q15M PRN PO DECREASED GLUCOSE; Start 02/23/17 at 19:30 Glucose (Glutose) 22.5 gm Q15M PRN PO DECREASED GLUCOSE; Start 02/23/17 at 19:30 Dextrose (D50w Syringe) 25 ml Q15M PRN IV DECREASED GLUCOSE; Start 02/23/17 at 19:30 Dextrose (D50w Syringe) 50 ml Q15M PRN IV DECREASED GLUCOSE; Start 02/23/17 at 19:30 Glucagon (Glucagen) 1 mg Q15M PRN IM DECREASED GLUCOSE; Start 02/23/17 at 19:30 Glucose (Glutose) 15 gm Q15M PRN BUCCAL DECREASED GLUCOSE; Start 02/23/17 at 19: 30 Aspirin 81 mg 81 mg DAILY PO Last administered on 02/24/17 08:47; Admin Dose 81 MG; Start 02/24/17 at 09:00 Vancomycin HCl (Vancocin) 250 ml @ 125 mls/hr Q12H IVPB Last administered on 15:01; Admin Dose 125 MLS/HR; Start 02/24/17 at 03:00 Miscellaneous Information (*Rx Drug Level Order Reminder*) 1 ONCE ONCE XX ; Start 02/25/17 at 02:00; Stop 02/25/17 at 02:01 BRANDEE BROWN MD Feb 24, 2017 17:05
[2017-02-24] MEDS: LEVOFLOXACIN 500MG/D5W (PMX) 100 ML IVPB SCH (18:34)
[2017-02-24 20:24] VITALS: BP 133/65; RESP 18
[2017-02-24] MEDS: INSULIN GLARGINE [LANtus] 3 ML PEN SC SCH (22:07)
[2017-02-25] MEDS: VANCOMYCIN 1 GM in NS 250 ML IVPB SCH (02:59)
[2017-02-25 06:10] LABS: ADD SCAN DIFF NO
[2017-02-25 06:36] LABS: ABNORMAL IP MESSAGE 1; CREATININE 1.13 mg/dl (0.61-1.24); HEMATOCRIT 25.2 % (42.0-52.0); HEMOGLOBIN 8.4 g/dl (14.0-18.0); MEAN CORPUSCULAR HEMOGLOBIN 33.2 pg (29.0-33.0); MEAN CORPUSCULAR HGB CONC 33.3 g/dl (32.0-37.0); MEAN CORPUSCULAR VOLUME 99.6 fl (82.0-101.0); MEAN PLATELET VOLUME 10.5 fl (7.4-10.4); PLATELET COUNT 113 10^3/UL (140-415); RED BLOOD COUNT 2.53 10^6/ul (4.70-6.10); RED CELL DISTRIBUTION WIDTH 14.6 % (11.5-14.5)
[2017-02-25 07:50] VITALS: BP 126/60; RESP 16
[2017-02-25] MEDS: INSULIN ASPART [NOVOLOG] 3 ML PEN SC SCH ×7 (08:00→21:00)
[2017-02-25] MEDS: ENOXAPARIN 40 MG/0.4 ML SYG SC SCH (08:19)
[2017-02-25] MEDS: FAMOTIDINE 20 MG TAB PO SCH ×2 (09:11→20:00)
[2017-02-25] MEDS: ASPIRIN (EC) 81 MG TAB PO SCH (09:12)
[2017-02-25] MEDS: LISINOPRIL 5 MG TAB PO SCH (09:12)
[2017-02-25 11:14] LABS: BASOPHIL # 0.1 10^3/ul (0.0-0.1); EOSINOPHILS # 3.4 10^3/ul (0.0-0.5); MONOCYTE # 0.7 10^3/ul (0.3-0.9); NEUTROPHIL # 2.7 10^3/ul (1.6-7.5)
--- NOTE | 2017-02-25 14:38 | PN ---
Date/Time of Note Date/Time of Note DATE: 02/25/17 TIME: 14:37 Assessment/Plan VTE Prophylaxis VTE Prophylaxis Intervention: LMWH Lines/Catheters IV C[facility]ter Type (from [facility]): Central Line Central line still needed: Yes Assessment/Plan Chief Complaint/Hosp Course 1. Recurrent right foot cellulitis. Continue antibiotics as per infectious diseases. Awaiting podiatry consult. 2. Type 2 diabetes mellitus. Hemoglobin A1c 5.7. Continue sliding scale insulin along with basal insulin and pre-meal insulin. 3. Essential hypertension. Continue antihypertensives including p.r.n. antihypertensives for any systolic blood pressure readings greater than 160 mmHg. 4. Peripheral vascular disease. The patient had a right lower extremity angiogram done during his previous visit that showed no evidence of any flow limiting obstructions. The patient will be maintained on aspirin. 5. Microcytic anemia. The patient's H and H will be monitored. Iron panel showing no evidence of iron deficiency. 6. Hypothyroidism. Will start the patient on Synthroid. 7. Vitamin D deficiency. Will start the patient on vitamin D supplements. 8. Fluids, electrolytes, and nutrition. Carbohydrate controlled diet. 9. DVT prophylaxis. Subcutaneous Lovenox. 10. Gastrointestinal prophylaxis. Histamine 2 receptor blockers. 11. Plan. Continue antibiotics as per infectious diseases. Await podiatry evaluation. Case discussed with Dr. Merritt. Problems: Subjective 24 Hr Interval Summary Free Text/Dictation The patient remains afebrile. Vital signs stable. Exam/Review of Systems Vital Signs Vitals Vital Signs Date Time Temp Pulse Resp B/P Pulse Ox O2 Delivery O2 Flow Rate FiO2 02/25/17 07:50 98.6 65 16 126/60 98 02/24/17 01:43 Room Air Intake and Output 02/24/17 02/24/17 02/25/17 15:00 23:00 07:00 Intake Total 50 ml 1110 ml 550 ml Output Total 600 ml 800 ml Balance 50 ml 510 ml -250 ml Exam GENERAL: This is a 61-year-old male lying in bed in no apparent distress. HEENT: Head normocephalic and atraumatic. Eyes: Anicteric sclerae. Conjunctivae clear. ENT: Nasal septum is midline. Oral mucosa is dry. Right and left ear pinna partially absent. NECK: Supple. No JVD noticed. RESPIRATORY: Bilaterally clear to auscultation. No adventitious breath sounds heard. No use of accessory muscles of respiration. CARDIAC: Regular rhythm and rate. No murmurs. GASTROINTESTINAL: Abdomen soft, nontender and nondistended. Bowel sounds positive in all 4 quadrants. GENITOURINARY: Deferred. EXTREMITIES: Right lower extremity edema and erythema of the plantar surface with an open wound on the plantar surface. Onychomycosis of the toes of the right lower extremity. Left lower extremity: No edema or erythema. Bilateral pedal pulses not palpable. NEUROLOGIC: The patient is hard of hearing. The patient is awake, alert and oriented. No focal deficits. SKIN: Scaly dry skin all over the body. Results Result Diagram: 02/25/17 0516 02/25/17 0516 Results 24 hrs Laboratory Tests Test 02/24/17 17:39 02/24/17 20:12 02/24/17 22:03 02/25/17 01:34 Bedside Glucose 81 142 99 86 Test 02/25/17 02:08 02/25/17 05:16 02/25/17 08:14 02/25/17 12:06 Vancomycin Level Trough 17.7 White Blood Count 8.0 Red Blood Count 2.53 L Hemoglobin 8.4 L Hematocrit 25.2 L Mean Corpuscular Volume 99.6 Mean Corpuscular Hemoglobin 33.2 H Mean Corpuscular Hemoglobin Concent 33.3 Red Cell Distribution Width 14.6 H Platelet Count 113 L Mean Platelet Volume 10.5 H Neutrophils % 34.0 L Band Neutrophils % 1.0 Lymphocytes % 13.0 L Monocytes % 9.0 Eosinophils % 42.0 H Basophils % 1.0 Neutrophils # 2.7 Lymphocytes # 1.0 Monocytes # 0.7 Eosinophils # 3.4 H Basophils # 0.1 Blood Urea Nitrogen 13 Creatinine 1.13 Bedside Glucose 90 100 Medications Medications Current Medications Levofloxacin/ Dextrose (Levaquin 500mg/ D5W 100 ml (Pmx)) 100 ml @ 100 mls/hr Q24H IVPB Last administered on 02/24/17t 18:34; Admin Dose 100 MLS/HR; Start 02/23/17 at 19:00 Ondansetron HCl (Zofran Inj) 4 mg Q6H PRN IV NAUSEA AND/OR VOMITING; Start 02/23 at 19:00 Acetaminophen (Tylenol Tab) 650 mg Q6H PRN PO PAIN LEVEL 1-3 OR FEVER; Start at 19:00 Acetaminophen/ Hydrocodone Bitart (Bostic (5/325)) 1 tab Q6H PRN PO MODERATE PAIN LEVEL 4-6; Start 02/23/17 at 19:00 Morphine Sulfate (morphine) 2 mg Q4H PRN IV SEVERE PAIN LEVEL 7-10; Start at 19:00 Docusate Sodium (Colace) 100 mg Q12H PRN PO CONSTIPATION; Start 02/23/17 at 19: 00 Famotidine (Pepcid) 20 mg Q12 PO Last administered on 02/25/17 09:11; Admin Dose 20 MG; Start 02/23/17 at 21:00 Enoxaparin Sodium (Lovenox) 40 mg DAILY SC Last administered on 02/25/17 08:19 ; Admin Dose 40 MG; Start 02/24/17 at 09:00 Insulin Glargine (Lantus) 7 unit DAILY@20 SC Last administered on 02/24/17 22: 07; Admin Dose 7 UNIT; Start 02/23/17 at 20:00 Hydralazine HCl (Apresoline) 10 mg Q6H PRN IV SBP>160; Start 02/23/17 at 19:00 Lisinopril (Zestril) 5 mg DAILY PO Last administered on 02/25/17 09:12; Admin Dose 5 MG; Start 02/24/17 at 09:00 Miscellaneous Information 1 ea NOTE XX ; Start 02/23/17 at 19:30 Glucose (Glutose) 15 gm Q15M PRN PO DECREASED GLUCOSE; Start 02/23/17 at 19:30 Glucose (Glutose) 22.5 gm Q15M PRN PO DECREASED GLUCOSE; Start 02/23/17 at 19:30 Dextrose (D50w Syringe) 25 ml Q15M PRN IV DECREASED GLUCOSE; Start 02/23/17 at 19:30 Dextrose (D50w Syringe) 50 ml Q15M PRN IV DECREASED GLUCOSE; Start 02/23/17 at 19:30 Glucagon (Glucagen) 1 mg Q15M PRN IM DECREASED GLUCOSE; Start 02/23/17 at 19:30 Glucose (Glutose) 15 gm Q15M PRN BUCCAL DECREASED GLUCOSE; Start 02/23/17 at 19: 30 Aspirin 81 mg 81 mg DAILY PO Last administered on 02/25/17t 09:12; Admin Dose 81 MG; Start 02/24/17 at 09:00 Vancomycin HCl/ Sodium Chloride (Vancocin/NS) 150 ml @ 75 mls/hr Q12H IVPB ; Start 02/25/17 at 16:00 Cholecalciferol (Vitamin D) 1,000 unit DAILY PO ; Start 02/26/17 at 09:00 Levothyroxine Sodium (Synthroid) 100 mcg DAILY@06 PO ; Start 02/26/17 at 06:00 LINDA العلي NP Feb 25, 2017 14:38
[2017-02-25] MEDS: VANCOMYCIN 750 MG in SOD CHLORIDE 0.9% 150 ML IVPB SCH (15:10)
--- NOTE | 2017-02-25 16:00 | CONS ---
Date/Time of Note Date/Time of Note DATE: 02/25/17 TIME: 16:00 Assessment/Plan Assessment/Plan Chief Complaint/Hosp Course ID PROGRESS NOTE CURRENT ABX=> Vanco IV + Levaquin 24H INTERVAL SUMMARY * Resting comfortably -- doing OK, no fevers, still has pain, WBC normal, renal fx stable * 01/24/17 MICRO LAST ADMIT FOOT: WOUND CULTURE Final Organism 1 ENTEROBACTER CLOACAE QUANTITY 2+ Organism 2 ENTEROCOCCUS SPECIES QUANTITY SCANT GROWTH E CLOACAE ENT SPS M.I.C. RX M.I.C. RX --------- --- --------- --- AMPICILLIN <=2 S CEFOTAXIME S CIPROFLOXACIN <=0.25 S GENTAMICIN <=1 S LEVOFLOXACIN <=0.12 S PENICILLIN-G 4 S VANCOMYCIN 1 S TOBRAMYCIN <=1 S TRIMETHOPRIM/SULFAMETHOXAZOLE <=20 S PHYSICAL EXAMINATION: GENERAL: VSS, NAD, Afebrile HEENT: Unremarkable NECK: Supple, trachea midline. CHEST: Rise symmetrical, without dyspnea on observation HEART: Pulse RRR ABDOMEN: Soft EXTREMITIES: Warm ID ASSESSMENT 61 yo M admit with: 1. Right foot osteomyelitis, cellulitis, status post incision and drainage with wound culture grew Enterobacter cloacae and Enterococcus species. * 01/24/17 MICRO LAST ADMIT FOOT: WOUND CULTURE Final Organism 1 ENTEROBACTER CLOACAE QUANTITY 2+ Organism 2 ENTEROCOCCUS SPECIES QUANTITY SCANT GROWTH 2. Diabetes w/suspected diabetic polyneuropathies: Peripheral, Autonomic ? neurogenic bladder 3. SIRS w/ESR 60 -> Status post sepsis 4. s/p Urinary tract infection. (-)MRSA Nares ->January 2017 INVASIVES: PIV ABX ALLERGY: KNDA CURRENT ABX: => Vanco IV + Levaquin ID RECOMMENDATIONS 1. Continue current ABX 2. Observe over the weekend on ABX -> Reassess by ID team next week . Problems: Consultation Date/Type/Reason Admit Date/Time Feb 23, 2017 at 17:45 Initial Consult Date Exam/Review of Systems Vital Signs Vitals Vital Signs Date Time Temp Pulse Resp B/P Pulse Ox O2 Delivery O2 Flow Rate FiO2 02/25/17 07:50 98.6 65 16 126/60 98 02/24/17 01:43 Room Air Intake and Output 02/24/17 02/24/17 02/25/17 15:00 23:00 07:00 Intake Total 50 ml 1110 ml 550 ml Output Total 600 ml 800 ml Balance 50 ml 510 ml -250 ml Results Result Diagram: 02/25/17 0516 02/25/17 0516 Results 24 hrs Laboratory Tests Test 02/24/17 17:39 02/24/17 20:12 02/24/17 22:03 02/25/17 01:34 Bedside Glucose 81 142 99 86 Test 02/25/17 02:08 02/25/17 05:16 02/25/17 08:14 02/25/17 12:06 Vancomycin Level Trough 17.7 White Blood Count 8.0 Red Blood Count 2.53 L Hemoglobin 8.4 L Hematocrit 25.2 L Mean Corpuscular Volume 99.6 Mean Corpuscular Hemoglobin 33.2 H Mean Corpuscular Hemoglobin Concent 33.3 Red Cell Distribution Width 14.6 H Platelet Count 113 L Mean Platelet Volume 10.5 H Neutrophils % 34.0 L Band Neutrophils % 1.0 Lymphocytes % 13.0 L Monocytes % 9.0 Eosinophils % 42.0 H Basophils % 1.0 Neutrophils # 2.7 Lymphocytes # 1.0 Monocytes # 0.7 Eosinophils # 3.4 H Basophils # 0.1 Blood Urea Nitrogen 13 Creatinine 1.13 Bedside Glucose 90 100 Medications Medications Current Medications Levofloxacin/ Dextrose (Levaquin 500mg/ D5W 100 ml (Pmx)) 100 ml @ 100 mls/hr Q24H IVPB Last administered on 02/24/17t 18:34; Admin Dose 100 MLS/HR; Start 02/23/17 at 19:00 Ondansetron HCl (Zofran Inj) 4 mg Q6H PRN IV NAUSEA AND/OR VOMITING; Start 02/23 at 19:00 Acetaminophen (Tylenol Tab) 650 mg Q6H PRN PO PAIN LEVEL 1-3 OR FEVER; Start at 19:00 Acetaminophen/ Hydrocodone Bitart ([place] (5/325)) 1 tab Q6H PRN PO MODERATE PAIN LEVEL 4-6; Start 02/23/17 at 19:00 Morphine Sulfate (morphine) 2 mg Q4H PRN IV SEVERE PAIN LEVEL 7-10; Start at 19:00 Docusate Sodium (Colace) 100 mg Q12H PRN PO CONSTIPATION; Start 02/23/17 at 19: 00 Famotidine (Pepcid) 20 mg Q12 PO Last administered on 02/25/17 09:11; Admin Dose 20 MG; Start 02/23/17 at 21:00 Enoxaparin Sodium (Lovenox) 40 mg DAILY SC Last administered on 02/25/17 08:19 ; Admin Dose 40 MG; Start 02/24/17 at 09:00 Insulin Glargine (Lantus) 7 unit DAILY@20 SC Last administered on 02/24/17 22: 07; Admin Dose 7 UNIT; Start 02/23/17 at 20:00 Hydralazine HCl (Apresoline) 10 mg Q6H PRN IV SBP>160; Start 02/23/17 at 19:00 Lisinopril (Zestril) 5 mg DAILY PO Last administered on 02/25/17 09:12; Admin Dose 5 MG; Start 02/24/17 at 09:00 Miscellaneous Information 1 ea NOTE XX ; Start 02/23/17 at 19:30 Glucose (Glutose) 15 gm Q15M PRN PO DECREASED GLUCOSE; Start 02/23/17 at 19:30 Glucose (Glutose) 22.5 gm Q15M PRN PO DECREASED GLUCOSE; Start 02/23/17 at 19:30 Dextrose (D50w Syringe) 25 ml Q15M PRN IV DECREASED GLUCOSE; Start 02/23/17 at 19:30 Dextrose (D50w Syringe) 50 ml Q15M PRN IV DECREASED GLUCOSE; Start 02/23/17 at 19:30 Glucagon (Glucagen) 1 mg Q15M PRN IM DECREASED GLUCOSE; Start 02/23/17 at 19:30 Glucose (Glutose) 15 gm Q15M PRN BUCCAL DECREASED GLUCOSE; Start 02/23/17 at 19: 30 Aspirin 81 mg 81 mg DAILY PO Last administered on 02/25/17 09:12; Admin Dose 81 MG; Start 02/24/17 at 09:00 Vancomycin HCl/ Sodium Chloride (Vancocin/NS) 150 ml @ 75 mls/hr Q12H IVPB Last administered on 02/25/17t 15:10; Admin Dose 75 MLS/HR; Start 02/25/17 at 16: 00 Cholecalciferol (Vitamin D) 1,000 unit DAILY PO ; Start 02/26/17 at 09:00 Levothyroxine Sodium (Synthroid) 100 mcg DAILY@06 PO ; Start 02/26/17 at 06:00 KRISTY VARGHESE EMERGENCY [facility] EMT Feb 25, 2017 16:00
[2017-02-25] MEDS: LEVOFLOXACIN 500MG/D5W (PMX) 100 ML IVPB SCH (18:40)
[2017-02-25] MEDS: INSULIN GLARGINE [LANtus] 3 ML PEN SC SCH (20:02)
[2017-02-25 21:33] VITALS: BP 148/71; RESP 19
[2017-02-26] MEDS: VANCOMYCIN 750 MG in SOD CHLORIDE 0.9% 150 ML IVPB SCH ×2 (03:35→16:12)
[2017-02-26] MEDS: LEVOTHYROXINE 100 MCG TAB PO SCH (05:02)
[2017-02-26 05:31] LABS: ADD SCAN DIFF NO
[2017-02-26 05:36] LABS: ABNORMAL IP MESSAGE 1; BASOPHIL # 0.1 10^3/ul (0.0-0.1); BASOPHILS % 0.8 % (0.0-2.0); EOSINOPHILS # 3.3 10^3/ul (0.0-0.5); EOSINOPHILS % 43.3 % (0.0-7.0); HEMATOCRIT 26.8 % (42.0-52.0); LYMPHOCYTES # 1.7 10^3/ul (0.8-2.9); LYMPHOCYTES % 22.1 % (15.0-51.0); MEAN CORPUSCULAR HEMOGLOBIN 33.3 pg (29.0-33.0); MEAN CORPUSCULAR HGB CONC 33.6 g/dl (32.0-37.0); MEAN CORPUSCULAR VOLUME 99.3 fl (82.0-101.0); MEAN PLATELET VOLUME 10.3 fl (7.4-10.4); MONOCYTE # 0.7 10^3/ul (0.3-0.9); MONOCYTES % 9.9 % (0.0-11.0); NEUTROPHIL # 1.8 10^3/ul (1.6-7.5); NEUTROPHILS % 23.8 % (39.0-77.0); PLATELET COUNT 118 10^3/UL (140-415); RED CELL DISTRIBUTION WIDTH 14.5 % (11.5-14.5); WHITE BLOOD COUNT 7.5 10^3/ul (4.8-10.8)
[2017-02-26 06:17] LABS: POTASSIUM 3.8 mmol/L (3.5-5.1)
[2017-02-26 06:20] LABS: CREATININE 1.22 mg/dl (0.61-1.24)
[2017-02-26 06:21] LABS: CALCIUM 9.1 mg/dl (8.4-10.2); MAGNESIUM 1.6 mg/dl (1.7-2.5); PHOSPHORUS 4.3 mg/dl (2.5-4.9)
[2017-02-26] MEDS: INSULIN ASPART [NOVOLOG] 3 ML PEN SC SCH ×7 (08:00→21:00)
[2017-02-26 08:19] VITALS: BP 134/65; RESP 20
[2017-02-26] MEDS: LISINOPRIL 5 MG TAB PO SCH (08:50)
[2017-02-26] MEDS: ASPIRIN (EC) 81 MG TAB PO SCH (08:50)
[2017-02-26] MEDS: CHOLECALCIFEROL 1,000 UNIT TAB PO SCH (08:50)
[2017-02-26] MEDS: FAMOTIDINE 20 MG TAB PO SCH ×2 (08:50→21:45)
[2017-02-26] MEDS: ENOXAPARIN 40 MG/0.4 ML SYG SC SCH (08:51)
--- NOTE | 2017-02-26 11:03 | PN ---
Date/Time of Note Date/Time of Note DATE: 02/26/17 TIME: 11:01 Assessment/Plan VTE Prophylaxis VTE Prophylaxis Intervention: LMWH Lines/Catheters IV C[facility] Type [facility]from [facility] Central Line Central line still needed: Yes Assessment/Plan Chief Complaint/Hosp Course 1. Recurrent right foot cellulitis. Continue antibiotics as per infectious diseases. Awaiting podiatry consult. 2. Type 2 diabetes mellitus. Hemoglobin A1c 5.7. Continue sliding scale insulin along with basal insulin and pre-meal insulin. 3. Essential hypertension. Continue antihypertensives including p.r.n. antihypertensives for any systolic blood pressure readings greater than 160 mmHg. 4. Peripheral vascular disease. The patient had a right lower extremity angiogram done during his previous visit that showed no evidence of any flow limiting obstructions. The patient will be maintained on aspirin. 5. Microcytic anemia. The patient's H and H will be monitored. Iron panel showing no evidence of iron deficiency. 6. Hypothyroidism. Continue Synthroid. 7. Vitamin D deficiency. Continue vitamin D supplements. 8. Fluids, electrolytes, and nutrition. Carbohydrate controlled diet. 9. DVT prophylaxis. Subcutaneous Lovenox. 10. Gastrointestinal prophylaxis. Histamine 2 receptor blockers. 11. Plan. Continue antibiotics as per infectious diseases. Await podiatry evaluation. Case discussed with Dr. Merritt. Problems: Subjective 24 Hr Interval Summary Free Text/Dictation Still awaiting podiatry consultation. Exam/Review of Systems Vital Signs Vitals Vital Signs Date Time Temp Pulse Resp B/P Pulse Ox O2 Delivery O2 Flow Rate FiO2 02/26/17 08:19 98.3 58 20 134/65 98 02/24/17 01:43 Room Air Intake and Output 02/25/17 02/25/17 02/26/17 15:00 23:00 07:00 Intake Total 1090 ml 630 ml Output Total 500 ml 960 ml Balance 590 ml -330 ml Exam GENERAL: This is a 61-year-old male lying in bed in no apparent distress. HEENT: Head normocephalic and atraumatic. Eyes: Anicteric sclerae. Conjunctivae clear. ENT: Nasal septum is midline. Oral mucosa is dry. Right and left ear pinna partially absent. NECK: Supple. No JVD noticed. RESPIRATORY: Bilaterally clear to auscultation. No adventitious breath sounds heard. No use of accessory muscles of respiration. CARDIAC: Regular rhythm and rate. No murmurs. GASTROINTESTINAL: Abdomen soft, nontender and nondistended. Bowel sounds positive in all 4 quadrants. GENITOURINARY: Deferred. EXTREMITIES: Right lower extremity edema and erythema of the plantar surface with an open wound on the plantar surface. Onychomycosis of the toes of the right lower extremity. Left lower extremity: No edema or erythema. Bilateral pedal pulses not palpable. NEUROLOGIC: The patient is hard of hearing. The patient is awake, alert and oriented. No focal deficits. SKIN: Scaly dry skin all over the body. Results Result Diagram: 02/26/17 0434 02/26/17 0434 Results 24 hrs Laboratory Tests Test 02/25/17 12:06 02/25/17 17:41 02/25/17 19:58 02/26/17 04:34 Bedside Glucose 100 87 141 White Blood Count 7.5 Red Blood Count 2.70 L Hemoglobin 9.0 L Hematocrit 26.8 L Mean Corpuscular Volume 99.3 Mean Corpuscular Hemoglobin 33.3 H Mean Corpuscular Hemoglobin Concent 33.6 Red Cell Distribution Width 14.5 Platelet Count 118 L Mean Platelet Volume 10.3 Neutrophils % 23.8 L Lymphocytes % 22.1 Monocytes % 9.9 Eosinophils % 43.3 H Basophils % 0.8 Nucleated Red Blood Cells % 0.0 Neutrophils # 1.8 Lymphocytes # 1.7 Monocytes # 0.7 Eosinophils # 3.3 H Basophils # 0.1 Nucleated Red Blood Cells # 0.0 Sodium Level 144 Potassium Level 3.8 Chloride Level 112 H Carbon Dioxide Level 21 Anion Gap 15 Blood Urea Nitrogen 15 Creatinine 1.22 Glucose Level 104 Calcium Level 9.1 Phosphorus Level 4.3 Magnesium Level 1.6 L Test 02/26/17 08:01 Bedside Glucose 92 Medications Medications Current Medications Levofloxacin/ Dextrose (Levaquin 500mg/ D5W 100 ml (Pmx)) 100 ml @ 100 mls/hr Q24H IVPB Last administered on 02/25/17t 18:40; Admin Dose 100 MLS/HR; Start 02/23/17 at 19:00 Ondansetron HCl (Zofran Inj) 4 mg Q6H PRN IV NAUSEA AND/OR VOMITING; Start 02/23 at 19:00 Acetaminophen (Tylenol Tab) 650 mg Q6H PRN PO PAIN LEVEL 1-3 OR FEVER; Start at 19:00 Acetaminophen/ Hydrocodone Bitart ([place] (5/325)) 1 tab Q6H PRN PO MODERATE PAIN LEVEL 4-6; Start 02/23/17 at 19:00 Morphine Sulfate (morphine) 2 mg Q4H PRN IV SEVERE PAIN LEVEL 7-10; Start at 19:00 Docusate Sodium (Colace) 100 mg Q12H PRN PO CONSTIPATION; Start 02/23/17 at 19: 00 Famotidine (Pepcid) 20 mg Q12 PO Last administered on 02/26/17 08:50; Admin Dose 20 MG; Start 02/23/17 at 21:00 Enoxaparin Sodium (Lovenox) 40 mg DAILY SC Last administered on 02/26/17 08:51 ; Admin Dose 40 MG; Start 02/24/17 at 09:00 Insulin Glargine (Lantus) 7 unit DAILY@20 SC Last administered on 02/25/17 20: 02; Admin Dose 7 UNIT; Start 02/23/17 at 20:00 Hydralazine HCl (Apresoline) 10 mg Q6H PRN IV SBP>160; Start 02/23/17 at 19:00 Lisinopril (Zestril) 5 mg DAILY PO Last administered on 02/26/17 08:50; Admin Dose 5 MG; Start 02/24/17 at 09:00 Miscellaneous Information 1 ea NOTE XX ; Start 02/23/17 at 19:30 Glucose (Glutose) 15 gm Q15M PRN PO DECREASED GLUCOSE; Start 02/23/17 at 19:30 Glucose (Glutose) 22.5 gm Q15M PRN PO DECREASED GLUCOSE; Start 02/23/17 at 19:30 Dextrose (D50w Syringe) 25 ml Q15M PRN IV DECREASED GLUCOSE; Start 02/23/17 at 19:30 Dextrose (D50w Syringe) 50 ml Q15M PRN IV DECREASED GLUCOSE; Start 02/23/17 at 19:30 Glucagon (Glucagen) 1 mg Q15M PRN IM DECREASED GLUCOSE; Start 02/23/17 at 19:30 Glucose (Glutose) 15 gm Q15M PRN BUCCAL DECREASED GLUCOSE; Start 02/23/17 at 19: 30 Aspirin 81 mg 81 mg DAILY PO Last administered on 02/26/17 08:50; Admin Dose 81 MG; Start 02/24/17 at 09:00 Vancomycin HCl/ Sodium Chloride (Vancocin/NS) 150 ml @ 75 mls/hr Q12H IVPB Last administered on 02/26/17 03:35; Admin Dose 75 MLS/HR; Start 02/25/17 at 16: 00 Cholecalciferol (Vitamin D) 1,000 unit DAILY PO Last administered on 02/26/17 08:50; Admin Dose 1,000 UNIT; Start 02/26/17 at 09:00 Levothyroxine Sodium (Synthroid) 100 mcg DAILY@06 PO Last administered on 05:02; Admin Dose 100 MCG; Start 02/26/17 at 06:00 Miscellaneous Information (*Rx Drug Level Order Reminder*) VANCOMYCIN TROUGH AT 0300 ONCE ONCE XX ; Start 02/27/17 at 03:00; Stop 02/27/17 at 03:01 LINDA العلي NP Feb 26, 2017 11:03
[2017-02-26] MEDS ORDERED: MAGNESIUM SULFATE 2 GM/50 ML 50 ML IVPB ONE (12:30)
--- NOTE | 2017-02-26 14:06 | CONS ---
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 * Resting comfortably -- doing OK, no fevers, still has pain, WBC normal, renal fx stable * 01/24/17 MICRO LAST ADMIT FOOT: WOUND CULTURE Final Organism 1 ENTEROBACTER CLOACAE QUANTITY 2+ Organism 2 ENTEROCOCCUS SPECIES QUANTITY SCANT GROWTH E CLOACAE ENT SPS M.I.C. RX M.I.C. RX --------- --- --------- --- AMPICILLIN <=2 S CEFOTAXIME S CIPROFLOXACIN <=0.25 S GENTAMICIN <=1 S LEVOFLOXACIN <=0.12 S PENICILLIN-G 4 S VANCOMYCIN 1 S TOBRAMYCIN <=1 S TRIMETHOPRIM/SULFAMETHOXAZOLE <=20 S PHYSICAL EXAMINATION: GENERAL: VSS, NAD, Afebrile HEENT: Unremarkable NECK: Supple, trachea midline. CHEST: Rise symmetrical, without dyspnea on observation HEART: Pulse RRR ABDOMEN: Soft EXTREMITIES: Warm ID ASSESSMENT 61 yo M admit with: 1. Right foot osteomyelitis, cellulitis, status post incision and drainage with wound culture grew Enterobacter cloacae and Enterococcus species. * 01/24/17 MICRO LAST ADMIT FOOT: WOUND CULTURE Final Organism 1 ENTEROBACTER CLOACAE QUANTITY 2+ Organism 2 ENTEROCOCCUS SPECIES QUANTITY SCANT GROWTH 2. Diabetes w/suspected diabetic polyneuropathies: Peripheral, Autonomic ? neurogenic bladder 3. SIRS w/ESR 60 -> Status post sepsis 4. s/p Urinary tract infection. (-)MRSA Nares ->January 2017 INVASIVES: PIV ABX ALLERGY: KNDA CURRENT ABX: => Vanco IV + Levaquin ID RECOMMENDATIONS 1. Continue current ABX 2. Observe over the weekend on ABX -> Reassess by ID team next week . Problems: Consultation Date/Type/Reason Admit Date/Time Feb 23, 2017 at 17:45 Exam/Review of Systems Vital Signs Vitals Vital Signs Date Time Temp Pulse Resp B/P Pulse Ox O2 Delivery O2 Flow Rate FiO2 02/26/17 08:19 98.3 58 20 134/65 98 02/24/17 01:43 Room Air Intake and Output 02/25/17 02/25/17 02/26/17 15:00 23:00 07:00 Intake Total 1090 ml 630 ml Output Total 500 ml 960 ml Balance 590 ml -330 ml Results Result Diagram: 02/26/17 0434 02/26/17 0434 Results 24 hrs Laboratory Tests Test 02/25/17 17:41 02/25/17 19:58 02/26/17 04:34 02/26/17 08:01 Bedside Glucose 87 141 92 White Blood Count 7.5 Red Blood Count 2.70 L Hemoglobin 9.0 L Hematocrit 26.8 L Mean Corpuscular Volume 99.3 Mean Corpuscular Hemoglobin 33.3 H Mean Corpuscular Hemoglobin Concent 33.6 Red Cell Distribution Width 14.5 Platelet Count 118 L Mean Platelet Volume 10.3 Neutrophils % 23.8 L Lymphocytes % 22.1 Monocytes % 9.9 Eosinophils % 43.3 H Basophils % 0.8 Nucleated Red Blood Cells % 0.0 Neutrophils # 1.8 Lymphocytes # 1.7 Monocytes # 0.7 Eosinophils # 3.3 H Basophils # 0.1 Nucleated Red Blood Cells # 0.0 Sodium Level 144 Potassium Level 3.8 Chloride Level 112 H Carbon Dioxide Level 21 Anion Gap 15 Blood Urea Nitrogen 15 Creatinine 1.22 Glucose Level 104 Calcium Level 9.1 Phosphorus Level 4.3 Magnesium Level 1.6 L Test 02/26/17 11:52 Bedside Glucose 135 Medications Medications Current Medications Levofloxacin/ Dextrose (Levaquin 500mg/ D5W 100 ml (Pmx)) 100 ml @ 100 mls/hr Q24H IVPB Last administered on 02/25/17t 18:40; Admin Dose 100 MLS/HR; Start 02/23/17 at 19:00 Ondansetron HCl (Zofran Inj) 4 mg Q6H PRN IV NAUSEA AND/OR VOMITING; Start 02/23 at 19:00 Acetaminophen (Tylenol Tab) 650 mg Q6H PRN PO PAIN LEVEL 1-3 OR FEVER; Start at 19:00 Acetaminophen/ Hydrocodone Bitart ([place] (5/325)) 1 tab Q6H PRN PO MODERATE PAIN LEVEL 4-6; Start 02/23/17 at 19:00 Morphine Sulfate (morphine) 2 mg Q4H PRN IV SEVERE PAIN LEVEL 7-10; Start at 19:00 Docusate Sodium (Colace) 100 mg Q12H PRN PO CONSTIPATION; Start 02/23/17 at 19: 00 Famotidine (Pepcid) 20 mg Q12 PO Last administered on 02/26/17 08:50; Admin Dose 20 MG; Start 02/23/17 at 21:00 Enoxaparin Sodium (Lovenox) 40 mg DAILY SC Last administered on 02/26/17 08:51 ; Admin Dose 40 MG; Start 02/24/17 at 09:00 Insulin Glargine (Lantus) 7 unit DAILY@20 SC Last administered on 02/25/17 20: 02; Admin Dose 7 UNIT; Start 02/23/17 at 20:00 Hydralazine HCl (Apresoline) 10 mg Q6H PRN IV SBP>160; Start 02/23/17 at 19:00 Lisinopril (Zestril) 5 mg DAILY PO Last administered on 02/26/17 08:50; Admin Dose 5 MG; Start 02/24/17 at 09:00 Miscellaneous Information 1 ea NOTE XX ; Start 02/23/17 at 19:30 Glucose (Glutose) 15 gm Q15M PRN PO DECREASED GLUCOSE; Start 02/23/17 at 19:30 Glucose (Glutose) 22.5 gm Q15M PRN PO DECREASED GLUCOSE; Start 02/23/17 at 19:30 Dextrose (D50w Syringe) 25 ml Q15M PRN IV DECREASED GLUCOSE; Start 02/23/17 at 19:30 Dextrose (D50w Syringe) 50 ml Q15M PRN IV DECREASED GLUCOSE; Start 02/23/17 at 19:30 Glucagon (Glucagen) 1 mg Q15M PRN IM DECREASED GLUCOSE; Start 02/23/17 at 19:30 Glucose (Glutose) 15 gm Q15M PRN BUCCAL DECREASED GLUCOSE; Start 02/23/17 at 19: 30 Aspirin 81 mg 81 mg DAILY PO Last administered on 02/26/17 08:50; Admin Dose 81 MG; Start 02/24/17 at 09:00 Vancomycin HCl/ Sodium Chloride (Vancocin/NS) 150 ml @ 75 mls/hr Q12H IVPB Last administered on 02/26/17 03:35; Admin Dose 75 MLS/HR; Start 02/25/17 at 16: 00 Cholecalciferol (Vitamin D) 1,000 unit DAILY PO Last administered on 02/26/17 08:50; Admin Dose 1,000 UNIT; Start 02/26/17 at 09:00 Levothyroxine Sodium (Synthroid) 100 mcg DAILY@06 PO Last administered on 05:02; Admin Dose 100 MCG; Start 02/26/17 at 06:00 Miscellaneous Information VANCOMYCIN TROUGH AT 0300 ONCE ONCE XX ; Start 02/27/17 at 03:00; Stop 02/27/17 at 03:01 Magnesium Sulfate (Magnesium Sulfate 2 Gm/50 ml) 50 ml @ 25 mls/hr ONCE ONCE IVPB Last administered on 02/26/17 12:37; Admin Dose 25 MLS/HR; Start 02/26/17 at 12:30; Stop 02/26/17 at 14:29 KRISTY VARGHESE NP Feb 26, 2017 14:06
[2017-02-26] MEDS: LEVOFLOXACIN 500MG/D5W (PMX) 100 ML IVPB SCH (18:50)
[2017-02-26 21:06] VITALS: BP 130/81; RESP 18
[2017-02-26] MEDS: INSULIN GLARGINE [LANtus] 3 ML PEN SC SCH (21:48)
[2017-02-27 03:15] LABS: ADD SCAN DIFF NO
[2017-02-27 03:16] LABS: ABNORMAL IP MESSAGE 1; BASOPHIL # 0.1 10^3/ul (0.0-0.1); BASOPHILS % 0.9 % (0.0-2.0); EOSINOPHILS # 3.3 10^3/ul (0.0-0.5); EOSINOPHILS % 42.8 % (0.0-7.0); HEMATOCRIT 26.5 % (42.0-52.0); HEMOGLOBIN 9.2 g/dl (14.0-18.0); LYMPHOCYTES # 1.7 10^3/ul (0.8-2.9); LYMPHOCYTES % 21.7 % (15.0-51.0); MEAN CORPUSCULAR HEMOGLOBIN 33.9 pg (29.0-33.0); MEAN CORPUSCULAR HGB CONC 34.7 g/dl (32.0-37.0); MEAN CORPUSCULAR VOLUME 97.8 fl (82.0-101.0); MEAN PLATELET VOLUME 10.1 fl (7.4-10.4); MONOCYTE # 0.8 10^3/ul (0.3-0.9); MONOCYTES % 9.8 % (0.0-11.0); NEUTROPHIL # 1.9 10^3/ul (1.6-7.5); NEUTROPHILS % 24.7 % (39.0-77.0); PLATELET COUNT 111 10^3/UL (140-415); RED BLOOD COUNT 2.71 10^6/ul (4.70-6.10); RED CELL DISTRIBUTION WIDTH 14.4 % (11.5-14.5); WHITE BLOOD COUNT 7.6 10^3/ul (4.8-10.8)
[2017-02-27 03:24] LABS: POTASSIUM 3.8 mmol/L (3.5-5.1)
[2017-02-27 03:27] LABS: CALCIUM 8.9 mg/dl (8.4-10.2); CREATININE 1.28 mg/dl (0.61-1.24)
[2017-02-27] MEDS: VANCOMYCIN 750 MG in SOD CHLORIDE 0.9% 150 ML IVPB SCH (04:00)
[2017-02-27 04:42] LABS: MAGNESIUM 1.8 mg/dl (1.7-2.5); PHOSPHORUS 4.6 mg/dl (2.5-4.9)
[2017-02-27] MEDS: LEVOTHYROXINE 100 MCG TAB PO SCH (06:41)
[2017-02-27] MEDS: INSULIN ASPART [NOVOLOG] 3 ML PEN SC SCH ×7 (07:35→21:00)
[2017-02-27] MEDS: VANCOMYCIN 500MG/NS (PMX) 100 ML IVPB SCH ×2 (07:49→20:59)
[2017-02-27 08:02] VITALS: BP 105/60; RESP 18
[2017-02-27] MEDS: LISINOPRIL 5 MG TAB PO SCH (08:41)
[2017-02-27] MEDS: ASPIRIN (EC) 81 MG TAB PO SCH (08:41)
[2017-02-27] MEDS: CHOLECALCIFEROL 1,000 UNIT TAB PO SCH (08:41)
[2017-02-27] MEDS: FAMOTIDINE 20 MG TAB PO SCH ×2 (08:41→20:59)
[2017-02-27] MEDS: ENOXAPARIN 40 MG/0.4 ML SYG SC SCH (08:44)
--- NOTE | 2017-02-27 10:22 | PN ---
Date/Time of Note Date/Time of Note DATE: 02/27/17 TIME: 10:18 Assessment/Plan VTE Prophylaxis VTE Prophylaxis Intervention: LMWH Lines/Catheters IV Catheter Type (from Nrs): Central Line Central line still needed: Yes Assessment/Plan Chief Complaint/Hosp Course Assessment and plan 1. Recurrent right foot cellulitis. Continue on antibiotics per ID. Still awaiting podiatry consultation. We'll follow-up. 2. History of type 2 diabetes. A1c noted at 5.7. Continue on insulin regimen. 3. Essential hypertension. Patient to be resumed on his antihypertensives. We' ll adjust as needed 4. History of PVD. Patient with reported angiogram of right lower extremity done that showed no evidence of obstruction. Continue on antiplatelet therapy 5. Anemia likely of chronic disease. H&H remained stable. We'll monitor 6. Hyperthyroidism. Continue on Synthroid 7. Vitamin D deficiency. Continue vitamin D supplement DVT prophylaxis: Lovenox Disposition and plan: Continue on antibiotics for now. Still awaiting podiatry evaluation. We'll follow-up. Discussed plan of care with Dr. Ulloa Problems: Subjective 24 Hr Interval Summary Free Text/Dictation Denies any pain at this time. No specific complaints Exam/Review of Systems Vital Signs Vitals Vital Signs Date Time Temp Pulse Resp B/P Pulse Ox O2 Delivery O2 Flow Rate FiO2 02/27/17 08:02 98.2 75 18 105/60 98 02/24/17 01:43 Room Air Intake and Output 02/26/17 02/26/17 02/27/17 15:00 23:00 07:00 Intake Total 1440 ml 360 ml Output Total 1400 ml 500 ml Balance 40 ml -140 ml Exam General: No acute signs or symptoms of distress Eyes: pupils equal round, Anicteric sclera Neck: Supple nontender, no JVD Cardiac: S1, S2 auscultated, regular rhythm and rate Pulmonary: No coarse rhonchi or breathing auscultated GI: Abdomen soft nontender nondistended, bowel sounds active Extremities: No edema bilateral lower extremities Skin: Scaly appearance of skin general. Also noted with right lower extremity edema with brownish discoloration of bilateral lower extremities. There is seen fungal-like appearance of toes right lower extremity Neurologic: Alert to person place and time and situation Results Result Diagram: 02/27/17 0305 02/27/17 0305 Results 24 hrs Laboratory Tests Test 02/26/17 11:52 02/26/17 17:07 02/26/17 21:46 02/27/17 03:05 Bedside Glucose 135 93 110 White Blood Count 7.6 Red Blood Count 2.71 L Hemoglobin 9.2 L Hematocrit 26.5 L Mean Corpuscular Volume 97.8 Mean Corpuscular Hemoglobin 33.9 H Mean Corpuscular Hemoglobin Concent 34.7 Red Cell Distribution Width 14.4 Platelet Count 111 L Mean Platelet Volume 10.1 Neutrophils % 24.7 L Lymphocytes % 21.7 Monocytes % 9.8 Eosinophils % 42.8 H Basophils % 0.9 Nucleated Red Blood Cells % 0.0 Neutrophils # 1.9 Lymphocytes # 1.7 Monocytes # 0.8 Eosinophils # 3.3 H Basophils # 0.1 Nucleated Red Blood Cells # 0.0 Sodium Level 139 Potassium Level 3.8 Chloride Level 107 Carbon Dioxide Level 23 Anion Gap 13 Blood Urea Nitrogen 16 Creatinine 1.28 H Glucose Level 94 Calcium Level 8.9 Phosphorus Level 4.6 Magnesium Level 1.8 Vancomycin Level Trough 19.5 Test 02/27/17 07:48 Bedside Glucose 76 Medications Medications Current Medications Levofloxacin/ Dextrose (Levaquin 500mg/ D5W 100 ml (Pmx)) 100 ml @ 100 mls/hr Q24H IVPB Last administered on 02/26/17 18:50; Admin Dose 100 MLS/HR; Start 02/23/17 at 19:00 Ondansetron HCl (Zofran Inj) 4 mg Q6H PRN IV NAUSEA AND/OR VOMITING; Start 02/23 at 19:00 Acetaminophen (Tylenol Tab) 650 mg Q6H PRN PO PAIN LEVEL 1-3 OR FEVER; Start at 19:00 Acetaminophen/ Hydrocodone Bitart ([place] (5/325)) 1 tab Q6H PRN PO MODERATE PAIN LEVEL 4-6; Start 02/23/17 at 19:00 Morphine Sulfate (morphine) 2 mg Q4H PRN IV SEVERE PAIN LEVEL 7-10; Start at 19:00 Docusate Sodium (Colace) 100 mg Q12H PRN PO CONSTIPATION; Start 02/23/17 at 19: 00 Famotidine (Pepcid) 20 mg Q12 PO Last administered on 02/27/17 08:41; Admin Dose 20 MG; Start 02/23/17 at 21:00 Enoxaparin Sodium (Lovenox) 40 mg DAILY SC Last administered on 02/27/17 08:44 ; Admin Dose 40 MG; Start 02/24/17 at 09:00 Insulin Glargine (Lantus) 7 unit DAILY@20 SC Last administered on 02/26/17 21: 48; Admin Dose 7 UNIT; Start 02/23/17 at 20:00 Hydralazine HCl (Apresoline) 10 mg Q6H PRN IV SBP>160; Start 02/23/17 at 19:00 Lisinopril (Zestril) 5 mg DAILY PO Last administered on 02/27/17 08:41; Admin Dose 5 MG; Start 02/24/17 at 09:00 Miscellaneous Information 1 ea NOTE XX ; Start 02/23/17 at 19:30 Glucose (Glutose) 15 gm Q15M PRN PO DECREASED GLUCOSE; Start 02/23/17 at 19:30 Glucose (Glutose) 22.5 gm Q15M PRN PO DECREASED GLUCOSE; Start 02/23/17 at 19:30 Dextrose (D50w Syringe) 25 ml Q15M PRN IV DECREASED GLUCOSE; Start 02/23/17 at 19:30 Dextrose (D50w Syringe) 50 ml Q15M PRN IV DECREASED GLUCOSE; Start 02/23/17 at 19:30 Glucagon (Glucagen) 1 mg Q15M PRN IM DECREASED GLUCOSE; Start 02/23/17 at 19:30 Glucose (Glutose) 15 gm Q15M PRN BUCCAL DECREASED GLUCOSE; Start 02/23/17 at 19: 30 Aspirin (Halfprin) 81 mg DAILY PO Last administered on 02/27/17 08:41; Admin Dose 81 MG; Start 02/24/17 at 09:00 Cholecalciferol (Vitamin D) 1,000 unit DAILY PO Last administered on 02/27/17 08:41; Admin Dose 1,000 UNIT; Start 02/26/17 at 09:00 Levothyroxine Sodium 100 mcg 100 mcg DAILY@06 PO Last administered on 06:41; Admin Dose 100 MCG; Start 02/26/17 at 06:00 Vancomycin HCl (Vancocin) 100 ml @ 100 mls/hr Q12H IVPB Last administered on t 07:49; Admin Dose 100 MLS/HR; Start 02/27/17 at 08:00 ENRIKE BARCENAS Feb 27, 2017 10:21
--- NOTE | 2017-02-27 15:49 | CONS ---
Date/Time of Note Date/Time of Note DATE: 02/27/17 TIME: 15:48 Assessment/Plan Assessment/Plan Chief Complaint/Hosp Course SUBJECTIVE: Patient is awake, lying comfortably in bed. No fevers, no pain. ANTIMICROBIALS: 1. Vancomycin. 2. Levaquin. PHYSICAL EXAMINATION: GENERAL: Well-developed elderly man who is in no distress. HEENT: Head atraumatic, normocephalic. Sclerae anicteric. Buccal mucosa pink. NECK: Supple, trachea midline. CHEST: Rise symmetrical. Breath sounds diminished to bases. HEART: S1, S2. ABDOMEN: Soft, bowel tones present. EXTREMITIES: With right foot chronic wound. ASSESSMENT: 1. Right foot osteomyelitis, status post incision and drainage with wound culture grew Enterobacter cloacae and Enterococcus species. 2. Diabetes. 3. Status post sepsis and urinary tract infection. PLAN: The patient remains clinically stable. Continue abx, await for podiatry input [facility] staff Problems: Consultation Date/Type/Reason Admit Date/Time Feb 23, 2017 at 17:45 Initial Consult Date Type of Consultation: ID Exam/Review of Systems Vital Signs Vitals Vital Signs Date Time Temp Pulse Resp B/P Pulse Ox O2 Delivery O2 Flow Rate FiO2 02/27/17 08:02 98.2 75 18 105/60 98 02/24/17 01:43 Room Air Intake and Output 02/26/17 02/26/17 02/27/17 15:00 23:00 07:00 Intake Total 1440 ml 360 ml Output Total 1400 ml 500 ml Balance 40 ml -140 ml Results Result Diagram: 02/27/17 0305 02/27/17 0305 Results 24 hrs Laboratory Tests Test 02/26/17 17:07 02/26/17 21:46 02/27/17 03:05 02/27/17 07:48 Bedside Glucose 93 110 76 White Blood Count 7.6 Red Blood Count 2.71 L Hemoglobin 9.2 L Hematocrit 26.5 L Mean Corpuscular Volume 97.8 Mean Corpuscular Hemoglobin 33.9 H Mean Corpuscular Hemoglobin Concent 34.7 Red Cell Distribution Width 14.4 Platelet Count 111 L Mean Platelet Volume 10.1 Neutrophils % 24.7 L Lymphocytes % 21.7 Monocytes % 9.8 Eosinophils % 42.8 H Basophils % 0.9 Nucleated Red Blood Cells % 0.0 Neutrophils # 1.9 Lymphocytes # 1.7 Monocytes # 0.8 Eosinophils # 3.3 H Basophils # 0.1 Nucleated Red Blood Cells # 0.0 Sodium Level 139 Potassium Level 3.8 Chloride Level 107 Carbon Dioxide Level 23 Anion Gap 13 Blood Urea Nitrogen 16 Creatinine 1.28 H Glucose Level 94 Calcium Level 8.9 Phosphorus Level 4.6 Magnesium Level 1.8 Vancomycin Level Trough 19.5 Test 02/27/17 11:47 Bedside Glucose 109 Medications Medications Current Medications Levofloxacin/ Dextrose (Levaquin 500mg/ D5W 100 ml (Pmx)) 100 ml @ 100 mls/hr Q24H IVPB Last administered on 02/26/17 18:50; Admin Dose 100 MLS/HR; Start 02/23/17 at 19:00 Ondansetron HCl (Zofran Inj) 4 mg Q6H PRN IV NAUSEA AND/OR VOMITING; Start 02/23 at 19:00 Acetaminophen (Tylenol Tab) 650 mg Q6H PRN PO PAIN LEVEL 1-3 OR FEVER; Start at 19:00 Acetaminophen/ Hydrocodone Bitart ([place] (5/325)) 1 tab Q6H PRN PO MODERATE PAIN LEVEL 4-6; Start 02/23/17 at 19:00 Morphine Sulfate (morphine) 2 mg Q4H PRN IV SEVERE PAIN LEVEL 7-10; Start at 19:00 Docusate Sodium (Colace) 100 mg Q12H PRN PO CONSTIPATION; Start 02/23/17 at 19: 00 Famotidine (Pepcid) 20 mg Q12 PO Last administered on 02/27/17 08:41; Admin Dose 20 MG; Start 02/23/17 at 21:00 Enoxaparin Sodium (Lovenox) 40 mg DAILY SC Last administered on 02/27/17 08:44 ; Admin Dose 40 MG; Start 02/24/17 at 09:00 Insulin Glargine (Lantus) 7 unit DAILY@20 SC Last administered on 02/26/17 21: 48; Admin Dose 7 UNIT; Start 02/23/17 at 20:00 Hydralazine HCl (Apresoline) 10 mg Q6H PRN IV SBP>160; Start 02/23/17 at 19:00 Lisinopril (Zestril) 5 mg DAILY PO Last administered on 02/27/17 08:41; Admin Dose 5 MG; Start 02/24/17 at 09:00 Miscellaneous Information 1 ea NOTE XX ; Start 02/23/17 at 19:30 Glucose (Glutose) 15 gm Q15M PRN PO DECREASED GLUCOSE; Start 02/23/17 at 19:30 Glucose (Glutose) 22.5 gm Q15M PRN PO DECREASED GLUCOSE; Start 02/23/17 at 19:30 Dextrose (D50w Syringe) 25 ml Q15M PRN IV DECREASED GLUCOSE; Start 02/23/17 at 19:30 Dextrose (D50w Syringe) 50 ml Q15M PRN IV DECREASED GLUCOSE; Start 02/23/17 at 19:30 Glucagon (Glucagen) 1 mg Q15M PRN IM DECREASED GLUCOSE; Start 02/23/17 at 19:30 Glucose (Glutose) 15 gm Q15M PRN BUCCAL DECREASED GLUCOSE; Start 02/23/17 at 19: 30 Aspirin (Halfprin) 81 mg DAILY PO Last administered on 02/27/17 08:41; Admin Dose 81 MG; Start 02/24/17 at 09:00 Cholecalciferol (Vitamin D) 1,000 unit DAILY PO Last administered on 02/27/17 08:41; Admin Dose 1,000 UNIT; Start 02/26/17 at 09:00 Levothyroxine Sodium 100 mcg 100 mcg DAILY@06 PO Last administered on 06:41; Admin Dose 100 MCG; Start 02/26/17 at 06:00 Vancomycin HCl (Vancocin) 100 ml @ 100 mls/hr Q12H IVPB Last administered on 07:49; Admin Dose 100 MLS/HR; Start 02/27/17 at 08:00 ABBY ABURTO NP Feb 27, 2017 15:49
--- NOTE | 2017-02-27 16:59 | CONS ---
Date/Time of Note Date/Time of Note DATE: 02/27/17 TIME: 16:53 Assessment/Plan Assessment/Plan Problems: (1) Non-pressure chronic ulcer of other part of right foot with fat layer exposed (2) Diabetes, polyneuropathy Additional Assessment/Plan Continue Betadine paint first webspace with daily dressing changes. I will monitor the patient in-house. I do not recommend surgery at this time. Patient will require [facility] upon discharge. Thank you very much again for involving me in the care of this patient. Consultation Date/Type/Reason Admit Date/Time Feb 23, 2017 at 17:45 Date of Consultation: Feb 26, 2017 Type of Consultation: Foot and ankle surgery Reason for Consultation Open wound right first webspace Hx of Present Illness Thank you very much for your kind consultation. As you very well know this is a 61-year-old male patient including diabetes mellitus, peripheral neuropathy, peripheral vascular disease, recurrent light right lower extremity cellulitis, essential hypertension, hard of hearing who came to the emergency room with chief complaint of infection in his right foot. He is status post incision and drainage with debridement of necrotic open wound of the right foot on January 11, 2017 by myself. I was consulted for evaluation of his right foot since he is readmitted for the same foot. Patient reports no pain and denies fever, chills, nausea or vomiting. Constitutional: improved, no complaints Eyes: no complaints ENT: no complaints Respiratory: no complaints Cardiovascular: no complaints Gastrointestinal: no complaints Psychological: nl mood/affect, no complaints Past Medical History Medical History: no pertinent history Past Surgical History Surgical debridement right foot January 11, 2017. Social History Smoking Status: Unknown if ever smoked Exam/Review of Systems Vital Signs Vitals Vital Signs Date Time Temp Pulse Resp B/P Pulse Ox O2 Delivery O2 Flow Rate FiO2 02/27/17 08:02 98.2 75 18 105/60 98 02/24/17 01:43 Room Air Intake and Output 02/26/17 02/26/17 02/27/17 15:00 23:00 07:00 Intake Total 1440 ml 360 ml Output Total 1400 ml 500 ml Balance 40 ml -140 ml Exam Patient is laying supine in bed in no acute rest. Bandages were removed from the right foot. Webspace open wound present mildly necrotic with hyperkeratotic skin. There is mild malodor present. The wound does not seem to be deep and does not probe to bone. There is no active drainage and no bleeding noted. Nontender to palpation. There is significant reduction in edema of the right foot. There is no erythema and no other open wound. Patient has significant thick toenails with subungual debris on both feet. Sensation is decreased to sharp, dull, vibratory and temperature stimuli. Labs reviewed. Imaging reviewed. Results Result Diagram: 02/27/17 0305 02/27/17 0305 Results 24 hrs Laboratory Tests Test 02/26/17 17:07 02/26/17 21:46 02/27/17 03:05 02/27/17 07:48 Bedside Glucose 93 110 76 White Blood Count 7.6 Red Blood Count 2.71 L Hemoglobin 9.2 L Hematocrit 26.5 L Mean Corpuscular Volume 97.8 Mean Corpuscular Hemoglobin 33.9 H Mean Corpuscular Hemoglobin Concent 34.7 Red Cell Distribution Width 14.4 Platelet Count 111 L Mean Platelet Volume 10.1 Neutrophils % 24.7 L Lymphocytes % 21.7 Monocytes % 9.8 Eosinophils % 42.8 H Basophils % 0.9 Nucleated Red Blood Cells % 0.0 Neutrophils # 1.9 Lymphocytes # 1.7 Monocytes # 0.8 Eosinophils # 3.3 H Basophils # 0.1 Nucleated Red Blood Cells # 0.0 Sodium Level 139 Potassium Level 3.8 Chloride Level 107 Carbon Dioxide Level 23 Anion Gap 13 Blood Urea Nitrogen 16 Creatinine 1.28 H Glucose Level 94 Calcium Level 8.9 Phosphorus Level 4.6 Magnesium Level 1.8 Vancomycin Level Trough 19.5 Test 02/27/17 11:47 Bedside Glucose 109 Medications Medications Current Medications Levofloxacin/ Dextrose (Levaquin 500mg/ D5W 100 ml (Pmx)) 100 ml @ 100 mls/hr Q24H IVPB Last administered on 02/26/17t 18:50; Admin Dose 100 MLS/HR; Start 02/23/17 at 19:00 Ondansetron HCl (Zofran Inj) 4 mg Q6H PRN IV NAUSEA AND/OR VOMITING; Start 02/23 at 19:00 Acetaminophen (Tylenol Tab) 650 mg Q6H PRN PO PAIN LEVEL 1-3 OR FEVER; Start at 19:00 Acetaminophen/ Hydrocodone Bitart ([place] (5/325)) 1 tab Q6H PRN PO MODERATE PAIN LEVEL 4-6; Start 02/23/17 at 19:00 Morphine Sulfate (morphine) 2 mg Q4H PRN IV SEVERE PAIN LEVEL 7-10; Start at 19:00 Docusate Sodium (Colace) 100 mg Q12H PRN PO CONSTIPATION; Start 02/23/17 at 19: 00 Famotidine (Pepcid) 20 mg Q12 PO Last administered on 02/27/17 08:41; Admin Dose 20 MG; Start 02/23/17 at 21:00 Enoxaparin Sodium (Lovenox) 40 mg DAILY SC Last administered on 02/27/17 08:44 ; Admin Dose 40 MG; Start 02/24/17 at 09:00 Insulin Glargine (Lantus) 7 unit DAILY@20 SC Last administered on 02/26/17 21: 48; Admin Dose 7 UNIT; Start 02/23/17 at 20:00 Hydralazine HCl (Apresoline) 10 mg Q6H PRN IV SBP>160; Start 02/23/17 at 19:00 Lisinopril (Zestril) 5 mg DAILY PO Last administered on 02/27/17 08:41; Admin Dose 5 MG; Start 02/24/17 at 09:00 Miscellaneous Information 1 ea NOTE XX ; Start 02/23/17 at 19:30 Glucose (Glutose) 15 gm Q15M PRN PO DECREASED GLUCOSE; Start 02/23/17 at 19:30 Glucose (Glutose) 22.5 gm Q15M PRN PO DECREASED GLUCOSE; Start 02/23/17 at 19:30 Dextrose (D50w Syringe) 25 ml Q15M PRN IV DECREASED GLUCOSE; Start 02/23/17 at 19:30 Dextrose (D50w Syringe) 50 ml Q15M PRN IV DECREASED GLUCOSE; Start 02/23/17 at 19:30 Glucagon (Glucagen) 1 mg Q15M PRN IM DECREASED GLUCOSE; Start 02/23/17 at 19:30 Glucose (Glutose) 15 gm Q15M PRN BUCCAL DECREASED GLUCOSE; Start 02/23/17 at 19: 30 Aspirin (Halfprin) 81 mg DAILY PO Last administered on 02/27/17 08:41; Admin Dose 81 MG; Start 02/24/17 at 09:00 Cholecalciferol (Vitamin D) 1,000 unit DAILY PO Last administered on 02/27/17 08:41; Admin Dose 1,000 UNIT; Start 02/26/17 at 09:00 Levothyroxine Sodium 100 mcg 100 mcg DAILY@06 PO Last administered on 06:41; Admin Dose 100 MCG; Start 02/26/17 at 06:00 Vancomycin HCl (Vancocin) 100 ml @ 100 mls/hr Q12H IVPB Last administered on 07:49; Admin Dose 100 MLS/HR; Start 02/27/17 at 08:00 CONNER GORDON DPM Feb 27, 2017 16:59
[2017-02-27] MEDS: LEVOFLOXACIN 500MG/D5W (PMX) 100 ML IVPB SCH (18:13)
[2017-02-27 20:15] VITALS: BP 141/76; RESP 70
[2017-02-27] MEDS: INSULIN GLARGINE [LANtus] 3 ML PEN SC SCH (21:00)
[2017-02-28 05:35] LABS: CREATININE 1.22 mg/dl (0.61-1.24)
[2017-02-28] MEDS: LEVOTHYROXINE 100 MCG TAB PO SCH (06:37)
[2017-02-28 07:42] VITALS: BP 115/63; RESP 16
[2017-02-28] MEDS: INSULIN ASPART [NOVOLOG] 3 ML PEN SC SCH ×7 (08:00→20:12)
[2017-02-28] MEDS: ASPIRIN (EC) 81 MG TAB PO SCH (09:23)
[2017-02-28] MEDS: CHOLECALCIFEROL 1,000 UNIT TAB PO SCH (09:23)
[2017-02-28] MEDS: FAMOTIDINE 20 MG TAB PO SCH ×2 (09:23→20:15)
[2017-02-28] MEDS: LISINOPRIL 5 MG TAB PO SCH (09:24)
[2017-02-28] MEDS: ENOXAPARIN 40 MG/0.4 ML SYG SC SCH (09:27)
[2017-02-28] MEDS: VANCOMYCIN 500MG/NS (PMX) 100 ML IVPB SCH ×2 (09:29→20:40)
--- NOTE | 2017-02-28 12:55 | CONS ---
Date/Time of Note Date/Time of Note DATE: 02/28/17 TIME: 12:53 Assessment/Plan Assessment/Plan Chief Complaint/Hosp Course SUBJECTIVE: Patient is awake, lying comfortably in bed. No fevers ANTIMICROBIALS: 1. Vancomycin. 2. Levaquin. PHYSICAL EXAMINATION: GENERAL: Well-developed elderly man who is in no distress. HEENT: Head atraumatic, normocephalic. Sclerae anicteric. Buccal mucosa pink. NECK: Supple, trachea midline. CHEST: Rise symmetrical. Breath sounds diminished to bases. HEART: S1, S2. ABDOMEN: Soft, bowel tones present. EXTREMITIES: With right foot chronic wound. ASSESSMENT: 1. Right foot osteomyelitis, status post incision and drainage with wound culture grew Enterobacter cloacae, STAR and Staph species. 2. Diabetes. 3. Status post sepsis and urinary tract infection. PLAN: The patient remains clinically stable. Recommend to keep on current abx for 6 weeks, f/u podiatry rec-s [facility] staff Problems: Consultation Date/Type/Reason Admit Date/Time Feb 23, 2017 at 17:45 Type of Consultation: id Exam/Review of Systems Vital Signs Vitals Vital Signs Date Time Temp Pulse Resp B/P Pulse Ox O2 Delivery O2 Flow Rate FiO2 02/28/17 07:42 98.2 65 16 115/63 99 Intake and Output 02/27/17 02/27/17 02/28/17 15:00 23:00 07:00 Intake Total 100 ml 1050 ml 520 ml Output Total 450 ml 600 ml Balance 100 ml 600 ml -80 ml Results Result Diagram: 02/27/17 0305 02/28/17 0445 Results 24 hrs Laboratory Tests Test 02/27/17 17:02 02/27/17 20:58 02/28/17 04:45 02/28/17 08:00 Bedside Glucose 112 87 87 Blood Urea Nitrogen 19 Creatinine 1.22 Test 02/28/17 11:56 Bedside Glucose 101 Medications Medications Current Medications Levofloxacin/ Dextrose (Levaquin 500mg/ D5W 100 ml (Pmx)) 100 ml @ 100 mls/hr Q24H IVPB Last administered on 02/27/17t 18:13; Admin Dose 100 MLS/HR; Start at 19:00 Ondansetron HCl (Zofran Inj) 4 mg Q6H PRN IV NAUSEA AND/OR VOMITING; Start 02/23 at 19:00 Acetaminophen (Tylenol Tab) 650 mg Q6H PRN PO PAIN LEVEL 1-3 OR FEVER; Start at 19:00 Acetaminophen/ Hydrocodone Bitart ([place] (5/325)) 1 tab Q6H PRN PO MODERATE PAIN LEVEL 4-6; Start 02/23/17 at 19:00 Morphine Sulfate (morphine) 2 mg Q4H PRN IV SEVERE PAIN LEVEL 7-10; Start at 19:00 Docusate Sodium (Colace) 100 mg Q12H PRN PO CONSTIPATION; Start 02/23/17 at 19: 00 Famotidine (Pepcid) 20 mg Q12 PO Last administered on 02/28/17 09:23; Admin Dose 20 MG; Start 02/23/17 at 21:00 Enoxaparin Sodium (Lovenox) 40 mg DAILY SC Last administered on 02/28/17 09:27 ; Admin Dose 40 MG; Start 02/24/17 at 09:00 Insulin Glargine (Lantus) 7 unit DAILY@20 SC Last administered on 02/27/17 21: 00; Admin Dose 7 UNIT; Start 02/23/17 at 20:00 Hydralazine HCl (Apresoline) 10 mg Q6H PRN IV SBP>160; Start 02/23/17 at 19:00 Lisinopril (Zestril) 5 mg DAILY PO Last administered on 02/28/17 09:24; Admin Dose 5 MG; Start 02/24/17 at 09:00 Miscellaneous Information 1 ea NOTE XX ; Start 02/23/17 at 19:30 Glucose (Glutose) 15 gm Q15M PRN PO DECREASED GLUCOSE; Start 02/23/17 at 19:30 Glucose (Glutose) 22.5 gm Q15M PRN PO DECREASED GLUCOSE; Start 02/23/17 at 19:30 Dextrose (D50w Syringe) 25 ml Q15M PRN IV DECREASED GLUCOSE; Start 02/23/17 at 19:30 Dextrose (D50w Syringe) 50 ml Q15M PRN IV DECREASED GLUCOSE; Start 02/23/17 at 19:30 Glucagon (Glucagen) 1 mg Q15M PRN IM DECREASED GLUCOSE; Start 02/23/17 at 19:30 Glucose (Glutose) 15 gm Q15M PRN BUCCAL DECREASED GLUCOSE; Start 02/23/17 at 19: 30 Aspirin (Halfprin) 81 mg DAILY PO Last administered on 02/28/17 09:23; Admin Dose 81 MG; Start 02/24/17 at 09:00 Cholecalciferol (Vitamin D) 1,000 unit DAILY PO Last administered on 02/28/17 09:23; Admin Dose 1,000 UNIT; Start 02/26/17 at 09:00 Levothyroxine Sodium 100 mcg 100 mcg DAILY@06 PO Last administered on 06:37; Admin Dose 100 MCG; Start 02/26/17 at 06:00 Vancomycin HCl (Vancocin) 100 ml @ 100 mls/hr Q12H IVPB Last administered on 09:29; Admin Dose 100 MLS/HR; Start 02/27/17 at 08:00 ABBY ABURTO NP Feb 28, 2017 12:55
--- NOTE | 2017-02-28 14:28 | PN ---
Date/Time of Note Date/Time of Note DATE: 02/28/17 TIME: 14:26 Assessment/Plan VTE Prophylaxis VTE Prophylaxis Intervention: LMWH Lines/Catheters IV Catheter Type (from Nrs): Central Line Assessment/Plan Chief Complaint/Hosp Course Assessment and plan 1. Recurrent right foot cellulitis. Continue on antibiotics per ID. cont with wound care per podiatry 2. History of type 2 diabetes. A1c noted at 5.7. Continue on insulin regimen. 3. Essential hypertension. Patient to be resumed on his antihypertensives. We' ll adjust as needed 4. History of PVD. Patient with reported angiogram of right lower extremity done that showed no evidence of obstruction. Continue on antiplatelet therapy 5. Anemia likely of chronic disease. H&H remained stable. We'll monitor 6. Hyperthyroidism. Continue on Synthroid 7. Vitamin D deficiency. Continue vitamin D supplement DVT prophylaxis: Lovenox Disposition and plan: cont abx. plan for picc line placement. Discussed plan of care with Dr. Ulloa Problems: Subjective 24 Hr Interval Summary Free Text/Dictation Comfortable at present. No specific complaints Exam/Review of Systems Vital Signs Vitals Vital Signs Date Time Temp Pulse Resp B/P Pulse Ox O2 Delivery O2 Flow Rate FiO2 02/28/17 07:42 98.2 65 16 115/63 99 Intake and Output 02/27/17 02/27/17 02/28/17 15:00 23:00 07:00 Intake Total 100 ml 1050 ml 520 ml Output Total 450 ml 600 ml Balance 100 ml 600 ml -80 ml Exam General: No acute signs or symptoms of distress, comfortable Eyes: pupils equal round Neck: no JVD Cardiac: regular rate Pulmonary: No coarse rhonchi or breathing auscultated GI:soft, nontender Extremities: No edema bilateral lower extremities Skin: Scaly appearance of skin general. Also noted with right lower extremity edema with brownish discoloration of bilateral lower extremities. There is seen fungal-like appearance of toes right lower extremity. unchanged Neurologic: Alert to person place and time and situation, deaf Results Result Diagram: 02/27/17 0305 02/28/17 0445 Results 24 hrs Laboratory Tests Test 02/27/17 17:02 02/27/17 20:58 02/28/17 04:45 02/28/17 08:00 Bedside Glucose 112 87 87 Blood Urea Nitrogen 19 Creatinine 1.22 Test 02/28/17 11:56 Bedside Glucose 101 Medications Medications Current Medications Levofloxacin/ Dextrose (Levaquin 500mg/ D5W 100 ml (Pmx)) 100 ml @ 100 mls/hr Q24H IVPB Last administered on 02/27/17 18:13; Admin Dose 100 MLS/HR; Start at 19:00 Ondansetron HCl (Zofran Inj) 4 mg Q6H PRN IV NAUSEA AND/OR VOMITING; Start 02/23 at 19:00 Acetaminophen (Tylenol Tab) 650 mg Q6H PRN PO PAIN LEVEL 1-3 OR FEVER; Start at 19:00 Acetaminophen/ Hydrocodone Bitart ([place] (5/325)) 1 tab Q6H PRN PO MODERATE PAIN LEVEL 4-6; Start 02/23/17 at 19:00 Morphine Sulfate (morphine) 2 mg Q4H PRN IV SEVERE PAIN LEVEL 7-10; Start at 19:00 Docusate Sodium (Colace) 100 mg Q12H PRN PO CONSTIPATION; Start 02/23/17 at 19: 00 Famotidine (Pepcid) 20 mg Q12 PO Last administered on 02/28/17 09:23; Admin Dose 20 MG; Start 02/23/17 at 21:00 Enoxaparin Sodium (Lovenox) 40 mg DAILY SC Last administered on 02/28/17 09:27 ; Admin Dose 40 MG; Start 02/24/17 at 09:00 Insulin Glargine (Lantus) 7 unit DAILY@20 SC Last administered on 02/27/17 21: 00; Admin Dose 7 UNIT; Start 02/23/17 at 20:00 Hydralazine HCl (Apresoline) 10 mg Q6H PRN IV SBP>160; Start 02/23/17 at 19:00 Lisinopril (Zestril) 5 mg DAILY PO Last administered on 02/28/17 09:24; Admin Dose 5 MG; Start 02/24/17 at 09:00 Miscellaneous Information 1 ea NOTE XX ; Start 02/23/17 at 19:30 Glucose (Glutose) 15 gm Q15M PRN PO DECREASED GLUCOSE; Start 02/23/17 at 19:30 Glucose (Glutose) 22.5 gm Q15M PRN PO DECREASED GLUCOSE; Start 02/23/17 at 19:30 Dextrose (D50w Syringe) 25 ml Q15M PRN IV DECREASED GLUCOSE; Start 02/23/17 at 19:30 Dextrose (D50w Syringe) 50 ml Q15M PRN IV DECREASED GLUCOSE; Start 02/23/17 at 19:30 Glucagon (Glucagen) 1 mg Q15M PRN IM DECREASED GLUCOSE; Start 02/23/17 at 19:30 Glucose (Glutose) 15 gm Q15M PRN BUCCAL DECREASED GLUCOSE; Start 02/23/17 at 19: 30 Aspirin (Halfprin) 81 mg DAILY PO Last administered on 02/28/17 09:23; Admin Dose 81 MG; Start 02/24/17 at 09:00 Cholecalciferol (Vitamin D) 1,000 unit DAILY PO Last administered on 02/28/17 09:23; Admin Dose 1,000 UNIT; Start 02/26/17 at 09:00 Levothyroxine Sodium 100 mcg 100 mcg DAILY@06 PO Last administered on 06:37; Admin Dose 100 MCG; Start 02/26/17 at 06:00 Vancomycin HCl (Vancocin) 100 ml @ 100 mls/hr Q12H IVPB Last administered on 09:29; Admin Dose 100 MLS/HR; Start 02/27/17 at 08:00 ENRIKE BARCENAS Feb 28, 2017 14:28
[2017-02-28] MEDS ORDERED: LIDOCAINE 1% (MDV) 20 ML INJ SC ONE (14:30)
--- NOTE | 2017-02-28 15:27 | PDOCDIS ---
Discharge Instructions DIAGNOSIS Discharge Diagnosis: 1. Recurrent right foot cellulitis 2. type 2 diabetes 3. hx pvd 4. htn CONDITION Patient Condition: Stable HOME CARE INSTRUCTIONS: Special Diet: carb controlled FOLLOW UP/APPOINTMENTS Appointments 1. Follow up with Dr. Hieu Holly [facility] in one week 2. Follow up with your primary care provider in one week ENRIKE BARCENAS Feb 28, 2017 15:27
[2017-02-28] MEDS ORDERED: ASPI-664 PO (15:35)
[2017-02-28] MEDS ORDERED: SYN1 PO (15:35)
[2017-02-28] MEDS ORDERED: CHOL100062 PO (15:35)
[2017-02-28] MEDS ORDERED: HYDR-3498 PO (15:35)
[2017-02-28] MEDS ORDERED: Vancomycin Iv Per Pharmacy XX (15:35)
[2017-02-28] MEDS ORDERED: LEVO500T72 IVPB (15:35)
[2017-02-28] MEDS ORDERED: LISI-313 PO (15:35)
[2017-02-28] MEDS: LEVOFLOXACIN 500MG/D5W (PMX) 100 ML IVPB SCH (19:28)
[2017-02-28 20:00] VITALS: BP 136/70; PULSE 78; RESP 21
[2017-02-28] MEDS: INSULIN GLARGINE [LANtus] 3 ML PEN SC SCH (20:15)
[2017-02-28 20:25] VITALS: BP 136/70; RESP 21
--- NOTE | 2017-02-28 20:43 | PN ---
Date/Time of Note Date/Time of Note DATE: 02/28/17 TIME: 20:43 Assessment/Plan Lines/Catheters IV [facility]from [facility] Central Line Assessment/Plan Chief Complaint/Hosp Course Thank you very much for your kind consultation. As you very well know this is a 61-year-old male patient including diabetes mellitus, peripheral neuropathy, peripheral vascular disease, recurrent light right lower extremity cellulitis, essential hypertension, hard of hearing who came to the emergency room with chief complaint of infection in his right foot. He is status post incision and drainage with debridement of necrotic open wound of the right foot on January 11, 2017 by myself. I was consulted for evaluation of his right foot since he is readmitted for the same foot. Patient reports no pain and denies fever, chills, nausea or vomiting. Problems: Exam/Review of Systems Vital Signs Vitals Vital Signs Date Time Temp Pulse Resp B/P Pulse Ox O2 Delivery O2 Flow Rate FiO2 02/28/17 07:42 98.2 65 16 115/63 99 Intake and Output 02/27/17 02/27/17 02/28/17 15:00 23:00 07:00 Intake Total 100 ml 1050 ml 520 ml Output Total 450 ml 600 ml Balance 100 ml 600 ml -80 ml Results Result Diagram: 02/27/17 0305 02/28/17 0445 CONNER GORDON DPM Feb 28, 2017 20:43
--- NOTE | 2017-03-05 17:01 | DS ---
Date/Time of Note Date/Time of Note DATE: 03/05/17 TIME: 16:55 Discharge Summary Admission/Discharge Info Admit Date/Time Feb 23, 2017 at 17:45 Discharge Date/Time Feb 28, 2017 at 22:25 Final Diagnosis 1. Recurrent right foot cellulitis. 2. History of type 2 diabetes. 3. Essential hypertension. 4. History of PVD. 5. Anemia likely of chronic disease. 6. Hyperthyroidism. 7. Vitamin D deficiency. Consults 1. Dr. Johnny Parra 2. Dr. Hieu Holly 3. Erick Becker, MARQUEZ Hospital Course This is a 61-year-old male with history of diabetes, diabetic neuropathy, PVD, recurrent right lower extremity cellulitis and essential hypertension who is also hard of hearing came to [facility] due to reports of right foot infection. Patient was recently discharged from by [facility] on January 24, 2017 after treatment of his right foot infection. He was to be continued on IV antibiotics for 6 weeks. It was suspected the patient was no longer getting his antibiotics appropriately and did have further pain and subsequently went to [facility] for further evaluation. Upon further examination he did have a lactic acid of 2.5. He remained afebrile. He again however was consulted by video coordinator as well as by ID consult. Patient was recommended wound care per video coordinator. We also did resume on his IV antibiotics. He did have good response. During his course of stay he did improve. He was otherwise optimized medically. He was continued on insulin for his reported diabetes. He was on antihypertensives for his hypertension. He did have a history of PVD and resumed on his antiplatelet therapy. He was noted to be anemic likely of chronic disease. His H&H did remain stable. Did also resume on his vitamin D supplement for his vitamin D deficiency. During his course of stay he did improve. The plan of care was discussed with the patient and patient did verbalize understanding. He was set up for PICC placement for outpatient antibiotic therapy. On the day of discharge patient was in stable condition Discussed plan of care with Dr. Ulloa Discharge process time: 40 minutes Home Meds Active Scripts Levofloxacin* (Levaquin*) 500 Mg Tablet, 500 MG IVPB DAILY for 42 Days, TAB Prov:ENRIKE BARCENAS 02/28/17 [Vancomycin Iv Per Pharmacy] 1 EA EACH No Conflict Check, 0 EA XX .PER PROTOCOL for 42 Days Prov:ENRIKE BARCENAS 02/28/17 Lisinopril* (Lisinopril*) 5 Mg Tablet, 5 MG PO DAILY for 30 Days, TAB Prov:ENRIKE BARCENAS 02/28/17 Levothyroxine Sodium (Levothroid) 100 Mcg Tablet, 100 MCG PO DAILY@06 for 30 Days, TAB Prov:ENRIKE BARCENAS 02/28/17 Hydrocodone Bit-Acetaminophen (Hydrocodone Bit-APAP) 5-325MG Tablet, 1 TAB PO Q6H Y for MODERATE PAIN LEVEL 4-6, #30 TAB Prov:ENRIKE BARCENAS 02/28/17 Cholecalciferol* (Vitamin D3*) 1,000 Unit Tablet, 1000 UNIT PO DAILY for 30 Days , TAB Prov:ENRIKE BARCENAS 02/28/17 Aspirin* (Aspirin* EC) 81 Mg Tablet.dr 81 MG PO DAILY for 30 Days Prov:ENRIKE BARCENAS 02/28/17 Follow-up Plan CONDITION Patient Condition: Stable HOME CARE INSTRUCTIONS: Special Diet: carb controlled FOLLOW UP/APPOINTMENTS Appointments 1. Follow up with Dr. H[facility] in one week 2. Follow up with your primary care provider in one week ENRIKE BARCENAS Mar 05, 2017 17:01
== END 2017-02-28 22:25 | disposition home or self-care (01) | DRG 638 ==
LOC: FTE 14:08 → PP2 17:45
PROVIDERS: ADMIT Family Medicine; ATTEND Family Medicine
DX: E11.628 Type 2 diabetes mellitus with other skin complications (principal); E87.2 Acidosis; M86.9 Osteomyelitis, unspecified; R65.10 Systemic inflammatory response syndrome (SIRS) of non-infectious origin without acute organ dysfunction; E11.621 Type 2 diabetes mellitus with foot ulcer; E11.42 Type 2 diabetes mellitus with diabetic polyneuropathy; E11.51 Type 2 diabetes mellitus with diabetic peripheral angiopathy without gangrene; B96.89 Other specified bacterial agents as the cause of diseases classified elsewhere; L97.512 Non-pressure chronic ulcer of other part of right foot with fat layer exposed; L03.031 Cellulitis of right toe; E11.69 Type 2 diabetes mellitus with other specified complication; E55.9 Vitamin D deficiency, unspecified; E03.9 Hypothyroidism, unspecified; I10 Essential (primary) hypertension; D63.8 Anemia in other chronic diseases classified elsewhere; D50.9 Iron deficiency anemia, unspecified; N31.9 Neuromuscular dysfunction of bladder, unspecified; Z87.440 Personal history of urinary (tract) infections
CPT/HCPCS: 36415; 73630; 80048; 80053; 80061; 80202; 82565; 82652; 82728; 82962; 83036; 83540; 83605; 83735; 84100; 84439; 84443; 84484; 84520; 85025; 85610; 85651; 85730; 87040; 87070; 93005; 96365; 96366; 96375; J0692; J1650; J1815; J1956; J3370; J3475; J7030

== ENCOUNTER 2017-03-09 12:46 | Emergency (ER) | payer OTHER ==
[~2017-03-09] VITALS: Ht 172.7 cm; Wt 70.0 kg
[~2017-03-09 12:46] MED LIST changes: -AMLO-218 PO; +ASPI-664 PO; +CHOL100062 PO; +HYDR-3498 PO; +LEVO500T72 IVPB; +LISI-313 PO; +SYN1 PO; +Vancomycin Iv Per Pharmacy XX
[2017-03-09 12:51] VITALS: Ht 172.7 cm; Wt 70.0 kg
[2017-03-09] MEDS ORDERED: SODIUM CHLORIDE 0.9% 1L BAG IV* STA (17:19)
[2017-03-09 17:48] LABS: ADD SCAN DIFF NO
[2017-03-09 17:50] LABS: ABNORMAL IP MESSAGE 1; HEMATOCRIT 26.8 % (42.0-52.0); HEMOGLOBIN 9.2 g/dl (14.0-18.0); MEAN CORPUSCULAR HEMOGLOBIN 33.9 pg (29.0-33.0); MEAN CORPUSCULAR HGB CONC 34.3 g/dl (32.0-37.0); MEAN CORPUSCULAR VOLUME 98.9 fl (82.0-101.0); MEAN PLATELET VOLUME 11.3 fl (7.4-10.4); PLATELET COUNT 99 10^3/UL (140-415); RED BLOOD COUNT 2.71 10^6/ul (4.70-6.10); RED CELL DISTRIBUTION WIDTH 14.3 % (11.5-14.5); WHITE BLOOD COUNT 8.6 10^3/ul (4.8-10.8)
[2017-03-09 17:59] LABS: ALBUMIN 3.4 g/dl (3.3-4.9); CHLORIDE 106 mmol/L (97-110); INR 1.26; PROTIME 15.9 Sec (12.2-14.2); PT RATIO 1.2
[2017-03-09 18:00] LABS: POTASSIUM 3.8 mmol/L (3.5-5.1); SODIUM 140 mmol/L (135-144)
[2017-03-09 18:02] LABS: ALBUMIN/GLOBULIN RATIO 0.72; ALKALINE PHOSPHATASE 126 IU/L (42-121); ANION GAP 15 (8-16); ASPARTATE AMINO TRANSFERASE 36 IU/L (15-46); BILIRUBIN,INDIRECT 0.3 mg/dl (0-1.1); BILIRUBIN,TOTAL 0.3 mg/dl (0.2-1.3); CARBON DIOXIDE 23 mmol/L (21-31); CREATININE 1.26 mg/dl (0.61-1.24); TOTAL PROTEIN 8.1 g/dl (6.1-8.1)
[2017-03-09 18:03] LABS: ALANINE AMINOTRANSFERASE 25 IU/L (13-69); BLOOD UREA NITROGEN 22 mg/dl (7-20); CALCIUM 9.4 mg/dl (8.4-10.2); GLUCOSE 194 mg/dl (70-220)
[2017-03-09 18:16] LABS: ADD UMIC YES; URINE BILIRUBIN (Dip) NEGATIVE (NEGATIVE); URINE BLOOD (Dip) 1+ (NEGATIVE); URINE COLOR LT. YELLOW (YELLOW); URINE GLUCOSE (Dip) NEGATIVE (NEGATIVE); URINE KETONES (Dip) NEGATIVE (NEGATIVE); URINE LEUKOCYTE ESTERASE (Dip) TRACE (NEGATIVE); URINE NITRITE (Dip) NEGATIVE (NEGATIVE); URINE TOTAL PROTEIN (Dip) NEGATIVE (NEGATIVE); URINE UROBILINOGEN (Dip) 0.2 E.U./dL (0.1-1.0)
[2017-03-09 18:17] LABS: TROPONIN-I < 0.012 ng/ml (0.00-0.12)
--- NOTE | 2017-03-09 18:18 | RADRPT ---
PROCEDURE: XR Chest. CLINICAL INDICATION: Sepsis TECHNIQUE: Chest AP portable. COMPARISON: No comparison available. FINDINGS: The mediastinal structures are unremarkable. The heart is normal in size and configuration. The pu lmonary vascularity is normal. There are low lung volumes. There is mild bibasilar subsegmental at electasis. No consolidation is identified. The pleural spaces are unremarkable. The axial skeleto n is unremarkable. IMPRESSION: Low lung volumes Mild bibasilar subsegmental atelectasis No consolidation identified RPTAT: HGDB .Onofre Ojeda MD, MD Date Time Electronically viewed and signed by .Onofre Ojeda MD, on 03/09/2017 18:18 .B/
[2017-03-09 18:36] LABS: SQUAMOUS EPITHELIAL CELL,UR FEW; URINE RBCS 0-2 /HPF (0)
[2017-03-09 19:00] LABS: BASOPHIL # 0.1 10^3/ul (0.0-0.1); EOSINOPHILS # 2.4 10^3/ul (0.0-0.5); MONOCYTE # 0.7 10^3/ul (0.3-0.9); NEUTROPHIL # 3.2 10^3/ul (1.6-7.5)
[2017-03-09 19:02] LABS: PLATELET ESTIMATE PLT APPEAR DECREASED
--- NOTE | 2017-03-09 19:27 | RADRPT ---
PROCEDURE: Right XR Foot. CLINICAL INDICATION: Assess for progression of osteomyelitis. TECHNIQUE: AP lateral and oblique views of the right foot was obtained. The images were reviewed on a PACS workstation. COMPARISON: Right foot 01/24/2017.. FINDINGS: The bony elements rarefied. There are vascular calcifications in the first digital artery, anterior tibial artery, posterior tibial artery and dorsalis pedis arteries. There is soft tissue swelling of the right foot. There is no radiographic evidence of a fracture, gas gangrene or osteomyelitis. IMPRESSION: 1. There is no radiographic evidence of osteomyelitis. 2. Soft tissue swelling of the right foot. 3. Rarefaction of bony elements. 4. Monckenberg vascular calcifications. RPTAT:AAJJ Physician Jeanette Date Time Electronically viewed and signed by Physician Jeanette on 03/09/2017 19:26 JULIO/
[2017-03-09] MEDS ORDERED: CIPR500T4 PO (20:58)
[2017-03-09 21:25] VITALS: BP 135/84; PULSE 73; RESP 19; TEMP 98
--- NOTE | 2017-03-31 15:47 | ERD ---
DATE OF SERVICE: 03/09/2017 HISTORY OF PRESENT ILLNESS: This 61-year-old male was sent in for bleeding from his PICC line site. Reportedly had been trickling blood from the lumens of his PICC line. Also states that he has had increased urinary frequency and complains of right lower extremity cellulitis. The cellulitis has been present for some time. He does receive care for his wound. He denies fevers and chills. Sajan es generalized weakness, chest pain, shortness of breath. REVIEW OF SYSTEMS: A 10-point review of systems obtained and negative except as in the HPI. PAST MEDICAL HISTORY: Diabetes, diabetic neuropathy, chronic right foot ulcer. PAST SURGICAL HISTORY: Debridement of right foot ulcer. SOCIAL HISTORY: Lives at home with family. Occasionally drinks alcohol. Denies alcohol or other drugs. FAMILY HISTORY: Noncontributory. PHYSICAL EXAMINATION: VITAL SIGNS: Temperature 97.6, pulse 117, blood pressure 142/81, respirations 18, oxygen saturation 100% on room air. GENERAL: No acute distress. HEENT: Normocephalic, atraumatic. NECK: Supple, no JVD or meningismus. LUNGS: Clear to auscultation bilaterally. CARDIAC: Mild regular tachycardia without murmurs. ABDOMEN: Soft, nontender, nondistended, no masses. NEUROLOGIC: Alert and oriented, no focal deficits. EXTREMITIES: Left PICC line with site clean, dry and intact, no bleeding from the PICC line current ly. VASCULAR: Distal pulses intact all 4 extremities. MUSCULOSKELETAL: Right foot ankle area with ulceration with no necrotic tissue, very mild suly rounding the lesion when compared to the rest with no additional surrounding erythema. SKIN: No rashes or other lesions. LABORATORY DATA: CBC significant for not having elevated white blood cell count. Hemoglobin is low at 9.2, which is consistent with patient's baseline on prior visit. Platelet count is depressed at 99, consistent with prior thrombocytopenia. Chemistry significant for a mild creatinine elevation of 1.26. Lactic acid is 2.5, which is elevated. Liver function tests within normal limits except f or mildly elevated alkaline phosphatase. Troponin is negative. Urinalysis with positive leukocyte esterase without white blood cells. Coagulation studies are essentially within normal limits. IMAGING: Chest x-ray interpreted by myself: I see no acute process, no infiltrates, no widened med iastinum, no pulmonary edema, no fractures. Right foot x-ray interpretation: I see no fractures, n o bony erosion consistent with osteomyelitis, no dislocations. EKG INTERPRETATION: Normal sinus rhythm, rate of 81, left anterior fascicular block, left axis yadi ation, no ST or T-wave changes concerning for acute ischemia. BAKER TEST INTERPRETATION: Normal sinus rhythm without arrhythmia after initial sinus tachyca rdia. EMERGENCY DEPARTMENT COURSE/MEDICAL DECISION MAKING: The patient with a description consistent with urinary tract infection. Right foot cellulitis appears chronic in nature. PICC line bleeding was secondary to not having the proper caps on the PICC line, which was easily remedied in the emergency room. New caps were placed and the PICC line functioned very well. Patient was tachycardic on arr ival and is diabetic with the complaint of 2 possible infectious sources. Therefore, a septic micky p was performed, in which the patient did not have an elevated white blood cell count. After mild f luid resuscitation, the patient's lactic acid, which was elevated at 2.5, was reduced. He did not h ave physical exam evidence of dehydration, but was likely mildly dehydrated because of lactic acid. That was easily corrected. Mild elevation of glucose was also corrected with fluid administration. Heart rate decreased to a normal level and remained that way prior to fluid resuscitation. The devon mendoza was afebrile and did not meet SIRS criteria. Most of his laboratories are at baseline. He is currently feeling well in the emergency room. Given the symptoms of urinary frequency and positive leukocyte esterase, I am going to discharge him with ciprofloxacin. The patient does have excell t followup currently. I am instructing him to follow up with his doctor in the next day or 2. Urin e culture was also obtained and the patient will be called if the culture results are positive for a n infectious source that cannot be covered by ciprofloxacin. DISCHARGE DIAGNOSES: 1. PICC line complication, bleeding. 2. Urinary tract infection. 3. Dehydration. 4. Lactic acidosis. 5. Thrombocytopenia. 6. Renal insufficiency. DISPOSITION: Home in stable condition. Dictated By: ELOISA BRITO/FREDERICK Conf#: [id number] DID#: [id number]
== END 2017-03-09 21:27 | disposition home or self-care (01) ==
LOC: E/R 12:46
DX: T82.838A Hemorrhage due to vascular prosthetic devices, implants and grafts, initial encounter (principal); N39.0 Urinary tract infection, site not specified; E86.0 Dehydration; E87.2 Acidosis; D69.6 Thrombocytopenia, unspecified; N28.9 Disorder of kidney and ureter, unspecified; E11.9 Type 2 diabetes mellitus without complications; Y82.8 Other medical devices associated with adverse incidents
CPT/HCPCS: 71010; 73630; 80053; 81001; 83605; 84484; 85025; 85610; 85730; 87040; 87086; 93005; J7030; 36415; 81003

== ENCOUNTER 2017-03-11 17:52 | Emergency (ER) | payer OTHER ==
[~2017-03-11] VITALS: Ht 162.6 cm; Wt 67.9 kg
[~2017-03-11 17:52] MED LIST changes: +CIPR500T4 PO
[2017-03-11 17:53] VITALS: Ht 162.6 cm; Wt 67.9 kg
--- NOTE | 2017-03-11 19:47 | ERD ---
ER Documentation Chief Complaint Date/Time DATE: 03/11/17 TIME: 19:38 Chief Complaint called for blood work up BC +? on iv antbiotics HPI 3-year-old man called back to the emergency department for recent blood cultures which were positive for gram-positive cocci in clusters. His family member who is with him states he receives intravenous levofloxacin and vancomycin daily and has had no fevers or chills no chest pain or shortness of breath, no diaphoresis, no night sweats. He was earlier diagnosed with cellulitis and she states those symptoms including redness and swelling to the legs have improved. ROS All systems reviewed and are negative except as per history of present illness. Medications Home Meds Active Scripts Ciprofloxacin Hcl* (Ciprofloxacin Hcl*) 500 Mg Tablet, 500 MG PO BID for 3 Days , TAB Prov:ELOIAS DAVIS DO 03/09/17 Levofloxacin* (Levaquin*) 500 Mg Tablet, 500 MG IVPB DAILY for 42 Days, TAB Prov:ENRIKE BARCENAS 02/28/17 [Vancomycin Iv Per Pharmacy] 1 EA EACH No Conflict Check, 0 EA XX .PER PROTOCOL for 42 Days Prov:ENRIKE BARCENAS 02/28/17 Lisinopril* (Lisinopril*) 5 Mg Tablet, 5 MG PO DAILY for 30 Days, TAB Prov:ENRIKE BARCENAS 02/28/17 Levothyroxine Sodium (Levothroid) 100 Mcg Tablet, 100 MCG PO DAILY@06 for 30 Days, TAB Prov:ENRIKE BARCENAS 02/28/17 Hydrocodone Bit-Acetaminophen (Hydrocodone Bit-APAP) 5-325MG Tablet, 1 TAB PO Q6H Y for MODERATE PAIN LEVEL 4-6, #30 TAB Prov:ENRIKE BARCENAS 02/28/17 Cholecalciferol* (Vitamin D3*) 1,000 Unit Tablet, 1000 UNIT PO DAILY for 30 Days , TAB Prov:ENRIKE BARCENAS 02/28/17 Aspirin* (Aspirin* EC) 81 Mg Tablet.dr, 81 MG PO DAILY for 30 Days Prov:ENRIKE BARCENAS 02/28/17 Allergies Allergies: Coded Allergies: No Known Allergies (Verified Allergy, Unknown, 03/09/17) PMhx/Soc Recurrent lower extremity cellulitis, diabetes mellitus type 2, hypertension, peripheral vascular disease, anemia, hyperthyroidism History of Surgery: Yes (R foot debriedment 2/22/17; ear sx as a child) Hx Neurological Disorder: Yes (Neuropathy) Hx Respiratory Disorders: No Hx Cardiac Disorders: No Hx Psychiatric Problems: No Hx Miscellaneous Medical Probl: No Hx Alcohol Use: Yes Smoking Status: Never smoker FmHx Family History: No diabetes Physical Exam Vitals Vital Signs Date Time Temp Pulse Resp B/P Pulse Ox O2 Delivery O2 Flow Rate FiO2 03/11/17 17:53 98.1 92 20 128/72 99 Physical Exam GENERAL: Well-developed, well-nourished, well-hydrated, in no apparent distress , looks nontoxic in appearance HEENT: Moist mucous membranes, pink conjunctiva, no cervical spine tenderness or step-off deformities, no goiter, no jaundice or icterus, extraocular movements intact without pain. No submandibular induration, and no pharyngeal erythema NEURO: Alert and oriented 3, cranial nerves II through XII intact bilaterally, pupils equal round reactive to light, no focal deficits or facial asymmetry, sensation intact distally Strength 5/5 in upper and lower extremities bilaterally CARDIAC: Regular rate and rhythm, no murmurs rubs or gallops LUNGS: Clear bilaterally no wheezing crackles or stridor ABDOMEN: Soft nontender, no guarding, no rigidity, no rebound, no psoas sign no obturator sign. Normoactive bowel sounds SKIN: Warm and dry to touch, no abrasions, contusions, or hematomas, no lacerations, no ecchymosis, no target lesions, and without ulcers EXTREMITIES: No clubbing cyanosis or edema, calves are bilaterally symmetrical, no Homans sign, no popliteal cord sign. Distal pulses equal and bilateral PSYCH: Normal affect without agitation or irritability Procedures/MDM Patient is asymptomatic at this time and does receive daily IV vancomycin and levofloxacin this is strong coverage against MRSA especially in the setting of an asymptomatic patient. My recommendation was to continue IV antibiotics as prescribed and to repeat blood cultures after the PICC line has been removed. PICC line colonization was also considered although again the patient is asymptomatic and my recommendation was to continue IV antibiotics. Patient feels much better at this time, and vital signs are normal, symptoms have improved. I did give strict instructions to return to the ED if symptoms continue or worsen, patient will otherwise follow-up with primary care physician. Patient understood instructions and agreed to plan. Departure Diagnosis: Primary Impression: Cellulitis of right foot Additional Impression: Positive blood culture Condition: Good Patient Instructions: Cellulitis PATY QUIGLEY MD Mar 11, 2017 19:47
== END 2017-03-11 18:50 | disposition home or self-care (01) ==
LOC: E/R 17:52
DX: L03.115 Cellulitis of right lower limb (principal); R78.89 Finding of other specified substances, not normally found in blood; Z79.82 Long term (current) use of aspirin
CPT/HCPCS: 99282

== ENCOUNTER 2019-03-18 11:21 | Emergency (ER) | payer OTHER ==
[~2019-03-18] VITALS: Ht 165.1 cm; Wt 76.7 kg
[~2019-03-18 11:21] MED LIST changes: -ASPI-664 PO; +ASPI-817 PO; -HYDR-3498 PO; +HYDR-3601 PO; +LEVO-86 PO; +LEVO500T48 IVPB; -LEVO500T72 IVPB; -SYN1 PO
[2019-03-18 11:24] VITALS: Ht 165.1 cm; Wt 76.7 kg
[2019-03-18] MEDS ORDERED: LIDOCAINE 1% (MPF) 5 ML VIAL INJ ONE (15:00)
[2019-03-18] MEDS ORDERED: DIPHTH/TET/ACEL PERTUSS (ADULT) 0.5 ML VIAL IM* ONE (15:00)
[2019-03-18] MEDS ORDERED: CEPH-443 PO (15:42)
--- NOTE | 2019-03-18 15:51 | ERD ---
ER Documentation Chief Complaint Chief Complaint laceration with s/p fall possible alcohol use, no KO per sister HPI 63-year-old male presents with laceration to forehead. Patient has been drinking excessively and tripped and fell. Patient is nonverbal. He has a long history of excessive alcohol abuse. Denies other medical problems. No vomiting since the incident and no known loss of conscious. Acting normal per sister. Denies other medical problems. NKDA. Surgical history denies. Social history denies ROS All systems reviewed and are negative except as per history of present illness. Medications Home Meds Active Scripts Cephalexin* (Keflex*) 500 Mg Capsule, 500 MG PO QID for 7 Days, CAP Prov:JAM JOYNER PA-C 03/18/19 Ciprofloxacin Hcl* (Ciprofloxacin Hcl*) 500 Mg Tablet, 500 MG PO BID for 3 Days, TAB Prov:ELOISA DAVIS DO 03/09/17 Levofloxacin* (Levaquin*) 500 Mg Tablet, 500 MG IVPB DAILY for 42 Days, TAB Prov:ENRIKE BARCENAS 02/28/17 [Vancomycin Iv Per Pharmacy] 1 EA EACH No Conflict Check, 0 EA XX .PER PROTOCOL for 42 Days Prov:ENRIKE BARCENAS 02/28/17 Lisinopril* (Lisinopril*) 5 Mg Tablet, 5 MG PO DAILY for 30 Days, TAB Prov:ENRIKE BARCENAS 02/28/17 Levothyroxine Sodium (Levothroid) 100 Mcg Tablet, 100 MCG PO DAILY@06 for 30 Days, TAB Prov:ENRIKE BARCENAS 02/28/17 Hydrocodone Bit-Acetaminophen (Hydrocodone Bit-APAP) 5-325MG Tablet, 1 TAB PO Q6H PRN for MODERATE PAIN LEVEL 4-6, #30 TAB Prov:ENRIKE BARCENAS 02/28/17 Cholecalciferol* (Vitamin D3*) 1,000 Unit Tablet, 1000 UNIT PO DAILY for 30 Days, TAB Prov:ENRIKE BARCENAS 02/28/17 Aspirin* (Aspirin* EC) 81 Mg Tablet.dr, 81 MG PO DAILY for 30 Days Prov:ENRIKE BARCENAS 02/28/17 Allergies Allergies: Coded Allergies: No Known Allergies (Verified Allergy, Unknown, 03/09/17) PMhx/Soc History of Surgery: Yes (R foot debriedment 01/11/17; ear sx as a child) Hx Neurological Disorder: Yes (Neuropathy) Hx Respiratory Disorders: No Hx Cardiac Disorders: No Hx Psychiatric Problems: No Hx Miscellaneous Medical Probl: Yes (PT IS DEAF ) Hx Alcohol Use: Yes (hx ETOH abuse) Hx Substance Use: No Hx Tobacco Use: No FmHx Family History: No diabetes, No coronary disease, No other Physical Exam Vitals Vital Signs Date Temp Pulse Resp B/P (MAP) Pulse Ox O2 O2 Flow FiO2 Time Delivery Rate 03/18/19 97.9 72 18 133/71 100 11:24 (91) Physical Exam GENERAL: The patient is well-appearing, well-nourished, in no acute distress HEENT: Atraumatic. Conjunctivae are pink. Pupils equal, round, and reactive to light. There is no scleral icterus. Tympanic membranes clear bilaterally. Oropharynx clear. CHEST: Clear to auscultation bilaterally. There are no rales, wheezes or rhonchi. HEART: Regular rate and rhythm. No murmurs, clicks, rubs or gallops. EXTREMITIES: Equal pulses bilaterally. There is no peripheral clubbing, cyanosis or edema. No focal swelling or erythema. Full range of motion. Grossly neurovascularly intact. NEUROLOGIC: Alert and oriented. Cranial nerves II through XII intact. Motor strength in all 4 extremities with 5 out of 5 strength. Sensation grossly intact. Normal speech and gait. SKIN: Deep abrasions noted to forehead with lacerations. Results 24 hrs Laboratory Tests Test 03/18/19 14:54 Bedside Glucose 139 mg/dL Current Medications Medications Dose Sig/Lucy Start Time Status Last (Trade) Ordered Route PRN Stop Time Admin Dose Reason Admin Diphtheria/ 0.5 ml ONCE ONCE 03/18/19 DC 03/18/19 Tetanus/Acell IM* 15:00 14:55 Pertussis 03/18/19 15:01 (Adacel) Lidocaine 5 ml ONCE ONCE 03/18/19 DC (Xylocaine INJ 15:00 1% (Mpf)) 03/18/19 15:01 Procedures/MDM DIAGNOSTIC IMAGING REPORT Patient: MATILDA WICK : 1955 Age: 63 Sex: M MR #: [id number] DOS: 03/18/19 1437 Ordering MD: CAROLE JOYNER PA-C Location: [facility] Room/Bed: PROCEDURE: CT Brain without contrast. CLINICAL INDICATION: head injury TECHNIQUE: A CT of the brain was performed on a GE LightSpeed 64-slice CT scanner utilizing axial imaging from the skull base through the vertex without IV contrast. Multiplanar reformatted images were made. Images were reviewed on a PACS workstation. The CTDIvol is 48.1 mGy and the DLP is 838.7 mGycm. DICOM images are available. One or more of the following dose reduction techniques were utilized: 1.) Automated exposure control 2.) Adjustment of the mA +/- kV according to patient's size 3.) Use of iterative reconstruction technique. COMPARISON: None FINDINGS: There is no intracranial hemorrhage, mass effect, or midline shift. No extra- axial fluid collection is seen. There is mild diffuse cerebral volume loss with prominence of the cerebral sulci. Stevenson-white matter differentiation is preserved. Mild mucosal thickening in the right maxillary sinus is present. The remainder of the paranasal sinuses are clear. Suspect small left frontal midline scalp hematoma/laceration. IMPRESSION: 1. No evidence of acute intracranial pathology. 2. Suspect small left frontal midline scalp hematoma/laceration. 3. Diffuse cerebral volume loss. Laceration Repair by me: Anesthesia: 1% lidocaine locally Location: Mid forehead and nose Tendon/Joint/Nerves: No injury Foreign body: None detected after copious irrigation and exploration Technique: Site copiously cleaned and Dermabond applied. Complexity: No subcutaneous sutures/mucosal repair/edge excision Post Closure Length: large deep abrasions - multiple, macerated skin Patient's bleeding was easily controlled in the department and there is no sary cation of anemia. No evidence of compartment syndrome, neurologic injury, vascular injury, open joint, tendon laceration, or foreign body. Patient is appropriate for outpatient follow up. 48 hour wound check. Scar minimization instructions given. MDM: 63-year-old male presenting with deep abrasions and macerated skin to forehead. Patient is discharged with strict ER precautions. No sutures were placed as I felt that there was concern that wound would worsen with swelling. Patient benefited from Dermabond. I have low suspicion for intracranial hemorrhage or neuro deficit. Patient is discharged with strict ER precautions. I avoided placing patient on Tylenol given he is a heavy drinker. Patient will be given antibiotics this is likely a dirty wound. All questions answered at discharge Departure Diagnosis: Primary Impression: Head injury Additional Impression: Laceration Condition: Stable Patient Instructions: HEAD INJURY with Wake-Up (Adult), Laceration, All Referrals: [facility] YOU HAVE RECEIVED A MEDICAL SCREENING EXAM AND THE RESULTS INDICATE THAT YOU DO NOT HAVE A CONDITION THAT REQUIRES URGENT TREATMENT IN THE EMERGENCY DEPARTMENT. FURTHER EVALUATION AND TREATMENT OF YOUR CONDITION CAN WAIT UNTIL YOU ARE SEEN IN YOUR DOCTORS OFFICE WITHIN THE NEXT 1-2 DAYS. IT IS YOUR RESPONSIBILITY TO MAKE AN [facility]. IF YOU HAVE A PRIMARY DOCTOR --you should call your primary doctor and schedule an appointment IF YOU DO NOT HAVE A PRIMARY DOCTOR YOU CAN CALL OUR PHYSICIAN REFERRAL HOTLINE AT IF YOU CAN NOT AFFORD TO SEE A PHYSICIAN YOU CAN CHOSE FROM THE FOLLOWING [facility] [address] [facility]. [facility] [address] [facility] [address] [facility] [address] [facility] [address] [facility] [address] [facility] [address] Additional Instructions: FOLLOW UP WITH YOUR PRIMARY CARE PHYSICIAN TOMORROW.Return to this facility if you are not improving as expected. JAM JOYNER PA-C Mar 18, 2019 15:51
[2019-03-18 15:52] VITALS: BP 128/75; PULSE 70; RESP 18
== END 2019-03-18 15:54 | disposition home or self-care (01) ==
LOC: FTE 11:21
DX: S01.81XA Laceration without foreign body of other part of head, initial encounter (principal); S01.21XA Laceration without foreign body of nose, initial encounter; S09.90XA Unspecified injury of head, initial encounter; W01.0XXA Fall on same level from slipping, tripping and stumbling without subsequent striking against object, initial encounter; Y92.9 Unspecified place or not applicable; Z23 Encounter for immunization; Z79.82 Long term (current) use of aspirin
CPT/HCPCS: 70450; 82962; 90471; 90715